=== PATIENT | female | born 1960 | race Caucasian/White ===

== ENCOUNTER 2020-02-17 17:07 | Emergency (ER) | payer OTHER, SELFPAY ==
[2020-02-17 17:17] VITALS: BP 159/68; PULSE 63; RESP 20; TEMP 36.7; O2SAT 99
--- NOTE | 2020-02-17 17:17 | ED.SOB ---
HPI - SOB/Dyspnea General Chief Complaint: Shortness of Breath/Dyspnea Stated Complaint: heartburn/wheezing Time Seen by Provider: 02/17/20 17:17 Source: patient and RN notes reviewed History of Present Illness HPI Narrative: Patient is a 60-year-old female who presents the urgent care with complaints of wheezing and heartburn. Patient states she has a long history of heartburn and her omeprazole was changed approximately 3 weeks ago to Pepcid. Patient states that the Pepcid was improving her symptoms, however she is out of the 40 mg Pepcid at this time. Patient states that she is now having some worsening wheezing as well within the last week and has been using her inhaler and nebulizers. Patient has a long history of COPD and she is no more short of breath than normal. Patient denies any known fever, chills, nausea, vomiting, chest pain. Denies any known contact with COVID. No other acute complaints. No acute distress noted. Patient read the plan of care. Related Data Allergies Allergy/AdvReac Type Severity Reaction Status Date / Time No Known Allergies Allergy Verified 02/17/20 17:34 Review of Systems Review of Systems: Narrative: CONSTITUTIONAL: Denies fever, chills, or sweats. EYES: Denies visual changes, redness, or discharge. ENT: Denies rhinorrhea, congestion, sore throat, or otalgia. CARDIOVASCULAR: Denies chest pain, palpitations, or edema. RESPIRATORY: Reports of chronic dyspnea and increased wheezing GASTROINTESTINAL: Denies abdominal pain, nausea, vomiting, or diarrhea. GENITOURINARY: Denies dysuria or hematuria. SKIN: Denies rash or itching. MUSCULOSKELETAL: Denies back pain, joint pain, or myalgia. NEUROLOGIC: Denies headache, numbness, or weakness. All other systems reviewed are negative, except as documented in HPI. PMFSH Comments At the time of my signature, I reviewed and agree with the nursing past medical, surgical, social, and family history. There is no relevant family history pertinent to the patient complaint. Exam Narrative: Exam Narrative: GENERAL: This is a well-nourished, well-developed patient, in no apparent distress. HEAD: normocephalic, atraumatic. EYES: PERRL. Sclera clear/white. Vision is grossly intact. EARS: External ears normal, auditory canals clear and without drainage, TMs normal without perforation. Hearing grossly intact. NOSE: External nose normal with no obvious nasal discharge, nares without redness, no rhinorrhea. THROAT: Mucous membranes moist, posterior pharynx clear. NECK: Neck supple CARDIOVASCULAR: Regular rate and rhythm without murmurs, gallops, or rubs. RESPIRATORY: Slight expiratory wheezes to bilateral upper lobes with slightly diminished bibasilar GASTROINTESTINAL: Abdomen soft, non-tender, nondistended. SKIN: warm, intact with no suspicious lesions or rash, good texture and turgor. NEURO: awake, alert, and oriented to person, place and time. There were no obvious focal neurologic abnormalities. EXTREMITIES: No clubbing, cyanosis, or edema. Course Vital Signs Vital signs: Vital Signs Temperature 98.1 F 02/17/20 17:17 Pulse Rate 63 02/17/20 17:17 Respiratory Rate 20 02/17/20 17:17 Blood Pressure 159/68 H 02/17/20 17:17 Pulse Oximetry 99 02/17/20 17:17 Temperature 98.1 F 02/17/20 17:17 Pulse Rate 63 02/17/20 17:17 Respiratory Rate 20 02/17/20 17:17 Blood Pressure 159/68 H 02/17/20 17:17 Pulse Oximetry 99 02/17/20 17:17 Reviewed?patient is informed that they may have pre-hypertension or hypertension based on a blood pressure reading in the department. I recommend the patient call the primary care provider listed on their discharge instructions or a physician of their choice this week to arrange follow-up for further evaluation of possible pre-hypertension or hypertension. MDM - SOB/Dyspnea MDM Narrative Medical decision making narrative: Advised the patient to continue using her nebulizers and inhalers as needed. Complete steroi
== END 2020-02-17 17:45 | disposition home or self-care (01) ==
PROVIDERS: Emergency Provider Nurse Practitioner Family; PCP Family Medicine
DX: R06.2 Wheezing (principal); K21.9 Gastro-esophageal reflux disease without esophagitis; J44.9 Chronic obstructive pulmonary disease, unspecified; E78.00 Pure hypercholesterolemia, unspecified; E03.9 Hypothyroidism, unspecified; I10 Essential (primary) hypertension; F31.9 Bipolar disorder, unspecified
CPT/HCPCS: 99213; G0463

== ENCOUNTER 2020-03-13 17:13 | Emergency (ER) | payer OTHER, SELFPAY ==
[2020-03-13 17:18] VITALS: BP 143/67; PULSE 65; RESP 16; TEMP 36.3; O2SAT 97
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
== END 2020-03-13 17:50 | disposition home or self-care (01) ==
PROVIDERS: Emergency Provider Nurse Practitioner; PCP Family Medicine
DX: M54.42 Lumbago with sciatica, left side (principal); S39.012A Strain of muscle, fascia and tendon of lower back, initial encounter; G89.29 Other chronic pain; E03.9 Hypothyroidism, unspecified; X50.0XXA Overexertion from strenuous movement or load, initial encounter
CPT/HCPCS: 99213; G0463

== ENCOUNTER 2020-11-10 18:06 | Emergency (ER) | payer OTHER, SELFPAY ==
[2020-11-10 18:13] VITALS: BP 182/91; PULSE 79; RESP 26; TEMP 36.1; O2SAT 89
[2020-11-10 18:20] VITALS: PULSE 79; RESP 26; O2SAT 89
--- NOTE | 2020-11-10 18:20 | ED.SOB ---
HPI - SOB/Dyspnea General Chief Complaint: Shortness of Breath/Dyspnea Stated Complaint: need nebulizer meds Time Seen by Provider: 11/10/20 18:20 Source: RN notes reviewed History of Present Illness HPI Narrative: Patient is a 60-year-old female who presents to the urgent care with needs for nebulizer medication. Patient states that she was seen in the emergency room yesterday, had a negative Covid test, and was treated for bronchitis and COPD exacerbation. Patient states that she did not realize she was almost out of her nebulizer solution and was unable to get a refill from her doctor today. Patient states that yesterday she was sent home on steroids, antibiotics and inhalers from the emergency room. Patient states that when she is taking her nebulizer solution appropriately, she does not experience the shortness of breath. However patient does have chronic shortness of breath. Currently denies of any chest pain, fever, nausea, vomiting. Patient states that she is also been following closely with her PCP. No other acute complaints. Patient read the plan of care. Some parts of this dictation were generated by voice recognition software and may contain typographical and/or grammatical inaccuracies. Related Data Home Medications Medication Instructions Recorded Confirmed albuterol sulfate 1 inh INHALATION QID PRN 02/17/20 11/10/20 albuterol sulfate 2.5 mg INHALATION Q4H PRN 02/17/20 11/10/20 divalproex 1,500 mg PO DAILY 02/17/20 11/10/20 levothyroxine 100 mcg PO DAILY 02/17/20 11/10/20 sertraline 100 mg PO DAILY 02/17/20 11/10/20 dexamethasone 12 mg PO DAILY 11/10/20 11/10/20 hydrocodone-acetaminophen 1 tablet PO Q6H PRN 11/10/20 11/10/20 levofloxacin 750 mg PO DAILY 11/10/20 11/10/20 metoprolol succinate 100 mg PO DAILY 11/10/20 11/10/20 rosuvastatin 20 mg PO DAILY 11/10/20 11/10/20 ziprasidone HCl 40 mg PO BID 11/10/20 11/10/20 Allergies Allergy/AdvReac Type Severity Reaction Status Date / Time No Known Allergies Allergy Verified 11/10/20 18:35 Review of Systems Review of Systems: Narrative: CONSTITUTIONAL: Denies fever, chills, or sweats. EYES: Denies visual changes, redness, or discharge. ENT: Denies rhinorrhea, congestion, sore throat, or otalgia. CARDIOVASCULAR: Denies chest pain, palpitations, or edema. RESPIRATORY: Acute on chronic dyspnea recently diagnosed with COPD exacerbation and bronchitis GASTROINTESTINAL: Denies abdominal pain, nausea, vomiting, or diarrhea. GENITOURINARY: Denies dysuria or hematuria. SKIN: Denies rash or itching. MUSCULOSKELETAL: Denies back pain, joint pain, or myalgia. NEUROLOGIC: Denies headache, numbness, or weakness. All other systems reviewed are negative, except as documented in HPI. [facility] Past Medical History Medical History (Updated 11/10/20 @ 19:00 by NANCY Mason) Bipolar disorder Chronic back pain Hypothyroidism Social History Social History Gender identity (if verbalized by the patient): Female Comments At the time of my signature, I reviewed and agree with the nursing past medical, surgical, social, and family history. There is no relevant family history pertinent to the patient complaint. Exam Narrative: Exam Narrative: GENERAL: This is a well-nourished, well-developed patient, in no apparent distress. HEAD: normocephalic, atraumatic. EYES: PERRL. Sclera clear/white. Vision is grossly intact. EARS: External ears normal NOSE: External nose normal with no obvious nasal discharge, nares without redness, no rhinorrhea. THROAT: Mucous membranes moist NECK: Neck supple CARDIOVASCULAR: Regular rate and rhythm without murmurs, gallops, or rubs. RESPIRATORY: Tight wheezes/rhonchi noted throughout SKIN: warm, intact with no suspicious lesions or rash, good texture and turgor. NEURO: awake, alert, and oriented to person, place and time. There were no obvious focal neurologic abnormalities. EXTREMITIES: No clubbing, cyanosis, or edema. Course Vital Sig
[2020-11-10] MEDS: ALBUTEROL SULFATE NEB 2.5 MG/3 ML INH INHALATION (18:32)
[2020-11-10 18:52] VITALS: BP 155/73; PULSE 66; RESP 20; O2SAT 92
== END 2020-11-10 19:03 | disposition home or self-care (01) ==
PROVIDERS: Emergency Provider Nurse Practitioner Family; PCP Internal Medicine
DX: J40 Bronchitis, not specified as acute or chronic (principal); J44.1 Chronic obstructive pulmonary disease with (acute) exacerbation; E03.9 Hypothyroidism, unspecified; F31.9 Bipolar disorder, unspecified
CPT/HCPCS: 94640; 99213; G0463

== ENCOUNTER 2025-01-22 12:02 | Emergency (ER) | payer OTHER, SELFPAY ==
[2025-01-22] VITALS (21 sets, daily range): BP systolic 110–156; BP diastolic 66–140; PULSE 58–72; RESP 18–20; TEMP 36.6–36.7; O2SAT 90–99
--- NOTE | ~2025-01-22 | CT_ITS ---
Clinical Indication: Abdominal pain, nausea CT Scan of the Chest, Abdomen, and Pelvis with Contrast: Technique: Contiguous sections were acquired throughout the chest, abdomen, and pelvis after intraven ous administration of 100 cc of Omnipaque 350. Dose reduction technique was used on this scan by ana [place] automated exposure control and iterative reconstruction technique. The dose-length product (DL P) was 466.52 mGy-cm. Findings: Shotty mediastinal lymph nodes are not enlarged by size criteria. No axillary lymphadenopathy. The me diastinal soft tissues appear normal. There is no evidence of pleural or pericardial effusion. The lungs are clear. No pulmonary nodules or infiltrates are noted. The liver, spleen, pancreas, gallbladder, adrenals and kidneys are within normal limits. There are at herosclerotic calcifications of the aorta. No lymphadenopathy. No bowel obstruction or bowel wall thickening. There is no evidence to suggest acute appendicitis. Urinary bladder is unremarkable. No pelvic mass seen. No ascites. There is degenerative spondylosis o f the lumbar spine. Impression: No acute abnormalities seen. Reviewed, dictated and finalized at location . Impression: No acute abnormalities seen.
--- OUTSIDE RECORDS SUMMARY | 2025-01-22 12:05 | XMS_ITS | Encounter Summary ---
Author Organization [facility] Address [address] [place] [address] Phone Care Team Providers Care Body Trimmer Name Role Phone Wesley Moya MD, Contreras Unavailable [phone] Riky Strauss MD Primary Care Provider [phone] Brayden Sellers MD Unavailable Michi Berman MD Unavailable Tressa Johnson MD Primary Care Provider [phone] Antoinette George APRN, [facility] Unavailable Reason for Visit * Reason Onset Date Comments requesting order 11/07/2021 Encounter Details Date Type Department Care Team (Late st Contact Info) Description 11/07/2021 Telephone [facility] [address] [place] [address] Riky Strauss MD [address] [place] [address] requesting order Social History Tobacco Use Types Packs/Day Years Used Date Smoking Tobacco: Heavy Smoker Cigarettes 1 42.3 Started: 09/22/1982 Smokeless Tobacco: Never Alcohol Use Standard Drinks/Week Comments No 0 (1 standard drink = 0.6 oz pur e alcohol) Sexually Active Control Partners Comments Yes Male Comments No Sex and Gender Information Value Date Recorded Sex Assigned at Female 05/27/2023 12:23 PM CDT Legal Sex Female 11:01 PM CDT Gender Identity Female 05/27/2023 12:23 PM CDT Sexual Orientation Not on file COVID-19 Exposure Response Date Recorded In the last month, have you been in contact with someone who was confirmed or suspected to have Coronavirus / COVID-19? No / Unsure 11/10/2021 12:58 PM BIODIESEL PRODUCTION TECHNICIAN documented as of this encounter Miscellaneous Notes * Telephone Encounter - Munira Avelar RN - 11/08/2021 9:03 AM BIODIESEL PRODUCTION TECHNICIAN Routing to home health. IESEL PRODUCTION TECHNICIAN * Telephone Encounter - Riky Strauss MD - 11/08/2021 7:35 AM BIODIESEL PRODUCTION TECHNICIAN That would be fine. IESEL PRODUCTION TECHNICIAN * Telephone Encounter - Janna Giles, PT - 11/07/2021 3:[address] Dr. Strauss - Would you please give a verbal order for a supervisor home economics to see pt in her home 2x/week for a shorttime to assist with bathing? She is fearful to shower without assist at this time due to weakness and a recent fall. Thanks - Mona Giles, PT IESEL PRODUCTION TECHNICIAN documented in this encounter Plan of Treatment Not on file documented as of this encounter Visit Diagnoses Not on filedocumented in this encounter Additional Health Concerns Infection Onset Date Last Indicated Resolved Time COVID - 19 Confirmed 10/20/2021 10/20/2021 022 12:16 AM BIODIESEL PRODUCTION TECHNICIAN COVID - 19 04/09/2022 04/09/2022 04/09/2022 2:37 PM CDT COVID - 19 04/15/2022 04/15/2022 04/16/2022 7:50 AM CDT Respiratory Rule-Out 10/16/2022 10/16/2022 023 6:16 AM BIODIESEL PRODUCTION TECHNICIAN Influenza 10/16/2022 10/16/2022 10/23/2022 12:1 9 AM BIODIESEL PRODUCTION TECHNICIAN COVID - 19 10/21/2022 10/21/2022 10/22/2022 7:50 AM BIODIESEL PRODUCTION TECHNICIAN COVID - 19 10/28/2022 10/28/2022 10/29/2022 8:15 AM BIODIESEL PRODUCTION TECHNICIAN Respiratory Rule-Out 10/28/2022 10/28/2022 023 4:15 PM BIODIESEL PRODUCTION TECHNICIAN COVID - 19 11/09/2022 11/09/2022 11/19/2022 12:1 8 AM BIODIESEL PRODUCTION TECHNICIAN COVID - 19 11/25/2022 11/25/2022 11/26/2022 8:06 AM BIODIESEL PRODUCTION TECHNICIAN COVID - 19 10/15/2023 10/22/2023 11/01/2023 12:1 6 AM BIODIESEL PRODUCTION TECHNICIAN COVID - 19 12/12/2023 12/12/2023 12/12/2023 4:38 AM BIODIESEL PRODUCTION TECHNICIAN COVID - 19 12/23/2023 12/23/2023 12/23/2023 12:5 5 PM CDT COVID - 19 04/15/2024 04/15/2024 04/15/2024 4:34 PM CDT COVID - 19 08/25/2024 08/25/2024 08/25/2024 1:35 PM BIODIESEL PRODUCTION TECHNICIAN COVID - 19 Confirmed 08/25/2024 08/25/2024 024 12:16 AM BIODIESEL PRODUCTION TECHNICIAN COVID - 19 09/09/2024 09/09/2024 09/09/2024 1:04 PM BIODIESEL PRODUCTION TECHNICIAN COVID - 19 09/13/2024 09/13/2024 09/13/2024 7:49 AM BIODIESEL PRODUCTION TECHNICIAN documented as of this encounter Care Teams Body Trimmer Relationship Specialty Start Date End Date Riky Strauss MD [address] [place] [address] PCP - General Internal Medicine 09/18/21 07/29/23 Tressa Johnson MD [address] [place] [id number] PCP - General Family Medicine 07/30/23 Contreras Olson MD [address] [address] Psychiatry 06/17/19 Brayden Sellers MD [address] [place] [address] Consulting Physician Orthopaedic Sports Medicine 11/10/21 Michi Berman MD [address] [place] [address] Consulting Physician Pulmonary Disease 04/13/22 Antoinette George APRN, [facility] [address] [place] [address] Nurse Practitioner Advanced Practice Nurse 07/02/24 documented as of this encounter
--- OUTSIDE RECORDS SUMMARY | 2025-01-22 12:05 | XMS_ITS | Encounter Summary ---
Author Organization [facility] Address [address] [place] [address] Phone Care Team Providers Care Shear Scrapman Name Role Phone Wesley Moya MD, Contreras Unavailable [phone] Riky Strauss MD Primary Care Provider [phone] Brayden Sellers MD Unavailable Michi Berman MD Unavailable Tressa Johnson MD Primary Care Provider [phone] Antoinette George APRN, [facility] Unavailable Reason for Visit * Reason Comments Medication Refill Encounter Details Date Type Department Care Team (Late st Contact Info) Description 04/02/2022 Refill [facility] - Primary Care - Irene [address] [place] [address] Riky Strauss MD [address] [place], [place] [id number] Medication Refill Social History Tobacco Use Types Packs/Day Years [...] Exposure Response Date Recorded In the last 10 days, have yo u been in contact with someone who was confirmed or suspected to have Coronavirus/COVID-19? No / Unsure 04/03/2022 1:23 PM CDT documented as of this encounter Miscellaneous Notes * Telephone Encounter - Jennifer Mast RN - 04/02/2022 8:49 AM CDT Medication discontinued 03/01/2022. documented in this encounter Plan of Treatment Not on file documented as of this encounter Visit Diagnoses Diagnosis Strain of left knee, subsequent encounter documented in this encounter Additional Health Concerns Infection Onset Date Last Indicated Resolved Time COVID - 19 04/09/2022 04/09/2022 04/09/2022 2:37 PM CDT COVID - 19 04/15/2022 04/15/2022 04/16/2022 7:50 AM CDT Respiratory Rule-Out 10/16/2022 10/16/2022 023 6:16 AM PRICING LEAD Influenza 10/16/2022 10/16/2022 10/23/2022 12:1 9 AM PRICING LEAD COVID - 19 10/21/2022 10/21/2022 10/22/2022 7:50 AM PRICING LEAD COVID - 19 10/28/2022 10/28/2022 10/29/2022 8:15 AM PRICING LEAD Respiratory Rule-Out 10/28/2022 10/28/2022 023 4:15 PM PRICING LEAD COVID - 19 11/09/2022 11/09/2022 11/19/2022 12:1 8 AM PRICING LEAD COVID - 19 11/25/2022 11/25/2022 11/26/2022 8:06 AM PRICING LEAD COVID - 19 10/15/2023 10/22/2023 11/01/2023 12:1 6 AM PRICING LEAD COVID - 19 12/12/2023 12/12/2023 12/12/2023 4:38 AM PRICING LEAD COVID - 19 12/23/2023 12/23/2023 12/23/2023 12:5 5 PM CDT COVID - 19 04/15/2024 04/15/2024 04/15/2024 4:34 PM CDT COVID - 19 08/25/2024 08/25/2024 08/25/2024 1:35 PM PRICING LEAD COVID - 19 Confirmed 08/25/2024 08/25/2024 024 12:16 AM PRICING LEAD COVID - 19 09/09/2024 09/09/2024 09/09/2024 1:04 PM PRICING LEAD COVID - 19 09/13/2024 09/13/2024 09/13/2024 7:49 AM PRICING LEAD documented as of this encounter Care Teams Shear Scrapman Relationship Specialty Start Date End Date Riky Strauss MD [address] [place] [address] PCP - General Internal Medicine 09/18/21 07/29/23 Tressa Johnson MD [address] [place] [id number] PCP - General Family Medicine 07/30/23 Contreras Olson MD [address] [address] Psychiatry 06/17/19 Brayden Sellers MD [address] [place] [address] Consulting Physician Orthopaedic Sports Medicine 11/10/21 Michi Berman MD [address] [place] [address] Consulting Physician Pulmonary Disease 04/13/22 Antoinette George APRN, [facility] [address] [place] [address] Nurse Practitioner Advanced Practice Nurse 07/02/24 documented as of this encounter
--- OUTSIDE RECORDS SUMMARY | 2025-01-22 12:05 | XMS_ITS | Clinical Summary ---
Author Organization [facility] [employer] Address [address] [place] [address] Care Team Providers Care Jig And Fixture Repairer Name Role Phone Alec Domingo MD Primary Care Provider [phone] Source Comments [facility] [employer],non-owned Affiliates and Associated Physician Practices is amultiple site organization consisting of ambulatory clinics and hospital sitesin [place], [place] and [place]. This disclosure is being madepursuant to the Care Everywhere program and may not contain all information available regarding this patient. Last updated 18.[facility] [employer] Allergies Active Allergy Reactions Criticality Noted Date Comments Ketorolac Tromethamine Itching Low 04/08/2017 Tramadol Itching Low 04/11/2016 Medications * Be aware that medications may not be up to date on this document. Alwaysverify current medications with the patient. Medication Sig Dispensed Refills Start Date End Date Status albuterol HFA (PROVENTIL;VENTOLIN ;PROAIR) 108 (90 BASE) MCG/ACT inhalerIndications: Asthma,Chronic Obstructive Pulmonary Disease Inhale 2 Puffs by mouth every 6 hours as needed for Shortness of Breath or Wheezing. Indications: Asthma, Chronic Obstructive Lung Disease 1 Inhaler 1 04/26/2014 Active metoprolol succinate XL 24hr (TOPROL XL) 50 MG tabletIndications:H ypertension Take 1 Tab by mouth once daily. Indications: High Blood Pressure 30 Tab 1 04/26/2014 Active levothyroxine (SYNTHROID) 100 MCG tabletIndications:H ypothyroidism Take 1 Tab by mouth daily before breakfast. Indications: Underactive Thyroid 30 Tab 1 04/26/2014 Active omeprazole (PRILOSEC) 20 MG capsule 04/01/2016 Active polyethylene glycol 3350 (MIRALAX) powder 03/05/2016 Active docusate sodium (COLACE) 100 MG capsule Take 1 Cap by mouth 2 times daily 60 Cap 3 04/17/2016 Active temazepam (RESTORIL) 15 MG capsuleIndications: Insomnia Take 15 mg by mouth nightly as needed for Insomnia Reasons: Trouble Sleeping Active divalproex ER 24hr (DEPAKOTE ER) 500 MG tabletIndications:b ipolar Take 3 tablets by mouth at bedtime Reasons: bipolar 90 tablet 12/05/2017 Active divalproex ER 24hr (DEPAKOTE ER) 500 MG tabletIndications:M anic Phase of Bipolar Mood Disorder Take 1 tablet by mouth once daily Reasons: Manic Phase of Manic-Depression 30 tablet 12/06/2017 Active sertraline (ZOLOFT) 100 MG tabletIndications:A nxiety Disorder Take 1 tablet by mouth once daily Reasons: Anxiety Disorder 30 tablet 12/06/2017 Active risperiDONE (RISPERDAL) 2 MG tabletIndications:B ipolar Mood Disorder Take 1 tablet by mouth at bedtime Reasons: Manic-Depression 30 tablet 12/05/2017 Active nicotine (NICODERM CQ) 21 MG/24HR patchIndications:to bacco use Apply 1 patch to skin once daily Remove old patch before applying new patch. Reasons: tobacco use 30 patch 12/05/2017 Active Active Problems Problem Noted Date Diagnosed Date Bipolar disorder 04/21/2014 Borderline personality disorder 04/21/2014 Family History Medical History Relation Name Comments Depression Brother Cancer Mother Depression Mother Diabetes Mother Depression Sister Relation Name Status Comments Brother Mother Sister Social History Tobacco Use Types Packs/Day Years Used Date Smoking Tobacco: Former Cigarettes 1 38 0 12/02/1979 - 12/02/2017 Smokeless Tobacco: Never Tobacco Cessation:Counseling Given: No Alcohol Use Standard Drinks/Week Comments No 0 (1 standard drink = 0.6 oz pur e alcohol) Sex and Gender Information Value Date Recorded Sex Assigned at Not on file Gender Identity Not on file Sexual Orientation Not on file Last Filed Vital Signs Vital Sign Reading Time Taken Comments Blood Pressure 140/68 12/05/2017 6:09 AM COMPLIANCE TECHNICIAN Pulse 68 12/05/2017 6:09 AM COMPLIANCE TECHNICIAN Temperature 37 C (98.6 F) 12/05/2017 6:09 AM COMPLIANCE TECHNICIAN Respiratory Rate 18 12/05/2017 6:09 AM COMPLIANCE TECHNICIAN Oxygen Saturation 96% 12/05/2017 6:09 AM COMPLIANCE TECHNICIAN Inhaled Oxygen Concentration - - Weight 88 kg (194 lb 1.6 oz) 12/02/2017 10:20 AM COMPLIANCE TECHNICIAN Height 165.1 cm (5' 5 ) 12/02/2017 10:20 AM COMPLIANCE TECHNICIAN Body Mass Index 32.3 12/02/2017 10:20 AM COMPLIANCE TECHNICIAN Plan of Treatment Health Maintenance Due Date Last Done Comments BONE DENSITY TESTING 1960 COLOGUARD (AGES 45-75) - COLON CA SCREENING 1960 COLON MONITORING 1960 COLONOSCOPY - COLON CA SCREENING 1960 CT COLONOGRAPHY - COLON CA SCREENING 1960 Colorectal Cancer Screening 1960 FIT - COLON CA SCREENING 1960 FLEX SIG - COLON CA SCREENING 1960 MAMMOGRAM 1960 PAP SMEAR 1960 HIV SCREENING 01/09/1975 HEPATITIS C SCREENING 01/05/1978 DTAP/TDAP/TD VACCINES (1 - Tdap) 01/09/1979 PNEUMOCOCCAL VACCINE 50+ (1 of 1 - PCV) 01/09/2010 ZOSTER VACCINE (1 of 2) 01/09/2010 LIPID TESTING 12/03/2022 12/03/2017, 04/21/2014 COVID-19 VACCINE (2 - season) 2024 01/02/2022 INFLUENZA VACCINE (Season Ended) 2025 07/03/2022, 09/22/2021, 07/20/2020, Additional history exists Respiratory Syncytial Virus (RSV) Vaccine Pt: or over 60 yrs (1 - 1-dose 75+ series) 01/09/2035 HEPATITIS B VACCINE Aged Out No longe r eligible based on patient's age to complete this topic HIB VACCINE Aged Out No longer eligi ble based on patient's age to complete this topic HPV VACCINE Aged Out No longer eligi ble based on patient's age to complete this topic MENINGOCOCCAL (Group B) VACCINE SHARED DECISION-MAKING Aged Out No longer eligible based on patient's age to complete this topic MENINGOCOCCAL GROUPS A/C/Y/W VACCINE Aged Out No longer eligible based on patient's age to complete this topic Procedures Procedure Name Priority Date/Time Associated Diagnosis Comments LIPID PROFILE AM Draw 12/03/2017 8:01 AM COMPLIANCE TECHNICIAN from Last 3 Months or Most Recently Relevant to Health Maintenance Results * (ABNORMAL) LIPID PROFILE (12/03/2017 8:01 AM COMPLIANCE TECHNICIAN) Cholesterol 323(H) <200 mg/dL 12/03/2017 8:24 AM COMPLIANCE TECHNICIAN [facility] Triglycerides 396(H) <150 mg/dL 12/03/2017 8:24 AM COMPLIANCE TECHNICIAN [facility] HDL Cholesterol 33(L) >40 mg/dL 8 8:24 AM COMPLIANCE TECHNICIAN [facility] LDL Calculated 211(H) <130 mg/dL 12/03/2017 8:24 AM COMPLIANCE TECHNICIAN [facility] VLDL Calculated 79(H) <=30 mg/dL 8 8:24 AM COMPLIANCE TECHNICIAN [facility] Chol HDL Ratio 9.8(H) <4.5 12/03/2017 8:24 AM COMPLIANCE TECHNICIAN [facility] LDL/HDL Ratio 6.4(H) <5.0 12/03/2017 8:24 AM COMPLIANCE TECHNICIAN [facility] Blood BLOOD SPECIMEN / Unknown Venipuncture / Unknown 12/03/2017 8:01 AM COMPLIANCE TECHNICIAN 12/03/2017 8:01 AM COMPLIANCE TECHNICIAN Ta Abraham MD LAB - CHEMISTRY SIMONE [facility] Organization Address City/State/ZIP Co de Phone Number [facility] [address] [place] [address] from Last 3 Months or Most Recently Relevant to Health Maintenance Advance Directives * Full Code (Latest Code Status on File) Date Activated Date Inactivated Comments 12/02/2017 11:04 AM 12/05/2017 2:51 PM * Full Code Date Activated Date Inactivated Comments 04/17/2016 7:41 PM 04/18/2016 7:17 PM * Full Code Date Activated Date Inactivated Comments 04/21/2014 1:04 AM 04/26/2014 7:55 PM Care Teams Jig And Fixture Repairer Relationship Specialty Start Date End Date Alec Domingo MD [address] [place] [id number] PCP - General Family Medicine 04/11/16
--- OUTSIDE RECORDS SUMMARY | 2025-01-22 12:05 | XMS_ITS ---
Author Organization Unknown Address [address] [place] [phone] Phone Care Team Providers Care Pie Baker Name Role Phone LACIE BLANCOEN Attending Unavailable JIMENA Vu Primary Unavailable Immunization Immunization Date Status Additional Notes Code Code System pneumococcal polysaccharide PPV23 09/22/2021 Completed 33 CVX influenza, unspecified formulation 07/14/2019 Completed 88 CVX Tdap 04/07/2017 Completed 115 CVX Tdap 07/08/2020 Completed 115 CVX Influenza, high-dose, trivalent, PF 06/26/2018 Completed 135 CVX Influenza, split virus, trivalent, PF 11/30/2013 Completed 140 CVX Influenza, split virus, quadrivalent, PF 06/17/2019 Completed 150 CVX Influenza, split virus, quadrivalent, PF 09/22/2021 Completed 150 CVX Influenza, split virus, quadrivalent, PF 07/03/2022 Completed 150 CVX Influenza, split virus, quadrivalent, preservative 08/17/2015 Completed 158 C VX Influenza, split virus, quadrivalent, preservative 06/26/2016 Completed 158 C VX Influenza, split virus, quadrivalent, preservative 08/05/2023 Completed 158 C VX Influenza, MDCK, quadrivalen t, PF 07/20/2020 Completed 171 CVX COVID-19, mRNA, LNP-S, PF, 3 0 mcg/0.3 mL dose 01/08/2021 Completed 208 CVX COVID-19, mRNA, LNP-S, PF, 3 0 mcg/0.3 mL dose 01/29/2021 Completed 208 CVX Pneumococcal conjugate PCV20 , polysaccharide [id number] conjugate, adjuvant, PF 10/24/2022 Completed 216 CVX COVID-19, mRNA, LNP-S, PF, 3 0 mcg/0.3 mL dose, raymond-sucrose 01/02/2022 Completed 217 CVX Results MRI UE JOINT WO CONTRAST - C ompleted: 09/17/2023 16:17 LOINC: EXAM DESCRIPTION: MRI UE JOINT WO CONTRAST REASON FOR STUDY: Right shoulder MRI wo contrast. 2-3 months since injurious fall over a dog, resulting in blunt force trauma to right shoulder joint and subsequent pain/loss of R.O.M. and utility of right arm; pt holds right arm against the front of her body to protect the joint; joint pain wakes the pt at night. Trauma, as described. Duration: 2-3 months since injury without improvement. TECHNIQUE: Multiplanar, multisequence MRI of the right shoulder was performed without contrast. COMPARISON: X-rays 06/28/2023. FINDINGS: Rotator Cuff: There is a small full-thickness tear of the far leading edge of the supraspinatus over a 3 mm focus. Immediately posterior to this is moderate bursal surface and undersurface tearing over a 6 x 7 mm focus. Moderate tendinosis otherwise with a small focus of interstitial tearing. Mild tendinosis anterior infraspinatus. The subscapularis demonstrates mild tendinosis of the superolateral aspect. No tear. Teres minor demonstrates no significant tendinopathy or tear. Overall, there is normal muscle bulk and signal of rotator musculature itself. Biceps Tendon: The long head of the biceps tendon appears normal in the bicipital groove and at the anchor. Labrum: There is paralabral cyst formation seen along the posterior aspect of the posterior labrum just below the level of the equator measuring 3 mm. Paralabral cyst formation implies a tear. Labrum is otherwise intact. Acromion and AC Joint: The coracoacromial and coracoclavicular ligaments are intact. No os acromiale. Severe osteoarthritis AC joint. Mild type 2 acromion. Glenohumeral Articulation: Mild chondrosis. Bones: No acute fracture or suspicious marrow infiltration. Small cystic change deep to the bicipital groove. Joint and bursae: Mild joint effusion. Soft Tissues: The scapular notch, and quadrilateral space are unremarkable. There is no axillary lymphadenopathy. IMPRESSION: ? ? There is a small full-thickness tear of the far leading edge of the supraspinatus over a 3 mm focus. Immediately posterior to this is moderate bursal surface and undersurface tearing over a 6 x 7 mm focus. Moderate tendinosis otherwise with a small focus of interstitial tearing. ? ? Mild tendinosis anterior infraspinatus. ? ? Mild tendinosis superolateral subscapularis. ? ? 3 mm paralabral cyst formation is seen along the posterior aspect of the posterior labrum just below the level of the equator. Paralabral cyst formation implies a tear. ? ? Severe osteoarthritis AC joint. ? ? Mild chondrosis glenohumeral joint. ? ? Mild joint effusion. THIS IS AN ELECTRONICALLY VERIFIED FINAL REPORT 09/18/2023 9:04 AM - Electronically signed by Randal Worthington M.D. MJ: [id number] Report ID: [id number] Reading Location: [place] [address] Social History Type Status Start Date End Date Code Code Syst em Smoking History Never smoker (Never Smoked) [id number] SNOMED CT Sex Female Hospital Discharge Instructions Should you have any questions prior to discharge, please contact a member of your healthcare team. If you have left the hospital and have any questions, please contact your primary care physician. Reason For Referral No Data Found Plan of Treatment MRI UE Joint WO Contrast (22610) 2022 Encounters Encounter Diagnosis Start Date Code Code Sys tem Complete rotator cuff tear o r rupture of right shoulder, not specified as traumatic 09/17/2023 SNOMED-CT Personal Care Team Section Performer Name Performer Role Active Date Inactive Da te Imaging Narrative Notes
--- OUTSIDE RECORDS SUMMARY | 2025-01-22 12:05 | XMS_ITS | Encounter Summary ---
Author Organization [facility] Address [address] [place] [address] Phone Care Team Providers Care Air Pollution Analyst Name Role Phone Wesley Moya MD, Contreras Unavailable Riky Strauss MD Primary Care Provider [phone] Brayden Sellers MD Unavailable Michi Berman MD Unavailable Terssa Johnson MD Primary Care Provider [phone] Antoinette George APRN, INDEPENDENT LIVING ADVISOR Unavailable Encounter Details Date Type Department Care Team (Late st Contact Info) Description 11/01/2021 Lab Requisition [facility] [address] [place] [address] Riky Strauss MD [address] [place] [address] Chronic obstructive pulmonary disease, unspecified (HCC) Social History Tobacco Use Types Packs/Day Years [...] or suspected to have Coronavirus / COVID-19? Yes 11/02/2021 1:[address] [facility]ICE documented as of this encounter Plan of Treatment Not on file documented as of this encounter Procedures Procedure Name Priority Date/Time Associated Diagnosis Comments CBC WITH AUTO DIFFERENTIAL Routine 11/01/2021 10:[address] JUSTICE Chronic obstructive pulmonary disease, unspecified (HCC) COMPLETE BLOOD COUNT (CBC) WITH DIFF Routine 11/01/2021 10:[address] JUSTICE Chronic obstructive pulmonary disease, unspecified (HCC) documented in this encounter Results * (ABNORMAL) CBC WITH AUTO DIFFERENTIAL (11/01/2021 10:[address] JUSTICE) WBC 17.84(H) 4.00 - 12.00 10(3)/mcL 11/01/2021 2:[address] [facility] RBC 5.69(H) 3.80 - 5.30 10(6)/mcL 11/01/2021 2:[address] [facility] HEMOGLOBIN (HGB) 15.8 12.0 - 15.8 g/dL 11/01/2021 2:[address] [facility] HEMATOCRIT (HCT) 50.9(H) 36.0 - 47.0 % 11/01/2021 2:[address] [facility] MCV 89.5 82.0 - 96.0 fL 11/01/2021 2:[address] [facility] MCH 27.8 26.0 - 34.0 pg 11/01/2021 2:[address] [facility] MCHC 31.0 31.0 - 36.0 g/dL 11/01/2021 2:[address] [facility] PLATELET COUNT 275 140 - 440 10(3)/mcL 11/01/2021 2:[address] [facility] RDW 13.5 11.8 - 15.5 % 11/01/2021 2:36 PM [facility] MPV 10.8 9.7 - 12.4 fL 11/01/2021 2:36 PM [facility] NEUTROPHILS 51.3 47.0 - 73.0 % 11/01/2021 2:[address] [facility] LYMPHOCYTES 40.2 18.0 - 42.0 % 11/01/2021 2:[address] [facility] MONOCYTES 6.3 4.0 - 12.0 % 11/01/2021 2:36 PM [facility] EOSINOPHILS 1.5 0.0 - 5.0 % 11/01/2021 2:36 PM [facility] BASOPHILS 0.7 0.0 - 1.0 % 11/01/2021 2:36 PM [facility] ABSOLUTE NEUTROPHILS 9.15(H) 1.60 - 7.70 10(3)/[facility] 11/01/2021 2:36 PM [facility] ABSOLUTE LYMPHOCYTES 7.18(H) 1.30 - 3.20 10(3)/[facility] 11/01/2021 2:36 PM [facility] ABSOLUTE MONOCYTES 1.13(H) 0.20 - 1.00 10(3)/[facility] 11/01/2021 2:36 PM [facility] ABSOLUTE EOSINOPHIL 0.26 0.00 - 0.40 10(3)/[facility] 11/01/2021 2:36 PM [facility] ABSOLUTE BASOPHILS 0.12(H) 0.00 - 0.10 10(3)/[facility] 11/01/2021 2:36 PM [facility] NRBC PER 100 WBC 0 11/01/19 2:36 PM [facility] RESULTS ARE CONSISTENT WITH PERIPHERAL SMEAR REVIEW Yes 11/01/2021 2:36 PM [facility] Blood No Phlebotomy Charged / Unknown 11/01/2021 10:[address] [facility] 11/01/2021 1:[address] JUSTICE us Riky Strauss MD HEMATOLOGY ORDERABLES Fin al Result Performing Organization Address City/State/[facility] Co de Phone Number [facility] [address] [place] [address] documented in this encounter Visit Diagnoses Diagnosis Chronic obstructive pulmonary disease, unspecified documented in this encounter Additional Health Concerns Infection Onset Date Last Indicated Resolved Time COVID - 19 Confirmed 10/20/2021 10/20/2021 022 12:[address] [facility]ICE COVID - 19 04/09/2022 04/09/2022 04/09/2022 2:37 PM CDT COVID - 19 04/15/2022 04/15/2022 04/16/2022 7:50 AM CDT Respiratory Rule-Out 10/16/2022 10/16/2022 023 6:[address] [facility] Influenza 10/16/2022 10/16/2022 10/23/2022 12:[address] [facility] COVID - 19 10/21/2022 10/21/2022 10/22/2022 7:[address] [facility]ICE COVID - 19 10/28/2022 10/28/2022 10/29/2022 8:[address] [facility]ICE Respiratory Rule-Out 10/28/2022 10/28/2022 023 4:[address] JUSTICE COVID - 19 11/09/2022 11/09/2022 11/19/2022 12:[address] JUSTICE COVID - 19 11/25/2022 11/25/2022 11/26/2022 8:[address] [facility] COVID - 19 10/15/2023 10/22/2023 11/01/2023 12:[address] [facility]ICE COVID - 19 12/12/2023 12/12/2023 12/12/2023 4:[address] [facility]ICE COVID - 19 12/23/2023 12/23/2023 12/23/2023 12:5 5 PM CDT COVID - 19 04/15/2024 04/15/2024 04/15/2024 4:34 PM CDT COVID - 19 08/25/2024 08/25/2024 08/25/2024 1:[address] JUSTICE COVID - 19 Confirmed 08/25/2024 08/25/2024 024 12:[address] [facility] COVID - 19 09/09/2024 09/09/2024 09/09/2024 1:[address] JUSTICE COVID - 19 09/13/2024 09/13/2024 09/13/2024 7:[address] [facility] documented as of this encounter Care Teams Air Pollution Analyst Relationship Specialty Start Date End Date Riky Strauss MD [address] [place] [address] PCP - General Internal Medicine 09/18/21 07/29/23 Tressa Johnson MD [address] [place] [id number] PCP - General Family Medicine 07/30/23 Contreras Olson MD [address] [place] [address] Psychiatry 06/17/19 Brayden Sellers MD [address] [place] [address] Consulting Physician Orthopaedic Sports Medicine 11/10/21 Michi Berman MD [address] [place] [id number] Consulting Physician Pulmonary Disease 04/13/22 Antoinette George APRN, INDEPENDENT LIVING ADVISOR [address] [place] [address] Nurse Practitioner Advanced Practice Nurse 07/02/24 documented as of this encounter
--- OUTSIDE RECORDS SUMMARY | 2025-01-22 12:05 | XMS_ITS | Encounter Summary ---
Author Organization [facility] Address [address] [place] [address] Phone Care Team Providers Care Hand Hardener Name Role Phone Wesley Moya MD, Christopher Unavailable [phone] Brayden Sellers MD Unavailable [phone] Michi Berman MD Unavailable Tressa Johnson MD Primary Care Provider [phone]- [phone] Antoinette George APRN, ROGUER Unavailable Encounter Details Date Type Department Care Team (Late st Contact Info) Description 11/22/2023 Transcribe [facility] [address] [place] [address] Tressa Johnson MD [address] [place] [id number] Hypertension, unspecified type (Primary Dx) Social History Tobacco Use Types Packs/Day Years Used Date Smoking Tobacco: Every Day Cigarettes 0.5 41 Started: 02/01/2023 Smokeless Tobacco: Never Comments:Down to 4 cigs a da y Alcohol Use Standard Drinks/Week Comments No 0 (1 standard drink = 0.6 oz pur e alcohol) Sexually Active Control Partners Comments Yes Male Comments No Sex and Gender Information Value Date Recorded Sex Assigned at Female 05/27/2023 12:23 PM CDT Legal Sex Female 11:01 PM CDT Gender Identity Female 05/27/2023 12:23 PM CDT Sexual Orientation Not on file documented as of this encounter Plan of Treatment Scheduled Orders Name Type Priority Associated Diagnoses Orde r Schedule COMPLETE BLOOD COUNT (CBC) WITH DIFF Lab Routine Hypertension, unspecified type Expected: 11/22/2023 (Approximate), Expires: 11/21/2024 CMP (COMPREHENSIVE METABOLIC PANEL) Lab Routine Hypertension, unspecified type Expected: 11/22/2023 (Approximate), Expires: 11/21/2024 documented as of this encounter Visit Diagnoses Diagnosis Hypertension, unspecified type- Primary documented in this encounter Additional Health Concerns Infection Onset Date Last Indicated Resolved Time COVID - 19 12/12/2023 12/12/2023 12/12/2023 4:38 AM IMPLEMENTATION PROJECT COORDINATOR COVID - 19 12/23/2023 12/23/2023 12/23/2023 12:5 5 PM CDT COVID - 19 04/15/2024 04/15/2024 04/15/2024 4:34 PM CDT COVID - 19 08/25/2024 08/25/2024 08/25/2024 1:35 PM IMPLEMENTATION PROJECT COORDINATOR COVID - 19 Confirmed 08/25/2024 08/25/2024 024 12:16 AM IMPLEMENTATION PROJECT COORDINATOR COVID - 19 09/09/2024 09/09/2024 09/09/2024 1:04 PM IMPLEMENTATION PROJECT COORDINATOR COVID - 19 09/13/2024 09/13/2024 09/13/2024 7:49 AM IMPLEMENTATION PROJECT COORDINATOR documented as of this encounter Care Teams Hand Hardener Relationship Specialty Start Date End Date Tressa Johnson MD [address] [place] [address] PCP - General Family Medicine 07/30/23 Contreras Olson MD [address] [place] [address] Psychiatry 06/17/19 Brayden Sellers MD [address] [place] [address] Consulting Physician Orthopaedic Sports Medicine 11/10/21 Michi Berman MD [address] [place] [address] Consulting Physician Pulmonary Disease 04/13/22 Antoinette George APRN, ROGUER [address] [place] [address] Nurse Practitioner Advanced Practice Nurse 07/02/24 documented as of this encounter
--- OUTSIDE RECORDS SUMMARY | 2025-01-22 12:05 | XMS_ITS | Encounter Summary ---
Author Organization [facility] Address [address] [place] [address] Phone Care Team Providers Care Graphic Art Technician Name Role Phone Wesley Moya MD, Contreras Unavailable [phone] Riky Strauss MD Primary Care Provider [phone] Brayden Sellers MD Unavailable Michi Berman MD Unavailable Tressa Johnson MD Primary Care Provider [phone] Antoinette George APRN, [facility] Unavailable Reason for Visit * Reason Comments Medication Refill Encounter Details Date Type Department Care Team (Late st Contact Info) Description 03/04/2022 Refill [facility] - Primary Care - [place] [address] [place] [address] Riky Strauss MD [address] [place], [place] [id number] Medication Refill Social History Tobacco Use Types [...] suspected to have Coronavirus/COVID-19? No / Unsure 02/27/2022 10:16 AM CDT documented as of this encounter Miscellaneous Notes * Telephone Encounter - Jennifer Mast RN - 03/05/2022 8:23 AM CDT Refill request too soon. documented in this encounter Plan of Treatment Not on file documented as of this encounter Visit Diagnoses Not on filedocumented in this encounter Additional Health Concerns Infection Onset Date Last Indicated Resolved Time COVID - 19 04/09/2022 04/09/2022 04/09/2022 2:37 PM CDT COVID - 19 04/15/2022 04/15/2022 04/16/2022 7:50 AM CDT Respiratory Rule-Out 10/16/2022 10/16/2022 023 6:16 AM CERTIFIED MEDICAL TECHNICIAN ASSISTANT Influenza 10/16/2022 10/16/2022 10/23/2022 12:1 9 AM CERTIFIED MEDICAL TECHNICIAN ASSISTANT COVID - 19 10/21/2022 10/21/2022 10/22/2022 7:50 AM CERTIFIED MEDICAL TECHNICIAN ASSISTANT COVID - 19 10/28/2022 10/28/2022 10/29/2022 8:15 AM CERTIFIED MEDICAL TECHNICIAN ASSISTANT Respiratory Rule-Out 10/28/2022 10/28/2022 023 4:15 PM CERTIFIED MEDICAL TECHNICIAN ASSISTANT COVID - 19 11/09/2022 11/09/2022 11/19/2022 12:1 8 AM CERTIFIED MEDICAL TECHNICIAN ASSISTANT COVID - 19 11/25/2022 11/25/2022 11/26/2022 8:06 AM CERTIFIED MEDICAL TECHNICIAN ASSISTANT COVID - 19 10/15/2023 10/22/2023 11/01/2023 12:1 6 AM CERTIFIED MEDICAL TECHNICIAN ASSISTANT COVID - 19 12/12/2023 12/12/2023 12/12/2023 4:38 AM CERTIFIED MEDICAL TECHNICIAN ASSISTANT COVID - 19 12/23/2023 12/23/2023 12/23/2023 12:5 5 PM CDT COVID - 19 04/15/2024 04/15/2024 04/15/2024 4:34 PM CDT COVID - 19 08/25/2024 08/25/2024 08/25/2024 1:35 PM CERTIFIED MEDICAL TECHNICIAN ASSISTANT COVID - 19 Confirmed 08/25/2024 08/25/2024 024 12:16 AM CERTIFIED MEDICAL TECHNICIAN ASSISTANT COVID - 19 09/09/2024 09/09/2024 09/09/2024 1:04 PM CERTIFIED MEDICAL TECHNICIAN ASSISTANT COVID - 19 09/13/2024 09/13/2024 09/13/2024 7:49 AM CERTIFIED MEDICAL TECHNICIAN ASSISTANT documented as of this encounter Care Teams Graphic Art Technician Relationship Specialty Start Date End Date Riky Strauss MD [address] [place] [address] PCP - General Internal Medicine 09/18/21 07/29/23 Tressa Johnson MD [address] [place] [address] PCP - General Family Medicine 07/30/23 Contreras Olson MD [address] [place] [address] Psychiatry 06/17/19 Brayden Sellers MD [address] [place] [address] Consulting Physician Orthopaedic Sports Medicine 11/10/21 Michi Berman MD [address] [place] [id number] Consulting Physician Pulmonary Disease 04/13/22 Antoinette George APRN, SPECIAL DELIVERY CARRIER [address] [place] [address] Nurse Practitioner Advanced Practice Nurse 07/02/24 documented as of this encounter
--- OUTSIDE RECORDS SUMMARY | 2025-01-22 12:05 | XMS_ITS | CONTINUITY OF CARE DOCUMENT ---
Author Name saul hughes Address Unknown Organization [facility] Address [address] [place] [address] Phone [phone] Care Team Providers Care Automatic Spooler Operator Name Role Phone Kareem Morejon MD Unavailable Kareem Morejon MD Unavailable INSURANCE PROVIDERS Payer name Policy type / Coverage type [employer]ena red constitution party ID [employer] MEDICAID (2) Medicaid [id number]
--- OUTSIDE RECORDS SUMMARY | 2025-01-22 12:05 | XMS_ITS | Encounter Summary ---
Author Organization [facility] Address [address] [place] [address] Phone Care Team Providers Care Supervisor Coke Handling Name Role Phone Wesley Moya MD, Christopher Unavailable [phone] Brayden Sellers MD Unavailable [phone] Michi eBrman MD Unavailable Tressa Johnson MD Primary Care Provider + [phone] Antoinette George APRN, [facility] Unavailable Reason for Referral * Radiology Services (Routine) - Closed Specialty Diagnoses / Procedures Referred By Sammy galarza Referred To Contact Radiology Diagnoses Unresolved pneumonia Procedures XR CHEST 2 VIEWS Tressa Johnson MD [address] [place] [address] Phone: tel: fax: Referral ID Status Reason Start Date Expiration Date Visits Re quested Visits Authorized [id number] Closed 09/19/2024 1 1 ICE DIRECTOR Encounter Details Date Type Department Care Team (Late st Contact Info) Description 09/19/2024 Transcribe Orders [facility] Patient Access Admitting [address] [place] [address] Tressa Johnson MD [address] [place] [address] Unresolved pneumonia (Primary Dx) Social History Tobacco Use Types Packs/Day Years Used Date Smoking Tobacco: Some Days Cigarettes 0.5 2 Started: 02/01/2023 Smokeless Tobacco: Never Comments:Down to 4 cigs a da y Alcohol Use Standard Drinks/Week Comments No 0 (1 standard drink = 0.6 oz pur e alcohol) [facility] Utilities Answer Date Recorded In the past 12 months has e electric, gas, oil, or water company threatened to shut off services in your home? Patient declined 05/10/2024 Social Connection and Isolation Panel [NHANES] A nswer Date Recorded In a typical week, how many times do you talk on the phone with family, friends, or neighbors? Patient declined 05/10/2024 How often do you get togethe r with friends or relatives? Patient declined 05/10/2024 How often do you attend rastafarian or hindu serv ices? Patient declined 05/10/2024 Do you belong to any clubs o r organizations such as rastafarian groups, unions, fraternal or athletic groups, or school groups? Patient declined 05/10/2024 How often do you attend meet ings of the clubs or organizations you belong to? Patient declined 05/10/2024 Are you , , di vorced, , never , or living with a partner? Patient declined 05/10/2024 AUDIT-C Answer Date Recorded Q1: How often do you have a drink containing alc ohol? Patient declined 05/10/2024 Q2: How many drinks containi ng alcohol do you have on a typical day when you are drinking? Patient declined 05/10/2024 Q3: How often do you have si x or more drinks on one occasion? Patient declined 05/10/2024 Overall Financial Resource Strain (CARDIA) Answe r Date Recorded How hard is it for you to pa y for the very basics like food, housing, medical care, and heating? Patient declined 05/10/2024 [facility] - Occupational Stress Questionnaire Answer Date Recorded Do you feel stress - tense, restless, nervous, or anxious, or unable to sleep at night because your mind is troubled all the time - these days? Patient declined 05/10/2024 Exercise Vital Sign Answer Date Recorde d On average, how many days pe r week do you engage in moderate to strenuous exercise (like a brisk walk)? Patient declined On average, how many minutes do you engage in exercise at this level? Patient declined 05/10/2024 Hunger Vital Sign Answer Date Recorded Within the past 12 months, y ou worried that your food would run out before you got the money to buy more. Patient declined Within the past 12 months, t he food you bought just didn't last and you didn't have money to get more. Patient declined PRAPARE - Transportation Answer Date Re corded In the past 12 months, has l ack of transportation kept you from medical appointments or from getting medications? Patient declined 05/10/2024 In the past 12 months, has l ack of transportation kept you from meetings, work, or from getting things needed for daily living? Patient declined 05/10/2024 Housing Stability Vital Sign Answer Demario e Recorded In the last 12 months, was t here a time when you were not able to pay the mortgage or rent on time? Patient declined 12/23/19 24 In the last 12 months, how many places have you lived? 1 12/23/2023 In the last 12 months, was t here a time when you did not have a steady place to sleep or slept in a care home (including now)? Patient declined 12/23/2023 Housing Stability Vital Sign Answer Demario e Recorded In the last 12 months, was t here a time when you were not able to pay the mortgage or rent on time? Patient declined 05/10/20 24 In the past 12 months, how m any times have you moved where you were living? 1 05/10/2024 At any time in the past 12 m [facility], were you homeless or living in a care home (including now)? Patient declined 05/10/2024 Sexually Active Control Partners Comments Yes Male Comments No Sex and Gender Information Value Date Recorded Sex Assigned at Female 05/27/2023 12:23 PM CDT Legal Sex Female 11:01 PM CDT Gender Identity Female 05/27/2023 12:23 PM CDT Sexual Orientation Not on file documented as of this encounter Plan of Treatment Not on file documented as of this encounter Results * XR CHEST 2 VIEWS (09/19/2024 12:50 PM SERVICE DIRECTOR) Anatomical Region Laterality Modality Chest N/A Digital Radiogra phy 09/25/2024 8:37 AM SERVICE DIRECTOR Impressions 09/25/2024 8:39 AM SERVICE DIRECTOR IMPRESSION: 1. Hazy bibasilar opacities, likely overlying soft tissue. Narrative 09/25/2024 8:39 AM SERVICE DIRECTOR EXAM DESCRIPTION: XR CHEST 2 VIEWS REASON FOR STUDY: h/o COVID and pneumonia x 2-3 weeks. cough, sob and chest pain. hx copd, htn TECHNIQUE: 2 radiographic view(s) of the chest. COMPARISON: 09/13/2024 FINDINGS: Mild hazy bibasilar opacities on the frontal view, favored to represent overlying soft tissue. No consolidation. No significant pleural effusion. Prominent interstitial markings are unchanged. Heart size and mediastinal contours are stable. THIS IS AN ELECTRONICALLY VERIFIED FINAL REPORT 09/25/2024 8:37 AM - Electronically signed by Brayden Camarillo M.D. AG: NETTA Report ID: [id number] Reading Location: [id number] Procedure Note Brayden Camarillo MD - 09/25/2024 EXAM DESCRIPTION: XR CHEST 2 VIEWS REASON FOR STUDY: h/o COVID and pneumonia x 2-3 weeks. cough, sob and chest pain. hx copd, htn TECHNIQUE: 2 radiographic view(s) of the chest. COMPARISON: 09/13/2024 FINDINGS: Mild hazy bibasilar opacities on the frontal view, favored to represent overlying soft tissue. No consolidation. No significant pleural effusion. Prominent interstitial markings are unchanged. Heart size and mediastinal contours are stable. THIS IS AN ELECTRONICALLY VERIFIED FINAL REPORT 09/25/2024 8:37 AM - Electronically signed by Brayden Camarillo M.D. AG: NETTA Report ID: [id number] Reading Location: [id number] IMPRESSION: 1. Hazy bibasilar opacities, likely overlying soft tissue. us Tressa M Dufner MD IMG DIAGNOSTIC ORDERABLES Final Result documented in this encounter Visit Diagnoses Diagnosis Unresolved pneumonia- Primary Pneumonia, organism unspecified Unresolved pneumonia Pneumonia, organism unspecified documented in this encounter Care Teams Supervisor Coke Handling Relationship Specialty Start Date End Date Tressa Johnson MD [address] [place] [address] PCP - General Family Medicine 07/30/23 Contreras Olson MD [address] [place] [address] Psychiatry 06/17/19 Brayden Sellers MD [address] [place] [address] Consulting Physician Orthopaedic Sports Medicine 11/10/21 Michi Berman MD [address] [place] [address] Consulting Physician Pulmonary Disease 04/13/22 Antoinette George APRN, NIPPLE MAKER [address] [place] [address] Nurse Practitioner Advanced Practice Nurse 07/02/24 documented as of this encounter
--- OUTSIDE RECORDS SUMMARY | 2025-01-22 12:05 | XMS_ITS | Encounter Summary ---
Author Organization [facility] Address [address] [place] [address] Phone Care Team Providers Care Import/Export Specialist Name Role Phone Wesley Moya MD, Contreras Unavailable [phone] Riky Strauss MD Primary Care Provider [phone] Brayden Sellers MD Unavailable [phone] Michi Berman MD Unavailable Tressa Johnson MD Primary Care Provider [phone] Antoinette George APRN, SURVEILLANCE DUAL RATE OFFICER Unavailable Encounter Details Date Type Department Care Team (Late st Contact Info) Description 11/08/2021 Telephone [facility] [address] [place] [address] Munira Srivastava, OT Social History Tobacco Use Types Packs/Day Years [...] COVID-19? No / Unsure 11/10/2021 12:58 PM PRODUCTION MANAGER documented as of this encounter Miscellaneous Notes * Telephone Encounter - Munira Srivastava OT - 11/08/2021 1:50 PM PRODUCTION MANAGER Pt was seen in [facility] OT this date and would benefit from a [employer] shower seat with a back due to her hx of COPD, pneumonia and falls. Pt is coming into the office on Saturday11/13/21. Would youplease document face to face and need for a Bath seat and fax over an order to [employer] at [phone] with pts weight and diagnosis. Thank you. Munira [facility] OT UCTION MANAGER documented in this encounter Plan of Treatment Not on file documented as of this encounter Visit Diagnoses Not on filedocumented in this encounter Additional Health Concerns Infection Onset Date Last Indicated Resolved Time COVID - 19 Confirmed 10/20/2021 10/20/2021 022 12:16 AM PRODUCTION MANAGER COVID - 19 04/09/2022 04/09/2022 04/09/2022 2:37 PM CDT COVID - 19 04/15/2022 04/15/2022 04/16/2022 7:50 AM CDT Respiratory Rule-Out 10/16/2022 10/16/2022 023 6:16 AM PRODUCTION MANAGER Influenza 10/16/2022 10/16/2022 10/23/2022 12:1 9 AM PRODUCTION MANAGER COVID - 19 10/21/2022 10/21/2022 10/22/2022 7:50 AM PRODUCTION MANAGER COVID - 19 10/28/2022 10/28/2022 10/29/2022 8:15 AM PRODUCTION MANAGER Respiratory Rule-Out 10/28/2022 10/28/2022 023 4:15 PM PRODUCTION MANAGER COVID - 19 11/09/2022 11/09/2022 11/19/2022 12:1 8 AM PRODUCTION MANAGER COVID - 19 11/25/2022 11/25/2022 11/26/2022 8:06 AM PRODUCTION MANAGER COVID - 19 10/15/2023 10/22/2023 11/01/2023 12:1 6 AM PRODUCTION MANAGER COVID - 19 12/12/2023 12/12/2023 12/12/2023 4:38 AM PRODUCTION MANAGER COVID - 19 12/23/2023 12/23/2023 12/23/2023 12:5 5 PM CDT COVID - 19 04/15/2024 04/15/2024 04/15/2024 4:34 PM CDT COVID - 19 08/25/2024 08/25/2024 08/25/2024 1:35 PM PRODUCTION MANAGER COVID - 19 Confirmed 08/25/2024 08/25/2024 024 12:16 AM PRODUCTION MANAGER COVID - 19 09/09/2024 09/09/2024 09/09/2024 1:04 PM PRODUCTION MANAGER COVID - 19 09/13/2024 09/13/2024 09/13/2024 7:49 AM PRODUCTION MANAGER documented as of this encounter Care Teams Import/Export Specialist Relationship Specialty Start Date End Date Riky Strauss MD [address] [place] [address] PCP - General Internal Medicine 09/18/21 07/29/23 Tressa Johnson MD [address] [place] [address] PCP - General Family Medicine 07/30/23 Contreras Olson MD [address] [address] Psychiatry 06/17/19 Brayden Sellers MD [address] [place] [address] Consulting Physician Orthopaedic Sports Medicine 11/10/21 Michi Berman MD [address] [place] [address] Consulting Physician Pulmonary Disease 04/13/22 Antoinette George APRN, SURVEILLANCE DUAL RATE OFFICER [address] [place] [address] Nurse Practitioner Advanced Practice Nurse 07/02/24 documented as of this encounter
--- OUTSIDE RECORDS SUMMARY | 2025-01-22 12:05 | XMS_ITS | Encounter Summary ---
Author Organization [facility] Address [address] [place] [address] Phone Care Team Providers Care Key Account Director Name Role Phone Wesley Moya MD, Contreras Unavailable [phone] Riky Strauss MD Primary Care Provider [phone] Brayden Sellers MD Unavailable Michi Berman MD Unavailable Tressa Johnson MD Primary Care Provider [phone] Antoinette George APRN, [facility] Unavailable Reason for Visit * Reason Comments Medication Refill Encounter Details Date Type Department Care Team (Late st Contact Info) Description 01/21/2022 Refill [facility] - Primary Care - [place] [address] [place] [address] Riky Strauss MD [address] [place], [place] [id number] Medication Refill Social History Tobacco Use Types [...] suspected to have Coronavirus/COVID-19? No / Unsure 01/07/2022 2:09 PM CDT documented as of this encounter Miscellaneous Notes * Telephone Encounter - Jennifer Mast RN - 01/22/2022 10:04 AM CDT Refilled 01/19/2022. documented in this encounter Plan of Treatment Not on file documented as of this encounter Visit Diagnoses Diagnosis Hypertension, essential Unspecified essential hypertension documented in this encounter Additional Health Concerns Infection Onset Date Last Indicated Resolved Time COVID - 19 04/09/2022 04/09/2022 04/09/2022 2:37 PM CDT COVID - 19 04/15/2022 04/15/2022 04/16/2022 7:50 AM CDT Respiratory Rule-Out 10/16/2022 10/16/2022 023 6:16 AM SONG WRITER Influenza 10/16/2022 10/16/2022 10/23/2022 12:1 9 AM SONG WRITER COVID - 19 10/21/2022 10/21/2022 10/22/2022 7:50 AM SONG WRITER COVID - 19 10/28/2022 10/28/2022 10/29/2022 8:15 AM SONG WRITER Respiratory Rule-Out 10/28/2022 10/28/2022 023 4:15 PM SONG WRITER COVID - 19 11/09/2022 11/09/2022 11/19/2022 12:1 8 AM SONG WRITER COVID - 19 11/25/2022 11/25/2022 11/26/2022 8:06 AM SONG WRITER COVID - 19 10/15/2023 10/22/2023 11/01/2023 12:1 6 AM SONG WRITER COVID - 19 12/12/2023 12/12/2023 12/12/2023 4:38 AM SONG WRITER COVID - 19 12/23/2023 12/23/2023 12/23/2023 12:5 5 PM CDT COVID - 19 04/15/2024 04/15/2024 04/15/2024 4:34 PM CDT COVID - 19 08/25/2024 08/25/2024 08/25/2024 1:35 PM SONG WRITER COVID - 19 Confirmed 08/25/2024 08/25/2024 024 12:16 AM SONG WRITER COVID - 19 09/09/2024 09/09/2024 09/09/2024 1:04 PM SONG WRITER COVID - 19 09/13/2024 09/13/2024 09/13/2024 7:49 AM SONG WRITER documented as of this encounter Care Teams Key Account Director Relationship Specialty Start Date End Date Riky Strauss MD [address] [place] [address] PCP - General Internal Medicine 09/18/21 07/29/23 Tressa Johnson MD [address] [place] [address] PCP - General Family Medicine 07/30/23 Contreras Olson MD [address] [address] Psychiatry 06/17/19 Brayden Sellers MD [address] [place] [address] Consulting Physician Orthopaedic Sports Medicine 11/10/21 Michi Berman MD [address] [place] [address] Consulting Physician Pulmonary Disease 04/13/22 Antoinette George APRN, DRUGLESS DOCTOR [address] [place] [address] Nurse Practitioner Advanced Practice Nurse 07/02/24 documented as of this encounter
--- OUTSIDE RECORDS SUMMARY | 2025-01-22 12:06 | XMS_ITS | Referral Summary ---
Author Organization [facility] Address [address] [place] [address] Care Team Providers Care Home Theatre Technician Name Role Phone Harvinder Chicas MD Unavailable [phone] Tressa Johnson MD Primary Care Provider Nathan Monahan MD Unavailable [phone] Encounters Date Type Department Care Team Description 01/15/20 [facility] Post Discharge Follow up phone call [facility] Care [address] [place] [address] Belkys Reich 01/12/20 25 9:17 AM CDT - 01/12/20 25 11:59 PM CDT Hospital Encounter [facility] Emergency, Room R Discharge Disposition: Discharge to home or self care 01/12/20 25 9:44 AM CDT - 01/12/20 25 12:06 PM CDT Emergency [facility] Emergency Department 1 [place] [address] Discharge Disposition: Left without being seen 01/08/20 25 2:45 PM CDT - 01/10/20 25 2:55 PM CDT Hospital Encounter [address] [address] Sandi Hull MD Kheirkhahan, Nazanin, MD Sargsyan, Narine, MD Abdominal pain (Primary Dx); Duodenitis Discharge Disposition: Discharge to home or self care 01/09/20 25 Results Follow-Up [facility] G[facility] at [place] [address] [facility] [address] [place] [phone] Luana Delgado MD 01/08/20 2:16 PM CDT - 01/08/20 11:59 PM CDT Hospital Encounter [facility] Emergency, Room R Discharge Disposition: Discharge to home or self care 01/08/20 10:56 AM CDT Anesthesia Event [address] [address] Young Connor MD 01/08/20 10:25 AM CDT - 01/08/20 11:00 AM CDT Surgery [address] [address] Luana Delgado MD ESOPHAGOGASTRODUODENOSCOPY BIOPSY 01/08/20 9:34 AM CDT - 01/08/20 12:08 PM CDT Hospital Encounter [address] [address] Luana Delgado MD Epigastric pain Discharge Disposition: Discharge to home or self care 01/06/20 Telephone [facility] Gastroenterology at [address] [place] [address] Serina Martinez MA 01/05/20 Orders Only [facility] [address] [place] [phone] Jeffrey Ashraf MD Hepatitis C virus infection without hepatic coma, unspecified chronicity (Primary Dx); Chronic hepatitis C without hepatic coma (HCC) 01/04/20 2:52 PM CDT - 01/04/20 3:47 PM CDT Emergency [facility] Emergency Department [address] [place] [phone] Ananda Abdi MD Abdominal pain (Primary Dx) Discharge Disposition: Discharge to home or self care 01/02/20 Telephone [facility] Gastroenterology at [address] [place] [address] Bonita Schrader 01/01/20 11:24 AM CDT - 01/01/20 2:42 PM CDT Emergency [facility] Emergency Department 1 [place] [address] Amie Bowen DO Abdominal pain (Primary Dx) Discharge Disposition: Discharge to home or self care 12/31/19 3:29 PM CDT - 12/31/19 3:37 PM CDT Emergency [facility] Emergency Department [address] [place] [address] Discharge Disposition: Left without being seen 12/31/19 25 - 12/31/19 1:06 PM CDT Emergency [facility] Emergency Department [address] [place] [id number] Discharge Disposition: ED Dismiss - Never Arrived 12/28/19 11:51 AM CDT - 12/28/19 4:27 PM CDT [facility] Emergency Department [address] [place] [address] Clyde Chester MD Abdominal pain (Primary Dx) Discharge Disposition: Discharge to home or self care 12/26/19 6:46 PM CDT - 12/27/19 4:24 PM CDT [facility] Medical Care [address] [place] [address] Timothy Aviles MD Sargsyan, Narine, MD Abdominal pain (Primary Dx) Discharge Disposition: Left Against Medical Advice 12/25/19 11:39 PM CDT - 12/26/19 3:13 AM CDT Emergency [facility] Emergency Department [address] [place] [phone] Ole Parham MD Abdominal pain (Primary Dx) Discharge Disposition: Discharge to home or self care 12/25/19 5:09 PM CDT - 12/25/19 8:38 PM CDT Emergency [facility] Emergency Department [address] [place] [phone] Alexander Martino MD Chronic abdominal pain (Primary Dx) Discharge Disposition: Discharge to home or self care 12/24/19 Results Follow-Up [facility] Gastroenterology at [address] [place] [address] Deya Cowan MA 12/22/19 11:00 AM CDT - 12/22/19 1:45 PM CDT [facility] Emergency Department 1 [place] [address] Alexander Martino MD Chronic abdominal pain (Primary Dx) Discharge Disposition: Discharge to home or self care 12/21/19 25 6:34 AM CDT - 12/22/19 25 9:19 AM CDT Hospital Encounter [facility] Surgery Care 1 [place] [address] Anya Rae MD Nikolic, Jelena, MD Singh, Supriya, MD Intractable abdominal pain (Primary Dx); Abdominal wall hernia Discharge Disposition: Left Against Medical Advice 12/19/19 25 12:39 PM [employer] - 12/19/19 25 3:16 PM [employer] Emergency [facility] Emergency Department 1 [place] [address] Kris Howe MD Hanson, Thomas S., MD Abdominal pain, epigastric (Primary Dx) Discharge Disposition: Discharge to home or self care from Last 3 Months Allergies Active Allergy Reactions Criticality Noted Date Comments Fish Containing Products Hives Medium 10/30/2022 Ketorolac Tromethamine Itching Low 04/08/2017 Meloxicam Nausea only Low 03/01/2022 Penicillins Itching Low 03/27/2021 Shellfish Containing Products Hives Medium 2024 Tramadol Itching Low 04/13/2016 Medications albuterol HFA (PROVENTIL HFA,VENTOLIN HFA) 90 mcg/actuation inhalerIndications :Chronic Obstructive Pulmonary Disease Inhale 2 puffs every 2 (two) hours as needed for wheezing. 1 Inhaler 10/21/19 18 Active diazePAM (VALIUM) 5 mg tablet Take 1 tablet (5 mg total) by mouth every 8 (eight) hours as needed for anxiety Active metFORMIN XR (GLUCOPHAGE XR) 500 mg 24 hr tablet Take 2 tablets (1,000 mg total) by mouth daily 06/12/20 20 Active sertraline (ZOLOFT) 50 mg tablet Take 1 tablet (50 mg total) by mouth daily 11/17/19 21 Active levothyroxine (SYNTHROID) 100 mcg tablet Take 1 tablet (100 mcg total) by mouth precision lens generator before breakfast 11/17/19 21 Active divalproex ER (DEPAKOTE ER) 500 mg 24 hr tablet Take 3 tablets (1,500 mg total) by mouth nightly 11/17/19 21 Active ipratropium-albute roL (DUO-NEB) 0.5-2.5 mg/3 mL nebulizer solutionIndication s:Chronic Obstructive Pulmonary Disease with Bronchospasms Take 3 mL by nebulization every 4 (four) hours as needed for wheezing 180 mL 11 11/17/19 21 Active sertraline (ZOLOFT) 100 mg tablet 02/08/20 21 Active Spiriva with HandiHaler 18 mcg per inhalation capsule 03/06/20 21 Active ziprasidone (GEODON) 60 mg capsule Take 1 capsule (60 mg total) by mouth 2 (two) times a day 08/28/20 21 Active metoprolol XL (TOPROL-XL) 50 mg extended release tabletIndications: hypertension Take 2 tablets (100 mg total) by mouth daily Active ondansetron ODT (ZOFRAN-ODT) 4 mg disintegrating tablet Take 1 tablet (4 mg total) by mouth every 8 (eight) hours as needed for nausea 20 tablet 08/30/20 24 Active budesonide-formote roL (SYMBICORT) 160-4.5 mcg/actuation inhaler Inhale 2 puffs 2 (two) times a day Rinse mouth with water after use. Do not swallow. Active omeprazole (PriLOSEC) 40 mg capsule Take 1 capsule (40 mg total) by mouth 2 (two) times a day Active atorvastatin (LIPITOR) 20 mg tablet Take 1 tablet (20 mg total) by mouth daily Active dicyclomine (BENTYL) 20 mg tablet Take 1 tablet (20 mg total) by mouth every 6 (six) hours Active prochlorperazine (COMPAZINE) 5 mg tablet Take 1 tablet (5 mg total) by mouth every 6 (six) hours as needed for nausea or vomiting Active sucralfate (CARAFATE) suspension 1 gram/10 mL Take 10 mL (1 g total) by mouth every 6 (six) hours 01/10/20 25 02/08/2 025 Active sucralfate (CARAFATE) suspension 1 gram/10 mL Take 10 mL (1 g total) by mouth 3 (three) times a day before meals 900 mL 01/10/20 25 025 Active rosuvastatin (CRESTOR) 20 mg tablet 12/22/19 21 025 Discontin ued(Alter rashawn therapy) ondansetron (ZOFRAN) 4 mg tablet Take 1 tablet (4 mg total) by mouth every 6 (six) hours 12 tablet 09/19/20 21 025 Discontin ued(Dupli murray order) zolpidem (AMBIEN) 5 mg tablet Take 1 tablet (5 mg total) by mouth nightly as needed for sleep 10/14/19 25 025 Discontin ued(Thera py completed ) HYDROcodone-acetam inophen (NORCO) 5-325 mg per tabletIndications: Pain Take 1 tablet by mouth every 6 (six) hours as needed for pain 8 tablet 12/22/19 25 025 Discontin ued(Thera py completed ) HYDROcodone-acetam inophen (NORCO) 5-325 mg per tabletIndications: Pain Take 1 tablet by mouth every 6 (six) hours as needed for pain 15 tablet 12/28/19 25 025 Discontin ued(Thera py completed ) famotidine (PEPCID) 20 mg tablet Take 1 tablet (20 mg total) by mouth 2 (two) times a day 025 Discontin ued(Stop Taking at Discharge ) Active Problems Problem Noted Date Diagnosed Date Epigastric pain 01/01/2025 Chronic hepatitis C without hepatic coma 025 Moderate malnutrition 12/26/2024 Abdominal pain 12/25/2024 Intractable abdominal pain 12/20/2024 Personal history of colonic polyps 08/02/2022 Overview (08/02/2022): Added automatically from request for surgery [id number] Encounter for removal of sutures 07/18/2020 Essential hypertension 08/18/2019 Bipolar disorder 08/18/2019 Anxiety 08/18/2019 Smoking 08/18/2019 Acute respiratory failure with hypoxia 9 Chronic obstructive pulmonar y disease with acute exacerbation 08/16/2019 Pneumonia of right lower lobe due to infectious organism 08/16/2019 Acute and chronic respiratory failure (acute-on- chronic) 08/13/2019 Tobacco abuse 08/13/2019 Arthritis 05/06/2019 Breast cancer screening by mammogram 03/19/2019 Family history of colon cancer in mother 019 Family history of diabetes m fadi in first degree relative 03/19/2019 Family history of iron deficiency 03/19/2019 Family history of leukemia 03/19/2019 Dyslipidemia 10/08/2015 Gastroesophageal reflux disease without esophagi tis 10/08/2015 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 d 10/08/2015 Midline thoracic back pain 10/08/2015 Essential hypertension 10/08/2015 Borderline personality disorder 04/21/2014 Bipolar disorder 04/21/2014 Resolved Problems Problem Noted Date Diagnosed Date Resolved Date COPD exacerbation 08/13/2019 12/31/2024 Pneumonia 08/13/2019 12/31/2024 Immunizations Immunization Administration Dates Next Due Influenza, Unspecified 07/14/2019 Tdap 07/08/2020 Social History Tobacco Use Types Packs/Day Years Used Date Smoking Tobacco: Some Days Cigarettes 1.2 40 Smokeless Tobacco: Never Tobacco Cessation:Ready to Q uit: Not Asked; Counseling Given: Not Answered Passive Exposure Comments:half pack/day Alcohol Use Standard Drinks/Week Comments Not Currently 0 (1 standard drink = 0.6 oz pur e alcohol) [facility] Utilities Answer Date Recorded In the past 12 months has [employer] electric, gas, oil, or water company threatened to shut off services in your home? No 01/08/2025 Social Connection and Isolat ion Panel [NHANES] Answer Date Recorded In a typical week, how many times do you talk on the phone with family, friends, or neighbors? More than three times a week 01/08/2025 How often do you get togethe r with friends or relatives? More than three times a week 01/08/2025 How often do you attend chur ch or islam services? Patient declined 01/08/2025 Do you belong to any clubs o r organizations such as anabaptist groups, unions, fraternal or athletic groups, or school groups? Patient declined 01/08/2025 How often do you attend meet ings of the clubs or organizations you belong to? Patient declined 01/08/2025 Are you , , di vorced, , never , or living with a partner? Never 01/08/2025 AUDIT-C Answer Date Recorded Q1: How often do you have a drink containing alcohol? Never 01/07/2025 Q2: How many drinks containi ng alcohol do you have on a typical day when you are drinking? Patient does not drink Q3: How often do you have si x or more drinks on one occasion? Never 01/07/2025 Overall Financial Resource Strain (CARDIA) Answe r Date Recorded How hard is it for you to pa y for the very basics like food, housing, medical care, and heating? Somewhat hard 01/08/2025 PHQ-2 Answer Date Recorded PHQ-2 Score 0 08/16/2019 Hunger Vital Sign Answer Date Recorded Within the past 12 months, y ou worried that your food would run out before you got the money to buy more. Never true 01/09/20 25 Within the past 12 months, t he food you bought just didn't last and you didn't have money to get more. Never true 01/08/2025 PRAPARE - Transportation Answer Date Re corded In the past 12 months, has l ack of transportation kept you from medical appointments or from getting medications? No 12/13 In the past 12 months, has l ack of transportation kept you from meetings, work, or from getting things needed for daily living? No 01/08/2025 Housing Stability Vital Sign Answer Demario e Recorded In the last 12 months, was t here a time when you were not able to pay the mortgage or rent on time? No 01/08/2025 In the past 12 months, how m any times have you moved where you were living? 0 01/08/2025 At any time in the past 12 m [facility], were you homeless or living in a fpc (including now)? No 01/08/2025 Personal Safety Answer Date Recorded Have you ever been in or are you currently in a harmful physical or emotional relationship or is someone making you feel afraid or unsafe? Denies 01/11/2025 Comments No Sex and Gender Information Value Date Recorded Sex Assigned at Not on file Legal Sex Female 12:54 AM [employer] Gender Identity Not on file Sexual Orientation Not on file Last Filed Vital Signs Vital Sign Reading Time Taken Comments Blood Pressure 133/93 01/11/2025 10:07 AM CDT Pulse 90 01/11/2025 10:07 AM CDT Temperature 36 C (96.8 F) 01/11/2025 10:07 AM CDT Respiratory Rate 18 01/11/2025 10:07 AM CDT Oxygen Saturation 100% 01/11/2025 10:07 AM CDT Inhaled Oxygen Concentration - - Weight 72.6 kg (160 lb) 01/11/2025 10:07 AM CDT Height 162.6 cm (5' 4 ) 01/11/2025 10:07 AM CDT Body Mass Index 27.46 01/11/2025 10:07 AM CDT Plan of Treatment Not on file Procedures Procedure Name Priority Date/Time Associated Diagnosis Comments EGFR STAT 01/11/2025 11:03 AM CDT DIFFERENTIAL AUTO STAT 01/11/2025 11:03 AM CDT TROPONIN T HIGH-SENSITIVITY SERIES (BASELINE, 2HR, 4HR, 6HR) STAT 01/11/2025 11:03 AM CDT LIPASE STAT 01/11/2025 11:03 AM CDT COMPREHENSIVE METABOLIC PANEL STAT 11:03 AM CDT CBC WITH AUTO DIFFERENTIAL STAT 01/11 11:03 AM CDT URINALYSIS AND REFLEX TO MICROSCOPIC AND CULTURE STAT 01/11/2025 10:34 AM CDT ECG 12-LEAD STAT 01/11/2025 10:10 AM CDT POCT GLUCOSE DEVICE Routine 01/09/2025 11:57 AM CDT POCT GLUCOSE DEVICE Routine 01/09/2025 8:12 AM CDT POCT GLUCOSE DEVICE Routine 01/09/2025 4:07 AM CDT EGFR Routine 01/09/2025 3:57 AM CDT DIFFERENTIAL AUTO Routine 01/09/2025 3:57 AM CDT CBC WITH AUTO DIFFERENTIAL Routine 01/09 3:57 AM CDT MAGNESIUM Routine 01/09/2025 3:57 AM CDT COMPREHENSIVE METABOLIC PANEL Routine 3:57 AM CDT POCT GLUCOSE DEVICE Routine 01/08/2025 11:57 PM CDT POCT GLUCOSE DEVICE Routine 01/08/2025 8:08 PM CDT POCT GLUCOSE DEVICE Routine 01/08/2025 4:34 PM CDT POCT GLUCOSE DEVICE Routine 01/08/2025 11:06 AM CDT POCT GLUCOSE DEVICE Routine 01/08/2025 9:00 AM CDT MANUAL DIFFERENTIAL Routine 01/08/2025 4:48 AM CDT EGFR Routine 01/08/2025 4:48 AM CDT CBC WITH AUTO DIFFERENTIAL Routine 01/08 4:48 AM CDT MAGNESIUM Routine 01/08/2025 4:48 AM CDT COMPREHENSIVE METABOLIC PANEL Routine 4:48 AM CDT POCT GLUCOSE DEVICE Routine 01/08/2025 4:15 AM CDT POCT GLUCOSE DEVICE Routine 01/08/2025 12:03 AM CDT POCT GLUCOSE DEVICE Routine 01/07/2025 9:27 PM CDT TROPONIN T HIGH-SENSITIVITY 6-HOUR Timed 01/07/2025 8:50 PM CDT TROPONIN T HIGH-SENSITIVITY 2-HOUR Timed 01/07/2025 4:52 PM CDT URINALYSIS AND REFLEX TO MICROSCOPIC AND CULTURE STAT 01/07/2025 4:[address] CHEST ABDOMEN PELVIS W CONTRAST ED 01/07/2025 4:00 PM CDT ECG 12-LEAD STAT 01/07/2025 2:58 PM CDT EGFR STAT 01/07/2025 2:52 PM CDT DIFFERENTIAL AUTO STAT 01/07/2025 2:52 PM CDT TROPONIN T HIGH-SENSITIVITY SERIES (BASELINE, 2HR, 4HR, 6HR) STAT 01/07/2025 2:52 PM CDT LIPASE STAT 01/07/2025 2:52 PM CDT COMPREHENSIVE METABOLIC PANEL STAT 2:52 PM CDT CBC WITH AUTO DIFFERENTIAL STAT 01/07 2:52 PM CDT SURGICAL PATHOLOGY STAT 01/07/2025 2:22 PM CDT Epigastric pain ESOPHAGOGASTRODUODENOSCOPY BIOPSY 01/07/2025 10:50 AM CDT Epigastric pain POCT GLUCOSE DEVICE Routine 01/07/2025 10:18 AM CDT EGD 01/07/2025 10:11 AM CDT URINALYSIS AND REFLEX TO MICROSCOPIC AND CULTURE STAT 12/31/2024 1:08 PM CDT EGFR STAT 12/31/2024 12:28 PM CDT DIFFERENTIAL AUTO STAT 12/31/2024 12:28 PM CDT LIPASE STAT 12/31/2024 12:28 PM CDT COMPREHENSIVE METABOLIC PANEL STAT 12:28 PM CDT CBC WITH AUTO DIFFERENTIAL STAT 12/31 12:[address] CHEST PE ABDOMEN PELVIS W CONTRAST ED 12/27/2024 2:05 PM CDT EGFR STAT 12/27/2024 12:26 PM CDT DIFFERENTIAL AUTO STAT 12/27/2024 12:26 PM CDT SEPSIS LACTATE WITH REFLEX Routine 12/27 12:26 PM CDT D-DIMER, QUANTITATIVE STAT 12/27/2024 12:26 PM CDT CRP (ACUTE PHASE) STAT 12/27/2024 12:26 PM CDT COMPREHENSIVE METABOLIC PANEL STAT 12:26 PM CDT CBC WITH AUTO DIFFERENTIAL STAT 12/27 12:26 PM CDT XR ABDOMEN 2 VIEWS W CHEST 1 VIEW ED 12/27/2024 12:23 PM CDT DRUGS OF ABUSE SCREEN, URINE WITHOUT CONFIRMATION STAT 12/27/2024 12:13 PM CDT URINALYSIS AND REFLEX TO MICROSCOPIC AND CULTURE Routine 12/27/2024 12:13 PM CDT ECG 12-LEAD Routine 12/27/2024 12:09 PM CDT POCT GLUCOSE DEVICE Routine 12/26/2024 12:28 PM CDT EGFR Routine 12/26/2024 2:05 AM CDT DIFFERENTIAL AUTO Routine 12/26/2024 2:05 AM CDT COMPREHENSIVE METABOLIC PANEL Routine 2:05 AM CDT CBC WITH AUTO DIFFERENTIAL Routine 12/26 2:05 AM CDT TROPONIN T HIGH-SENSITIVITY 6-HOUR Timed 12/26/2024 2:05 AM CDT POCT GLUCOSE DEVICE Routine 12/26/2024 1:35 AM CDT TROPONIN T HIGH-SENSITIVITY 4-HR Timed 12/25/2024 11:38 PM CDT TROPONIN T HIGH-SENSITIVITY SERIES (BASELINE, 2HR, 4HR, 6HR) STAT 12/25/2024 7:29 PM CDT ECG 12-LEAD STAT 12/25/2024 7:19 PM CDT URINALYSIS AND REFLEX TO MICROSCOPIC AND CULTURE STAT 12/25/2024 7:08 PM CDT EGFR STAT 12/25/2024 3:17 PM CDT DIFFERENTIAL AUTO STAT 12/25/2024 3:17 PM CDT LIPASE STAT 12/25/2024 3:17 PM CDT COMPREHENSIVE METABOLIC PANEL STAT 3:17 PM CDT CBC WITH AUTO DIFFERENTIAL STAT 12/25 3:17 PM CDT URINALYSIS, MICROSCOPIC ONLY STAT 1:09 AM CDT URINALYSIS AND REFLEX TO MICROSCOPIC AND CULTURE STAT 12/25/2024 1:09 AM CDT EGFR STAT 12/24/2024 10:18 PM CDT DIFFERENTIAL AUTO STAT 12/24/2024 10:18 PM CDT LIPASE STAT 12/24/2024 10:18 PM CDT COMPREHENSIVE METABOLIC PANEL STAT 10:18 PM CDT CBC WITH AUTO DIFFERENTIAL STAT 12/24 10:18 PM CDT URINALYSIS, MICROSCOPIC ONLY STAT 7:18 PM CDT URINALYSIS AND REFLEX TO MICROSCOPIC AND CULTURE STAT 12/24/2024 7:18 PM CDT EGFR STAT 12/24/2024 4:43 PM CDT DIFFERENTIAL AUTO STAT 12/24/2024 4:43 PM CDT LIPASE STAT 12/24/2024 4:43 PM CDT COMPREHENSIVE METABOLIC PANEL STAT 4:43 PM CDT CBC WITH AUTO DIFFERENTIAL STAT 12/24 4:43 PM CDT EGFR STAT 12/21/2024 11:24 AM CDT DIFFERENTIAL AUTO STAT 12/21/2024 11:24 AM CDT LIPASE STAT 12/21/2024 11:24 AM CDT COMPREHENSIVE METABOLIC PANEL STAT 11:24 AM CDT CBC WITH AUTO DIFFERENTIAL STAT 12/21 11:24 AM CDT POCT GLUCOSE DEVICE Routine 12/21/2024 7:24 AM CDT REFLEX HEPATITIS C RNA Routine 3:28 AM CDT EGFR Routine 12/21/2024 3:28 AM CDT DIFFERENTIAL AUTO Routine 12/21/2024 3:28 AM CDT PHOSPHORUS Routine 12/21/2024 3:28 AM CDT MAGNESIUM Routine 12/21/2024 3:28 AM CDT CRP (ACUTE PHASE) Routine 12/21/2024 3:28 AM CDT ERYTHROCYTE SEDIMENTATION RATE Routine 0 12/21/2024 3:28 AM CDT COMPREHENSIVE METABOLIC PANEL Routine 3:28 AM CDT CBC WITH AUTO DIFFERENTIAL Routine 12/21 3:28 AM CDT HEPATITIS B SURFACE ANTIGEN Routine 12/12 3:28 AM CDT HEPATITIS C ANTIBODY Routine 12/21/2024 3:28 AM CDT POCT GLUCOSE DEVICE Routine 12/21/2024 2:23 AM CDT POCT GLUCOSE DEVICE Routine 12/20/2024 8:05 PM CDT THYROID FUNCTION CASCADE Routine 025 1:32 PM CDT SEPSIS LACTATE WITH REFLEX Timed 12/20 1:32 PM CDT TROPONIN T HIGH-SENSITIVITY 6-HOUR Timed 12/20/2024 1:32 PM CDT SEPSIS LACTATE WITH REFLEX Timed 12/20 11:39 AM CDT TROPONIN T HIGH-SENSITIVITY 4-HR Timed 12/20/2024 11:39 AM CDT URINALYSIS AND REFLEX TO MICROSCOPIC AND CULTURE STAT 12/20/2024 10:[address] ABDOMEN PELVIS W CONTRAST ED 06/2025 8:10 AM CDT TROPONIN T HIGH-SENSITIVITY SERIES (BASELINE, 2HR, 4HR, 6HR) STAT 12/20/2024 7:06 AM CDT SEPSIS LACTATE WITH REFLEX STAT 12/20 7:06 AM CDT ECG 12-LEAD Routine 12/20/2024 12:38 AM [employer] EGFR STAT 12/20/2024 12:35 AM [employer] DIFFERENTIAL AUTO STAT 12/20/2024 12:35 AM [employer] COMPREHENSIVE METABOLIC PANEL STAT 12:35 AM [employer] CBC WITH AUTO DIFFERENTIAL STAT 12/20 12:35 AM [employer] LIPASE STAT 12/20/2024 12:35 AM [employer] US RUQ ED 12/18/2024 2:15 PM [employer] EGFR STAT 12/18/2024 12:58 PM [employer] DIFFERENTIAL AUTO STAT 12/18/2024 12:58 PM [employer] LIPASE STAT 12/18/2024 12:58 PM [employer] COMPREHENSIVE METABOLIC PANEL STAT 12:58 PM [employer] CBC WITH AUTO DIFFERENTIAL STAT 12/18 12:58 PM [employer] COLONOSCOPY 09/27/2022 9:23 AM [employer] from Last 3 Months or Most Recently Relevant to Health Maintenance Results * Troponin T high-sensitivity series (baseline, 2hr, 4hr, 6hr) (01/11/2025 11:03 AM CDT) Trop T hs 8 <=14 ng/L Comment: Interpretive Data For further hscTnT resources including the diagnostic algorithm and an aid in interpretation, copy and paste this link: [email or web address].testcatalog.org/show/hsTrop Current Interpretive Data last revised 2020. Blood 01/11/2025 11:0 3 AM CDT 01/11/2025 11:08 AM CDT Ananda Abdi MD LAB BLOOD ORDERABLES Final Res ult [facility] ([facility]) [facility] [place] [address] * eGFR (01/11/2025 11:03 AM CDT) eGFR 84 >=60 mL/min/1. 73 m2 Comment: Interpretive Data Reference Interval Normal >/= 90 mL/min/1.73m2 Mildly decreased* 60 - 89 mL/min/1.73m2 Mildly to moderately decreased 45 - 59 mL/min/1.73m2 Moderately to severely decreased 30 - 44 mL/min/1.73m2 Severely decreased 15 - 29 mL/min/1.73m2 Kidney Failure < 15 mL/min/1.73m2 *Relative to young adult level Estimated glomerular filtration rate is determined by the 2020 CKD-EPI equation recommended by the National Kid[employer] (A Unifying Approach to GFR Estimation: Recommendations of the NKF-ASK Task Force on Reassessing the Inclusion of Race in Diagnosing Kidney Disease, JASN 2020). The CKD-EPI equation should not be used for patients with unstable renal function and has not been validated in children and those over 70. Current interpretive data was last reviewed 2021. Blood 01/11/2025 11:0 3 AM CDT 01/11/2025 11:08 AM CDT us Ananda Abdi MD LAB BLOOD ORDERABLES Final Res ult [facility] ([place]) [facility] [place] [address] * (ABNORMAL) Differential, auto (01/11/2025 11:03 AM CDT) Neutrophil abs 9.4(H) 1.5 - 6.5 K/cumm Imm gran abs 0.1 0.0 - 0.1 K/cumm [facility] ([place]) Lymphocyte abs 3.9(H) 0.8 - 3.3 K/cumm [facility] ([place]) Monocyte abs 0.7 0.2 - 0.8 K/cumm [facility] ([place]) Eosinophil abs 0.1 0.0 - 0.5 K/cumm [facility] ([place]) Basophil abs 0.1 0.0 - 0.1 K/cumm [facility] ([place]) Neutrophil pct 65.9 % [facility] ([place]) Comment: Interpretive Data Percent cell count reference ranges are not reported, since discordance with absolute values may lead to misinterpretation of CBC data. Current Interpretive Data was last revised on 2018. Imm gran pct 0.4 % [facility] ([place]) Comment: Interpretive Data Percent cell count reference ranges are not reported, since discordance with absolute values may lead to misinterpretation of CBC data. Current Interpretive Data was last revised on 2018. Lymphocyte pct 27.0 % [facility] ([place]) Comment: Interpretive Data Percent cell count reference ranges are not reported, since discordance with absolute values may lead to misinterpretation of CBC data. Current Interpretive Data was last revised on 2018. Monocyte pct 5.1 % [facility] ([place]) Comment: Interpretive Data Percent cell count reference ranges are not reported, since discordance with absolute values may lead to misinterpretation of CBC data. Current Interpretive Data was last revised on 2018. Eosinophil pct 0.8 % [facility] ([place]) Comment: Interpretive Data Percent cell count reference ranges are not reported, since discordance with absolute values may lead to misinterpretation of CBC data. Current Interpretive Data was last revised on 2018. Basophil pct 0.8 % [facility] ([place]) Comment: Interpretive Data Percent cell count reference ranges are not reported, since discordance with absolute values may lead to misinterpretation of CBC data. Current Interpretive Data was last revised on 2018. Blood 01/11/2025 11:0 3 AM CDT 01/11/2025 11:08 AM CDT Ananda Abdi MD LAB BLOOD ORDERABLES Final Res ult [facility] ([place]) 1 [facility] [place] [address] * (ABNORMAL) CBC with auto differential (01/11/2025 11:03 AM CDT) WBC 14.2(H) 3.8 - 9.9 K/cumm Hgb 16.3(H) 11.9 - 15.5 g/dL [facility] ([place]) Hct 49.6(H) 35.6 - 45.5 % [facility] ([place]) Plt 260 150 - 400 K/cumm [facility] ([place]) MPV 11.3 9.1 - 12.3 fL [facility] ([place]) RBC 6.07(H) 3.90 - 5.20 M/cumm [facility] ([place]) MCV 81.7 81.3 - 96.4 fL [facility] ([place]) MCH 26.9(L) 27.1 - 33.3 pg [facility] ([place]) MCHC 32.9 32.3 - 35.7 g/dL [facility] ([place]) RDW CV 14.2 11.1 - 14.9 % [facility] ([place]) RDW SD 42.0 35.7 - 48.1 fL [facility] ([place]) NRBC abs 0.00 0.00 - 0.01 K/cumm [facility] ([place]) Blood Venous blood specimen / Unknown 01/11/2025 11:03 AM CDT 01/11/2025 11:08 AM CDT Ananda Abdi MD LAB BLOOD ORDERABLES Final Res ult [facility] ([place]) 1 [facility] [place] [address] * Lipase (01/11/2025 11:03 AM CDT) Lipase 21 10 - 99 Units/L Blood Venous blood specimen / Unknown 01/11/2025 11:03 AM CDT 01/11/2025 11:08 AM CDT Ananda Abdi MD LAB BLOOD ORDERABLES Final Res ult Performing Organization Address [facility] Co de Phone Number [facility] ([place]) 1 [facility] [place] [address] * Comprehensive metabolic panel (01/11/2025 11:03 AM CDT) Sodium 138 135 - 145 mmol/L Potassium, pl 4.3 3.3 - 4.9 mmol/L [facility] ([place]) Chloride 100 97 - 110 mmol/L [facility] ([place]) CO2 23 22 - 32 mmol/L [facility] ([place]) Anion gap 15 2 - 15 mmol/L [facility] ([place]) BUN 16 6 - 25 mg/dL [facility] ([place]) Creatinine 0.78 0.60 - 1.10 mg/dL [facility] ([place]) Glucose 92 70 - 199 mg/dL [facility] ([place]) Comment: Interpretive Data Fasting glucose >/= 126 mg/dl is diagnostic for diabetes. Fasting is defined as no caloric intake for at least 8 hours. Fasting glucose between 100 mg/dl to 125 mg/dl is diagnostic of prediabetes. In a patient with classic symptoms of hyperglycemia or hyperglycemic crisis, a random glucose >/= 200 mg/dl is diagnostic for diabetes. In the absence of unequivocal hyperglycemia, results should be confirmed by repeat testing. The classification and Diagnosis of Diabetes Diabetes Care 2021; 46: S19-S40. Current interpretive data was last revised 2022. Calcium 10.1 8.5 - 10.3 mg/dL [facility] ([place]) Bilirubin, total 0.3 0.1 - 1.2 mg/dL [facility] ([place]) Protein, pl 7.6 6.5 - 8.5 g/dL [facility] ([place]) Albumin 4.5 3.5 - 5.0 g/dL [facility] ([place]) Alk phos 96 40 - 130 Units/L [facility] ([place]) ALT 17 7 - 45 Units/L [facility] ([place]) AST 11 10 - 45 Units/L [facility] ([place]) Blood 01/11/2025 11:0 3 AM CDT 01/11/2025 11:08 AM CDT us Ananda Abdi MD LAB BLOOD ORDERABLES Final Res ult [facility] ([place]) 1 [facility] Department of Laboratories [place] [id number] * Urinalysis reflex to microscopic and culture Urine (01/11/2025 10:34 AM CDT) Color, ur Yellow Yellow Clarity, ur Clear Clear [facility] ([place]) Specific gravity, ur 1.012 1.003 - 1.030 [facility] ([place]) pH, urine 7.5 [facility] ([place]) Comment: Interpretive Data U rine pH is affected by diet, medications, systemic acid-base disturbances, and renal tubular function. pH may affect urinary stone formation. For example, urine pH below 6.0 may help reduce the tendency for calcium phosphate stones and pH greater than 6.0 may reduce the tendency for uric acid stone formation. Source: [facility] [employer] Current Interpretive Data was last revised on 2017 Protein, ur ql Negative Negative [facility] ([place]) Glucose, ur ql Negative Negative [facility] ([place]) Ketones, ur Negative Negative [facility] ([place]) Bilirubin, ur Negative Negative [facility] ([place]) Blood, ur Negative Negative [facility] ([place]) Urobilinogen, ur <2.0 <2.0 mg/dL [facility] ([place]) Nitrite, ur Negative Negative [facility] ([place]) Leukocyte esterase, ur Negative Negative [facility] ([place]) UA reflex comment Reflex conditions for microscopic UA and culture not met. [facility] ([place]) Urine 01/11/2025 10:3 4 AM CDT 01/11/2025 10:39 AM CDT Ananda Abdi MD LAB MICROBIOLOGY - GENERAL ORD ERABLES Final Result Performing Organization Address [facility] Co de Phone Number [facility] ([place]) 1 [facility] [place] [address] * ECG 12 lead (01/11/2025 10:10 AM CDT) 01/11/2025 10:1 0 AM CDT Narrative [facility] - 01/11/2025 12:25 PM CDT Vent Rate: 69 bpm RR Interval: 859 msec AL Interval: 0 msec QRS Duration: 98 msec QT Interval: 400 msec QTC Interval: 420 msec P-R-T [place]: [id number] - 45 - 9 degrees IMPRESSION: Baseline artifact, probable sinus rhythm ABNORMAL RHYTHM ECG NO CHANGE FROM PREVIOUS TRACING NOTED Electronically Signed By: Brian Venegas MD Ananda Abdi MD ECG ORDERABLES Final Result Performing Organization Address [facility] Co de Phone Number [facility] * POCT glucose (01/09/2025 11:57 AM CDT) Glucose, POC 153 70 - 199 mg/dL Blood 01/09/2025 11:5 7 AM CDT 01/09/2025 11:57 AM CDT Meredith Eisenberg MD LAB POCT ORDERABLES - DEVICE Final Result Performing Organization Address City/[facility]/ZIP Co de Phone Number [facility] ([place]) 1 [facility] [place] [address] * POCT glucose (01/09/2025 8:12 AM CDT) Glucose, POC 103 70 - 199 mg/dL Blood 01/09/2025 8:12 AM CDT 01/09/2025 8:12 AM CDT Meredith Eisenberg MD LAB POCT ORDERABLES - DEVICE Final Result Performing Organization Address City/[facility]/ZIP Co de Phone Number [facility] ([place]) 1 [facility] [place] [address] * POCT glucose (01/09/2025 4:07 AM CDT) Glucose, POC 115 70 - 199 mg/dL Blood 01/09/2025 4:07 AM CDT 01/09/2025 4:07 AM CDT Meredith Eisenberg MD LAB POCT ORDERABLES - DEVICE Final Result Performing Organization Address [facility] de Phone Number [facility] ([place]) 1 [facility] [place] [address] * eGFR (01/09/2025 3:57 AM CDT) eGFR 76 >=60 mL/min/1. 73 m2 Comment: Interpretive Data Reference Interval Normal >/= 90 mL/min/1.73m2 Mildly decreased* 60 - 89 mL/min/1.73m2 Mildly to moderately decreased 45 - 59 mL/min/1.73m2 Moderately to severely decreased 30 - 44 mL/min/1.73m2 Severely decreased 15 - 29 mL/min/1.73m2 Kidney Failure < 15 mL/min/1.73m2 *Relative to young adult level Estimated glomerular filtration rate is determined by the 2020 CKD-EPI equation recommended by the National Kidney Foundation (A Unifying Approach to GFR Estimation: Recommendations of the NKF-ASK Task Force on Reassessing the Inclusion of Race in Diagnosing Kidney Disease, JASN 2020). The CKD-EPI equation should not be used for patients with unstable renal function and has not been validated in children and those over 70. Current interpretive data was last reviewed 2021. Blood 01/09/2025 3:57 AM CDT 01/09/2025 4:06 AM CDT us Juan Ramirez MD LAB BLOOD ORDERABLES Fi nal Result [facility] ([place]) 1 [facility] Department [place] [address] * (ABNORMAL) Differential, auto (01/09/2025 3:57 AM CDT) Neutrophil abs 4.6 1.5 - 6.5 K/cumm Imm gran abs 0.0 0.0 - 0.1 K/cumm [facility] ([place]) Lymphocyte abs 4.2(H) 0.8 - 3.3 K/cumm [facility] ([place]) Monocyte abs 0.5 0.2 - 0.8 K/cumm [facility] ([place]) Eosinophil abs 0.1 0.0 - 0.5 K/cumm [facility] ([place]) Basophil abs 0.1 0.0 - 0.1 K/cumm [facility] ([place]) Neutrophil pct 49.0 % [facility] ([place]) Comment: Interpretive Data Percent cell count reference ranges are not reported, since discordance with absolute values may lead to misinterpretation of CBC data. Current Interpretive Data was last revised on 2018. Imm gran pct 0.3 % [facility] ([place]) Comment: Interpretive Data Percent cell count reference ranges are not reported, since discordance with absolute values may lead to misinterpretation of CBC data. Current Interpretive Data was last revised on 2018. Lymphocyte pct 44.3 % [facility] ([place]) Comment: Interpretive Data Percent cell count reference ranges are not reported, since discordance with absolute values may lead to misinterpretation of CBC data. Current Interpretive Data was last revised on 2018. Monocyte pct 5.3 % [facility] ([place]) Comment: Interpretive Data Percent cell count reference ranges are not reported, since discordance with absolute values may lead to misinterpretation of CBC data. Current Interpretive Data was last revised on 2018. Eosinophil pct 0.6 % [facility] ([place]) Comment: Interpretive Data Percent cell count reference ranges are not reported, since discordance with absolute values may lead to misinterpretation of CBC data. Current Interpretive Data was last revised on 2018. Basophil pct 0.5 % [facility] ([place]) Comment: Interpretive Data Percent cell count reference ranges are not reported, since discordance with absolute values may lead to misinterpretation of CBC data. Current Interpretive Data was last revised on 2018. Blood 01/09/2025 3:57 AM CDT 01/09/2025 4:06 AM CDT us Juan Ramirez MD LAB BLOOD ORDERABLES nal Result [facility] ([place]) 1 [facility] Department [place] [address] * CBC with auto differential (01/09/2025 3:57 AM CDT) WBC 9.4 3.8 - 9.9 K/cumm Hgb 12.0 11.9 - 15.5 g/dL [facility] ([place]) Hct 37.1 35.6 - 45.5 % [facility] ([place]) Plt 180 150 - 400 K/cumm [facility] ([place]) MPV 11.2 9.1 - 12.3 fL [facility] ([place]) RBC 4.38 3.90 - 5.20 M/cumm [facility] ([place]) MCV 84.7 81.3 - 96.4 fL [facility] ([place]) MCH 27.4 27.1 - 33.3 pg [facility] ([place]) MCHC 32.3 32.3 - 35.7 g/dL [facility] ([place]) RDW CV 14.3 11.1 - 14.9 % [facility] ([place]) RDW SD 43.8 35.7 - 48.1 fL [facility] ([place]) NRBC abs 0.00 0.00 - 0.01 K/cumm [facility] ([place]) Blood 01/09/2025 3:57 AM CDT 01/09/2025 4:06 AM CDT Juan Ramirez MD LAB BLOOD ORDERABLES Fi nal Result [facility] ([place]) 1 [facility] [place] [address] * Magnesium (01/09/2025 3:57 AM CDT) Magnesium 1.8 1.4 - 2.5 mg/dL Blood 01/09/2025 3:57 AM CDT 01/09/2025 4:06 AM CDT Juan Ramirez MD LAB BLOOD ORDERABLES Fi nal Result Performing Organization Address [facility] Co de Phone Number [facility] ([place]) 1 [facility] [place] [address] * (ABNORMAL) Comprehensive metabolic panel (01/09/2025 3:57 AM CDT) Sodium 141 135 - 145 mmol/L Potassium, pl 3.8 3.3 - 4.9 mmol/L [facility] ([place]) Chloride 109 97 - 110 mmol/L [facility] ([place]) CO2 21(L) 22 - 32 mmol/L [facility] ([place]) Anion gap 11 2 - 15 mmol/L [facility] ([place]) BUN 11 6 - 25 mg/dL [facility] ([place]) Creatinine 0.85 0.60 - 1.10 mg/dL [facility] ([place]) Glucose 119 70 - 199 mg/dL [facility] ([place]) Comment: Interpretive Data Fasting glucose >/= 126 mg/dl is diagnostic for diabetes. Fasting is defined as no caloric intake for at least 8 hours. Fasting glucose between 100 mg/dl to 125 mg/dl is diagnostic of prediabetes. In a patient with classic symptoms of hyperglycemia or hyperglycemic crisis, a random glucose >/= 200 mg/dl is diagnostic for diabetes. In the absence of unequivocal hyperglycemia, results should be confirmed by repeat testing. The classification and Diagnosis of Diabetes Diabetes Care 2022; 46: S19-S40. Current interpretive data was last revised 2022. Calcium 8.2(L) 8.5 - 10.3 mg/dL [facility] ([place]) Bilirubin, total <0.2 0.1 - 1.2 mg/dL [facility] ([place]) Protein, pl 5.2(L) 6.5 - 8.5 g/dL [facility] ([place]) Albumin 3.3(L) 3.5 - 5.0 g/dL [facility] ([place]) Alk phos 70 40 - 130 Units/L [facility] ([place]) ALT 19 7 - 45 Units/L [facility] ([place]) AST 15 10 - 45 Units/L [facility] ([place]) Blood 01/09/2025 3:57 AM CDT 01/09/2025 4:06 AM CDT Juan Ramirez MD LAB BLOOD ORDERABLES Fi nal Result [facility] ([place]) 1 [facility] [employer] [place] [address] * POCT glucose (01/08/2025 11:57 PM CDT) Glucose, POC 84 70 - 199 mg/dL Blood 01/08/2025 11:5 7 PM CDT 01/08/2025 11:57 PM CDT Meredith Eisenberg MD LAB POCT ORDERABLES - DEVICE Final Result [facility] ([place]) 1 [facility] [place] [address] * POCT glucose (01/08/2025 8:08 PM CDT) Glucose, POC 194 70 - 199 mg/dL Blood 01/08/2025 8:08 PM CDT 01/08/2025 8:08 PM CDT us Meredith Eisenberg MD LAB POCT ORDERABLES - DEVICE Final Result [facility] ([place]) 1 [facility] [place] [address] * POCT glucose (01/08/2025 4:34 PM CDT) Glucose, POC 113 70 - 199 mg/dL Blood 01/08/2025 4:34 PM CDT 01/08/2025 4:34 PM CDT us Meredith Eisenberg MD LAB POCT ORDERABLES - DEVICE Final Result [facility] ([place]) 1 [facility] [place] [address] * POCT glucose (01/08/2025 11:06 AM CDT) Glucose, POC 133 70 - 199 mg/dL Blood 01/08/2025 11:0 6 AM CDT 01/08/2025 11:06 AM CDT us Meredith Eisenberg MD LAB POCT ORDERABLES - DEVICE Final Result [facility] ([place]) 1 [facility] [place] [address] * POCT glucose (01/08/2025 9:00 AM CDT) Glucose, POC 153 70 - 199 mg/dL Blood 01/08/2025 9:00 AM CDT 01/08/2025 9:00 AM CDT us Meredith Eisenberg MD LAB POCT ORDERABLES - DEVICE Final Result [facility] ([place]) 1 [facility] [place] [address] * eGFR (01/08/2025 4:48 AM CDT) Pathologist [facility] eGFR >90 >=60 mL/min/1. 73 m2 Comment: Interpretive Data Reference Interval Normal >/= 90 mL/min/1.73m2 Mildly decreased* 60 - 89 mL/min/1.73m2 Mildly to moderately decreased 45 - 59 mL/min/1.73m2 Moderately to severely decreased 30 - 44 mL/min/1.73m2 Severely decreased 15 - 29 mL/min/1.73m2 Kidney Failure < 15 mL/min/1.73m2 *Relative to young adult level Estimated glomerular filtration rate is determined by the 2020 CKD-EPI equation recommended by the National Kidney Foundation (A Unifying Approach to GFR Estimation: Recommendations of the NKF-ASK Task Force on Reassessing the Inclusion of Race in Diagnosing Kidney Disease, JASN 2020). The CKD-EPI equation should not be used for patients with unstable renal function and has not been validated in children and those over 70. Current interpretive data was last reviewed 2021. Blood 01/08/2025 4:48 AM CDT 01/08/2025 6:08 AM CDT us Juan Ramirez MD LAB BLOOD ORDERABLES nal Result [facility] ([place]) 1 [facility] Department [place] [address] * (ABNORMAL) CBC with auto differential (01/08/2025 4:48 AM CDT) Pathologist [facility] WBC 7.8 3.8 - 9.9 K/cumm Hgb 14.5 11.9 - 15.5 g/dL [facility] ([place]) Hct 45.2 35.6 - 45.5 % [facility] ([place]) Plt 203 150 - 400 K/cumm [facility] ([place]) MPV 11.5 9.1 - 12.3 fL [facility] ([place]) RBC 5.34(H) 3.90 - 5.20 M/cumm [facility] ([place]) MCV 84.6 81.3 - 96.4 fL [facility] ([place]) MCH 27.2 27.1 - 33.3 pg [facility] ([place]) MCHC 32.1(L) 32.3 - 35.7 g/dL [facility] ([place]) RDW CV 14.0 11.1 - 14.9 % [facility] ([place]) RDW SD 42.9 35.7 - 48.1 fL [facility] ([place]) NRBC abs 0.00 0.00 - 0.01 K/cumm [facility] ([place]) Blood 01/08/2025 4:48 AM CDT 01/08/2025 6:08 AM CDT us Juan Ramirez MD LAB BLOOD ORDERABLES Fi nal Result [facility] ([place]) 1 [facility] [place] [address] * (ABNORMAL) Manual Differential (01/08/2025 4:48 AM CDT) Differential Manual Cells Counted 100 [facility] ([place]) Neutrophil abs 5.4 1.5 - 6.5 K/cumm [facility] ([place]) Lymphocyte abs 2.4 0.8 - 3.3 K/cumm [facility] ([place]) Monocyte abs 0.0(L) 0.2 - 0.8 K/cumm [facility] ([place]) Neutrophil pct 68.0 % [facility] ([place]) Comment: Interpretive Data Percent cell count reference ranges are not reported, since discordance with absolute values may lead to misinterpretation of CBC data. Current Interpretive Data was last revised on 2018. Lymphocyte pct 31.0 % [facility] ([place]) Comment: Interpretive Data Percent cell count reference ranges are not reported, since discordance with absolute values may lead to misinterpretation of CBC data. Current Interpretive Data was last revised on 2018. Band Neutrophil pct 1.0 0.0 - 5.0 % [facility] ([place]) RBC morphology Consistent with RBC Indicies [facility] ([place]) Platelet estimate Adequate [facility] ([place]) Blood 01/08/2025 4:48 AM CDT 01/08/2025 6:08 AM CDT Juan Ramirez MD LAB BLOOD ORDERABLES Fi nal Result [facility] ([place]) 1 [facility] [place] [address] * Magnesium (01/08/2025 4:48 AM CDT) Magnesium 1.9 1.4 - 2.5 mg/dL Blood 01/08/2025 4:48 AM CDT 01/08/2025 6:08 AM CDT Juan Ramirez MD LAB BLOOD ORDERABLES Fi nal Result Performing Organization Address [facility] Co de Phone Number [facility] ([place]) 1 [facility] [place] [address] * (ABNORMAL) Comprehensive metabolic panel (01/08/2025 4:48 AM CDT) Sodium 138 135 - 145 mmol/L Potassium, pl 4.6 3.3 - 4.9 mmol/L [facility] ([place]) Chloride 106 97 - 110 mmol/L [facility] ([place]) CO2 19(L) 22 - 32 mmol/L [facility] ([place]) Anion gap 13 2 - 15 mmol/L [facility] ([place]) BUN 10 6 - 25 mg/dL [facility] ([place]) Creatinine 0.64 0.60 - 1.10 mg/dL [facility] ([place]) Glucose 138 70 - 199 mg/dL [facility] ([place]) Comment: Interpretive Data Fasting glucose >/= 126 mg/dl is diagnostic for diabetes. Fasting is defined as no caloric intake for at least 8 hours. Fasting glucose between 100 mg/dl to 125 mg/dl is diagnostic of prediabetes. In a patient with classic symptoms of hyperglycemia or hyperglycemic crisis, a random glucose >/= 200 mg/dl is diagnostic for diabetes. In the absence of unequivocal hyperglycemia, results should be confirmed by repeat testing. The classification and Diagnosis of Diabetes Diabetes Care 2021; 46: S19-S40. Current interpretive data was last revised 2022. Calcium 9.3 8.5 - 10.3 mg/dL [facility] ([place]) Bilirubin, total <0.2 0.1 - 1.2 mg/dL [facility] ([place]) Protein, pl 6.5 6.5 - 8.5 g/dL [facility] ([place]) Albumin 3.8 3.5 - 5.0 g/dL [facility] ([place]) Alk phos 77 40 - 130 Units/L [facility] ([place]) ALT 12 7 - 45 Units/L [facility] ([place]) AST 12 10 - 45 Units/L [facility] ([place]) Blood 01/08/2025 4:48 AM CDT 01/08/2025 6:08 AM CDT Juan Ramirez MD LAB BLOOD ORDERABLES Fi nal Result [facility] ([place]) 1 [facility] [employer] [place] [address] * POCT glucose (01/08/2025 4:15 AM CDT) Glucose, POC 137 70 - 199 mg/dL Blood 01/08/2025 4:15 AM CDT 01/08/2025 4:15 AM CDT Megan Sinclair MD LAB POCT ORDERABLES - DEV ICE Final Result [facility] ([place]) 1 [facility] [employer] [place] [address] * POCT glucose (01/08/2025 12:03 AM CDT) Glucose, POC 140 70 - 199 mg/dL Blood 01/08/2025 12:0 3 AM CDT 01/08/2025 12:03 AM CDT Megan Sinclair MD LAB POCT ORDERABLES - DEV ICE Final Result [facility] ([place]) 1 [facility] [place] [address] * POCT glucose (01/07/2025 9:27 PM CDT) Glucose, POC 86 70 - 199 mg/dL Blood 01/07/2025 9:27 PM CDT 01/07/2025 9:27 PM CDT Megan Sinclair MD LAB POCT ORDERABLES - DEV ICE Final Result Performing Organization Address [facility] Co de Phone Number [facility] ([place]) 1 [facility] [place] [address] * Troponin T high-sensitivity 6-hour (01/07/2025 8:50 PM CDT) Trop T hs 9 <=14 ng/L Comment: Interpretive Data For further hscTnT resources including the diagnostic algorithm and an aid in interpretation, copy and paste this link: https://nrl.testcatalog.org/show/hsTrop Current Interpretive Data last revised 2020. Trop T hs delta 0 ng/L [facility] ([place]) Trop T hs interp Insignificant [facility] ([place]) Blood 01/07/2025 8:50 PM CDT 01/07/2025 8:57 PM CDT Ananda Abdi MD LAB BLOOD ORDERABLES Final Res ult [facility] ([place]) 1 [facility] [place] [address] * Troponin T high-sensitivity 2-hour (01/07/2025 4:52 PM CDT) Trop T hs 8 <=14 ng/L Comment: Interpretive Data For further hscTnT resources including the diagnostic algorithm and an aid in interpretation, copy and paste this link: https://nrl.testcatalog.org/show/hsTrop Current Interpretive Data last revised 2020. Trop T hs delta -1 ng/L [facility] ([place]) Trop T hs interp Insignificant [facility] ([place]) Blood 01/07/2025 4:52 PM CDT 01/07/2025 4:55 PM CDT us Ananda Abdi MD LAB BLOOD ORDERABLES Final Res ult [facility] ([place]) 1 [facility] [place] [address] * (ABNORMAL) Urinalysis reflex to microscopic and culture Urine (01/07/2025 4:24 PM CDT) Color, ur Straw Yellow Clarity, ur Clear Clear [facility] ([place]) Specific gravity, ur 1.045(H) 1.003 - 1.030 [facility] ([place]) pH, urine 7.0 [facility] ([place]) Comment: Interpretive Data U rine pH is affected by diet, medications, systemic acid-base disturbances, and renal tubular function. pH may affect urinary stone formation. For example, urine pH below 6.0 may help reduce the tendency for calcium phosphate stones and pH greater than 6.0 may reduce the tendency for uric acid stone formation. Source: [facility] [employer] Current Interpretive Data was last revised on 2017 Protein, ur ql Negative Negative [facility] ([place]) Glucose, ur ql Negative Negative [facility] ([place]) Ketones, ur Negative Negative [facility] ([place]) Bilirubin, ur Negative Negative [facility] ([place]) Blood, ur Negative Negative [facility] ([place]) Urobilinogen, ur <2.0 <2.0 mg/dL [facility] ([place]) Nitrite, ur Negative Negative [facility] ([place]) Leukocyte esterase, ur Negative Negative [facility] ([place]) UA reflex comment Reflex conditions for microscopic UA and culture not met. [facility] ([place]) Urine 01/07/2025 4:24 PM CDT 01/07/2025 4:26 PM CDT Sandi Hull MD LAB MICROBIOLOGY - GENERA L ORDERABLES Final Result [facility] ([place]) 1 [facility] [place] [address] * CT Chest Abdomen Pelvis W Contrast (01/07/2025 4:00 PM CDT) Anatomical Region Laterality Modality Body N/A Computed Tomogra phy 01/07/2025 4:47 PM CDT Narrative 01/07/2025 5:05 PM CDT EXAM DESCRIPTION: CT CHEST ABDOMEN PELVIS W CONTRAST REASON FOR STUDY: pain Abdominal pain after EGD today TECHNIQUE: CT scan of the chest, abdomen, and pelvis performed with intravenous and without oral contrast using helical scanning technique with dynamic intravenous contrast injection. Reconstructed coronal and sagittal MPR images reviewed. All images stored on PACS. Automated exposure control was used as a dose optimization technique for this examination. CONTRAST TYPE/DOSE: 75mL of IOVERSOL 350 MG IODINE/ML INTRAVENOUS SYRINGE injected via intravenous COMPARISON: CT chest abdomen and pelvis 12/27/2024 FINDINGS: CHEST LUNGS: Mild bilateral bronchial wall thickening. No nodules or masses. No pneumonia. PLEURA: No effusion. No pneumothorax. MEDIASTINUM/JEROME: Prominent mediastinal lymph nodes measuring up to 8 mm. No mass HEART: Heart size is normal with no pericardial effusion. VASCULATURE CHEST: No thoracic aortic aneurysm or dissection. AXILLA: No adenopathy. CHEST WALL: No masses. No subcutaneous air. HARDWARE/LINES/TUBES: None. MUSCULOSKELETAL CHEST: No significant abnormality. ABDOMEN/PELVIS LIVER: Hepatomegaly measuring 20.5 cm with mild steatosis. No focal hepatic lesion. GALLBLADDER: No stones, wall thickening or pericholecystic fluid BILE DUCTS: No intrahepatic or extrahepatic ductal dilatation. SPLEEN: Normal size. No focal lesions. PANCREAS: No identified cystic or solid masses. No significant calcifications. No adjacent inflammation or peripancreatic fluid collections. Pancreatic duct not dilated. ADRENALS: Normal. KIDNEYS/URINARY TRACT: No identified significant cystic or solid masses. No visualized stones. No hydronephrosis or hydroureter. Symmetric enhancement. Urinary bladder is unremarkable. GI: There is fluid distention of the stomach and duodenum. There is mild wall thickening of the 3rd segment of the duodenum, consistent with acute duodenitis which may be reactive postprocedure. The remaining bowel loops are unremarkable. Normal appendix. No significant diverticular disease. PERITONEUM: No ascites or free air. RETROPERITONEUM: No mass or adenopathy. REPRODUCTIVE: No significant abnormality. VASCULATURE ABDOMEN: No abdominal aortic aneurysm. MUSCULOSKELETAL ABDOMEN PELVIS: No acute finding. OTHER: No significant abnormality. IMPRESSION: Fluid distention of the stomach and duodenum with mild wall thickening of the 3rd segment of the duodenum, consistent with acute duodenitis which may be reactive postprocedure. No free air or free fluid. Hepatomegaly with mild steatosis. THIS IS AN ELECTRONICALLY VERIFIED FINAL REPORT 01/07/2025 5:05 PM - Electronically signed by Vanessa Roy M.D. FT: FT Report ID: [id number] Reading Location: [id number] Procedure Note Vanessa Mccann MD - 01/07/2025 EXAM DESCRIPTION: CT CHEST ABDOMEN PELVIS W CONTRAST REASON FOR STUDY: pain Abdominal pain after EGD today TECHNIQUE: CT scan of the chest, abdomen, and pelvis performed with intravenous and without oral contrast using helical scanning techniquewith dynamic intravenous contrast injection. Reconstructed coronal and sagittalMPR images reviewed. All images stored on PACS. Automated exposure control was used as a dose optimization technique for this examination. CONTRAST TYPE/DOSE: 75mL of IOVERSOL 350 MG IODINE/ML INTRAVENOUS SYRINGE injected via intravenous COMPARISON: CT chest abdomen and pelvis 12/27/2024 FINDINGS: CHEST LUNGS: Mild bilateral bronchial wall thickening. No nodules or masses.No pneumonia. PLEURA: No effusion. No pneumothorax. MEDIASTINUM/JEROME: Prominent mediastinal lymph nodes measuring up to 8mm. No mass HEART: Heart size is normal with no pericardial effusion. VASCULATURE CHEST: No thoracic aortic aneurysm or dissection. AXILLA: No adenopathy. CHEST WALL: No masses. No subcutaneous air. HARDWARE/LINES/TUBES: None. MUSCULOSKELETAL CHEST: No significant abnormality. ABDOMEN/PELVIS LIVER: Hepatomegaly measuring 20.5 cm with mild steatosis. No focalhepatic lesion. GALLBLADDER: No stones, wall thickening or pericholecystic fluid BILE DUCTS: No intrahepatic or extrahepatic ductal dilatation. SPLEEN: Normal size. No focal lesions. PANCREAS: No identified cystic or solid masses. No significant calcifications. No adjacent inflammation or peripancreatic fluidcollections. Pancreatic duct not dilated. ADRENALS: Normal. KIDNEYS/URINARY TRACT: No identified significant cystic or solid masses.No visualized stones. No hydronephrosis or hydroureter. Symmetricenhancement. Urinary bladder is unremarkable. GI: There is fluid distention of the stomach and duodenum. There ismild wall thickening of the 3rd segment of the duodenum, consistent with acute duodenitis which may be reactive postprocedure. The remaining bowel loopsare unremarkable. Normal appendix. No significant diverticular disease. PERITONEUM: No ascites or free air. RETROPERITONEUM: No mass or adenopathy. REPRODUCTIVE: No significant abnormality. VASCULATURE ABDOMEN: No abdominal aortic aneurysm. MUSCULOSKELETAL ABDOMEN PELVIS: No acute finding. OTHER: No significant abnormality. IMPRESSION: Fluid distention of the stomach and duodenum with mild wall thickening ofthe 3rd segment of the duodenum, consistent with acute duodenitis which may be reactive postprocedure. No free air or free fluid. Hepatomegaly with mild steatosis. THIS IS AN ELECTRONICALLY VERIFIED FINAL REPORT 01/07/2025 5:05 PM - Electronically signed by Vanessa Roy M.D. FT: FT Report ID: [id number] Reading Location: [id number] us Sandi Hull MD IMG CT PROCEDURES Final R esult * ECG 12 lead (01/07/2025 2:58 PM CDT) 01/07/2025 2:58 PM CDT [facility] - 01/07/2025 4:16 PM CDT Vent Rate: 63 bpm RR Interval: 942 msec AL Interval: 192 msec QRS Duration: 101 msec QT Interval: 415 msec QTC Interval: 423 msec P-R-T [place]: 24 - 74 - 58 degrees IMPRESSION: Baseline artifact, probable SINUS RHYTHM MINIMAL ST DEPRESSION [0.025+ mV ST DEPRESSION] BORDERLINE ECG NO CHANGE FROM PREVIOUS TRACING NOTED Electronically Signed By: Brian Venegas MD Sandi Hull MD ECG ORDERABLES Final Res ult [facility] * Troponin T high-sensitivity series (baseline, 2hr, 4hr, 6hr) (01/07/2025 2:52 PM CDT) Trop T hs 9 <=14 ng/L Comment: Interpretive Data For further hscTnT resources including the diagnostic algorithm and an aid in interpretation, copy and paste this link: [email or web address].testcatalog.org/show/[email or web address] Current Interpretive Data last revised 2020. Blood 01/07/2025 2:52 PM CDT 01/07/2025 2:58 PM CDT Sandi Hull MD LAB BLOOD ORDERABLES Zeina l Result Performing Organization Address City/Va Hospital/ZIP Co de Phone Number [facility] ([place]) 1 [facility] Department of Laboratories [place], [place] [address] * eGFR (01/07/2025 2:52 PM CDT) eGFR 74 >=60 mL/min/1. 73 m2 Comment: Interpretive Data Reference Interval Normal >/= 90 mL/min/1.73m2 Mildly decreased* 60 - 89 mL/min/1.73m2 Mildly to moderately decreased 45 - 59 mL/min/1.73m2 Moderately to severely decreased 30 - 44 mL/min/1.73m2 Severely decreased 15 - 29 mL/min/1.73m2 Kidney Failure < 15 mL/min/1.73m2 *Relative to young adult level Estimated glomerular filtration rate is determined by the 2020 CKD-EPI equation recommended by the National Kidney Foundation (A Unifying Approach to GFR Estimation: Recommendations of the NKF-ASK Task Force on Reassessing the Inclusion of Race in Diagnosing Kidney Disease, JASN 2020). The CKD-EPI equation should not be used for patients with unstable renal function and has not been validated in children and those over 70. Current interpretive data was last reviewed 2021. Blood 01/07/2025 2:52 PM CDT 01/07/2025 2:58 PM CDT us Ananda Abdi MD LAB BLOOD ORDERABLES Final Res ult [facility] ([place]) [facility] [place] [address] * (ABNORMAL) Differential, auto (01/07/2025 2:52 PM CDT) Neutrophil abs 7.3(H) 1.5 - 6.5 K/cumm Imm gran abs 0.1 0.0 - 0.1 K/cumm [facility] ([place]) Lymphocyte abs 4.0(H) 0.8 - 3.3 K/cumm [facility] ([place]) Monocyte abs 0.8 0.2 - 0.8 K/cumm [facility]) Eosinophil abs 0.1 0.0 - 0.5 K/cumm [facility]) Basophil abs 0.1 0.0 - 0.1 K/cumm [facility]) Neutrophil pct 59.2 % [facility]) Comment: Interpretive Data Percent cell count reference ranges are not reported, since discordance with absolute values may lead to misinterpretation of CBC data. Current Interpretive Data was last revised on 2018. Imm gran pct 0.4 % [facility]) Comment: Interpretive Data Percent cell count reference ranges are not reported, since discordance with absolute values may lead to misinterpretation of CBC data. Current Interpretive Data was last revised on 2018. Lymphocyte pct 32.5 % [facility] Comment: Interpretive Data Percent cell count reference ranges are not reported, since discordance with absolute values may lead to misinterpretation of CBC data. Current Interpretive Data was last revised on 2018. Monocyte pct 6.5 % [facility]) Comment: Interpretive Data Percent cell count reference ranges are not reported, since discordance with absolute values may lead to misinterpretation of CBC data. Current Interpretive Data was last revised on 2018. Eosinophil pct 0.6 % [facility]) Comment: Interpretive Data Percent cell count reference ranges are not reported, since discordance with absolute values may lead to misinterpretation of CBC data. Current Interpretive Data was last revised on 2018. Basophil pct 0.8 % [facility]) Comment: Interpretive Data Percent cell count reference ranges are not reported, since discordance with absolute values may lead to misinterpretation of CBC data. Current Interpretive Data was last revised on 2018. Blood 01/07/2025 2:52 PM CDT 01/07/2025 2:58 PM CDT us Ananda Abdi MD LAB BLOOD ORDERABLES Final Res ult [facility] ([place] 1 [facility] [place] [address] * (ABNORMAL) CBC with auto differential (01/07/2025 2:52 PM CDT) WBC 12.4(H) 3.8 - 9.9 K/cumm Hgb 15.3 11.9 - 15.5 g/dL [facility]) Hct 46.0(H) 35.6 - 45.5 % [facility]) Plt 246 150 - 400 K/cumm [facility]) MPV 10.8 9.1 - 12.3 fL [facility]) RBC 5.59(H) 3.90 - 5.20 M/cumm [facility]) MCV 82.3 81.3 - 96.4 fL [facility] MCH 27.4 27.1 - 33.3 pg [facility] MCHC 33.3 32.3 - 35.7 g/dL [facility]) RDW CV 13.8 11.1 - 14.9 % [facility] RDW SD 40.8 35.7 - 48.1 fL [facility] ([place]) NRBC abs 0.00 0.00 - 0.01 K/cumm [facility] ([place]) Blood Venous blood specimen / Unknown 01/07/2025 2:52 PM CDT 01/07/2025 2:58 PM CDT Sandi Hull MD LAB BLOOD ORDERABLES Zeina l Result [facility] ([place] 1 [facility] [place] [address] * Lipase (01/07/2025 2:52 PM CDT) Pathologist [facility] Lipase 30 10 - 99 Units/L Blood Venous blood specimen / Unknown 01/07/2025 2:52 PM CDT 01/07/2025 2:58 PM CDT Sandi Hull MD LAB BLOOD ORDERABLES Zeina l Result Performing Organization Address City/Va Hospital/ZIP Co de Phone Number [facility] ([place] 1 [facility] [place] [address] * Comprehensive metabolic panel (01/07/2025 2:52 PM CDT) Sodium 140 135 - 145 mmol/L Potassium, pl 4.4 3.3 - 4.9 mmol/L [facility] ([place]) Chloride 103 97 - 110 mmol/L [facility] ([place] CO2 23 22 - 32 mmol/L [facility] ([place] Anion gap 14 2 - 15 mmol/L [facility] BUN 13 6 - 25 mg/dL [facility] ([place]) Creatinine 0.87 0.60 - 1.10 mg/dL [facility]) Glucose 148 70 - 199 mg/dL [facility] ([place]) Comment: Interpretive Data Fasting glucose >/= 126 mg/dl is diagnostic for diabetes. Fasting is defined as no caloric intake for at least 8 hours. Fasting glucose between 100 mg/dl to 125 mg/dl is diagnostic of prediabetes. In a patient with classic symptoms of hyperglycemia or hyperglycemic crisis, a random glucose >/= 200 mg/dl is diagnostic for diabetes. In the absence of unequivocal hyperglycemia, results should be confirmed by repeat testing. The classification and Diagnosis of Diabetes Diabetes Care 2021; 46: S19-S40. Current interpretive data was last revised 2022. Calcium 9.5 8.5 - 10.3 mg/dL [facility] ([place]) Bilirubin, total 0.2 0.1 - 1.2 mg/dL [facility]) Protein, pl 6.9 6.5 - 8.5 g/dL [facility]) Albumin 4.1 3.5 - 5.0 g/dL [facility]) Alk phos 87 40 - 130 Units/L [facility]) ALT 10 7 - 45 Units/L [facility] AST 13 10 - 45 Units/L [facility]) Blood 01/07/2025 2:52 PM CDT 01/07/2025 2:58 PM CDT us Sandi Hull MD LAB BLOOD ORDERABLES Zeina danielle Result [facility] ([place]) [address] [place] [address] [place] [address] * Surgical pathology (01/07/2025 2:22 PM CDT) Tissue specimen (specimen) (Duodenum, Biopsy) 01/07/2025 11:15 AM CDT Tissue specimen (specimen) (Gastric/Stomach biopsy) 01/07/2025 11:16 AM CDT Tissue specimen (specimen) (EG Junction, Biopsy) 01/07/2025 11:17 AM [address] [facility] ([place]) - 01/08/2025 3:36 PM CDT EPIC results best viewed via link to PDF [facility] Department of Pathology [address] [place] [id number] Note to Patients: This report may contain a detailed description of human tissue sent by a health care provider to the laboratory for pathologic evaluation. The content of this report is essential for diagnosis and may provide important critical findings. This information may be unfamiliar to patients to review without a medical professional present. It is advised that the patient review this report in the presence of a health care provider who can answer questions and explain the details. Final Report Patient Name: AYALA JAUREGUI Address: [address] [place] [address]- Gender: F : 1960 (Age: 64) Service: Gastro Location: [facility] Hospital #: [id number] Patient Type: [facility] Taken: 01/07/2025 Received: 01/07/2025 Accessioned: 01/07/2025 Reported: 01/08/2025 Physician(s):Luana Delgado MD Diagnosis: A. Duodenum, biopsy: - No significant histopathologic alteration. B. Stomach, biopsy: - Antral and oxyntic type gastric mucosa showing mild chronic inactive gastritis. - Negative for intestinal metaplasia and dysplasia. - Negative for Helicobacter. C. Gastroesophageal junction, biopsy: - Squamocolumnar epithelium with focal intestinal metaplasia and mixed inflammation compatible with Gastelum's esophagus. - Negative for dysplasia. Randal Mcguire M.D. Report Electronically Reviewed and Signed Out By Randal Mcguire M.D. 01/08/2025 15:36:03 Specimen(s) Received: A: Duodenum biopsy B: Gastric biopsy C: GE junction biopsy Microscopic Description: A. Sections show fragments of benign duodenal mucosa characterized by long slender villi with no significant villous blunting seen. There is no increase in intraepithelial lymphocytes. No significant acute inflammatory infiltrate is seen. No chronic architectural changes are seen. No organisms are identified. Yosvany's glands are present. There is no evidence of dysplasia or malignancy. B. Sections show antral and oxyntic-type gastric mucosa showing mild chronic inactive gastritis. No significant acute inflammatory infiltrate is seen. There is no evidence of intestinal metaplasia or dysplasia. In order to classify the gastritis further, a Helicobacter immunohistochemical stain was performed with adequate controls and is negative. C. Sections show fragments of squamocolumnar epithelium with mixed inflammation compatible with reflux related changes. Additionally, a small panel of immunohistochemical stains was performed with adequate controls. A pancytokeratin AE1/AE3 shows no evidence of an infiltrating carcinoma. An Alcian blue/PAS highlights focal intestinal metaplasia present. In the appropriate endoscopic setting, the findings are consistent with Gastelum's esophagus. There is no evidence of dysplasia. Clinical History: Epigastric pain. EGD. Gross Description: The specimen is submitted in three formalin containers labeled AYALA JAUREGUI . A. The first container is labeled duodenum . It is 4 fragments of holman tissue between 1 and 2 mm. All in A. B. The second container is labeled gastric . It is 2 fragments of holman tissue between 2 and 4 mm. All in B. C. The third container is labeled GE junction . It is 4 fragments of holman tissue measuring 1 mm. All in C. T.A. Anais Brown P.A./Shante Lomeli M.D. REPORT IMAGES AND SCANNED DOCUMENTS, IF INCLUDED, ONLY VIEWABLE IN PDF VERSION OF REPORT The performance characteristics of some immunohistochemical stains, fluorescence in-situ hybridization tests and immunophenotyping by flow cytometry cited in this report (if any) were determined by the Surgical Pathology Department at [facility] as part of an ongoing quality process lead program and in compliance with federally mandated regulations drawn from the Clinical Laboratory Improvement Act of 1988 (CLIA '88). Some of these tests rely on the use of analyte specific reagents and are subject to specific labeling requirements by the US Food and Drug Administration. Such diagnostic tests may only be performed in a facility that is certified by the Department of Health and Human Services as a high complexity laboratory under CLIA '88. The FDA has determined that such clearance or approval is not necessary. This test is used for clinical purposes. It should not be regarded as investigational or for research. Nevertheless, federal rules concerning the medical use of analyte specific reagents require that the following disclaimer be attached to the report: This test was developed and its performance characteristics determined by the Surgical Pathology Department [facility]. It has not been cleared or approved by the U. S. Food and Drug Administration. Note for decalcified specimens: This assay has not been validated on decalcified tissues. Results should be interpreted with caution given the possibility of false negativity on decalcified specimens Luana Delgado MD LAB PATHOLOGY ORDERABLES Final R esult [facility] ([place]) 1 [place] [address] * POCT glucose (01/07/2025 10:18 AM CDT) Glucose, POC 98 70 - 199 mg/dL Blood 01/07/2025 10:1 8 AM CDT 01/07/2025 10:18 AM CDT us Luana Delgado MD LAB POCT ORDERABLES - DEVICE Fin al Result Performing Organization Address [facility] Co de Phone Number [facility]ERNER [facility] ([place] 1 [facility] [place] [address] * EGD (01/07/2025 10:11 AM CDT) Anatomical Region Laterality Modality Other Narrative Procedure Note Luana Delgado MD - 01/07/2025 10:11 AM CDT [facility] Patient Name: Ayala Jauregui Procedure Date: 01/07/2025 10:11 AM Date of : 1960 Admit Type: Outpatient Age: 64 Gender: Female Attending MD: Luana Delgado M.D. Room: [facility] ENDOSCOPY ROOM 2 Note Status: Finalized Patient Profile: This is a 64 year old female H significant forCOPD, HTN, bipolar, anxiety, hypothyroidism, GERD herefor abdominal pain with associated nausea and vomiting. EGD 06/2024 showed erythematous stomach with mild chronic inflammation, normal esophagus andduodenum, mild chronic inflammation the GE junction. Patient endorsing worsening pain over 2 months associatedwith eating and requiring multiple ED and hospitalvisits. Procedure: Upper GI endoscopy Indications: Generalized abdominal pain, Nausea with vomiting Referring MD: Tressa Johnson M.D. Providers: Luana Delgado M.D. Impression: - LA Grade B reflux esophagitis. Biopsied. - Erosive gastropathy with no bleeding and nostigmata of recent bleeding. Biopsied. - Congestive gastropathy. Biopsied. - Erythematous duodenopathy. Biopsied. Recommendation: - Patient has a contact number available for emergencies. The signs and symptoms of potential delayed complications were discussed with thepatient. Return to normal activities tomorrow. Written discharge instructions were provided to thepatient. - Discharge patient to home (with escort). - Resume previous diet. - No ibuprofen, naproxen, or other non-steroidal anti-inflammatory drugs. - Continue present medications. - Add sucralfate 1g QID for a month. - Await pathology results. - Return to referring physician as previously scheduled. Medicines: Monitored Anesthesia Care Complications: No immediate complications. Estimated Blood Loss: Estimated blood loss was minimal. Procedure: Pre-Anesthesia Assessment: - Prior to the procedure, a History and Physicalwas performed, and patient medications and allergieswere reviewed. The patient is competent. The risks and benefits of the procedure and the sedation optionsand risks were discussed with the patient. Allquestions were answered and informed consent was obtained. Patient identification and proposed procedure were verified by the physician, the human projectile and the research laboratory technician in the endoscopy suite. Mental Status Examination: normal. Prophylactic Antibiotics: The patient does not require prophylactic antibiotics. Prior Anticoagulants: The patient has taken no anticoagulant or antiplatelet agents. Afterreviewing the risks and benefits, the patient was deemed in satisfactory condition to undergo the procedure.The anesthesia plan was to use monitored anesthesiacare (MAC). Immediately prior to administration of medications, the patient was re-assessed foradequacy to receive sedatives. The heart rate, respiratory rate, oxygen saturations, blood pressure, adequacyof pulmonary ventilation, and response to care were monitored throughout the procedure. The physical status of the patient was re-assessed after the procedure. The benefits, risks, and alternatives to theprocedure and sedation were discussed and informed consentwas obtained. The scope was passed under direct vision. The Endoscope [id number] was introduced through the mouth, and advanced to the second partof duodenum. The upper GI endoscopy was accomplished without difficulty. The patient tolerated the procedure well. Findings: LA Grade B (one or more mucosal breaks greater than 5 mm, notextending between the tops of two mucosal folds) esophagitis was found at the gastroesophageal junction. Biopsies were taken with a cold forcepsfor histology. A few dispersed diminutive erosions with no bleeding and no stigmataof recent bleeding were found in the gastric antrum. Biopsies were taken with a cold forceps for Helicobacter pylori testing. Diffuse mildly congested mucosa was found in the gastric body.Biopsies were taken with a cold forceps for Helicobacter pylori testing. Patchy mildly erythematous mucosa was found in the entire duodenum. Biopsies were taken with a cold forceps for histology. Luana Delgado M.D. 01/07/2025 11:25:40 AM Number of Addenda: 0 Note Initiated On: 01/07/2025 10:11 AM Procedure Code(s): --- Professional --- 73464, Esophagogastroduodenoscopy, flexible, transoral; with biopsy, single or multiple --- Technical --- 40623, Esophagogastroduodenoscopy, flexible, transoral; with biopsy, single or multiple Diagnosis Code(s): --- Professional --- K21.00, Gastro-esophageal reflux disease with esophagitis, without bleeding K31.89, Other diseases of stomach and duodenum R10.84, Generalized abdominal pain R11.2, Nausea with vomiting, unspecified --- Technical --- K21.00, Gastro-esophageal reflux disease with esophagitis, without bleeding K31.89, Other diseases of stomach and duodenum R10.84, Generalized abdominal pain R11.2, Nausea with vomiting, unspecified CPT copyright 2020 [employer]. All rights reserved. The codes documented in this report are preliminary and upon retail coverage merchandiser lead reviewmay be revised to meet current compliance requirements. Recognized by the [employer] for promoting quality in endoscopy Luana Delgado MD ENDOSCOPY PROCEDURES Final Resul t * Urinalysis reflex to microscopic and culture Urine (12/31/2024 1:08 PM CDT) Color, ur Yellow Yellow Clarity, ur Clear Clear [facility]) Specific gravity, ur 1.015 1.003 - 1.030 [facility]) pH, urine 7.5 [facility]) Comment: Interpretive Data U rine pH is affected by diet, medications, systemic acid-base disturbances, and renal tubular function. pH may affect urinary stone formation. For example, urine pH below 6.0 may help reduce the tendency for calcium phosphate stones and pH greater than 6.0 may reduce the tendency for uric acid stone formation. Source: Romo ELVPHD Current Interpretive Data was last revised on 2017 Protein, ur ql Negative Negative [facility] ([place]) Glucose, ur ql Negative Negative [facility] ([place]) Ketones, ur Negative Negative [facility] ([place]) Bilirubin, ur Negative Negative [facility] [place]) Blood, ur Negative Negative [facility] [place]) Urobilinogen, ur <2.0 <2.0 mg/dL [facility] ([place]) Nitrite, ur Negative Negative [facility]) Leukocyte esterase, ur Negative Negative [facility] [place]) UA reflex comment Reflex conditions for microscopic UA and culture not met. [facility] ([place]) Urine 12/31/2024 1:08 PM CDT 12/31/2024 1:12 PM CDT Rose [facility] LAB MICROBIOLOGY - GENERA L ORDERABLES Final Result [facility] ([place]) 1 [facility] [place] [address] * eGFR (12/31/2024 12:28 PM CDT) Pathologist [facility] eGFR 75 >=60 mL/min/1. 73 m2 Comment: Interpretive Data Reference Interval Normal >/= 90 mL/min/1.73m2 Mildly decreased* 60 - 89 mL/min/1.73m2 Mildly to moderately decreased 45 - 59 mL/min/1.73m2 Moderately to severely decreased 30 - 44 mL/min/1.73m2 Severely decreased 15 - 29 mL/min/1.73m2 Kidney Failure < 15 mL/min/1.73m2 *Relative to young adult level Estimated glomerular filtration rate is determined by the 2020 CKD-EPI equation recommended by the National Kidney Foundation (A Unifying Approach to GFR Estimation: Recommendations of the NKF-ASK Task Force on Reassessing the Inclusion of Race in Diagnosing Kidney Disease, JASN 2020). The CKD-EPI equation should not be used for patients with unstable renal function and has not been validated in children and those over 70. Current interpretive data was last reviewed 2021. Blood 12/31/2024 12:2 8 PM CDT 12/31/2024 12:30 PM CDT Rose [facility] LAB BLOOD ORDERABLES Zeina l Result [facility] ([place]) 1 [facility] [place] [address] * Differential, auto (12/31/2024 12:28 PM CDT) Pathologist [facility] Neutrophil abs 4.9 1.5 - 6.5 K/cumm Imm gran abs 0.0 0.0 - 0.1 K/cumm [facility] ([place]) Lymphocyte abs 3.0 0.8 - 3.3 K/cumm [facility] ([place]) Monocyte abs 0.5 0.2 - 0.8 K/cumm [facility] ([place]) Eosinophil abs 0.1 0.0 - 0.5 K/cumm [facility] ([place]) Basophil abs 0.1 0.0 - 0.1 K/cumm [facility] ([place]) Neutrophil pct 57.2 % [facility] ([place]) Comment: Interpretive Data Percent cell count reference ranges are not reported, since discordance with absolute values may lead to misinterpretation of CBC data. Current Interpretive Data was last revised on 2018. Imm gran pct 0.2 % [facility] ([place]) Comment: Interpretive Data Percent cell count reference ranges are not reported, since discordance with absolute values may lead to misinterpretation of CBC data. Current Interpretive Data was last revised on 2018. Lymphocyte pct 34.6 % [facility] ([place]) Comment: Interpretive Data Percent cell count reference ranges are not reported, since discordance with absolute values may lead to misinterpretation of CBC data. Current Interpretive Data was last revised on 2018. Monocyte pct 5.3 % [facility] ([place]) Comment: Interpretive Data Percent cell count reference ranges are not reported, since discordance with absolute values may lead to misinterpretation of CBC data. Current Interpretive Data was last revised on 2018. Eosinophil pct 1.5 % [facility] ([place]) Comment: Interpretive Data Percent cell count reference ranges are not reported, since discordance with absolute values may lead to misinterpretation of CBC data. Current Interpretive Data was last revised on 2018. Basophil pct 1.2 % [facility] ([place]) Comment: Interpretive Data Percent cell count reference ranges are not reported, since discordance with absolute values may lead to misinterpretation of CBC data. Current Interpretive Data was last revised on 2018. Blood 12/31/2024 12:2 8 PM CDT 12/31/2024 12:30 PM CDT us Rose [facility] LAB BLOOD ORDERABLES Zeina danielle Result [facility] ([place]) 1 [facility] [place] [address] * (ABNORMAL) CBC with auto differential (12/31/2024 12:28 PM CDT) WBC 8.6 3.8 - 9.9 K/cumm Hgb 14.5 11.9 - 15.5 g/dL [facility] ([place]) Hct 44.9 35.6 - 45.5 % [facility] ([place]) Plt 173 150 - 400 K/cumm [facility] ([place]) MPV 10.9 9.1 - 12.3 fL [facility] ([place]) RBC 5.36(H) 3.90 - 5.20 M/cumm [facility] ([place]) MCV 83.8 81.3 - 96.4 fL [facility] ([place]) MCH 27.1 27.1 - 33.3 pg [facility] ([place]) MCHC 32.3 32.3 - 35.7 g/dL [facility] ([place]) RDW CV 14.1 11.1 - 14.9 % [facility] ([place]) RDW SD 43.1 35.7 - 48.1 fL [facility] ([place]) NRBC abs 0.00 0.00 - 0.01 K/cumm [facility] ([place]) Blood 12/31/2024 12:2 8 PM CDT 12/31/2024 12:30 PM CDT [facility] LAB BLOOD ORDERABLES Zeina l Result Performing Organization Address [facility] Co de Phone Number [facility] ([place]) 1 [facility] [place] [address] * Lipase (12/31/2024 12:28 PM CDT) Pathologist [facility] Lipase 20 10 - 99 Units/L Blood 12/31/2024 12:2 8 PM CDT 12/31/2024 12:30 PM CDT [facility] LAB BLOOD ORDERABLES Zeina l Result Performing Organization Address City/[facility]/ZIP Co de Phone Number [facility] ([place]) 1 [facility] [place] [address] * Comprehensive metabolic panel (12/31/2024 12:28 PM CDT) Sodium 141 135 - 145 mmol/L Potassium, pl 4.4 3.3 - 4.9 mmol/L [facility]) Chloride 101 97 - 110 mmol/L [facility]) CO2 26 22 - 32 mmol/L [facility]) Anion gap 14 2 - 15 mmol/L [facility] [place]) BUN 13 6 - 25 mg/dL [facility] ([place]) Creatinine 0.86 0.60 - 1.10 mg/dL [facility] ([place]) Glucose 119 70 - 199 mg/dL [facility] ([place]) Comment: Interpretive Data Fasting glucose >/= 126 mg/dl is diagnostic for diabetes. Fasting is defined as no caloric intake for at least 8 hours. Fasting glucose between 100 mg/dl to 125 mg/dl is diagnostic of prediabetes. In a patient with classic symptoms of hyperglycemia or hyperglycemic crisis, a random glucose >/= 200 mg/dl is diagnostic for diabetes. In the absence of unequivocal hyperglycemia, results should be confirmed by repeat testing. The classification and Diagnosis of Diabetes Diabetes Care 2021; 46: S19-S40. Current interpretive data was last revised 2022. Calcium 9.6 8.5 - 10.3 mg/dL [facility] ([place]) Bilirubin, total 0.3 0.1 - 1.2 mg/dL [facility] ([place]) Protein, pl 6.6 6.5 - 8.5 g/dL [facility] ([place]) Albumin 4.0 3.5 - 5.0 g/dL [facility] ([place]) Alk phos 85 40 - 130 Units/L [facility] ([place] ALT 10 7 - 45 Units/L [facility] [place]) AST 13 10 - 45 Units/L [facility] ([place]) Comment:Slightly Hemolyzed S pecimen Blood 12/31/2024 12:2 8 PM CDT 12/31/2024 12:30 PM CDT us Rose [facility] LAB BLOOD ORDERABLES Zeina danielle Result [facility] [place]) 1 [facility] [place] [address] * CT Chest PE (CTA) Abdomen Pelvis W Contrast (12/27/2024 2:05 PM CDT) Anatomical Region Laterality Modality Body N/A Computed Tomogra phy 12/27/2024 2:14 PM CDT Narrative 12/27/2024 2:22 PM CDT EXAM DESCRIPTION: CT CHEST PE (CTA) ABDOMEN PELVIS W CONTRAST REASON FOR STUDY: abdominal pain, recent hospitization sepsis + lactate Pt is complaining of abdominal pain, nausea, and vomiting ongoing for about 2 months. Hx of hysterectomy. TECHNIQUE: CT angiogram of the chest with routine abdomen and pelvis performed with intravenous and without oral contrast using helical scanning technique with dynamic intravenous contrast injection. Reconstructed coronal and sagittal MPR images reviewed. All images stored on PACS. 3D MIP images of the chest rendered on scanning unit and reviewed at time of interpretation. Automated exposure control was used as a dose optimization technique for this examination. CONTRAST TYPE/DOSE: 75mL of IOVERSOL 350 MG IODINE/ML INTRAVENOUS SYRINGE injected via intravenous COMPARISON: CT abdomen and pelvis 09/05/2024 FINDINGS: CHEST CHEST VASCULATURE: No acute pulmonary thromboembolism. LUNGS: The central airways are clear. No evidence of pneumonia. No suspicious pulmonary nodules. Minimal scarring versus atelectasis in the lung bases. PLEURA: No effusion. No pneumothorax. MEDIASTINUM/JEROME: No identified masses or abnormal nodes. HEART: Heart size is normal with no pericardial effusion. AXILLA: No adenopathy. CHEST WALL: No masses. No subcutaneous air. HARDWARE/LINES/TUBES: None. MUSCULOSKELETAL CHEST: No significant abnormality. ABDOMEN/PELVIS LIVER: Normal size. No identified cystic or solid masses. GALLBLADDER: No stones identified. No wall thickening or inflammatory changes. BILE DUCTS: No intrahepatic or extrahepatic ductal dilatation. SPLEEN: Normal size. No focal lesions. PANCREAS: No identified cystic or solid masses. No significant calcifications. No adjacent inflammation or peripancreatic fluid collections. Pancreatic duct not dilated. ADRENALS: Normal. KIDNEYS/URINARY TRACT: No identified significant cystic or solid masses. No visualized stones. No hydronephrosis or hydroureter. Symmetric enhancement. Urinary bladder is unremarkable. GI: The esophagus and stomach are unremarkable. No dilated bowel loops. No obvious wall thickening. An appendicolith is noted. No appendiceal dilation or periappendiceal inflammatory stranding. No significant diverticular disease. PERITONEUM: No ascites or free air. Stable small supraumbilical fat containing hernia. RETROPERITONEUM: No mass or adenopathy. REPRODUCTIVE: The uterus is surgically absent. No adnexal mass. VASCULATURE ABDOMEN: No abdominal aortic aneurysm. MUSCULOSKELETAL ABDOMEN PELVIS: No acute finding. OTHER: No significant abnormality. IMPRESSION: No evidence of pulmonary embolism. No acute abnormality of the abdomen or pelvis. THIS IS AN ELECTRONICALLY VERIFIED FINAL REPORT 12/27/2024 2:22 PM - Electronically signed by Massimo Velasco M.D. KR: JACKELINE Report ID: [id number] Reading Location: [place] [address] Procedure Note Massimo Velasco MD - 12/27/2024 EXAM DESCRIPTION: CT CHEST PE (CTA) ABDOMEN PELVIS W CONTRAST REASON FOR STUDY: abdominal pain, recent hospitization sepsis + lactate Pt is complaining of abdominal pain, nausea, and vomiting ongoing forabout 2 months. Hx of hysterectomy. TECHNIQUE: CT angiogram of the chest with routine abdomen and pelvisperformed with intravenous and without oral contrast using helical scanningtechnique with dynamic intravenous contrast injection. Reconstructed coronal and sagittal MPR images reviewed. All images stored on PACS. 3D MIP images ofthe chest rendered on scanning unit and reviewed at time of interpretation. Automated exposure control was used as a dose optimization technique forthis examination. CONTRAST TYPE/DOSE: 75mL of IOVERSOL 350 MG IODINE/ML INTRAVENOUS SYRINGE injected via intravenous COMPARISON: CT abdomen and pelvis 09/05/2024 FINDINGS: CHEST CHEST VASCULATURE: No acute pulmonary thromboembolism. LUNGS: The central airways are clear. No evidence of pneumonia. No suspicious pulmonary nodules. Minimal scarring versus atelectasis in thelung bases. PLEURA: No effusion. No pneumothorax. MEDIASTINUM/JEROME: No identified masses or abnormal nodes. HEART: Heart size is normal with no pericardial effusion. AXILLA: No adenopathy. CHEST WALL: No masses. No subcutaneous air. HARDWARE/LINES/TUBES: None. MUSCULOSKELETAL CHEST: No significant abnormality. ABDOMEN/PELVIS LIVER: Normal size. No identified cystic or solid masses. GALLBLADDER: No stones identified. No wall thickening or inflammatory changes. BILE DUCTS: No intrahepatic or extrahepatic ductal dilatation. SPLEEN: Normal size. No focal lesions. PANCREAS: No identified cystic or solid masses. No significant calcifications. No adjacent inflammation or peripancreatic fluidcollections. Pancreatic duct not dilated. ADRENALS: Normal. KIDNEYS/URINARY TRACT: No identified significant cystic or solid masses.No visualized stones. No hydronephrosis or hydroureter. Symmetricenhancement. Urinary bladder is unremarkable. GI: The esophagus and stomach are unremarkable. No dilated bowel loops.No obvious wall thickening. An appendicolith is noted. No appendicealdilation or periappendiceal inflammatory stranding. No significant diverticular disease. PERITONEUM: No ascites or free air. Stable small supraumbilical fat containing hernia. RETROPERITONEUM: No mass or adenopathy. REPRODUCTIVE: The uterus is surgically absent. No adnexal mass. VASCULATURE ABDOMEN: No abdominal aortic aneurysm. MUSCULOSKELETAL ABDOMEN PELVIS: No acute finding. OTHER: No significant abnormality. IMPRESSION: No evidence of pulmonary embolism. No acute abnormality of the abdomen or pelvis. THIS IS AN ELECTRONICALLY VERIFIED FINAL REPORT 12/27/2024 2:22 PM - Electronically signed by Massimo Velasco M.D. KR: JACKELINE Report ID: [id number] Reading Location: [place] [address] Clyde Chester MD IMG CT PROCEDURES Final Res ult * (ABNORMAL) Sepsis Lactate w/ Reflex (12/27/2024 12:26 PM CDT) Sepsis Lactate 2.4(H) 0.7 - 2.0 mmol/L Blood 12/27/2024 12:2 6 PM CDT 12/27/2024 12:29 PM CDT Clyde Chester MD LAB BLOOD ORDERABLES Final Result [facility] ([place]) 1 [facility] [place] [address] * eGFR (12/27/2024 12:26 PM CDT) Pathologist [facility] eGFR 69 >=60 mL/min/1. 73 m2 Comment: Interpretive Data Reference Interval Normal >/= 90 mL/min/1.73m2 Mildly decreased* 60 - 89 mL/min/1.73m2 Mildly to moderately decreased 45 - 59 mL/min/1.73m2 Moderately to severely decreased 30 - 44 mL/min/1.73m2 Severely decreased 15 - 29 mL/min/1.73m2 Kidney Failure < 15 mL/min/1.73m2 *Relative to young adult level Estimated glomerular filtration rate is determined by the 2020 CKD-EPI equation recommended by the National Kidney Foundation (A Unifying Approach to GFR Estimation: Recommendations of the NKF-ASK Task Force on Reassessing the Inclusion of Race in Diagnosing Kidney Disease, JASN 2020). The CKD-EPI equation should not be used for patients with unstable renal function and has not been validated in children and those over 70. Current interpretive data was last reviewed 2021. Blood 12/27/2024 12:2 6 PM CDT 12/27/2024 12:29 PM CDT Clyde Chester MD LAB BLOOD ORDERABLES Final Result [facility] ([place]) 1 [facility] [place] [address] * (ABNORMAL) Differential, auto (12/27/2024 12:26 PM CDT) Pathologist [facility] Neutrophil abs 7.0(H) 1.5 - 6.5 K/cumm Imm gran abs 0.0 0.0 - 0.1 K/cumm [facility] ([place]) Lymphocyte abs 3.8(H) 0.8 - 3.3 K/cumm [facility] ([place]) Monocyte abs 0.5 0.2 - 0.8 K/cumm [facility] ([place]) Eosinophil abs 0.2 0.0 - 0.5 K/cumm [facility] ([place]) Basophil abs 0.1 0.0 - 0.1 K/cumm [facility] ([place]) Neutrophil pct 60.0 % [facility] ([place]) Comment: Interpretive Data Percent cell count reference ranges are not reported, since discordance with absolute values may lead to misinterpretation of CBC data. Current Interpretive Data was last revised on 2018. Imm gran pct 0.3 % [facility] ([place]) Comment: Interpretive Data Percent cell count reference ranges are not reported, since discordance with absolute values may lead to misinterpretation of CBC data. Current Interpretive Data was last revised on 2018. Lymphocyte pct 33.1 % [facility] ([place]) Comment: Interpretive Data Percent cell count reference ranges are not reported, since discordance with absolute values may lead to misinterpretation of CBC data. Current Interpretive Data was last revised on 2018. Monocyte pct 4.6 % [facility] ([place]) Comment: Interpretive Data Percent cell count reference ranges are not reported, since discordance with absolute values may lead to misinterpretation of CBC data. Current Interpretive Data was last revised on 2018. Eosinophil pct 1.5 % [facility] ([place]) Comment: Interpretive Data Percent cell count reference ranges are not reported, since discordance with absolute values may lead to misinterpretation of CBC data. Current Interpretive Data was last revised on 2018. Basophil pct 0.5 % [facility] ([place]) Comment: Interpretive Data Percent cell count reference ranges are not reported, since discordance with absolute values may lead to misinterpretation of CBC data. Current Interpretive Data was last revised on 2018. Blood 12/27/2024 12:2 6 PM CDT 12/27/2024 12:29 PM CDT us Clyde Chester MD LAB BLOOD ORDERABLES Final Result [facility] ([place]) 1 [facility] Department [place] [address] * (ABNORMAL) CBC with auto differential (12/27/2024 12:26 PM CDT) WBC 11.6(H) 3.8 - 9.9 K/cumm Hgb 14.9 11.9 - 15.5 g/dL [facility] Hct 45.7(H) 35.6 - 45.5 % [facility] ([place]) Plt 184 150 - 400 K/cumm [facility] ([place]) MPV 10.7 9.1 - 12.3 fL [facility] ([place]) RBC 5.42(H) 3.90 - 5.20 M/cumm [facility] ([place]) MCV 84.3 81.3 - 96.4 fL [facility] ([place]) MCH 27.5 27.1 - 33.3 pg [facility] ([place]) MCHC 32.6 32.3 - 35.7 g/dL [facility] ([place]) RDW CV 13.9 11.1 - 14.9 % [facility] RDW SD 42.9 35.7 - 48.1 fL [facility]) NRBC abs 0.00 0.00 - 0.01 K/cumm [facility]) Blood 12/27/2024 12:2 6 PM CDT 12/27/2024 12:29 PM CDT Clyde Chester MD LAB BLOOD ORDERABLES Final Result [facility] ([place] 1 [facility] Department [place] [address] * (ABNORMAL) D-dimer, quantitative (12/27/2024 12:26 PM CDT) D-Dimer 612(H) <=499 ng/mL FEU [facility] Comment: Interpretive data FDA approved the D-dimer, in conjunction with a low or moderate pretest probability score, to exclude venous thromboembolic events (VTE) (PE and DVT) in outpatients when the D-dimer result is < 500 ng/ml FEU. Evidence supports using an age-adjusted D-dimer cut-off for outpatients older than 50 (age x 10) to improve specificity without sacrificing sensitivity. Example: age 68, VTE cut-off 680 ng/ml FEU. References; Schajith HT et al. Brit Med J. 2013;346:f2492. Peter et al. Annals Int Med. 2015;163:701-11. Current interpretive data was last revised on 2019. Blood 12/27/2024 12:2 6 PM CDT 12/27/2024 12:29 PM CDT Clyde Chester MD LAB BLOOD ORDERABLES Final Result Performing Organization Address [facility]/ZIP Co de Phone Number [facility] ([place]) 1 [facility] [place] [address] * CRP (acute phase) (12/27/2024 12:26 PM CDT) CRP 4.4 <=10.0 mg/L Blood 12/27/2024 12:2 6 PM CDT 12/27/2024 12:29 PM CDT Clyde Chester MD LAB BLOOD ORDERABLES Final Result Performing Organization Address [facility] de Phone Number [facility] ([place]) 1 [facility] [place] [address] * Comprehensive metabolic panel (12/27/2024 12:26 PM CDT) Sodium 137 135 - 145 mmol/L Potassium, pl 4.6 3.3 - 4.9 mmol/L [facility] ([place]) Chloride 98 97 - 110 mmol/L [facility] ([place]) CO2 26 22 - 32 mmol/L [facility] ([place]) Anion gap 14 2 - 15 mmol/L [facility] ([place]) BUN 11 6 - 25 mg/dL [facility] ([place]) Creatinine 0.93 0.60 - 1.10 mg/dL [facility] ([place]) Glucose 91 70 - 199 mg/dL [facility] ([place]) Comment: Interpretive Data Fasting glucose >/= 126 mg/dl is diagnostic for diabetes. Fasting is defined as no caloric intake for at least 8 hours. Fasting glucose between 100 mg/dl to 125 mg/dl is diagnostic of prediabetes. In a patient with classic symptoms of hyperglycemia or hyperglycemic crisis, a random glucose >/= 200 mg/dl is diagnostic for diabetes. In the absence of unequivocal hyperglycemia, results should be confirmed by repeat testing. The classification and Diagnosis of Diabetes Diabetes Care 2021; 46: S19-S40. Current interpretive data was last revised 2022. Calcium 9.5 8.5 - 10.3 mg/dL [facility] ([place]) Bilirubin, total <0.2 0.1 - 1.2 mg/dL [facility] ([place]) Protein, pl 6.7 6.5 - 8.5 g/dL [facility] ([place]) Albumin 4.1 3.5 - 5.0 g/dL [facility] ([place]) Alk phos 86 40 - 130 Units/L [facility] ([place]) ALT 10 7 - 45 Units/L [facility] ([place]) AST 11 10 - 45 Units/L [facility] ([place]) Comment:Slightly Hemolyzed S pecimen Blood 12/27/2024 12:2 6 PM CDT 12/27/2024 12:29 PM CDT Clyde Chester MD LAB BLOOD ORDERABLES Final Result [facility] ([place]) 1 [facility] Department [place] [address] * XR Abdomen 2 Views W Chest 1 View (12/27/2024 12:23 PM CDT) Anatomical Region Laterality Modality Body, Abdomen N/A Computed Radiogr aphy 12/27/2024 12:2 7 PM CDT Narrative 12/27/2024 12:31 PM CDT EXAM DESCRIPTION: XR ABDOMEN 2 VIEWS W CHEST 1 VIEW REASON FOR STUDY: Abd pain, unspecified c/o abd pain and n/v. Stated that she was admitted on Saturday for the same and left AMA yesterday. TECHNIQUE: Single radiographic view of the chest with supine and upright views of the abdomen. COMPARISON: 09/05/2024 FINDINGS: LUNGS: No focal opacity, pleural effusion, or pneumothorax. HEART/MEDIASTINUM: Cardiac silhouette normal in size. Mediastinal and hilar contours appear normal. FREE AIR: None. BOWEL: Nonobstructive gas pattern. Prominent stool throughout the colon. SOFT TISSUES: No abnormal calcifications. LINES/TUBES: None. BONES: No acute osseous abnormality. IMPRESSION: Prominent stool throughout the colon. Nonobstructive bowel gas pattern. THIS IS AN ELECTRONICALLY VERIFIED FINAL REPORT 12/27/2024 12:31 PM - Electronically signed by Massimo Velasco M.D. KR: JACKELINE Report ID: [id number] Reading Location: [id number] Procedure Note Massimo Velasco MD - 12/27/2024 EXAM DESCRIPTION: XR ABDOMEN 2 VIEWS W CHEST 1 VIEW REASON FOR STUDY: Abd pain, unspecified c/o abd pain and n/v. Stated that she was admitted on Saturday for the sameand left AMA yesterday. TECHNIQUE: Single radiographic view of the chest with supine and upright views of the abdomen. COMPARISON: 09/05/2024 FINDINGS: LUNGS: No focal opacity, pleural effusion, or pneumothorax. HEART/MEDIASTINUM: Cardiac silhouette normal in size. Mediastinal andhilar contours appear normal. FREE AIR: None. BOWEL: Nonobstructive gas pattern. Prominent stool throughout thecolon. SOFT TISSUES: No abnormal calcifications. LINES/TUBES: None. BONES: No acute osseous abnormality. IMPRESSION: Prominent stool throughout the colon. Nonobstructive bowel gas pattern. THIS IS AN ELECTRONICALLY VERIFIED FINAL REPORT 12/27/2024 12:31 PM - Electronically signed by Massimo Velasco M.D. KR: JACKELINE Report ID: [id number] Reading Location: [id number] us Clyde Chester MD IMG XR PROCEDURES Final Res ult * Urinalysis reflex to microscopic and culture Urine, clean voided (12/27/2024 12:13 PM CDT) Color, ur Yellow Yellow Clarity, ur Clear Clear [facility] ([place]) Specific gravity, ur 1.011 1.003 - 1.030 [facility] ([place]) pH, urine 7.5 [facility] ([place]) Comment: Interpretive Data U rine pH is affected by diet, medications, systemic acid-base disturbances, and renal tubular function. pH may affect urinary stone formation. For example, urine pH below 6.0 may help reduce the tendency for calcium phosphate stones and pH greater than 6.0 may reduce the tendency for uric acid stone formation. Source: [facility] Current Interpretive Data was last revised on 2017 Protein, ur ql Negative Negative [facility] ([place]) Glucose, ur ql Negative Negative [facility] ([place]) Ketones, ur Negative Negative [facility] ([place]) Bilirubin, ur Negative Negative [facility] ([place]) Blood, ur Negative Negative [facility] ([place]) Urobilinogen, ur <2.0 <2.0 mg/dL [facility] ([place]) Nitrite, ur Negative Negative [facility] ([place]) Leukocyte esterase, ur Negative Negative [facility] ([place]) UA reflex comment Reflex conditions for microscopic UA and culture not met. [facility] ([place]) Urine, clean voided 12/27/2024 12:13 PM CDT 12/27/2024 12:18 PM CDT Clyde Chester MD LAB MICROBIOLOGY - GENERAL ORDERABLES Final Result [facility] ([place]) 1 [facility] [place] [address] * (ABNORMAL) Drugs of Abuse Screen, Urine without Confirmation (12/27/2024 12:13 PM CDT) Amphetamine, ur Not Detected CutOff 500ng/mL Comment: Interpretive Data - Amphetamines: Samples containing greater than 500 ng/mL d-methamphetamine or other cross-reacting amphetamine compounds are reported as positive. Amphetamine immunoassays are subject to significant false positive rates due to cross-reactivity of non-amphetamine drugs. Confirmatory testing required for definitive results. Current Interpretive Data was last reviewed 2023. Barbiturates, ur Not Detected CutOff 200ng/mL [facility] ([place]) Comment: Interpretive Data - Barbiturates: Samples containing greater than 200 ng/mL secobarbital or other cross-reacting barbiturate compounds are reported as positive. False positive and false negative results are possible. Confirmatory testing required for definitive results. Current Interpretive Data was last reviewed 2023. Benzodiazepines, ur Screen Positive, presumptive (A) CutOff 100ng/mL [facility] ([place]) Comment: Interpretive Data - Benzodiazepines: Samples containing greater than 100 ng/mL nordiazepam or other cross-reacting compounds are reported as positive. False positive and false negative results are possible. Confirmatory testing required for definitive results. Current Interpretive Data was last reviewed 2023. Cannabinoids, ur Screen Positive, presumptive (A) CutOff 50 ng/mL [facility] ([place]) Comment: Interpretive Data - Cannabinoids: Samples containing greater than 50 ng/mL delta-9 THC -COOH or other cross- reacting compounds are reported as positive. False positive and false negative results are possible. Confirmatory testing required for definitive results. Current Interpretive Data was last reviewed 2023. Cocaine, ur Not Detected CutOff 150ng/mL [facility] ([place]) Comment: Interpretive Data - Cocaine: Samples containing greater than 150 ng/mL benzoylecgonine or other cross- reacting compounds are reported as positive. False positive and false negative results are possible. Confirmatory testing required for definitive results. Current Interpretive Data was last reviewed 2023. Fentanyl, Ur Not Detected CutOff 5 ng/mL [facility] ([place]) Comment: Interpretive Data - Fentanyl: Samples containing greater than 5 ng/mL norfentanyl, fentanyl, or other cross-reacting fentanyl compounds are reported as positive. False positive and false negative results are possible. Confirmatory testing required for definitive results. Current Interpretive Data was last reviewed 2023. Methadone, ur Not Detected CutOff 300ng/mL [facility] ([place]) Comment: Interpretive Data - Methadone: Samples containing greater than 300 ng/mL d,l-methadone or other cross-reacting compounds are reported as positive. False positive and false negative results are possible. Confirmatory testing required for definitive results. Current Interpretive Data was last reviewed 2023. Opiates, ur Not Detected CutOff 300ng/mL [facility] ([place]) Comment: Interpretive Data - Opiates: Samples containing greater than 300 ng/mL morphine or other cross-reacting compounds are reported as positive. False positive and false negative results are possible. Confirmatory testing required for definitive results. Current Interpretive Data was last reviewed 2023. Oxycodone, ur Not Detected CutOff 100ng/mL [facility] ([place]) Comment: Interpretive Data - Oxycodone: Samples containing greater than 100 ng/mL oxycodone or other cross-reacting compounds are reported as positive. False positive and false negative results are possible. Confirmatory testing required for definitive results. Current Interpretive Data was last reviewed 2023. Phencyclidine, ur Not Detected CutOff 25 ng/mL [facility] ([place]) Comment: Interpretive Data - Phencyclidine: Samples containing greater than 25 ng/mL phencyclidine or other cross-reacting compounds are reported as positive. False positive and false negative results are possible. Confirmatory testing required for definitive results. Current Interpretive Data was last reviewed 2023. Urine Creatinine 62 mg/dL [facility] ([place]) Comment: Interpretive Data Urine Creatinine: < 10 mg/dL is extremely dilute = or > 10 but < 20 mg/dL is dilute = or > 20 mg/dL is normal Current Interpretive Data was last revised on 2017. Urine 12/27/2024 12:1 3 PM CDT 12/27/2024 12:18 PM CDT Narrative [facility] ([place]) - 12/27/2024 12:45 PM CDT Drug of Abuse screening is performed by immunoassay for medical purposes only. This is not to be used for Pain Management purposes. Clyde Chester MD LAB URINE ORDERABLES Final Result [facility] ([place]) 1 [facility] [place] [address] * ECG 12 lead (12/27/2024 12:09 PM CDT) 12/27/2024 12:0 9 PM CDT Narrative [facility] - 12/28/2024 7:02 AM CDT Vent Rate: 65 bpm RR Interval: 916 msec AL Interval: 185 msec QRS Duration: 97 msec QT Interval: 410 msec QTC Interval: 422 msec P-R-T [place]: 76 - 62 - 59 degrees IMPRESSION: Baseline artifact, probable SINUS RHYTHM NORMAL ECG NO CHANGE FROM PREVIOUS TRACING NOTED Electronically Signed By: Brain Venegas MD us Clyde Chester MD ECG ORDERABLES Final Resul t [facility] * POCT glucose (12/26/2024 12:28 PM CDT) Glucose, POC 84 70 - 199 mg/dL Blood 12/26/2024 12:2 8 PM CDT 12/26/2024 12:28 PM CDT us Meredith Eisenberg MD LAB POCT ORDERABLES - DEVICE Final Result [facility] ([place]) 1 [facility] Department [place] [address] * Troponin T high-sensitivity 6-hour (12/26/2024 2:05 AM CDT) Trop T hs 11 <=14 ng/L Comment: Interpretive Data For further hscTnT resources including the diagnostic algorithm and an aid in interpretation, copy and paste this link: [email or web address].testcatalog.org/show/[email or web address] Current Interpretive Data last revised 2020. Trop T hs delta 2 ng/L [facility] ([place]) Trop T hs interp Insignificant [facility] ([place]) Blood 12/26/2024 2:05 AM CDT 12/26/2024 3:01 AM CDT us Rose GUY LAB BLOOD ORDERABLES Zeina l Result [facility] ([place]) 1 [facility] Department [place] [address] * eGFR (12/26/2024 2:05 AM CDT) eGFR 82 >=60 mL/min/1. 73 m2 Comment: Interpretive Data Reference Interval Normal >/= 90 mL/min/1.73m2 Mildly decreased* 60 - 89 mL/min/1.73m2 Mildly to moderately decreased 45 - 59 mL/min/1.73m2 Moderately to severely decreased 30 - 44 mL/min/1.73m2 Severely decreased 15 - 29 mL/min/1.73m2 Kidney Failure < 15 mL/min/1.73m2 *Relative to young adult level Estimated glomerular filtration rate is determined by the 2020 CKD-EPI equation recommended by the National Kidney Foundation (A Unifying Approach to GFR Estimation: Recommendations of the NKF-ASK Task Force on Reassessing the Inclusion of Race in Diagnosing Kidney Disease, JASN 2020). The CKD-EPI equation should not be used for patients with unstable renal function and has not been validated in children and those over 70. Current interpretive data was last reviewed 2021. Blood 12/26/2024 2:0 5 AM CDT 12/26/2024 3:01 AM CDT Rose GUY LAB BLOOD ORDERABLES Zeina l Result [facility] ([place]) 1 [facility] Department [place] [address] * (ABNORMAL) Differential, auto (12/26/2024 2:05 AM CDT) Neutrophil abs 3.4 1.5 - 6.5 K/cumm Imm gran abs 0.0 0.0 - 0.1 K/cumm [facility] ([place]) Lymphocyte abs 4.0(H) 0.8 - 3.3 K/cumm [facility] ([place]) Monocyte abs 0.4 0.2 - 0.8 K/cumm [facility] ([place]) Eosinophil abs 0.2 0.0 - 0.5 K/cumm [facility] ([place]) Basophil abs 0.1 0.0 - 0.1 K/cumm [facility] ([place]) Neutrophil pct 42.0 % [facility] ([place]) Comment: Interpretive Data Percent cell count reference ranges are not reported, since discordance with absolute values may lead to misinterpretation of CBC data. Current Interpretive Data was last revised on 2018. Imm gran pct 0.1 % [facility] ([place]) Comment: Interpretive Data Percent cell count reference ranges are not reported, since discordance with absolute values may lead to misinterpretation of CBC data. Current Interpretive Data was last revised on 2018. Lymphocyte pct 49.5 % [facility] ([place]) Comment: Interpretive Data Percent cell count reference ranges are not reported, since discordance with absolute values may lead to misinterpretation of CBC data. Current Interpretive Data was last revised on 2018. Monocyte pct 5.5 % [facility] ([place]) Comment: Interpretive Data Percent cell count reference ranges are not reported, since discordance with absolute values may lead to misinterpretation of CBC data. Current Interpretive Data was last revised on 2018. Eosinophil pct 2.0 % [facility] ([place]) Comment: Interpretive Data Percent cell count reference ranges are not reported, since discordance with absolute values may lead to misinterpretation of CBC data. Current Interpretive Data was last revised on 2018. Basophil pct 0.9 % [facility] ([place]) Comment: Interpretive Data Percent cell count reference ranges are not reported, since discordance with absolute values may lead to misinterpretation of CBC data. Current Interpretive Data was last revised on 2018. Blood 12/26/2024 2:05 AM CDT 12/26/2024 3:01 AM CDT us Rose GUY LAB BLOOD ORDERABLES Zeina l Result [facility] ([place]) 1 [facility] Department [place] [address] * (ABNORMAL) CBC with auto differential (12/26/2024 2:05 AM CDT) WBC 8.1 3.8 - 9.9 K/cumm Hgb 13.8 11.9 - 15.5 g/dL [facility] Hct 44.2 35.6 - 45.5 % [facility] Plt 153 150 - 400 K/cumm [facility] ([place]) MPV 11.4 9.1 - 12.3 fL [facility] ([place]) RBC 5.10 3.90 - 5.20 M/cumm [facility] ([place]) MCV 86.7 81.3 - 96.4 fL [facility] MCH 27.1 27.1 - 33.3 pg [facility] MCHC 31.2(L) 32.3 - 35.7 g/dL [facility] RDW CV 14.2 11.1 - 14.9 % [facility] RDW SD 45.2 35.7 - 48.1 fL [facility] NRBC abs 0.00 0.00 - 0.01 K/cumm [facility] Blood 12/26/2024 2:05 AM CDT 12/26/2024 3:01 AM CDT us Rose GUY LAB BLOOD ORDERABLES Zeina l Result [facility] ([place]) 1 [facility] Department [place] [address] * (ABNORMAL) Comprehensive metabolic panel (12/26/2024 2:05 AM CDT) Pathologist [facility] Sodium 139 135 - 145 mmol/L Potassium, pl 4.6 3.3 - 4.9 mmol/L [facility] Chloride 102 97 - 110 mmol/L [facility] CO2 23 22 - 32 mmol/L [facility] ([place]) Anion gap 14 2 - 15 mmol/L [facility] BUN 11 6 - 25 mg/dL [facility] ([place]) Creatinine 0.80 0.60 - 1.10 mg/dL [facility] ([place]) Glucose 88 70 - 199 mg/dL [facility] ([place]) Comment: Interpretive Data Fasting glucose >/= 126 mg/dl is diagnostic for diabetes. Fasting is defined as no caloric intake for at least 8 hours. Fasting glucose between 100 mg/dl to 125 mg/dl is diagnostic of prediabetes. In a patient with classic symptoms of hyperglycemia or hyperglycemic crisis, a random glucose >/= 200 mg/dl is diagnostic for diabetes. In the absence of unequivocal hyperglycemia, results should be confirmed by repeat testing. The classification and Diagnosis of Diabetes Diabetes Care 202; 46: S19-S40. Current interpretive data was last revised 2022. Calcium 8.9 8.5 - 10.3 mg/dL [facility] ([place]) Bilirubin, total 0.3 0.1 - 1.2 mg/dL [facility] ([place]) Protein, pl 6.0(L) 6.5 - 8.5 g/dL [facility] ([place]) Albumin 3.5 3.5 - 5.0 g/dL [facility] ([place]) Alk phos 76 40 - 130 Units/L [facility] ([place]) ALT 8 7 - 45 Units/L [facility] ([place]) AST 12 10 - 45 Units/L [facility] ([place]) Blood 12/26/2024 2:05 AM CDT 12/26/2024 3:01 AM CDT us Rose GUY LAB BLOOD ORDERABLES Zeina l Result [facility] 1 [facility] Department [place] [address] * POCT glucose (12/26/2024 1:35 AM CDT) [facility] Signature Glucose, POC 88 70 - 199 mg/dL Blood 12/26/2024 1:35 AM CDT 12/26/2024 1:35 AM CDT us Timothy Aviles MD LAB POCT ORDERABLES - DEVICE Fi nal Result [facility] ([place]) 1 [facility] [place] [address] * (ABNORMAL) Troponin T high-sensitivity 4-hour (12/25/2024 11:38 PM CDT) Trop T hs 15(H) <=14 ng/L Comment: Interpretive Data For further hscTnT resources including the diagnostic algorithm and an aid in interpretation, copy and paste this link: [email or web address] Current Interpretive Data last revised 2020. Trop T hs delta 6 ng/L [facility] ([place]) Trop T hs interp Equivocal [facility] ([place]) Blood 12/25/2024 11:3 8 PM CDT 12/26/2024 12:22 AM CDT Rose GUY LAB BLOOD ORDERABLES Zeina l Result Performing Organization Address [facility]/ZIP Co de Phone Number [facility] ([place]) 1 [facility] [place] [address] * Troponin T high-sensitivity series (baseline, 2hr, 4hr, 6hr) (12/25/2024 7:29 PM CDT) Trop T hs 9 <=14 ng/L Comment: Interpretive Data For further hscTnT resources including the diagnostic algorithm and an aid in interpretation, copy and paste this link: [email or web address] Current Interpretive Data last revised 2020. Blood 12/25/2024 7:29 PM CDT 12/25/2024 7:41 PM CDT Rose GUY LAB BLOOD ORDERABLES Zeina l Result [facility] ([place]) 1 [facility] [place] [address] * ECG 12 lead (12/25/2024 7:19 PM CDT) 12/25/2024 7:19 PM CDT Narrative [facility] - 12/26/2024 8:55 AM CDT Vent Rate: 58 bpm RR Interval: 1026 msec AL Interval: 183 msec QRS Duration: 94 msec QT Interval: 430 msec QTC Interval: 427 msec P-R-T [place]: 83 - 53 - 48 degrees IMPRESSION: Baseline artifact , probable SINUS BRADYCARDIA BORDERLINE ECG NO CHANGE FROM PREVIOUS TRACING NOTED Electronically Signed By: Brian Venegas MD us Rose GUY ECG ORDERABLES Final Res ult [facility] * Urinalysis reflex to microscopic and culture Urine (12/25/2024 7:08 PM CDT) Color, ur Yellow Yellow Clarity, ur Clear Clear [facility] ([place]) Specific gravity, ur 1.015 1.003 - 1.030 [facility] ([place]) pH, urine 5.5 [facility] ([place]) Comment: Interpretive Data U rine pH is affected by diet, medications, systemic acid-base disturbances, and renal tubular function. pH may affect urinary stone formation. For example, urine pH below 6.0 may help reduce the tendency for calcium phosphate stones and pH greater than 6.0 may reduce the tendency for uric acid stone formation. Source: [facility] Current Interpretive Data was last revised on 2017 Protein, ur ql Negative Negative [facility] ([place]) Glucose, ur ql Negative Negative [facility] ([place]) Ketones, ur Negative Negative [facility] ([place]) Bilirubin, ur Negative Negative [facility] ([place]) Blood, ur Negative Negative [facility] ([place]) Urobilinogen, ur <2.0 <2.0 mg/dL [facility] ([place]) Nitrite, ur Negative Negative [facility] ([place]) Leukocyte esterase, ur Negative Negative [facility] ([place]) UA reflex comment Reflex conditions for microscopic UA and culture not met. [facility] ([place]) Urine 12/25/2024 7:08 PM CDT 12/25/2024 7:10 PM CDT us Timothy Aviles MD LAB MICROBIOLOGY - GENERAL ORDE RABLES Final Result Performing Organization Address [facility]/ZIP Co de Phone Number [facility] ([place]) 1 [facility] [place] [address] * (ABNORMAL) eGFR (12/25/2024 3:17 PM CDT) eGFR 59(L) >=60 mL/min/1. 73 m2 Comment: Interpretive Data Reference Interval Normal >/= 90 mL/min/1.73m2 Mildly decreased* 60 - 89 mL/min/1.73m2 Mildly to moderately decreased 45 - 59 mL/min/1.73m2 Moderately to severely decreased 30 - 44 mL/min/1.73m2 Severely decreased 15 - 29 mL/min/1.73m2 Kidney Failure < 15 mL/min/1.73m2 *Relative to young adult level Estimated glomerular filtration rate is determined by the 2020 CKD-EPI equation recommended by the National Kidney Foundation (A Unifying Approach to GFR Estimation: Recommendations of the NKF-ASK Task Force on Reassessing the Inclusion of Race in Diagnosing Kidney Disease, JASN 2020). The CKD-EPI equation should not be used for patients with unstable renal function and has not been validated in children and those over 70. Current interpretive data was last reviewed 2021. Blood 12/25/2024 3:17 PM CDT 12/25/2024 3:19 PM CDT us Timothy Aviles MD LAB BLOOD ORDERABLES Final Resu lt [facility] ([place]) 1 [facility] [place] [address] * (ABNORMAL) Differential, auto (12/25/2024 3:17 PM CDT) Neutrophil abs 4.5 1.5 - 6.5 K/cumm Imm gran abs 0.0 0.0 - 0.1 K/cumm [facility] ([place]) Lymphocyte abs 3.6(H) 0.8 - 3.3 K/cumm [facility] ([place]) Monocyte abs 0.5 0.2 - 0.8 K/cumm [facility] ([place]) Eosinophil abs 0.1 0.0 - 0.5 K/cumm [facility] ([place]) Basophil abs 0.1 0.0 - 0.1 K/cumm [facility] ([place]) Neutrophil pct 50.2 % [facility] ([place]) Comment: Interpretive Data Percent cell count reference ranges are not reported, since discordance with absolute values may lead to misinterpretation of CBC data. Current Interpretive Data was last revised on 2018. Imm gran pct 0.2 % [facility] ([place]) Comment: Interpretive Data Percent cell count reference ranges are not reported, since discordance with absolute values may lead to misinterpretation of CBC data. Current Interpretive Data was last revised on 2018. Lymphocyte pct 41.1 % [facility] ([place]) Comment: Interpretive Data Percent cell count reference ranges are not reported, since discordance with absolute values may lead to misinterpretation of CBC data. Current Interpretive Data was last revised on 2018. Monocyte pct 6.1 % [facility] ([place]) Comment: Interpretive Data Percent cell count reference ranges are not reported, since discordance with absolute values may lead to misinterpretation of CBC data. Current Interpretive Data was last revised on 2018. Eosinophil pct 1.5 % [facility] ([place]) Comment: Interpretive Data Percent cell count reference ranges are not reported, since discordance with absolute values may lead to misinterpretation of CBC data. Current Interpretive Data was last revised on 2018. Basophil pct 0.9 % [facility] ([place]) Comment: Interpretive Data Percent cell count reference ranges are not reported, since discordance with absolute values may lead to misinterpretation of CBC data. Current Interpretive Data was last revised on 2018. Blood 12/25/2024 3:17 PM CDT 12/25/2024 3:19 PM CDT us Timothy Aviles MD LAB BLOOD ORDERABLES Final Resu lt [facility] ([place]) 1 [facility] Department [place] [address] * (ABNORMAL) CBC with auto differential (12/25/2024 3:17 PM CDT) WBC 8.9 3.8 - 9.9 K/cumm Hgb 15.6(H) 11.9 - 15.5 g/dL [facility] ([place]) Hct 48.7(H) 35.6 - 45.5 % [facility] ([place]) Plt 194 150 - 400 K/cumm [facility] ([place]) MPV 11.0 9.1 - 12.3 fL [facility] ([place]) RBC 5.70(H) 3.90 - 5.20 M/cumm [facility] ([place]) MCV 85.4 81.3 - 96.4 fL [facility] ([place]) MCH 27.4 27.1 - 33.3 pg [facility] ([place]) MCHC 32.0(L) 32.3 - 35.7 g/dL [facility] ([place]) RDW CV 14.0 11.1 - 14.9 % [facility] ([place]) RDW SD 43.7 35.7 - 48.1 fL [facility] ([place]) NRBC abs 0.00 0.00 - 0.01 K/cumm [facility] ([place]) Blood Venous blood specimen / Unknown 12/25/2024 3:17 PM CDT 12/25/2024 3:19 PM CDT us Timothy Aviles MD LAB BLOOD ORDERABLES Final Resu lt [facility] ([place]) 1 [facility] [place] [address] * Lipase (12/25/2024 3:17 PM CDT) Lipase 16 10 - 99 Units/L Blood Venous blood specimen / Unknown 12/25/2024 3:17 PM CDT 12/25/2024 3:19 PM CDT us Timothy Aviles MD LAB BLOOD ORDERABLES Final Resu lt [facility] ([place]) 1 [facility] [place] [address] * Comprehensive metabolic panel (12/25/2024 3:17 PM CDT) Sodium 138 135 - 145 mmol/L Potassium, pl 4.4 3.3 - 4.9 mmol/L [facility] ([place]) Chloride 100 97 - 110 mmol/L [facility] ([place]) CO2 27 22 - 32 mmol/L [facility] ([place]) Anion gap 11 2 - 15 mmol/L [facility] ([place]) BUN 10 6 - 25 mg/dL [facility] Creatinine 1.05 0.60 - 1.10 mg/dL [facility] ([place]) Glucose 87 70 - 199 mg/dL [facility] Comment: Interpretive Data Fasting glucose >/= 126 mg/dl is diagnostic for diabetes. Fasting is defined as no caloric intake for at least 8 hours. Fasting glucose between 100 mg/dl to 125 mg/dl is diagnostic of prediabetes. In a patient with classic symptoms of hyperglycemia or hyperglycemic crisis, a random glucose >/= 200 mg/dl is diagnostic for diabetes. In the absence of unequivocal hyperglycemia, results should be confirmed by repeat testing. The classification and Diagnosis of Diabetes Diabetes Care 202; 46: S19-S40. Current interpretive data was last revised 2022. Calcium 9.6 8.5 - 10.3 mg/dL [facility] ([place]) Bilirubin, total 0.2 0.1 - 1.2 mg/dL [facility] ([place]) Protein, pl 6.9 6.5 - 8.5 g/dL [facility] ([place]) Albumin 4.1 3.5 - 5.0 g/dL [facility] ([place]) Alk phos 93 40 - 130 Units/L [facility] ([place] ALT 10 7 - 45 Units/L [facility] ([place]) AST 12 10 - 45 Units/L [facility] ([place]) Comment:Slightly Hemolyzed S pecimen Blood 12/25/2024 3:17 PM CDT 12/25/2024 3:19 PM CDT us Timothy Aviles MD LAB BLOOD ORDERABLES Final Resu lt [facility] ([place]) 1 [facility] [place] [address] * (ABNORMAL) Urinalysis reflex to microscopic and culture Urine (12/25/2024 1:09 AM CDT) Color, ur Yellow Yellow Clarity, ur Clear Clear [facility] ([place]) Specific gravity, ur 1.010 1.003 - 1.030 [facility] ([place]) pH, urine 6.0 [facility] ([place]) Comment: Interpretive Data U rine pH is affected by diet, medications, systemic acid-base disturbances, and renal tubular function. pH may affect urinary stone formation. For example, urine pH below 6.0 may help reduce the tendency for calcium phosphate stones and pH greater than 6.0 may reduce the tendency for uric acid stone formation. Source: [facility] Current Interpretive Data was last revised on 2017 Protein, ur ql Negative Negative [facility] ([place]) Glucose, ur ql Negative Negative [facility] ([place]) Ketones, ur Negative Negative [facility] ([place]) Bilirubin, ur Negative Negative [facility] ([place]) Blood, ur Negative Negative [facility] ([place]) Urobilinogen, ur <2.0 <2.0 mg/dL [facility] ([place]) Nitrite, ur Negative Negative [facility] ([place]) Leukocyte esterase, ur 2+(A) Negative [facility] ([place]) UA reflex comment Reflex to microscopic UA will be performed. [facility] ([place]) Urine 12/25/2024 1:09 AM CDT 12/25/2024 1:12 AM CDT us Ole Parham MD LAB MICROBIOLOGY - GENERAL OR DERABLES Final Result [facility]) 1 [facility] [place] [address] * (ABNORMAL) Urinalysis, microscopic only (12/25/2024 1:09 AM CDT) WBC, ur 6-10(A) 0 - 5 /HPF RBC, ur 0-2 0 - 2 /HPF [facility] ([place]) Epithelial cells, squamous, ur 1-5 0 - 5 /HPF [facility] ([place]) Bacteria, ur Trace(A) [facility] ([place]) Mucous, ur Present(A) [facility] ([place]) Hyaline casts, ur 1-5 0 - 10 /LPF [facility] ([place]) Culture Reflex Comment Reflex conditions for urine culture (WBC >10) not met. [facility] ([place]) Urine 12/25/2024 1:09 AM CDT 12/25/2024 1:12 AM CDT us Ole Parham MD LAB URINE ORDERABLES Final Re sult Performing Organization Address [facility] Co de Phone Number KORY MADRID ([place]) 1 [facility] [place] [address] * eGFR (12/24/2024 10:18 PM CDT) eGFR 75 >=60 mL/min/1. 73 m2 Comment: Interpretive Data Reference Interval Normal >/= 90 mL/min/1.73m2 Mildly decreased* 60 - 89 mL/min/1.73m2 Mildly to moderately decreased 45 - 59 mL/min/1.73m2 Moderately to severely decreased 30 - 44 mL/min/1.73m2 Severely decreased 15 - 29 mL/min/1.73m2 Kidney Failure < 15 mL/min/1.73m2 *Relative to young adult level Estimated glomerular filtration rate is determined by the 2020 CKD-EPI equation recommended by the National Kidney Foundation (A Unifying Approach to GFR Estimation: Recommendations of the NKF-ASK Task Force on Reassessing the Inclusion of Race in Diagnosing Kidney Disease, JASN 2020). The CKD-EPI equation should not be used for patients with unstable renal function and has not been validated in children and those over 70. Current interpretive data was last reviewed 2021. Blood 12/24/2024 10:1 8 PM CDT 12/24/2024 10:20 PM CDT us Ole Parham MD LAB BLOOD ORDERABLES Final Re sult [facility] 1 [facility] [place] [address] * (ABNORMAL) Differential, auto (12/24/2024 10:18 PM CDT) Neutrophil abs 5.3 1.5 - 6.5 K/cumm Imm gran abs 0.0 0.0 - 0.1 K/cumm [facility] ([place]) Lymphocyte abs 5.0(H) 0.8 - 3.3 K/cumm [facility] ([place]) Monocyte abs 0.6 0.2 - 0.8 K/cumm [facility] ([place]) Eosinophil abs 0.2 0.0 - 0.5 K/cumm [facility] ([place]) Basophil abs 0.1 0.0 - 0.1 K/cumm [facility] ([place]) Neutrophil pct 47.9 % [facility] ([place]) Comment: Interpretive Data Percent cell count reference ranges are not reported, since discordance with absolute values may lead to misinterpretation of CBC data. Current Interpretive Data was last revised on 2018. Imm gran pct 0.2 % [facility] ([place]) Comment: Interpretive Data Percent cell count reference ranges are not reported, since discordance with absolute values may lead to misinterpretation of CBC data. Current Interpretive Data was last revised on 2018. Lymphocyte pct 44.5 % [facility] ([place]) Comment: Interpretive Data Percent cell count reference ranges are not reported, since discordance with absolute values may lead to misinterpretation of CBC data. Current Interpretive Data was last revised on 2018. Monocyte pct 5.2 % [facility] ([place]) Comment: Interpretive Data Percent cell count reference ranges are not reported, since discordance with absolute values may lead to misinterpretation of CBC data. Current Interpretive Data was last revised on 2018. Eosinophil pct 1.4 % [facility] ([place]) Comment: Interpretive Data Percent cell count reference ranges are not reported, since discordance with absolute values may lead to misinterpretation of CBC data. Current Interpretive Data was last revised on 2018. Basophil pct 0.8 % [facility] ([place]) Comment: Interpretive Data Percent cell count reference ranges are not reported, since discordance with absolute values may lead to misinterpretation of CBC data. Current Interpretive Data was last revised on 2018. Blood 12/24/2024 10:1 8 PM CDT 12/24/2024 10:20 PM CDT us Ole Parham MD LAB BLOOD ORDERABLES Final Re sult [facility] ([place]) 1 [facility] [place] [address] * (ABNORMAL) CBC with auto differential (12/24/2024 10:18 PM CDT) WBC 11.1(H) 3.8 - 9.9 K/cumm Hgb 14.1 11.9 - 15.5 g/dL [facility] ([place]) Hct 44.0 35.6 - 45.5 % [facility] ([place]) Plt 203 150 - 400 K/cumm [facility] ([place]) Comment:Consistent with prev ious result. MPV 10.9 9.1 - 12.3 fL [facility] ([place]) RBC 5.23(H) 3.90 - 5.20 M/cumm [facility] ([place]) MCV 84.1 81.3 - 96.4 fL [facility] ([place]) MCH 27.0(L) 27.1 - 33.3 pg [facility] ([place]) MCHC 32.0(L) 32.3 - 35.7 g/dL [facility] ([place]) RDW CV 14.0 11.1 - 14.9 % [facility] ([place]) RDW SD 43.1 35.7 - 48.1 fL [facility] ([place]) NRBC abs 0.00 0.00 - 0.01 K/cumm [facility] ([place]) Blood Venous blood specimen / Unknown 12/24/2024 10:18 PM CDT 12/24/2024 10:20 PM CDT Ole Parham MD LAB BLOOD ORDERABLES Final Re sult [facility] ([place]) 1 [facility] [place] [place] [address] * Lipase (12/24/2024 10:18 PM CDT) Pathologist [facility] Lipase 14 10 - 99 Units/L Blood Venous blood specimen / Unknown 12/24/2024 10:18 PM CDT 12/24/2024 10:20 PM CDT Ole Parham MD LAB BLOOD ORDERABLES Final Re sult [facility] ([place]) 1 [facility] [place] [place] [address] * Comprehensive metabolic panel (12/24/2024 10:18 PM CDT) Sodium 135 135 - 145 mmol/L Potassium, pl 4.4 3.3 - 4.9 mmol/L [facility] ([place]) Chloride 100 97 - 110 mmol/L [facility] ([place]) CO2 23 22 - 32 mmol/L [facility] ([place]) Anion gap 13 2 - 15 mmol/L [facility] ([place]) BUN 11 6 - 25 mg/dL [facility] ([place]) Creatinine 0.86 0.60 - 1.10 mg/dL [facility] ([place]) Glucose 107 70 - 199 mg/dL [facility] ([place]) Comment: Interpretive Data Fasting glucose >/= 126 mg/dl is diagnostic for diabetes. Fasting is defined as no caloric intake for at least 8 hours. Fasting glucose between 100 mg/dl to 125 mg/dl is diagnostic of prediabetes. In a patient with classic symptoms of hyperglycemia or hyperglycemic crisis, a random glucose >/= 200 mg/dl is diagnostic for diabetes. In the absence of unequivocal hyperglycemia, results should be confirmed by repeat testing. The classification and Diagnosis of Diabetes Diabetes Care 2021; 46: S19-S40. Current interpretive data was last revised 2022. Calcium 9.1 8.5 - 10.3 mg/dL [facility] ([place]) Bilirubin, total 0.3 0.1 - 1.2 mg/dL [facility] ([place]) Protein, pl 6.7 6.5 - 8.5 g/dL [facility] ([place]) Albumin 4.1 3.5 - 5.0 g/dL [facility] ([place]) Alk phos 83 40 - 130 Units/L [facility] ([place]) ALT 10 7 - 45 Units/L [facility] ([place]) AST 12 10 - 45 Units/L [facility] ([place]) Comment:Slightly Hemolyzed S pecimen Blood 12/24/2024 10:1 8 PM CDT 12/24/2024 10:20 PM CDT us Ole Parham MD LAB BLOOD ORDERABLES Final Re sult [facility] ([place]) 1 [facility] [place] [address] * (ABNORMAL) Urinalysis reflex to microscopic and culture Urine (12/24/2024 7:18 PM CDT) Color, ur Yellow Yellow Clarity, ur Clear Clear [facility] ([place]) Specific gravity, ur 1.016 1.003 - 1.030 [facility] ([place]) pH, urine 6.0 [facility] ([place]) Comment: Interpretive Data U rine pH is affected by diet, medications, systemic acid-base disturbances, and renal tubular function. pH may affect urinary stone formation. For example, urine pH below 6.0 may help reduce the tendency for calcium phosphate stones and pH greater than 6.0 may reduce the tendency for uric acid stone formation. Source: [facility] [employer] Current Interpretive Data was last revised on 2017 Protein, ur ql Negative Negative [facility] ([place]) Glucose, ur ql Negative Negative [facility] ([place]) Ketones, ur Negative Negative [facility] ([place]) Bilirubin, ur Negative Negative [facility] ([place]) Blood, ur Negative Negative [facility] ([place]) Urobilinogen, ur <2.0 <2.0 mg/dL [facility] ([place]) Nitrite, ur Negative Negative [facility] ([place]) Leukocyte esterase, ur 2+(A) Negative [facility] ([place]) UA reflex comment Reflex to microscopic UA will be performed. [facility] ([place]) Urine 12/24/2024 7:18 PM CDT 12/24/2024 7:21 PM CDT Alexander Martino MD LAB MICROBIOLOGY - GENERAL O RDERABLES Final Result [facility] ([place]) 1 [facility] [place] [address] * (ABNORMAL) Urinalysis, microscopic only (12/24/2024 7:18 PM CDT) WBC, ur 6-10(A) 0 - 5 /HPF RBC, ur 0-2 0 - 2 /HPF [facility] ([place]) Epithelial cells, squamous, ur 1-5 0 - 5 /HPF [facility] ([place]) Bacteria, ur Trace(A) [facility] ([place]) Mucous, ur Present(A) [facility] ([place]) Culture Reflex Comment Reflex conditions for urine culture (WBC >10) not met. [facility] ([place]) Urine 12/24/2024 7:18 PM CDT 12/24/2024 7:21 PM CDT Alexander Martino MD LAB URINE ORDERABLES Final R esult [facility] ([place]) 1 [facility] Department [place] [address] * eGFR (12/24/2024 4:43 PM CDT) eGFR 70 >=60 mL/min/1. 73 m2 Comment: Interpretive Data Reference Interval Normal >/= 90 mL/min/1.73m2 Mildly decreased* 60 - 89 mL/min/1.73m2 Mildly to moderately decreased 45 - 59 mL/min/1.73m2 Moderately to severely decreased 30 - 44 mL/min/1.73m2 Severely decreased 15 - 29 mL/min/1.73m2 Kidney Failure < 15 mL/min/1.73m2 *Relative to young adult level Estimated glomerular filtration rate is determined by the 2020 CKD-EPI equation recommended by the National Kidney Foundation (A Unifying Approach to GFR Estimation: Recommendations of the NKF-ASK Task Force on Reassessing the Inclusion of Race in Diagnosing Kidney Disease, JASN 2020). The CKD-EPI equation should not be used for patients with unstable renal function and has not been validated in children and those over 70. Current interpretive data was last reviewed 2021. Blood 12/24/2024 4:43 PM CDT 12/24/2024 5:19 PM CDT Alexander Martino MD LAB BLOOD ORDERABLES Final R esult Performing Organization Address [facility]/ZIP Co de Phone Number KORY MADRID ([place]) 1 [facility] Department [place] [address] * (ABNORMAL) Differential, auto (12/24/2024 4:43 PM CDT) Neutrophil abs 5.2 1.5 - 6.5 K/cumm Imm gran abs 0.0 0.0 - 0.1 K/cumm [facility] ([place]) Lymphocyte abs 4.1(H) 0.8 - 3.3 K/cumm [facility] ([place]) Monocyte abs 0.5 0.2 - 0.8 K/cumm [facility] ([place]) Eosinophil abs 0.2 0.0 - 0.5 K/cumm [facility] ([place]) Basophil abs 0.1 0.0 - 0.1 K/cumm [facility] ([place]) Neutrophil pct 52.1 % [facility] ([place]) Comment: Interpretive Data Percent cell count reference ranges are not reported, since discordance with absolute values may lead to misinterpretation of CBC data. Current Interpretive Data was last revised on 2018. Imm gran pct 0.2 % [facility] ([place]) Comment: Interpretive Data Percent cell count reference ranges are not reported, since discordance with absolute values may lead to misinterpretation of CBC data. Current Interpretive Data was last revised on 2018. Lymphocyte pct 40.8 % [facility] ([place]) Comment: Interpretive Data Percent cell count reference ranges are not reported, since discordance with absolute values may lead to misinterpretation of CBC data. Current Interpretive Data was last revised on 2018. Monocyte pct 4.7 % [facility] ([place]) Comment: Interpretive Data Percent cell count reference ranges are not reported, since discordance with absolute values may lead to misinterpretation of CBC data. Current Interpretive Data was last revised on 2018. Eosinophil pct 1.5 % [facility] ([place]) Comment: Interpretive Data Percent cell count reference ranges are not reported, since discordance with absolute values may lead to misinterpretation of CBC data. Current Interpretive Data was last revised on 2018. Basophil pct 0.7 % [facility] ([place]) Comment: Interpretive Data Percent cell count reference ranges are not reported, since discordance with absolute values may lead to misinterpretation of CBC data. Current Interpretive Data was last revised on 2018. Blood 12/24/2024 4:43 PM CDT 12/24/2024 5:19 PM CDT us Alexander Martino MD LAB BLOOD ORDERABLES Final R esult [facility] JULI[facility] ([place]) 1 [facility] Department [place] [address] * (ABNORMAL) CBC with auto differential (12/24/2024 4:43 PM CDT) WBC 10.0(H) 3.8 - 9.9 K/cumm Hgb 15.7(H) 11.9 - 15.5 g/dL [facility] ([place]) Hct 49.3(H) 35.6 - 45.5 % [facility] ([place]) Plt 147(L) 150 - 400 K/cumm [facility] ([place]) MPV 11.4 9.1 - 12.3 fL [facility] ([place]) RBC 5.75(H) 3.90 - 5.20 M/cumm [facility] ([place]) MCV 85.7 81.3 - 96.4 fL [facility] ([place]) MCH 27.3 27.1 - 33.3 pg [facility] ([place]) MCHC 31.8(L) 32.3 - 35.7 g/dL [facility] ([place]) RDW CV 14.5 11.1 - 14.9 % [facility] ([place]) RDW SD 45.0 35.7 - 48.1 fL [facility] ([place]) NRBC abs 0.00 0.00 - 0.01 K/cumm [facility] ([place]) Blood Venous blood specimen / Unknown 12/24/2024 4:43 PM CDT 12/24/2024 5:19 PM CDT Alexander Martino MD LAB BLOOD ORDERABLES Final R esult Performing Organization Address [facility] Co de Phone Number [facility] ([place]) 1 [facility] Department [place] [address] * Lipase (12/24/2024 4:43 PM CDT) Lipase 13 10 - 99 Units/L Blood Venous blood specimen / Unknown 12/24/2024 4:43 PM CDT 12/24/2024 5:19 PM CDT Alexander Martino MD LAB BLOOD ORDERABLES Final R esult Performing Organization Address [facility]/ZIP Co de Phone Number KORY [facility] ([place]) 1 [facility] [place] [address] * (ABNORMAL) Comprehensive metabolic panel (12/24/2024 4:43 PM CDT) Sodium 139 135 - 145 mmol/L Potassium, pl 5.1(H) 3.3 - 4.9 mmol/L [facility] ([place]) Comment:Moderately Hemolyzed Specimen. Results may be affected. Chloride 100 97 - 110 mmol/L [facility] ([place]) CO2 25 22 - 32 mmol/L [facility] ([place]) Anion gap 14 2 - 15 mmol/L [facility] ([place]) BUN 11 6 - 25 mg/dL [facility] ([place]) Creatinine 0.91 0.60 - 1.10 mg/dL [facility] ([place]) Glucose 103 70 - 199 mg/dL [facility] ([place]) Comment: Interpretive Data Fasting glucose >/= 126 mg/dl is diagnostic for diabetes. Fasting is defined as no caloric intake for at least 8 hours. Fasting glucose between 100 mg/dl to 125 mg/dl is diagnostic of prediabetes. In a patient with classic symptoms of hyperglycemia or hyperglycemic crisis, a random glucose >/= 200 mg/dl is diagnostic for diabetes. In the absence of unequivocal hyperglycemia, results should be confirmed by repeat testing. The classification and Diagnosis of Diabetes Diabetes Care 2021; 46: S19-S40. Current interpretive data was last revised 2022. Calcium 9.5 8.5 - 10.3 mg/dL [facility] ([place]) Bilirubin, total <0.2 0.1 - 1.2 mg/dL [facility] ([place]) Protein, pl 7.2 6.5 - 8.5 g/dL [facility] ([place]) Albumin 4.2 3.5 - 5.0 g/dL [facility] ([place]) Alk phos 86 40 - 130 Units/L [facility] ([place]) ALT 10 7 - 45 Units/L [facility] ([place]) Comment: Hemolysis present. Results may be affected. Moderately Hemolyzed Specimen AST 17 10 - 45 Units/L [facility] ([place]) Comment: Hemolysis present. Results may be affected. Moderately Hemolyzed Specimen Blood 12/24/2024 4:43 PM CDT 12/24/2024 5:19 PM CDT Alexander Martino MD LAB BLOOD ORDERABLES Final R esult Performing Organization Address [facility] Co de Phone Number KORY MADRID ([place]) 1 [facility] [place] [address] * eGFR (12/21/2024 11:24 AM CDT) eGFR 76 >=60 mL/min/1. 73 m2 Comment: Interpretive Data Reference Interval Normal >/= 90 mL/min/1.73m2 Mildly decreased* 60 - 89 mL/min/1.73m2 Mildly to moderately decreased 45 - 59 mL/min/1.73m2 Moderately to severely decreased 30 - 44 mL/min/1.73m2 Severely decreased 15 - 29 mL/min/1.73m2 Kidney Failure < 15 mL/min/1.73m2 *Relative to young adult level Estimated glomerular filtration rate is determined by the 2020 CKD-EPI equation recommended by the National Kidney Foundation (A Unifying Approach to GFR Estimation: Recommendations of the NKF-ASK Task Force on Reassessing the Inclusion of Race in Diagnosing Kidney Disease, JASN 2020). The CKD-EPI equation should not be used for patients with unstable renal function and has not been validated in children and those over 70. Current interpretive data was last reviewed 2021. Blood 12/21/2024 11:2 4 AM CDT 12/21/2024 11:27 AM CDT Alexander Martino MD LAB BLOOD ORDERABLES Final R esult Performing Organization Address [facility]/ZIP Co de Phone Number KORY MADRID ([place]) 1 [facility] [place] [address] * Differential, auto (12/21/2024 11:24 AM CDT) Neutrophil abs 4.3 1.5 - 6.5 K/cumm Imm gran abs 0.0 0.0 - 0.1 K/cumm [facility] ([place]) Lymphocyte abs 2.3 0.8 - 3.3 K/cumm [facility] ([place]) Monocyte abs 0.3 0.2 - 0.8 K/cumm [facility] ([place]) Eosinophil abs 0.0 0.0 - 0.5 K/cumm [facility] ([place]) Basophil abs 0.1 0.0 - 0.1 K/cumm [facility] ([place]) Neutrophil pct 60.9 % [facility] ([place]) Comment: Interpretive Data Percent cell count reference ranges are not reported, since discordance with absolute values may lead to misinterpretation of CBC data. Current Interpretive Data was last revised on 2018. Imm gran pct 0.3 % [facility] ([place]) Comment: Interpretive Data Percent cell count reference ranges are not reported, since discordance with absolute values may lead to misinterpretation of CBC data. Current Interpretive Data was last revised on 2018. Lymphocyte pct 33.1 % [facility] ([place]) Comment: Interpretive Data Percent cell count reference ranges are not reported, since discordance with absolute values may lead to misinterpretation of CBC data. Current Interpretive Data was last revised on 2018. Monocyte pct 3.7 % [facility] ([place]) Comment: Interpretive Data Percent cell count reference ranges are not reported, since discordance with absolute values may lead to misinterpretation of CBC data. Current Interpretive Data was last revised on 2018. Eosinophil pct 0.4 % [facility] ([place]) Comment: Interpretive Data Percent cell count reference ranges are not reported, since discordance with absolute values may lead to misinterpretation of CBC data. Current Interpretive Data was last revised on 2018. Basophil pct 1.6 % [facility] ([place]) Comment: Interpretive Data Percent cell count reference ranges are not reported, since discordance with absolute values may lead to misinterpretation of CBC data. Current Interpretive Data was last revised on 2018. Blood 12/21/2024 11:2 4 AM CDT 12/21/2024 11:27 AM CDT us Alexander Martino MD LAB BLOOD ORDERABLES Final R esult [facility] ([place]) 1 [facility] [place] [address] * (ABNORMAL) CBC with auto differential (12/21/2024 11:24 AM CDT) WBC 7.1 3.8 - 9.9 K/cumm Hgb 15.2 11.9 - 15.5 g/dL [facility] ([place]) Hct 46.6(H) 35.6 - 45.5 % [facility] ([place]) Plt 217 150 - 400 K/cumm [facility] ([place]) MPV 10.6 9.1 - 12.3 fL [facility] ([place]) RBC 5.61(H) 3.90 - 5.20 M/cumm [facility] ([place]) MCV 83.1 81.3 - 96.4 fL [facility] ([place]) MCH 27.1 27.1 - 33.3 pg [facility] ([place]) MCHC 32.6 32.3 - 35.7 g/dL [facility] ([place]) RDW CV 13.7 11.1 - 14.9 % [facility] ([place]) RDW SD 41.5 35.7 - 48.1 fL [facility] ([place]) NRBC abs 0.00 0.00 - 0.01 K/cumm [facility] ([place]) Blood 12/21/2024 11:2 4 AM CDT 12/21/2024 11:27 AM CDT Alexander Martino MD LAB BLOOD ORDERABLES Final R esult [facility] ([place]) 1 [facility] [place] [address] * Lipase (12/21/2024 11:24 AM CDT) Lipase 18 10 - 99 Units/L Blood 12/21/2024 11:2 4 AM CDT 12/21/2024 11:27 AM CDT us Alexander Martino MD LAB BLOOD ORDERABLES Final R esult [facility] ([place]) 1 [facility] [place] [address] * (ABNORMAL) Comprehensive metabolic panel (12/21/2024 11:24 AM CDT) Sodium 136 135 - 145 mmol/L Potassium, pl 4.1 3.3 - 4.9 mmol/L [facility] ([place]) Chloride 101 97 - 110 mmol/L [facility] ([place]) CO2 21(L) 22 - 32 mmol/L [facility] ([place]) Anion gap 14 2 - 15 mmol/L [facility] ([place]) BUN 10 6 - 25 mg/dL [facility] ([place]) Creatinine 0.85 0.60 - 1.10 mg/dL [facility] ([place]) Glucose 157 70 - 199 mg/dL [facility] ([place]) Comment: Interpretive Data Fasting glucose >/= 126 mg/dl is diagnostic for diabetes. Fasting is defined as no caloric intake for at least 8 hours. Fasting glucose between 100 mg/dl to 125 mg/dl is diagnostic of prediabetes. In a patient with classic symptoms of hyperglycemia or hyperglycemic crisis, a random glucose >/= 200 mg/dl is diagnostic for diabetes. In the absence of unequivocal hyperglycemia, results should be confirmed by repeat testing. The classification and Diagnosis of Diabetes Diabetes Care 2021; 46: S19-S40. Current interpretive data was last revised 2022. Calcium 9.8 8.5 - 10.3 mg/dL [facility] ([place]) Bilirubin, total 0.2 0.1 - 1.2 mg/dL [facility] ([place]) Protein, pl 6.7 6.5 - 8.5 g/dL [facility] ([place]) Albumin 4.0 3.5 - 5.0 g/dL [facility] ([place]) Alk phos 88 40 - 130 Units/L [facility] ([place]) ALT 9 7 - 45 Units/L [facility] ([place]) AST 11 10 - 45 Units/L [facility] ([place]) Blood 12/21/2024 11:2 4 AM CDT 12/21/2024 11:27 AM CDT us Alexander Martino MD LAB BLOOD ORDERABLES Final R esult Performing Organization Address City/[facility]/ZIP Co de Phone Number [facility]ORY [facility] ([place]) 1 [facility] [place] [address] * POCT glucose (12/21/2024 7:24 AM CDT) Glucose, POC 99 70 - 199 mg/dL Blood 12/21/2024 7:24 AM CDT 12/21/2024 7:24 AM CDT us Love Menon MD LAB POCT ORDERABLES - DEVICE Fi nal Result Performing Organization Address [facility] Co de Phone Number KORY MADR[facility] ([place]) 1 [facility] [place] [address] * Reflex Hepatitis C RNA, Quantitative (12/21/2024 3:28 AM CDT) Pathologist [facility] HCV RNA result Not Detected [facility] Comment: The quantifiable range of this assay is 15 IU/mL to 100,000,000 IU/mL (1.18 log IU/mL to 8.00 log IU/mL). Testing was performed by the [employer]00 HCV Test ([employer] Testing performed at [facility] Current Interpretive Data was last revised on 2021 Testing performed by: [facility], [address] [facility], [place]., [address] Blood 12/21/2024 3:28 AM CDT 12/22/2024 9:40 AM CDT us Nathan Monahan MD LAB BLOOD ORDERABLES Final Result Performing Organization Address City/[facility]/ZIP Co de Phone Number [facility] ([place]) [address] [place] [address] [facility] * eGFR (12/21/2024 3:28 AM CDT) eGFR 83 >=60 mL/min/1. 73 m2 Comment: Interpretive Data Reference Interval Normal >/= 90 mL/min/1.73m2 Mildly decreased* 60 - 89 mL/min/1.73m2 Mildly to moderately decreased 45 - 59 mL/min/1.73m2 Moderately to severely decreased 30 - 44 mL/min/1.73m2 Severely decreased 15 - 29 mL/min/1.73m2 Kidney Failure < 15 mL/min/1.73m2 *Relative to young adult level Estimated glomerular filtration rate is determined by the 2020 CKD-EPI equation recommended by the National Kidney Foundation (A Unifying Approach to GFR Estimation: Recommendations of the NKF-ASK Task Force on Reassessing the Inclusion of Race in Diagnosing Kidney Disease, JASN 2020). The CKD-EPI equation should not be used for patients with unstable renal function and has not been validated in children and those over 70. Current interpretive data was last reviewed 2021. Blood 12/21/2024 3:28 AM CDT 12/21/2024 3:38 AM CDT us Anya Rae MD LAB BLOOD ORDERABLE S Final Result [facility] ([place]) 1 [facility] [place] [address] * (ABNORMAL) Differential, auto (12/21/2024 3:28 AM CDT) Neutrophil abs 3.8 1.5 - 6.5 K/cumm Imm gran abs 0.0 0.0 - 0.1 K/cumm [facility] ([place]) Lymphocyte abs 3.8(H) 0.8 - 3.3 K/cumm [facility] ([place]) Monocyte abs 0.5 0.2 - 0.8 K/cumm [facility] ([place]) Eosinophil abs 0.1 0.0 - 0.5 K/cumm [facility] ([place]) Basophil abs 0.1 0.0 - 0.1 K/cumm [facility] ([place]TT[place]) Neutrophil pct 46.1 % [facility] ([place]) Comment: Interpretive Data Percent cell count reference ranges are not reported, since discordance with absolute values may lead to misinterpretation of CBC data. Current Interpretive Data was last revised on 2018. Imm gran pct 0.1 % [facility] ([place]) Comment: Interpretive Data Percent cell count reference ranges are not reported, since discordance with absolute values may lead to misinterpretation of CBC data. Current Interpretive Data was last revised on 2018. Lymphocyte pct 45.5 % [facility] ([place]) Comment: Interpretive Data Percent cell count reference ranges are not reported, since discordance with absolute values may lead to misinterpretation of CBC data. Current Interpretive Data was last revised on 2018. Monocyte pct 5.4 % [facility] ([place]) Comment: Interpretive Data Percent cell count reference ranges are not reported, since discordance with absolute values may lead to misinterpretation of CBC data. Current Interpretive Data was last revised on 2018. Eosinophil pct 1.7 % [facility] ([place]) Comment: Interpretive Data Percent cell count reference ranges are not reported, since discordance with absolute values may lead to misinterpretation of CBC data. Current Interpretive Data was last revised on 2018. Basophil pct 1.2 % [facility] ([place]) Comment: Interpretive Data Percent cell count reference ranges are not reported, since discordance with absolute values may lead to misinterpretation of CBC data. Current Interpretive Data was last revised on 2018. Blood 12/21/2024 3:28 AM CDT 12/21/2024 3:38 AM CDT us Anya Rae MD LAB BLOOD ORDERABLE S Final Result [facility] ([place]) 1 [facility] [place] [address] * (ABNORMAL) CBC with auto differential (12/21/2024 3:28 AM CDT) WBC 8.3 3.8 - 9.9 K/cumm Hgb 14.9 11.9 - 15.5 g/dL [facility] ([place]) Hct 45.8(H) 35.6 - 45.5 % [facility] ([place]) Plt 204 150 - 400 K/cumm [facility] ([place]) MPV 10.5 9.1 - 12.3 fL [facility] ([place]) RBC 5.42(H) 3.90 - 5.20 M/cumm [facility] ([place]) MCV 84.5 81.3 - 96.4 fL [facility] ([place]) MCH 27.5 27.1 - 33.3 pg [facility] ([place]) MCHC 32.5 32.3 - 35.7 g/dL [facility] ([place]) RDW CV 13.9 11.1 - 14.9 % [facility] ([place]) RDW SD 42.7 35.7 - 48.1 fL [facility] ([place]) NRBC abs 0.00 0.00 - 0.01 K/cumm [facility] ([place]) Blood 12/21/2024 3:28 AM CDT 12/21/2024 3:38 AM CDT us Anya Rae MD LAB BLOOD ORDERABLE S Final Result [facility] ([place]) 1 [facility] [place] [address] * (ABNORMAL) Hepatitis C antibody Blood (12/21/2024 3:28 AM CDT) Pathologist [facility] Hep C Ab Reactive( A) Nonreactive Comment: Critical Result Critical Result called to and read back by Irwin Sandoval, DATE: 2024-12-21 11:00:20 BY: Kathy Hernández Interpretive Data Nonreactive: Antibodies to HCV not detected. Does NOT exclude the possibility of recent exposure to HCV. Equivocal: Equivocal for HCV antibodies. Supplemental molecular testing will be automatically performed to determine infection status in accordance with current CDC screening recommendations. Reactive: Positive for HCV antibodies. This may represent current or past HCV infection. Supplemental molecular testing will be automatically performed to determine current infection status in accordance with current CDC screening recommendations. Interpretive data was last revised on 2019. Testing performed by: [facility], [address] [place] [address], [id number] Blood 12/21/2024 3:28 AM CDT 12/21/2024 9:03 AM CDT Nathan Monahan MD LAB MICROBIOLOGY - GENERAL ORDERABLES Final Result [facility] ([place]) 1 [facility] [place] [address] * Hepatitis B Surface Antigen Blood (12/21/2024 3:28 AM CDT) HepBsAg Nonreactive Nonreactive Comment:Testing performed by : [facility], [address] [place] [address]., [id number] Blood 12/21/2024 3:28 AM CDT 12/21/2024 9:03 AM CDT Nathan Monahan MD LAB MICROBIOLOGY - GENERAL ORDERABLES Final Result Performing Organization Address [facility] Co de Phone Number [facility] ([place]) 1 [place] [address] * Erythrocyte sedimentation rate (12/21/2024 3:28 AM CDT) Erythrocyte sedimentation rate 5 1 - 30 mm/hr Blood 12/21/2024 3:28 AM CDT 12/21/2024 3:38 AM CDT Nathan Monahan MD LAB BLOOD ORDERABLES Final Result [facility] ([place]) 1 [facility] [place] [address] * CRP (acute phase) (12/21/2024 3:28 AM CDT) Pathologist [facility] CRP 4.4 <=10.0 mg/L Blood 12/21/2024 3:28 AM CDT 12/21/2024 3:38 AM CDT Nathan Monahan MD LAB BLOOD ORDERABLES Final Result Performing Organization Address City/[facility] Hospital/ZIP Co de Phone Number [facility]ORY [facility] (WAR) 1 [place] [address] * Phosphorus (12/21/2024 3:28 AM CDT) [facility] Phosphorus, pl 3.9 2.3 - 4.5 mg/dL Blood 12/21/2024 3:28 AM CDT 12/21/2024 3:38 AM CDT Amie Alonso DO LAB BLOOD ORDERABLES Fin al Result Performing Organization Address [facility] de Phone Number [facility] (WAR) 1 [place] [address] * Magnesium (12/21/2024 3:28 AM CDT) [facility] Magnesium 2.0 1.4 - 2.5 mg/dL Blood 12/21/2024 3:28 AM CDT 12/21/2024 3:38 AM CDT Amie Alonso DO LAB BLOOD ORDERABLES Fin al Result Performing Organization Address [facility] de Phone Number [facility] ([place]) 1 [facility] [place] [address] * (ABNORMAL) Comprehensive metabolic panel (12/21/2024 3:28 AM CDT) Pathologist [facility] Sodium 138 135 - 145 mmol/L Potassium, pl 4.4 3.3 - 4.9 mmol/L [facility] ([place]) Chloride 103 97 - 110 mmol/L [facility] ([place]) CO2 24 22 - 32 mmol/L [facility] ([place]) Anion gap 10 2 - 15 mmol/L [facility] ([place]) BUN 11 6 - 25 mg/dL [facility] ([place]) Creatinine 0.79 0.60 - 1.10 mg/dL [facility] ([place]) Glucose 95 70 - 199 mg/dL [facility] ([place]) Comment: Interpretive Data Fasting glucose >/= 126 mg/dl is diagnostic for diabetes. Fasting is defined as no caloric intake for at least 8 hours. Fasting glucose between 100 mg/dl to 125 mg/dl is diagnostic of prediabetes. In a patient with classic symptoms of hyperglycemia or hyperglycemic crisis, a random glucose >/= 200 mg/dl is diagnostic for diabetes. In the absence of unequivocal hyperglycemia, results should be confirmed by repeat testing. The classification and Diagnosis of Diabetes Diabetes Care 202; 46: S19-S40. Current interpretive data was last revised 2022. Calcium 9.4 8.5 - 10.3 mg/dL [facility] ([place]) Bilirubin, total 0.2 0.1 - 1.2 mg/dL [facility] ([place]) Protein, pl 6.1(L) 6.5 - 8.5 g/dL [facility] ([place]) Albumin 3.8 3.5 - 5.0 g/dL [facility] ([place]) Alk phos 89 40 - 130 Units/L [facility] ([place]) ALT 8 7 - 45 Units/L [facility] ([place]) AST 9(L) 10 - 45 Units/L [facility] ([place]) Blood 12/21/2024 3:28 AM CDT 12/21/2024 3:38 AM CDT us Anya Rae MD LAB BLOOD ORDERABLE S Final Result [facility] ([place]) 1 [facility] Department [place] [address] * POCT glucose (12/21/2024 2:23 AM CDT) Glucose, POC 95 70 - 199 mg/dL Blood 12/21/2024 2:23 AM CDT 12/21/2024 2:23 AM CDT Veda Garay MD LAB POCT ORDERABLES - DEVICE F inal Result [facility] ([place]) 1 [facility] [place] [address] * POCT glucose (12/20/2024 8:05 PM CDT) Glucose, POC 93 70 - 199 mg/dL Blood 12/20/2024 8:05 PM CDT 12/20/2024 8:05 PM CDT Veda Garay MD LAB POCT ORDERABLES - DEVICE F inal Result Performing Organization Address [facility] Co de Phone Number [facility] ([place]) 1 [facility] [place] [address] * Troponin T high-sensitivity 6-hour (12/20/2024 1:32 PM CDT) Trop T hs 9 <=14 ng/L Comment: Interpretive Data For further hscTnT resources including the diagnostic algorithm and an aid in interpretation, copy and paste this link: https://nrl.testcatalog.org/show/hsTrop Current Interpretive Data last revised 2020. Trop T hs delta 1 ng/L [facility] ([place]) Trop T hs interp Insignificant [facility] ([place]) Blood 12/20/2024 1:32 PM CDT 12/20/2024 1:36 PM CDT Anya Rae MD LAB BLOOD ORDERABLE S Final Result [facility] ([place]) 1 [facility] [place] [address] * Sepsis Lactate w/ Reflex (12/20/2024 1:32 PM CDT) Sepsis Lactate 1.1 0.7 - 2.0 mmol/L Blood 12/20/2024 1:32 PM CDT 12/20/2024 1:36 PM CDT Anya Rae MD LAB BLOOD ORDERABLE S Final Result [facility] ([place]) 1 [facility] [place] [address] * Thyroid Function [place] (12/20/2024 1:32 PM CDT) Pathologist [facility] TSH 3.85 0.30 - 4.20 mcIUnit/mL Blood 12/20/2024 1:32 PM CDT 12/20/2024 7:17 PM CDT Amie Alonso DO LAB BLOOD ORDERABLES Fin al Result Performing Organization Address [facility] de Phone Number [facility] ([place]) 1 [facility] [place] [address] * Troponin T high-sensitivity 4-hour (12/20/2024 11:39 AM CDT) Pathologist [facility] Trop T hs 8 <=14 ng/L Comment: Interpretive Data For further hscTnT resources including the diagnostic algorithm and an aid in interpretation, copy and paste this link: https://nrl.testcatalog.org/show/hsTrop Current Interpretive Data last revised 2020. Trop T hs delta 0 ng/L [facility] ([place]) Trop T hs interp Insignificant [facility] ([place]) Blood 12/20/2024 11:3 9 AM CDT 12/20/2024 11:42 AM CDT Anya Rae MD LAB BLOOD ORDERABLE S Final Result Performing Organization Address City/[facility] Hospital/ZIP Co de Phone Number [facility] ([place]) [address] [place] [address] * (ABNORMAL) Sepsis Lactate w/ Reflex (12/20/2024 11:39 AM CDT) Sepsis Lactate 2.4(H) 0.7 - 2.0 mmol/L Blood 12/20/2024 11:3 9 AM CDT 12/20/2024 11:42 AM CDT us Anya Rae MD LAB BLOOD ORDERABLE S Final Result [facility] ([place]) 1 [facility] [place] [address] * (ABNORMAL) Urinalysis reflex to microscopic and culture Urine (12/20/2024 10:10 AM CDT) Color, ur Straw Yellow Clarity, ur Clear Clear [facility] ([place]) Specific gravity, ur 1.034(H) 1.003 - 1.030 [facility] ([place]) pH, urine 5.5 [facility] ([place]) Comment: Interpretive Data U rine pH is affected by diet, medications, systemic acid-base disturbances, and renal tubular function. pH may affect urinary stone formation. For example, urine pH below 6.0 may help reduce the tendency for calcium phosphate stones and pH greater than 6.0 may reduce the tendency for uric acid stone formation. Source: [facility] [employer] Current Interpretive Data was last revised on 2017 Protein, ur ql Negative Negative [facility] ([place]) Glucose, ur ql Negative Negative [facility] ([place]) Ketones, ur Negative Negative [facility] ([place]) Bilirubin, ur Negative Negative [facility] ([place]) Blood, ur Negative Negative [facility] ([place]) Urobilinogen, ur <2.0 <2.0 mg/dL [facility] ([place]) Nitrite, ur Negative Negative [facility] ([place]) Leukocyte esterase, ur Negative Negative [facility] ([place]) UA reflex comment Reflex conditions for microscopic UA and culture not met. [facility] ([place]) Urine 12/20/2024 10:1 0 AM CDT 12/20/2024 10:13 AM CDT us Anya Rae MD LAB MICROBIOLOGY - GENERAL ORDERABLES Final Result [facility] ([place]) 1 [facility] [place] [address] * CT Abdomen Pelvis W Contrast (12/20/2024 8:10 AM CDT) Anatomical Region Laterality Modality Body N/A Computed Tomogra phy 12/20/2024 8:26 AM CDT Narrative 12/20/2024 8:43 AM CDT EXAM DESCRIPTION: CT ABDOMEN PELVIS W CONTRAST REASON FOR STUDY: Pain Abdominal pain x 2 months, hx of hysterectomy TECHNIQUE: CT scan of the abdomen and pelvis performed with intravenous and without oral contrast using helical scanning technique with dynamic intravenous contrast injection. Reconstructed coronal and sagittal MPR images reviewed. All images stored on PACS. Automated exposure control was used as a dose optimization technique for this examination. CONTRAST TYPE/DOSE: 75mL of IOVERSOL 350 MG IODINE/ML INTRAVENOUS SYRINGE injected via intravenous COMPARISON: 09/05/2024 FINDINGS: LOWER CHEST: No significant pulmonary abnormalities. No effusion. LIVER: Normal size. There is mild fatty infiltration. No identified cystic or solid masses. GALLBLADDER: Unremarkable. BILE DUCTS: No intrahepatic or extrahepatic ductal dilatation. SPLEEN: Normal size. No focal lesions. PANCREAS: No identified cystic or solid masses. No significant calcifications. No adjacent inflammation or peripancreatic fluid collections. Pancreatic duct not dilated. ADRENALS: Normal. KIDNEYS/URINARY TRACT: No identified significant cystic or solid masses. No visualized stones. No hydronephrosis or hydroureter. Symmetric enhancement. Urinary bladder is unremarkable. GI: No dilated bowel loops. No obvious wall thickening. Normal appendix. No significant diverticular disease. PERITONEUM: No ascites or free air. RETROPERITONEUM: No mass or adenopathy. REPRODUCTIVE: Hysterectomy.. VASCULATURE: Atherosclerotic disease in the aorta and iliacs. MUSCULOSKELETAL: No significant abnormality. OTHER: There is a small supraumbilical anterior abdominal wall hernia containing fat.. IMPRESSION: No evidence of acute disease in the abdomen or pelvis. Mild fatty infiltration of the liver. Small supraumbilical anterior abdominal wall hernia containing fat. Additional findings as above. THIS IS AN ELECTRONICALLY VERIFIED FINAL REPORT 12/20/2024 8:43 AM - Electronically signed by Whitney Ivan M.D. LL: LL Report ID: [id number] Reading Location: [id number] Procedure Note Whitney Ivan MD - 12/20/2024 EXAM DESCRIPTION: CT ABDOMEN PELVIS W CONTRAST REASON FOR STUDY: Pain Abdominal pain x 2 months, hx of hysterectomy TECHNIQUE: CT scan of the abdomen and pelvis performed with intravenousand without oral contrast using helical scanning technique with dynamic intravenous contrast injection. Reconstructed coronal and sagittal MPRimages reviewed. All images stored on PACS. Automated exposure control was usedas a dose optimization technique for this examination. CONTRAST TYPE/DOSE: 75mL of IOVERSOL 350 MG IODINE/ML INTRAVENOUSSYRINGE injected via intravenous COMPARISON: 09/05/2024 FINDINGS: LOWER CHEST: No significant pulmonary abnormalities. No effusion. LIVER: Normal size. There is mild fatty infiltration. No identifiedcystic or solid masses. GALLBLADDER: Unremarkable. BILE DUCTS: No intrahepatic or extrahepatic ductal dilatation. SPLEEN: Normal size. No focal lesions. PANCREAS: No identified cystic or solid masses. No significant calcifications. No adjacent inflammation or peripancreatic fluidcollections. Pancreatic duct not dilated. ADRENALS: Normal. KIDNEYS/URINARY TRACT: No identified significant cystic or solid masses.No visualized stones. No hydronephrosis or hydroureter. Symmetricenhancement. Urinary bladder is unremarkable. GI: No dilated bowel loops. No obvious wall thickening. Normalappendix. No significant diverticular disease. PERITONEUM: No ascites or free air. RETROPERITONEUM: No mass or adenopathy. REPRODUCTIVE: Hysterectomy.. VASCULATURE: Atherosclerotic disease in the aorta and iliacs. MUSCULOSKELETAL: No significant abnormality. OTHER: There is a small supraumbilical anterior abdominal wall hernia containing fat.. IMPRESSION: No evidence of acute disease in the abdomen or pelvis. Mild fatty infiltration of the liver. Small supraumbilical anterior abdominal wall hernia containing fat. Additional findings as above. THIS IS AN ELECTRONICALLY VERIFIED FINAL REPORT 12/20/2024 8:43 AM - Electronically signed by Whitney Ivan M.D. LL: LL Report ID: [id number] Reading Location: [place] [address] Anya Rae MD IMG CT PROCEDURES F inal Result * Troponin T high-sensitivity series (baseline, 2hr, 4hr, 6hr) (12/20/2024 7:06 AM CDT) Trop T hs 8 <=14 ng/L Comment: Interpretive Data For further hscTnT resources including the diagnostic algorithm and an aid in interpretation, copy and paste this link: https://nrl.testcatalog.org/show/hsTrop Current Interpretive Data last revised 2020. Blood 12/20/2024 7:06 AM CDT 12/20/2024 7:10 AM CDT Anya Rae MD LAB BLOOD ORDERABLE S Final Result [facility] ([place]) 1 [facility] [place] [address] * (ABNORMAL) Sepsis Lactate w/ Reflex (12/20/2024 7:06 AM CDT) Sepsis Lactate 2.1(H) 0.7 - 2.0 mmol/L Blood 12/20/2024 7:06 AM CDT 12/20/2024 7:10 AM CDT Anya Rae MD LAB BLOOD ORDERABLE S Final Result [facility] ([place]) 1 [facility] [employer] [place] [address] * ECG 12 lead (12/20/2024 12:38 AM [employer]) 12/20/2024 12:3 8 AM [employer] Narrative [facility] - 12/21/2024 9:24 AM CDT Vent Rate: 52 bpm RR Interval: 1134 msec AL Interval: 187 msec QRS Duration: 86 msec QT Interval: 439 msec QTC Interval: 420 msec P-R-T [place]: 92 - 54 - 67 degrees IMPRESSION: SINUS BRADYCARDIA BORDERLINE ECG NO CHANGE FROM PREVIOUS TRACING NOTED Electronically Signed By: Brian Venegas MD Sandi Hull MD ECG ORDERABLES Final Res ult [facility] [place] [facility] * eGFR (12/20/2024 12:35 AM [employer]) eGFR 76 >=60 mL/min/1. 73 m2 Comment: Interpretive Data Reference Interval Normal >/= 90 mL/min/1.73m2 Mildly decreased* 60 - 89 mL/min/1.73m2 Mildly to moderately decreased 45 - 59 mL/min/1.73m2 Moderately to severely decreased 30 - 44 mL/min/1.73m2 Severely decreased 15 - 29 mL/min/1.73m2 Kidney Failure < 15 mL/min/1.73m2 *Relative to young adult level Estimated glomerular filtration rate is determined by the 2020 CKD-EPI equation recommended by the National Kidney Foundation (A Unifying Approach to GFR Estimation: Recommendations of the NKF-ASK Task Force on Reassessing the Inclusion of Race in Diagnosing Kidney Disease, JASN 2020). The CKD-EPI equation should not be used for patients with unstable renal function and has not been validated in children and those over 70. Current interpretive data was last reviewed 2021. Blood 12/20/2024 12:3 5 AM [employer] 12/20/2024 12:38 AM [employer] Sandi Hull MD LAB BLOOD ORDERABLES Zeina l Result [facility] ([place]) 1 [facility] [place] [address] * (ABNORMAL) Differential, auto (12/20/2024 12:35 AM [employer]) Neutrophil abs 3.6 1.5 - 6.5 K/cumm Imm gran abs 0.0 0.0 - 0.1 K/cumm [facility] ([place]) Lymphocyte abs 4.8(H) 0.8 - 3.3 K/cumm [facility] ([place]) Monocyte abs 0.5 0.2 - 0.8 K/cumm [facility] ([place]) Eosinophil abs 0.2 0.0 - 0.5 K/cumm [facility] ([place]) Basophil abs 0.1 0.0 - 0.1 K/cumm [facility] ([place]) Neutrophil pct 38.9 % [facility] ([place]) Comment: Interpretive Data Percent cell count reference ranges are not reported, since discordance with absolute values may lead to misinterpretation of CBC data. Current Interpretive Data was last revised on 2018. Imm gran pct 0.2 % [facility] ([place]) Comment: Interpretive Data Percent cell count reference ranges are not reported, since discordance with absolute values may lead to misinterpretation of CBC data. Current Interpretive Data was last revised on 2018. Lymphocyte pct 52.6 % [facility] ([place]) Comment: Interpretive Data Percent cell count reference ranges are not reported, since discordance with absolute values may lead to misinterpretation of CBC data. Current Interpretive Data was last revised on 2018. Monocyte pct 5.3 % [facility] ([place]) Comment: Interpretive Data Percent cell count reference ranges are not reported, since discordance with absolute values may lead to misinterpretation of CBC data. Current Interpretive Data was last revised on 2018. Eosinophil pct 1.9 % [facility] ([place]) Comment: Interpretive Data Percent cell count reference ranges are not reported, since discordance with absolute values may lead to misinterpretation of CBC data. Current Interpretive Data was last revised on 2018. Basophil pct 1.1 % [facility] ([place]) Comment: Interpretive Data Percent cell count reference ranges are not reported, since discordance with absolute values may lead to misinterpretation of CBC data. Current Interpretive Data was last revised on 2018. Blood 12/20/2024 12:3 5 AM [employer] 12/20/2024 12:38 AM [employer] Sandi Hull MD LAB BLOOD ORDERABLES Zeina l Result Performing Organization Address City/[facility] Hospital/ZIP Co de Phone Number [facility] ([place]) 1 [facility] [place] [address] * (ABNORMAL) CBC with auto differential (12/20/2024 12:35 AM [employer]) WBC 9.2 3.8 - 9.9 K/cumm Hgb 15.1 11.9 - 15.5 g/dL [facility] ([place]) Hct 48.3(H) 35.6 - 45.5 % [facility] ([place]) Plt 234 150 - 400 K/cumm [facility] ([place]) MPV 10.7 9.1 - 12.3 fL [facility] ([place]) RBC 5.69(H) 3.90 - 5.20 M/cumm [facility] ([place]) MCV 84.9 81.3 - 96.4 fL [facility] ([place]) MCH 26.5(L) 27.1 - 33.3 pg [facility] ([place]) MCHC 31.3(L) 32.3 - 35.7 g/dL [facility] ([place]) RDW CV 14.0 11.1 - 14.9 % [facility] ([place]) RDW SD 43.2 35.7 - 48.1 fL [facility] ([place]) NRBC abs 0.00 0.00 - 0.01 K/cumm [facility] ([place]) Blood 12/20/2024 12:3 5 AM [employer] 12/20/2024 12:38 AM [employer] Sandi Hull MD LAB BLOOD ORDERABLES Zeina l Result Performing Organization Address City/[facility] Hospital/ZIP Co de Phone Number [facility] ([place]) 1 [facility] [place] [address] * Lipase (12/20/2024 12:35 AM [employer]) Lipase 22 10 - 99 Units/L Blood 12/20/2024 12:3 5 AM [employer] 12/20/2024 12:38 AM [employer] us Sandi Hull MD LAB BLOOD ORDERABLES Zeina l Result [facility] ([place]) 1 [facility] Department [place] [address] * Comprehensive metabolic panel (12/20/2024 12:35 AM [employer]) Sodium 140 135 - 145 mmol/L Potassium, pl 4.2 3.3 - 4.9 mmol/L [facility] ([place]) Chloride 102 97 - 110 mmol/L [facility] ([place]) CO2 27 22 - 32 mmol/L [facility] ([place]) Anion gap 11 2 - 15 mmol/L [facility] ([place]) BUN 8 6 - 25 mg/dL [facility] ([place]) Creatinine 0.85 0.60 - 1.10 mg/dL [facility] ([place]) Glucose 86 70 - 199 mg/dL [facility] ([place]) Comment: Interpretive Data Fasting glucose >/= 126 mg/dl is diagnostic for diabetes. Fasting is defined as no caloric intake for at least 8 hours. Fasting glucose between 100 mg/dl to 125 mg/dl is diagnostic of prediabetes. In a patient with classic symptoms of hyperglycemia or hyperglycemic crisis, a random glucose >/= 200 mg/dl is diagnostic for diabetes. In the absence of unequivocal hyperglycemia, results should be confirmed by repeat testing. The classification and Diagnosis of Diabetes Diabetes Care 2021; 46: S19-S40. Current interpretive data was last revised 2022. Calcium 9.6 8.5 - 10.3 mg/dL [facility] ([place]) Bilirubin, total 0.2 0.1 - 1.2 mg/dL [facility] ([place]) Protein, pl 7.0 6.5 - 8.5 g/dL [facility] ([place]) Albumin 4.0 3.5 - 5.0 g/dL [facility] ([place]) Alk phos 91 40 - 130 Units/L [facility] ([place]) ALT 10 7 - 45 Units/L [facility] ([place]) AST 11 10 - 45 Units/L [facility] ([place]) Blood 12/20/2024 12:3 5 AM [employer] 12/20/2024 12:38 AM [employer] us Sandi Hull MD LAB BLOOD ORDERABLES Zeina l Result [facility] ([place]) 1 [facility] [place] [address] * US RUQ (12/18/2024 2:15 PM [employer]) Anatomical Region Laterality Modality Abdomen N/A Ultrasound 12/18/2024 2:44 PM [employer] Narrative 12/18/2024 2:48 PM [employer] EXAM DESCRIPTION: US RUQ REASON FOR STUDY: pain, right upper quadrant pain. TECHNIQUE: Ultrasound of the right upper quadrant of the abdomen was performed with grayscale and color doppler. COMPARISON: No direct comparison is available. Relevant portions of the CT abdomen and pelvis dated 09/05/2024. FINDINGS: PANCREAS: Portions are obscured by overlapping bowel. Nonspecific visualization of the pancreatic main duct. LIVER: Portions are obscured by overlapping shadows. The remainder of the liver has increased echogenicity with maximum dimensions of 20.4 cm. The main portal vein is patent with antegrade flow. GALLBLADDER: No gallstones. The gallbladder wall measures up to 0.2-0.3 cm. No no pericholecystic fluid. No positive sonographic [place] sign reported. BILIARY: The common bile duct measures 0.5 cm in diameter. RIGHT KIDNEY: Measures up to 4.2 x 4.3 x 12 cm. No obstructive uropathy. IMPRESSION: 1. No gallstone. Slightly prominent gallbladder wall could be under distension. If there is concern for cholecystitis then correlate with HIDA scan. 2. Increased echogenicity of the liver can be seen with steatosis. 3. Nonspecific visualization of the pancreatic main duct. Please correlate with laboratory data. If there remains a concern for pancreatic pathology then recommend dedicated contrast-enhanced MRI/MRCP. THIS IS AN ELECTRONICALLY VERIFIED FINAL REPORT 12/18/2024 2:48 PM - Electronically signed by Hebert Montes D.O. AP: AP Report ID: [id number] Reading Location: [place] [address] Procedure Note Hebert Montes, DO - 12/18/2024 EXAM DESCRIPTION: US RUQ REASON FOR STUDY: pain, right upper quadrant pain. TECHNIQUE: Ultrasound of the right upper quadrant of the abdomen wasperformed with grayscale and color doppler. COMPARISON: No direct comparison is available. Relevant portions of theCT abdomen and pelvis dated 09/05/2024. FINDINGS: PANCREAS: Portions are obscured by overlapping bowel. Nonspecific visualization of the pancreatic main duct. LIVER: Portions are obscured by overlapping shadows. The remainder ofthe liver has increased echogenicity with maximum dimensions of 20.4 cm. Themain portal vein is patent with antegrade flow. GALLBLADDER: No gallstones. The gallbladder wall measures up to 0.2-0.3cm. No no pericholecystic fluid. No positive sonographic [place] signreported. BILIARY: The common bile duct measures 0.5 cm in diameter. RIGHT KIDNEY: Measures up to 4.2 x 4.3 x 12 cm. No obstructiveuropathy. IMPRESSION: 1. No gallstone. Slightly prominent gallbladder wall could be under distension. If there is concern for cholecystitis then correlate withHIDA scan. 2. Increased echogenicity of the liver can be seen with steatosis. 3. Nonspecific visualization of the pancreatic main duct. Pleasecorrelate with laboratory data. If there remains a concern for pancreatic pathology then recommend dedicated contrast-enhanced MRI/MRCP. THIS IS AN ELECTRONICALLY VERIFIED FINAL REPORT 12/18/2024 2:48 PM - Electronically signed by Hebert Montes D.O. AP: AP Report ID: [id number] Reading Location: [place] [address] us Kris Howe MD IMG US PROCEDURES F inal Result * eGFR (12/18/2024 12:58 PM SALES AGENT BUSINESS SERVICES) eGFR 81 >=60 mL/min/1. 73 m2 Comment: Interpretive Data Reference Interval Normal >/= 90 mL/min/1.73m2 Mildly decreased* 60 - 89 mL/min/1.73m2 Mildly to moderately decreased 45 - 59 mL/min/1.73m2 Moderately to severely decreased 30 - 44 mL/min/1.73m2 Severely decreased 15 - 29 mL/min/1.73m2 Kidney Failure < 15 mL/min/1.73m2 *Relative to young adult level Estimated glomerular filtration rate is determined by the 2020 CKD-EPI equation recommended by the National Kidney Foundation (A Unifying Approach to GFR Estimation: Recommendations of the NKF-ASK Task Force on Reassessing the Inclusion of Race in Diagnosing Kidney Disease, JASN 2020). The CKD-EPI equation should not be used for patients with unstable renal function and has not been validated in children and those over 70. Current interpretive data was last reviewed 2021. Blood 12/18/2024 12:5 8 PM SALES AGENT [employer] SERVICES 12/18/2024 1:07 PM SALES AGENT BUSINESS SERVICES Kris Howe MD LAB BLOOD ORDERABLE S Final Result [facility] [place] [address] * (ABNORMAL) Differential, auto (12/18/2024 12:58 PM SALES AGENT [employer] SERVICES) Neutrophil abs 5.3 1.5 - 6.5 K/cumm Imm gran abs 0.0 0.0 - 0.1 K/cumm [facility] Lymphocyte abs 3.9(H) 0.8 - 3.3 K/cumm [facility] Monocyte abs 0.7 0.2 - 0.8 K/cumm [facility] Eosinophil abs 0.1 0.0 - 0.5 K/cumm [facility] Basophil abs 0.1 0.0 - 0.1 K/cumm [facility] Neutrophil pct 52.0 % [facility] Comment: Interpretive Data Percent cell count reference ranges are not reported, since discordance with absolute values may lead to misinterpretation of CBC data. Current Interpretive Data was last revised on 2018. Imm gran pct 0.3 % [facility] Comment: Interpretive Data Percent cell count reference ranges are not reported, since discordance with absolute values may lead to misinterpretation of CBC data. Current Interpretive Data was last revised on 2018. Lymphocyte pct 38.5 % [facility] Comment: Interpretive Data Percent cell count reference ranges are not reported, since discordance with absolute values may lead to misinterpretation of CBC data. Current Interpretive Data was last revised on 2018. Monocyte pct 6.8 % [facility] Comment: Interpretive Data Percent cell count reference ranges are not reported, since discordance with absolute values may lead to misinterpretation of CBC data. Current Interpretive Data was last revised on 2018. Eosinophil pct 1.3 % [facility] Comment: Interpretive Data Percent cell count reference ranges are not reported, since discordance with absolute values may lead to misinterpretation of CBC data. Current Interpretive Data was last revised on 2018. Basophil pct 1.1 % [facility] Comment: Interpretive Data Percent cell count reference ranges are not reported, since discordance with absolute values may lead to misinterpretation of CBC data. Current Interpretive Data was last revised on 2018. Blood 12/18/2024 12:5 8 PM [employer] 12/18/2024 1:07 PM SALES [employer]ENT [employer] us Kris Howe MD LAB BLOOD ORDERABLE S Final Result [facility] [place] [address] * (ABNORMAL) CBC with auto differential (12/18/2024 12:58 PM [employer]) WBC 10.2(H) 3.8 - 9.9 K/cumm Hgb 15.5 11.9 - 15.5 g/dL [facility] Hct 47.5(H) 35.6 - 45.5 % [facility] Plt 253 150 - 400 K/cumm [facility] MPV 10.5 9.1 - 12.3 fL [facility] RBC 5.77(H) 3.90 - 5.20 M/cumm [facility] MCV 82.3 81.3 - 96.4 fL [facility] MCH 26.9(L) 27.1 - 33.3 pg [facility] MCHC 32.6 32.3 - 35.7 g/dL [facility] RDW CV 14.0 11.1 - 14.9 % [facility] RDW SD 41.6 35.7 - 48.1 fL [facility] NRBC abs 0.00 0.00 - 0.01 K/cumm [facility] Blood 12/18/2024 12:5 8 PM [employer]ES [employer] 12/18/2024 1:07 PM SALES [employer] us Kris Howe MD LAB BLOOD ORDERABLE S Final Result [facility] Department [place] [address] * Lipase (12/18/2024 12:58 PM [employer]) Lipase 24 10 - 99 Units/L Blood 12/18/2024 12:5 8 PM [employer] 12/18/2024 1:07 PM SALES [employer] us Kris Howe MD LAB BLOOD ORDERABLE S Final Result [facility] [place] [address] * (ABNORMAL) Comprehensive metabolic panel (12/18/2024 12:58 PM [employer]) Sodium 134(L) 135 - 145 mmol/L Potassium, pl 4.5 3.3 - 4.9 mmol/L [facility] Chloride 101 97 - 110 mmol/L [facility] CO2 21(L) 22 - 32 mmol/L [facility] Anion gap 12 2 - 15 mmol/L [facility] BUN 14 6 - 25 mg/dL [facility] Creatinine 0.81 0.60 - 1.10 mg/dL [facility] Glucose 99 70 - 199 mg/dL [facility] Comment: Interpretive Data Fasting glucose >/= 126 mg/dl is diagnostic for diabetes. Fasting is defined as no caloric intake for at least 8 hours. Fasting glucose between 100 mg/dl to 125 mg/dl is diagnostic of prediabetes. In a patient with classic symptoms of hyperglycemia or hyperglycemic crisis, a random glucose >/= 200 mg/dl is diagnostic for diabetes. In the absence of unequivocal hyperglycemia, results should be confirmed by repeat testing. The classification and Diagnosis of Diabetes Diabetes Care 202; 46: S19-S40. Current interpretive data was last revised 2022. Calcium 9.5 8.5 - 10.3 mg/dL [facility] Bilirubin, total 0.2 0.1 - 1.2 mg/dL [facility] Protein, pl 7.1 6.5 - 8.5 g/dL [facility] Albumin 4.1 3.5 - 5.0 g/dL [facility] Alk phos 95 40 - 130 Units/L [facility] ALT 11 7 - 45 Units/L [facility] AST 12 10 - 45 Units/L [facility] Comment:Slightly Hemolyzed S pecimen Blood 12/18/2024 12:5 8 PM [employer] 12/18/2024 1:07 PM SALES [employer] us Kris Howe MD LAB BLOOD ORDERABLE S Final Result [facility] [address] [place] [address] * COLONOSCOPY (09/27/2022 9:23 AM SALES [employer]) Anatomical Region Laterality Modality Other Narrative Procedure Note Clyde Esparza MD - 09/27/2022 9:23 AM CST [facility] Patient Name: Ayala Jauregui Procedure Date: 09/27/2022 9:23 AM Date of : 1960 Admit Type: Outpatient Age: 62 Gender: Female Attending MD: Clyde Esparza M.D. Room: [facility] END[facility]COPY ROOM 2 Note Status: Finalized Patient Profile: Refer to note in patient chart for documentation of history and physical. Procedure: Colonoscopy Indications: High risk colon cancer surveillance: Personalhistory of colonic polyps, Last colonoscopy: May 2022 Referring MD: Riky Strauss M.D. Providers: Clyde Esparza M.D. Impression: - Preparation of the colon was poor. - Hemorrhoids found on perianal exam. - Six 3 to 5 mm polyps in the sigmoid colon, in the descending colon and in the transverse colon,removed with a cold snare. Resected and retrieved. - The examination was otherwise normal. Recommendation: - Discharge patient to home. - Resume previous diet. - Continue present medications. - Await pathology results. - Repeat colonoscopy in 3 years for surveillance. - Return to primary care physician as previously scheduled. Medicines: Propofol per Anesthesia Complications: No immediate complications. Estimated Blood Loss: Estimated blood loss: none. Procedure: Pre-Anesthesia Assessment: - This assessment was completed [Time ofAssessment] prior to the administration of sedation. The benefits, risks and alternatives of theprocedure and sedation were discussed and informed consentwas obtained. All questions were answered. Please referto the signed informed consent document in the medical record. The bowel preparation used was Miralax and bisacodyl tablets via single dose instruction. The scope was passed under direct vision. TheColonoscope [id number] was introduced through the anus and advanced to the the cecum, identified by appendiceal orifice and ileocecal valve. The colonoscopy was performed without difficulty. The patient tolerated the procedure well. The qualityof the bowel preparation was poor. The ileocecalvalve, appendiceal orifice, and rectum werephotographed. Findings: Hemorrhoids were found on perianal exam. Six sessile polyps were found in the sigmoid colon, descending colonand transverse colon. The polyps were 3 to 5 mm in size. These polypswere removed with a cold snare. Resection and retrieval were complete. Verification of patient identification for the specimen was done bythe physician and nurse using the patient's name and date.Estimated blood loss was minimal. The exam was otherwise without abnormality. Electronically signed by Clyde Esparza M.D. Clyde Esparza M.D. 09/27/2022 12:12:06 PM Number of Addenda: 0 Note Initiated On: 09/27/2022 9:23 AM Procedure Code(s): --- Professional --- 94189, Colonoscopy, flexible; with removal of tumor(s), polyp(s), or other lesion(s) by snare technique Diagnosis Code(s): --- Professional --- D12.3, Benign neoplasm of transverse colon (hepatic flexure orsplenic flexure) D12.4, Benign neoplasm of descending colon D12.5, Benign neoplasm of sigmoid colon K64.9, Unspecified hemorrhoids Z86.010, Personal history of colonic polyps CPT copyright 2020 [employer]. All rights reserved. The codes documented in this report are preliminary and upon retail coverage merchandiser lead reviewmay be revised to meet current compliance requirements. Recognized by the [employer] for promoting quality in endoscopy Clyde Esparza MD ENDOSCOPY PROCEDURES Final Re sult from Last 3 Months or Most Recently Relevant to Health Maintenance Insurance [facility] MEDICARE [facility] MEDICARE Advance Directives For more information, please contact: [phone] * Full Code (Latest Code Status on File) Date Activated Date Inactivated Comments 01/07/2025 9:06 PM 01/09/2025 7:00 PM * Full Code Date Activated Date Inactivated Comments 01/07/2025 9:43 AM 01/07/2025 2:45 PM * Full Code Date Activated Date Inactivated Comments 01/07/2025 9:43 AM 01/07/2025 9:43 AM * Full Code Date Activated Date Inactivated Comments 12/20/2024 9:34 AM 12/21/2024 10:42 AM * Full Code Date Activated Date Inactivated Comments 09/27/2022 9:47 AM 09/27/2022 5:13 PM Care Teams Home Theatre Technician Relationship Specialty Start Date End Date Tressa Johnson MD [address] [place] [address] PCP - General Family Medicine 07/24/23 [place] [id number] [address] Consulting Physician Pulmonary Disease 11/17/20 Nathan Monahan MD [address] [place] [address] Consulting Physician Gastroenterology 01/09/25
--- OUTSIDE RECORDS SUMMARY | 2025-01-22 12:07 | XMS_ITS | Encounter Summary ---
Author Organization [facility] Address [address] [place] [address] Phone Care Team Providers Care Carpenter Packing Name Role Phone Wesley Moya MD, Contreras Unavailable [phone] Riky Strauss MD Primary Care Provider [phone] Brayden Sellers MD Unavailable Michi Berman MD Unavailable Tressa Johnson MD Primary Care Provider [phone] Antoinette George APRN, [facility] Unavailable Reason for Visit * Reason Comments Medication Refill Encounter Details Date Type Department Care Team (Late st Contact Info) Description 06/06/2022 Refill [facility] - Primary Care - [place] [address] [place] [address] Riky Strauss MD [address] [place], [place] [id number] Medication Refill Social History Tobacco Use Types Packs/Day Years Used Date Smoking Tobacco: Every Day Cigarettes 0.5 42.3 Started: 09/22/1982 Smokeless Tobacco: Never Comments:Down to 4 cigs [...] suspected to have Coronavirus/COVID-19? No / Unsure 06/07/2022 1:37 PM CDT documented as of this encounter Miscellaneous Notes * Telephone Encounter - Alanna Montana RMA - 06/07/2022 2:56 PM CDT 3 mo fasting apt scheduled. * Telephone Encounter - Riky Strauss MD - 06/06/2022 10:08 AM CDT Refill request approved. Please ask the patient to schedule a fasting office visit in 3 months. * Telephone Encounter - Nelida Edge RN - 06/06/2022 10:05 AM CDT Per nursing clinical judgement, provider to review and approve the medication(s) order(s) if appropriate. Requested Prescriptions Pending Prescriptions Disp Refills Spiriva HandiHaler 18 MCG Capsule [Pharmacy Med Name: SPIRIVA 18 MCG CP- HANDIHALER] 901 Capsule 1 Sig: INHALE CONTENTS OF 1 CAPSULE VIA INHALATION DEVICE DAILY Inhaled Anticholinergics Protocol Passed - 06/06/2022 12:01 AM Passed - Visit with relevant provider in past 12 months or upcoming 90 days Recent Visits Date Type Provider Dept 04/13/22 Office Visit Riky Strauss MD [facility] 02/28/22 Office Visit Riky Strauss MD [facility] 12/29/21 Office Visit Riky Strauss MD [facility] 12/22/21 Office Visit Madai Barrera APRN, OSTEOLOGIST [facility] 11/10/21 Office Visit Riky Strauss MD [facility] 10/27/21 Office Visit Riky Strauss MD [facility] 09/22/21 Office Visit Riky Strauss MD [facility] [place] [facility] Showing recent visits within past 365 days and meeting all other requirements Future Appointments No visits were found meeting these conditions. Showing future appointments within next 90 days and meeting all other requirements Passed - Active short-acting beta agonist prescription Passed - No encounter with glaucoma or BPH diagnosis in the past 6 months albuterol 108 (90 Base) MCG/ACT Aerosol Solution [Pharmacy Med Name: ALBUTEROL HFA (VENTOLIN) INH] 18 g 1 Sig: TAKE 1-2 PUFFS BY INHALATION EVERY 4 HOURS NEEDED (SHORTNESS OF BREATH). Short Acting Inhaled Beta-Agonists Protocol Passed - 06/06/2022 12:01 AM Passed - Visit with relevant provider in past 12 months or upcoming 90 days Recent Visits Date Type Provider Dept 04/13/22 Office Visit Riky Strauss MD [facility] [place] 02/28/22 Office Visit Riky Strauss MD [facility] [place] 12/29/21 Office Visit Riky Strauss MD [facility] [address] 12/22/21 Office Visit Madai Barrera APRN, [facility] [place] [facility] 11/10/21 Office Visit Riky Strauss MD [facility] [place] [facility] 10/27/21 Office Visit Riky Strauss MD [facility] [place] [facility] 09/22/21 Office Visit Riky Strauss MD [facility] [place] [facility] Showing recent visits within past 365 days and meeting all other requirements Future Appointments No visits were found meeting these conditions. Showing future appointments within next 90 days and meeting all other requirements documented in this encounter Plan of Treatment Not on file documented as of this encounter Visit Diagnoses Diagnosis Panlobular emphysema (HCC) Other emphysema documented in this encounter Additional Health Concerns Infection Onset Date Last Indicated Resolved Time Respiratory Rule-Out 10/16/2022 10/16/2022 023 6:16 AM HANDS ASSEMBLER Influenza 10/16/2022 10/16/2022 10/23/2022 12:1 9 AM HANDS ASSEMBLER COVID - 19 10/21/2022 10/21/2022 10/22/2022 7:5 0 AM HANDS ASSEMBLER COVID - 19 10/28/2022 10/28/2022 10/29/2022 8:15 AM HANDS ASSEMBLER Respiratory Rule-Out 10/28/2022 10/28/2022 023 4:15 PM HANDS ASSEMBLER COVID - 19 11/09/2022 11/09/2022 11/19/2022 12:1 8 AM HANDS ASSEMBLER COVID - 19 11/25/2022 11/25/2022 11/26/2022 8:06 AM HANDS ASSEMBLER COVID - 19 10/15/2023 10/22/2023 11/01/2023 12:1 6 AM HANDS ASSEMBLER COVID - 19 12/12/2023 12/12/2023 12/12/2023 4:38 AM HANDS ASSEMBLER COVID - 19 12/23/2023 12/23/2023 12/23/2023 12:5 5 PM CDT COVID - 19 04/15/2024 04/15/2024 04/15/2024 4:34 PM CDT COVID - 19 08/25/2024 08/25/2024 08/25/2024 1:35 PM HANDS ASSEMBLER COVID - 19 Confirmed 08/25/2024 08/25/2024 024 12:16 AM HANDS ASSEMBLER COVID - 19 09/09/2024 09/09/2024 09/09/2024 1:04 PM HANDS ASSEMBLER COVID - 19 09/13/2024 09/13/2024 09/13/2024 7:49 AM HANDS ASSEMBLER documented as of this encounter Care Teams Carpenter Packing Relationship Specialty Start Date End Date Riky Strauss MD [address] [place] [address] PCP - General Internal Medicine 09/18/21 07/29/23 Tressa Johnson MD [address] [place] [address] PCP - General Family Medicine 07/30/23 Contreras Olson MD [address] [address] Psychiatry 06/17/19 Brayden Sellers MD [address] [place] [address] Consulting Physician Orthopaedic Sports Medicine 11/10/21 Michi Berman MD [address] [place] [address] Consulting Physician Pulmonary Disease 04/13/22 Antoinette George APRN, OSTEOLOGIST [address] [place] [address] Nurse Practitioner Advanced Practice Nurse 07/02/24 documented as of this encounter
--- OUTSIDE RECORDS SUMMARY | 2025-01-22 12:07 | XMS_ITS | Encounter Summary ---
Author Organization [facility] Address [address] [place] [address] Phone Care Team Providers Care Gi Asst Name Role Phone Wesley Moya MD, Christopher Unavailable [phone] Brayden Sellers MD Unavailable [phone] Michi Berman MD Unavailable Tressa Johnson MD Primary Care Provider [phone]- [phone] Antoinette George APRN, REGULATOR MECHANIC Unavailable Encounter Details Date Type Department Care Team (Late st Contact Info) Description 12/10/2024 Transcribe Orders [facility] Central Scheduling [address] [place] [address] Snehal Davis, STATISTICAL PROGRAMMER ANALYST, REGULATOR MECHANIC [address] [address] Social History Tobacco Use Types Packs/Day Years Used Date Smoking Tobacco: Some Days Cigarettes 0.5 2 Started: 02/01/2023 Smokeless Tobacco: Never Comments:Down to 4 cigs a da y Alcohol Use Standard Drinks/Week Comments No 0 (1 standard drink = 0.6 oz pur e alcohol) [facility] Utilities Answer Date Recorded In the past 12 months has th e electric, gas, oil, or water company [...] declined 05/10/2024 How often do you attend yarsanism or caodaism serv ices? Patient declined 05/10/2024 Do you belong to any clubs o r organizations such as yarsanism groups, unions, fraternal or athletic groups, or [...] medical care, and heating? Patient declined 05/10/2024 [facility] - Occupational Stress [...] place to sleep or slept in a [place] facility (including now)? Patient declined 12/23/2023 Housing Stability Vital Sign Answer Demario e Recorded In the last 12 months, was t here a time when you were not able to pay the mortgage or rent on time? Patient declined 05/10/20 In the past 12 months, how m any times have you moved where you were living? 1 05/10/2024 At any time in the past 12 m [facility], were you homeless or living in a [place] facility (including now)? Patient declined 05/10/2024 Sexually Active [...] Diagnoses Not on filedocumented in this encounter Care Teams Gi Asst Relationship Specialty Start Date End Date Tressa Johnson MD [address] [place] [address] PCP - General Family Medicine 07/30/23 Contreras Olson MD [address] [place] [address] Psychiatry 06/17/19 Brayden Sellers MD [address] [address] Consulting Physician Orthopaedic Sports Medicine 11/10/21 Michi Berman MD [address] [place] [address] Consulting Physician Pulmonary Disease 04/13/22 Antoinette George APRN, REGULATOR MECHANIC [address] [place] [address] Nurse Practitioner Advanced Practice Nurse 07/02/24 documented as of this encounter
--- OUTSIDE RECORDS SUMMARY | 2025-01-22 12:07 | XMS_ITS | Clinical Summary ---
Author Organization [facility] Address [address] [place] [address] Phone Care Team Providers Care Inspector Aide Name Role Phone Wesley Moya MD, Christopher Unavailable [phone] Brayden Sellers MD Unavailable [phone] Michi Berman MD Unavailable Tressa Johnson MD Primary Care Provider [phone] [facility] Hospital[facility]inette cabrera APRN, COMMUTER TRAIN OPERATOR Unavailable Allergies Active Allergy Reactions Criticality Noted Date Comments Fish Allergy Unknown 04/09/2022 Ketorolac Tromethamine Itching Low 04/08/2017 Meloxicam Nausea Low 03/01/2022 Penicillins Rash,Itching Low 03/27/2021 Tramadol Itching Low 04/11/2016 Medications divalproex (DEPAKOTE ER) 500 MG TABLET SR 24 HR Take 1,500 mg by mouth nightly. Active sertraline (ZOLOFT) 100 MG Tablet Take 100 mg by mouth daily. 1 08/19/20 19 Active Blood Glucose Monitoring Suppl Device Diagnosis: Diabetes type 2 Blood testing frequency: 1 to 2 times a day 1 Each 12/23/19 Active Glucose Blood Strip Diagnosis: Diabetes type 2 Blood testing frequency: 1-2 times a day 180 Strip 3 12/23/19 22 Active Lancets Misc Use as directed 180 Lancet 3 12/23/19 Active levothyroxine (SYNTHROID) 100 MCG Tablet TAKE 1 TABLET BY MOUTH EVERY DAY 90 Tablet 3 05/09/20 22 Active budesonide-formote rol fumarate (Symbicort) 160-4.5 MCG/ACT Aerosol take 2 Puffs by inhalation 2 times daily. 10.2 g 10/25/19 23 Active tiotropium (SPIRIVA RESPIMAT) 2.5 MCG/ACT Aerosol Solution take 2 Puffs by inhalation daily. 6 g 10/26/19 23 Active metFORMIN (GLUCOPHAGE-XR) 500 MG TABLET SR 24 HRIndications:Type 2 Diabetes Mellitus Take 500 mg by mouth daily. This RX is for Metformin SR. Indications: Type 2 Diabetes Active ziprasidone (GEODON) 60 MG CapsuleIndications :Bipolar Mood Disorder Take 60 mg by mouth 2 times daily (with meals). Indications: Manic-Depression Active metoprolol Succinate (TOPROL-XL) 100 MG TABLET SR 24 HRIndications:Hype rtension, essential TAKE 1 TABLET BY MOUTH EVERY DAY 90 Tablet 1 04/26/20 23 Active atorvastatin (LIPITOR) 20 MG TabletIndications: Mixed hyperlipidemia TAKE 1 TABLET BY MOUTH EVERY DAY 90 Tablet 1 05/01/20 23 Active diazePAM (Valium) 5 MG TabletIndications: Anxiety,Bipolar Take 5 mg by mouth every 8 hours as needed for Anxiety (Bipolar). Indications: Feeling Anxious, Bipolar Active zolpidem (AMBIEN) 5 MG Tablet Take 5 mg by mouth nightly as needed for Sleep. 04/10/20 24 Active baclofen (LIORESAL) 10 MG Tablet Take 1 Tablet by mouth every 8 hours as needed for Muscle spasms. 90 Tablet 04/24/20 24 Active OXYGEN CONCENTRATOR 2 L by Nasal route continuous. May use portable tanks when no on concentrator 04/26/20 24 Active OXYGEN TANK PORTABLE 2 L by Nasal route continuous. May use portable tanks when no on concentrator 04/26/20 24 Active dicyclomine (BENTYL) 20 MG Tablet Take 1 Tablet by mouth every 6 hours. 30 Tablet 05/25/20 24 Active Additional Information Patient not taking.Reported on 09/22/2024 diphenhydrAMINE (BENADRYL) 25 MG Capsule Take 1 Capsule by mouth 3 times daily as needed (Nausea and abdominal pain). 30 Capsule 06/22/20 24 Active Additional Information Patient not taking.Reported on 09/22/2024 sucralfate (CARAFATE) 1 GM Tablet Take 1 Tablet by mouth 3 times daily (before meals). 90 Tablet 08/23/20 24 Active ondansetron (Zofran) 4 MG Tablet Take 1 Tablet by mouth every 6 hours as needed for Nausea - 1st line. 30 Tablet 08/27/20 24 Active albuterol (ProAir HFA) 108 (90 Base) MCG/ACT Aerosol SolutionIndication s:Shortness of breath,COPD with acute exacerbation (HCC) take 2 Puffs by inhalation every 4 hours as needed for Wheezing or Cough. 18 g 08/27/20 24 Active polyethylene glycol (GLYCOLAX) 17 GM/SCOOP Powder 07/21/20 24 Active metoclopramide (REGLAN) 10 MG TabletIndications: Nausea Take 1 Tablet by mouth 3 times daily (before meals). Take 30 minutes before meals 90 Tablet 09/22/20 24 Active omeprazole (PriLOSEC) 40 MG CAPSULE DELAYED RELEASEIndications :Epigastric pain Take 1 Capsule by mouth daily. 90 Capsule 3 09/22/20 24 Active methylPREDNISolone (MEDROL DOSPACK) 4 MG Tablet Therapy Pack See product package insert for dosing schedule 21 Tablet 09/28/20 24 Active ondansetron (ZOFRAN-ODT) 4 MG TABLET DISPERSIBLE Take 1 Tablet by mouth every 8 hours as needed for Nausea - 1st line. 20 Tablet 12/02/19 25 Active dicyclomine (BENTYL) 20 MG Tablet Take 1 Tablet by mouth every 6 hours. 30 Tablet 12/02/19 25 Active dicyclomine (BENTYL) 20 MG Tablet Take 1 Tablet by mouth every 6 hours. 30 Tablet 12/04/19 25 Active famotidine (PEPCID) 20 MG Tablet Take 1 Tablet by mouth 2 times daily. 30 Tablet 12/19/19 25 Active prochlorperazine (COMPAZINE) 5 MG Tablet Take 1 Tablet by mouth every 6 hours as needed for Nausea - 1st line. 15 Tablet 12/19/19 25 Active dicyclomine (BENTYL) 20 MG Tablet Take 1 Tablet by mouth every 6 hours. 30 Tablet 12/19/19 25 Active Active Problems Problem Noted Date Diagnosed Date Gastritis 07/09/2024 COPD exacerbation 05/10/2024 Panic attacks 03/14/2023 Bipolar 1 disorder 03/14/2023 Hypoxia 10/21/2022 Polycythemia 04/15/2022 Leukocytosis 04/15/2022 Myalgia 04/15/2022 Coarse tremors 04/15/2022 Chronic diastolic heart failure 04/09/2022 Insomnia 10/20/2021 Type 2 diabetes mellitus wit hout complication, without long-term current use of insulin 10/14/2020 Anxiety 08/18/2019 COPD (chronic obstructive pulmonary disease) Tobacco dependence syndrome 08/13/2019 Pneumonia of right lower lobe due to infectious organism 08/13/2019 Arthritis 05/06/2019 Mixed hyperlipidemia 10/08/2015 Hypertension, essential 10/08/2015 Midline thoracic back pain 10/08/2015 Gastroesophageal reflux disease without esophagi tis 10/08/2015 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 d 10/08/2015 Borderline personality disorder 04/21/2014 Resolved Problems Problem Noted Date Diagnosed Date Resolved Date COPD with acute exacerbation 05/01/2024 05/02/2024 CAP (community acquired pneumonia) 04/24/2024 04/24/2024 COPD with acute exacerbation 04/19/2024 04/24/2024 Pneumonia 03/14/2023 03/25/2023 Overview (03/14/2023): due to covid Hypothyroid 03/14/2023 03/25/2023 Hypertension 03/14/2023 03/25/2023 Congestive heart failure (CHF) 03/14/2023 03/25/2023 Chest pain 03/13/2023 03/25/2023 Costochondritis 11/25/2022 03/25/2023 CAP (community acquired pneumonia) 10/28/2022 02/22/2023 CAP (community acquired pneumonia) 10/28/2022 03/25/2023 Acute respiratory failure with hypoxia 10/16/2022 02/22/2023 COPD exacerbation 10/15/2022 03/25/2023 Precordial pain 04/15/2022 03/25/2023 Elevated lactic acid level 04/15/2022 0 03/25/2023 Dehydration 04/15/2022 03/25/2023 Pneumonia due to COVID-19 virus 10/20/2021 02/22/2023 Pneumonia due to COVID-19 virus 10/20/2021 03/25/2023 COVID-19 10/20/2021 03/25/2023 DM2 (diabetes mellitus, type 2) 10/14/2020 03/25/2023 Chronic obstructive pulmonar y disease with acute exacerbation 08/16/2019 09/22/2021 Pneumonia of right lower lob e due to infectious organism 08/13/2019 09/22/2021 Family history of diabetes m ellitus in first degree relative 03/19/2019 09/22/2021 Family history of colon cancer in mother 03/19/2019 09/22/2021 Family history of iron deficiency 03/19/2019 09/22/2021 Family history of leukemia 03/19/2019 1 11/23/2020 Breast cancer screening by mammogram 03/19/2019 09/22/2021 Bipolar disorder 10/08/2015 03/25/2023 Encounters Date Type Department Care Team Description 01/02/2025 11:21 AM CDT - 01/02/2025 11:59 AM CDT Emergency [facility] Emergency [address] [place] [address] Kalyn Jeter APRN, COMMUTER TRAIN OPERATOR Generalized abdominal pain Discharge Disposition: Left Against Medical Advice 01/02/2025 Travel 01/01/2025 7:28 PM CDT - 01/01/2025 9:20 PM CDT Emergency [facility] Emergency [address] [place] [address] Discharge Disposition: LWBS 01/01/2025 Travel 12/30/2024 1:12 PM CDT - 12/30/2024 2:36 PM CDT Emergency [facility] Emergency [address] [place] [address] Discharge Disposition: LWBS 12/28/2024 9:01 AM CDT - 12/28/2024 11:59 PM CDT Hospital Encounter [facility] Nuclear Medicine [address] [place] [address] Snehal Davis ELECTRIC SOLDERER, COMMUTER TRAIN OPERATOR Discharge Disposition: Discharged to home or Selfcare 12/28/2024 Travel 12/23/2024 9:03 AM CDT - 12/23/2024 11:59 PM CDT Hospital Encounter [facility] Diagnostic Radiology [address] [place] [address] Snehal Davis, ELECTRIC SOLDERER, COMMUTER TRAIN OPERATOR Discharge Disposition: Discharged to home or Selfcare 12/23/2024 Travel 12/18/2024 11:04 AM [facility]ARE [facility] - 12/18/2024 11:35 AM [facility] Emergency [facility] Emergency [address] [place] [address] Kalyn Jeter, ELECTRIC SOLDERER, COMMUTER TRAIN OPERATOR Discharge Disposition: Left Against Medical Advice 12/18/2024 7:24 AM HEALTHCARE LIAISON - 12/18/2024 9:25 AM [facility] Emergency [facility] Emergency [address] [place] [address] Karin Jean MD Chronic abdominal pain Discharge Disposition: Discharged to home or Selfcare 12/18/2024 Travel 12/15/2024 2:47 AM HEALTHCARE LIAISON - 12/15/2024 3:55 AM [facility] Emergency [facility] Emergency [address] [place] [address] Laz Ritter MD Abdominal pain, chronic, generalized Discharge Disposition: Discharged to home or Selfcare 12/15/2024 Travel 12/13/2024 9:21 AM HEALTHCARE LIAISON - 12/13/2024 12:57 PM [facility] Emergency [facility] Emergency [address] [place] [address] Nataly Garner MD Generalized abdominal pain Discharge Disposition: Discharged to home or Selfcare 12/13/2024 5:49 AM [facility]ALTHCARE LIAISON - 12/13/2024 7:58 AM [facility] Emergency [facility] Emergency [address] [place] [address] Nataly Garner MD Generalized abdominal pain Discharge Disposition: Left Against Medical Advice 12/13/2024 Travel 12/10/2024 [facility] [address] [place] [address] Snehal Davis, ELECTRIC SOLDERER, COMMUTER TRAIN OPERATOR Nausea (Primary Dx); Epigastric pain 12/10/2024 Transcribe Orders [facility] Central Scheduling [address] [place] [address] Snehal Davis, ELECTRIC SOLDERER, COMMUTER TRAIN OPERATOR 12/08/2024 2:00 AM [facility] - 12/08/2024 6:22 AM [facility] Emergency [facility] Emergency [address] [place] [address] Jay Berumen MD Chronic abdominal pain Discharge Disposition: Discharged to home or Selfcare 12/08/2024 Travel 12/04/2024 6:22 AM [facility] - 12/04/2024 8:49 AM [facility] Emergency [facility] Emergency [address] [place] [address] Karin Jean MD Abdominal pain, unspecified abdominal location Discharge Disposition: Discharged to home or Selfcare 12/04/2024 Travel 12/02/2024 10:04 AM [facility]CARE [facility]IAISON - 12/02/2024 11:42 AM [facility] Emergency [facility] Emergency [address] [place] [address] Sg Gtz DO Chronic abdominal pain Discharge Disposition: Discharged to home or Selfcare 12/02/2024 Travel 11/27/2024 12:03 PM [facility]ALTHCARE LIAISON - 11/27/2024 2:11 PM [facility] Emergency [facility] Emergency [address] [place] [address] Gratn Loyd MD IBS (irritable bowel syndrome) Discharge Disposition: Discharged to home or Selfcare 11/27/2024 Travel 11/24/2024 7:03 PM [facility]ALTHCARE LIAISON - 11/24/2024 7:06 PM [facility] Emergency [facility] Emergency [address] [place] [address] Jorge Jewell MD Discharge Disposition: LWBS 11/24/2024 Travel 11/24/2024 Telephone [facility] G[facility]enterology - [place] [address] [place] [address] Antoinette George APRN, COMMUTER TRAIN OPERATOR 11/18/2024 Telephone [facility] Gastroenterology - [place] [address] [place] [address] Antoinette George APRN, COMMUTER TRAIN OPERATOR 11/14/2024 9:28 AM [facility]ALTHCARE LIAISON - 11/14/2024 11:22 AM [facility] Emergency [facility] Emergency [address] [place] [address] Sg Gtz DO Chronic abdominal pain Discharge Disposition: Discharged to home or Selfcare 11/14/2024 Travel 11/05/2024 12:28 PM HEALTHCARE LIAISON - 11/05/2024 2:37 PM [facility] Emergency [facility] Emergency [address] [place] [address] Laz Ritter MD Generalized abdominal pain Discharge Disposition: Discharged to home or Selfcare 11/05/2024 Travel 11/05/2024 [facility] [place] [address] [place] [address] Antoinette George APRN, ISAMAR Abdominal Pain; Referral 10/29/2024 Results Follow-Up [facility] - [place] [address] [place] [address] Antoinette George APRN, ISAMAR Epigastric pain (Primary Dx); Nausea; Early satiety; Weight loss 10/26/2024 8:00 AM HEALTHCARE LIAISON - 10/26/2024 11:59 PM HEALTHCARE LIAISON Hospital Encounter [facility] Nuclear Medicine [address] [facility] [place] [address] Antoinette George, ELECTRIC SOLDERER, COMMUTER TRAIN OPERATOR Discharge Disposition: Discharged to home or Selfcare 10/26/2024 Travel from Last 3 Months Immunizations Immunization Administration Dates Next Due Covid-19, Mrna, Lnp-s, Pf, 3 0 Mcg/0.3 Ml Dose, Arpit-sucrose (Pfizer quintana top) 01/02/2022 Influenza Vaccine 11/30/2013 Influenza Vaccine, MDCK,quad rivalent, pres free 07/20/2020 Influenza Vaccine, Quadrivalent, PF 07/03/2022,1 11/23/2020,06/17/2019 Influenza, Injectable, Quadrivalent 06/26/2016,1 10/17/2014 Influenza, high-dose, trivalent, PF 06/26/2018 Pneumococcal Vaccine Adult - 23 Valent Pneumococcal conjugate PCV20 , polysaccharide [id number] conjugate, adjuvant, PF 10/24/2022 TDAP Vaccine 07/08/2020,04/07/2017 Family History Medical History Relation Name Comments Diabetes Brother 1 Hypertension Brother 2 Heart Attack Father Heart Attack Maternal Grandfather Cancer Maternal Uncle 1 blood cance r Cancer Maternal Uncle 2 blood cance r Cancer Mother Colon and blood Diabetes Mother Hypertension Mother Hypertension Sister Relation Name Status Comments Brother 1 Alive Brother 2 Alive Father (Age 90) Maternal Grandfather Maternal Uncle 1 Maternal Uncle 2 Mother Sister Alive Social History Tobacco Use Types Packs/Day Years Used Date Smoking Tobacco: Some Days Cigarettes 0.5 2 Started: 02/01/2023 Smokeless Tobacco: Never Tobacco Cessation:Ready to Q uit: Not Asked; Counseling Given: Not Answered Comments:Down to 4 cigs a day Alcohol Use Standard Drinks/Week Comments No 0 (1 standard drink = 0.6 oz pur e alcohol) [facility] Utilities Answer Date Recorded In the past 12 months has [employer], gas, oil, or water [employer] threatened to shut off services in your home? Patient declined 05/10/2024 Social Connection and Isolation Panel [NHANES] A nswer Date Recorded In a typical week, how many times do you talk on the phone with family, friends, or neighbors? Patient declined 05/10/2024 How often do you get togethe r with friends or relatives? Patient declined 05/10/2024 How often do you attend latter day or yazidi serv ices? Patient declined 05/10/2024 Do you belong to any clubs o r organizations such as latter day groups, unions, fraternal or athletic groups, or [...] medical care, and heating? Patient declined 05/10/2024 [facility] - Occupational Stress Questionnaire Answer Date Recorded [...] place to sleep or slept in a penitentiary (including now)? Patient declined 12/23/2023 Housing Stability [...] any time in the past 12 m [facility], were you homeless or living in a penitentiary (including now)? Patient declined 05/10/2024 Sexually Active Control Partners Comments Yes Male Comments No Sex and Gender Information Value Date Recorded Sex Assigned at Female 05/27/2023 12:23 PM CDT Legal Sex Female 11:01 PM CDT Gender Identity Female 05/27/2023 12:23 PM CDT Sexual Orientation Not on file Last Filed Vital Signs Vital Sign Reading Time Taken Comments Blood Pressure 115/80 01/02/2025 11:22 AM CDT Pulse 72 01/02/2025 11:22 AM CDT Temperature 36.2 C (97.2 F) 01/02/2025 11:22 AM CDT Respiratory Rate 22 01/02/2025 11:22 AM CDT Oxygen Saturation 99% 01/02/2025 11:22 AM CDT Inhaled Oxygen Concentration - - Weight 72.6 kg (160 lb) 01/02/2025 11:22 AM CDT Height 162.6 cm (5' 4 ) 01/02/2025 11:22 AM CDT Body Mass Index 27.46 01/02/2025 11:22 AM CDT Plan of Treatment Health Maintenance Due Date Last Done Comments DEXA Bone Density 1960 Diabetes: Eye Exam 1960 Diabetes: Foot Exam 1960 Cologuard 01/09/2010 Zoster Immunization (1 of 2) 01/09/2010 Respiratory Syncytial Virus (RSV) Immunization (Adult) (1 - Risk 60-74 years 1-dose series) 2020 Mammogram 12/27/2022 12/27/2021, 12/27/2021 Immunochemical Fecal Occult Blood 04/03/2023 04/03/2022 SARS-COV-2 Immunization ( season) 2024 01/02/2022, 01/29/2021, 01/08/2021 Diabetes: Hemoglobin A1c 10/20/2024 024, 03/13/2023, 02/22/2023, Additional history exists Influenza Immunization (Season Ended) 2025 08/05/2023, 07/03/2022, 09/22/2021, Additional history exists Diabetes: Nephropathy Screening 12/13/2025 12/13/2024, 12/02/2024, 11/27/2024, Additional history exists Td Immunization Every 10 Years (Adults With 1 Tdap) 07/08/2030 07/08/2020, 04/07/2017 Colonoscopy 09/27/2032 09/27/2022, 09/13, 09/27/2022, Additional history exists Colorectal Cancer Screening 09/27/2032 09/27/2022, 09/13, 09/27/2022, Additional history exists Hepatitis C Virus (HCV) Screening Completed 07/11/2017, 07/11/2017, 06/24/2017 Pneumococcal Immunization (50+ years) Completed 10/24/2022, 09/22/2021 Pneumococcal Immunization Combined Discontinued 10/24/2022, 09/22/2021 Lung Cancer Screening Discontinued 12/27/2024 , 09/09/2024, 10/28/2022, Additional history exists Hepatitis B Immunization Aged Out No longer eligible based on patient's age to complete this topic Meningococcal Immunization (ACWY) Aged Out No longer eligible based on patient's age to complete this topic Rotavirus Immunization Aged Out No lo nger eligible based on patient's age to complete this topic Interventions Community Resource Recommendations Community Resource Services Recommended Domains Addressed Status Status Reason/Outcome Date/Time [facility] [place] Food Insecurity Needs Food Insecurity Recommended 08/26/2024 10:46 PM [facility]ALTHCARE [facility]IA[facility] [employer] [facility] [employer] Food Insecurity Needs Food Insecurity Recommended 08/26/2024 10:46 PM HEALTHCARE LIAISON [employer] Detoxification, Medications for Mental Health, Substance Use Recovery Home, Substance Use Counseling, Substance Use Services Tobacco Use, Stress Recommended 08/26/2024 10:46 PM HEALTHCARE LIAISON [facility] Financial Resource Needs Financial Resource Strain Recommended 08/26/2024 10:46 PM [facility] Financial Resource Needs Financial Resource Strain Recommended 08/26/2024 10:46 PM HEALTHCARE LIAISON from Last 12 Months Procedures Procedure Name Priority Date/Time Associated Diagnosis Comments NM HEPATOBILIARY WITH PHARM Routine 12/28/2024 11:19 AM CDT Nausea Epigastric pain XR UPPER GI SERIES WITH SMALL BOWEL FOLLOW THROUGH Routine 12/23/2024 12:39 PM CDT Nausea Epigastric pain URINE DRUG SCREEN STAT 12/13/2024 10:[address] ABDOMEN PELVIS W/ CONTRAST Stat with Interpretation 12/13/2024 10:32 AM HEALTHCARE LIAISON URINALYSIS REFLEX IF INDICATED BY ABNORMAL RESULTS STAT 12/13/2024 10:19 AM [facility]ALTHCARE LIAISON URINALYSIS REFLEX IF INDICATED BY ABNORMAL RESULTS STAT 12/13/2024 6:37 AM [facility]CARE [facility]IAISON GOLD TOP TUBE STAT 12/13/2024 6:29 AM HEALTHCARE LIAISON CBC WITH AUTO DIFFERENTIAL STAT 12/13/2024 6:29 AM [facility]CARE LIAISON EXTRA TUBES STAT 12/13/2024 6:29 AM [facility]CARE LIAISON LIPASE STAT 12/13/2024 6:29 AM HEALTHCARE LIAISON CMP (COMPREHENSIVE METABOLIC PANEL) STAT 12/13/2024 6:29 AM HEALTHCARE LIAISON COMPLETE BLOOD COUNT (CBC) WITH DIFF STAT 12/13/2024 6:29 AM HEALTHCARE LIAISON URINALYSIS REFLEX IF INDICATED BY ABNORMAL RESULTS STAT 12/04/2024 8:07 AM HEALTHCARE LIAISON CBC WITH AUTO DIFFERENTIAL STAT 12/02/2024 10:18 AM [facility]CARE LIAISON COMPLETE BLOOD COUNT (CBC) WITH DIFF STAT 12/02/2024 10:18 AM HEALTHCARE LIAISON CMP (COMPREHENSIVE METABOLIC PANEL) STAT 12/02/2024 10:18 AM HEALTHCARE LIAISON CBC WITH AUTO DIFFERENTIAL STAT 11/27/2024 11:29 AM HEALTHCARE LIAISON LIPASE STAT 11/27/2024 11:29 AM HEALTHCARE LIAISON CMP (COMPREHENSIVE METABOLIC PANEL) STAT 11/27/2024 11:29 AM HEALTHCARE LIAISON COMPLETE BLOOD COUNT (CBC) WITH DIFF STAT 11/27/2024 11:29 AM HEALTHCARE LIAISON CBC WITH AUTO DIFFERENTIAL STAT 11/14/2024 9:55 AM HEALTHCARE LIAISON LIPASE STAT 11/14/2024 9:55 AM HEALTHCARE LIAISON COMPLETE BLOOD COUNT (CBC) WITH DIFF STAT 11/14/2024 9:55 AM HEALTHCARE LIAISON CMP (COMPREHENSIVE METABOLIC PANEL) STAT 11/14/2024 9:55 AM HEALTHCARE LIAISON CBC WITH AUTO DIFFERENTIAL STAT 11/05/2024 1:31 PM HEALTHCARE LIAISON LIPASE STAT 11/05/2024 1:31 PM HEALTHCARE LIAISON CMP (COMPREHENSIVE METABOLIC PANEL) STAT 11/05/2024 1:31 PM HEALTHCARE LIAISON COMPLETE BLOOD COUNT (CBC) WITH DIFF STAT 11/05/2024 1:31 PM HEALTHCARE LIAISON NM GASTRIC EMPTYING STUDY Less Than 2 weeks 10/26/2024 10:15 AM HEALTHCARE LIAISON Epigastric pain Nausea Early satiety Weight loss CT CHEST W/O CONTRAST Stat with Interpretation 09/09/2024 12:10 PM HEALTHCARE LIAISON HEMOGLOBIN A1C W/ ESTIMATED GLUCOSE STAT 04/19/2024 9:11 AM CDT HM COLONOSCOPY 09/27/2022 12:00 AM HEALTHCARE LIAISON STOOL, OCCULT BLOOD, DIAGNOSTIC, VIA GUAIAC STAT 04/03/2022 3:55 PM CDT CINTHYA SCREENING BILATERAL DIGITAL W CAD W BAILEE Routine 12/27/2021 3:10 PM CDT Visit for screening mammogram HEPATITIS C RNA QUANT PCR VIRAL LOAD Routine 07/11/2017 12:38 PM CDT Chronic hepatitis C without hepatic coma (HCC) from Last 3 Months or Most Recently Relevant to Health Maintenance Results * NM HEPATOBILIARY WITH PHARM (12/28/2024 11:19 AM CDT) Anatomical Region Laterality Modality Abdomen N/A Nuclear Medicine 12/28/2024 4:22 PM CDT Impressions 12/28/2024 4:24 PM CDT IMPRESSION: No scintigraphic evidence of common bile or cystic duct obstruction. Normal contractile response of the gallbladder to fatty meal stimulation. Narrative 12/28/2024 4:24 PM CDT EXAM DESCRIPTION: NM HEPATOBILIARY WITH PHARM RADIOPHARMACEUTICAL: 5.3 mCi Tc-99m mebrofenin via an IV site and 8 oz Ensure Plus or equivalent P.O. REASON FOR STUDY: Epigastric pain and nausea for several months. TECHNIQUE: Following the intravenous administration of the radiopharmaceutical, sequential abdominal images were obtained. COMPARISON: CT abdomen pelvis 12/13/2024, HIDA study 07/31/2024 FINDINGS: Adequate clearance of the radiotracer from the blood pool. Activity appears within the gallbladder at the 17 minute image. Subsequent images show activity within the small bowel. Following the oral administration of Ensure Plus or equivalent, the gallbladder ejection fraction was calculated and was 46% (normal: greater than 40%, equivocal: 30-40%, and abnormal: less than 30%). THIS IS AN ELECTRONICALLY VERIFIED FINAL REPORT 12/28/2024 4:22 PM - Electronically signed by Lico Miles M.D. LB: LB Report ID: [id number] Reading Location: [id number] Procedure Note Lico Miles MD - 12/28/2024 EXAM DESCRIPTION: NM HEPATOBILIARY WITH PHARM RADIOPHARMACEUTICAL: 5.3 mCi Tc-99m mebrofenin via an IV site and 8 oz Ensure Plus or equivalent P.O. REASON FOR STUDY: Epigastric pain and nausea for several months. TECHNIQUE: Following the intravenous administration of the radiopharmaceutical, sequential abdominal images were obtained. COMPARISON: CT abdomen pelvis 12/13/2024, HIDA study 07/31/2024 FINDINGS: Adequate clearance of the radiotracer from the blood pool. Activity appears within the gallbladder at the 17 minute image. Subsequent images show activity within the small bowel. Following the oral administration of Ensure Plus or equivalent, the gallbladder ejection fraction was calculated and was 46% (normal: greater than 40%, equivocal: 30-40%, and abnormal: less than 30%). THIS IS AN ELECTRONICALLY VERIFIED FINAL REPORT 12/28/2024 4:22 PM - Electronically signed by Lico Miles M.D. LB: LB Report ID: [id number] Reading Location: [id number] IMPRESSION: No scintigraphic evidence of common bile or cystic duct obstruction. Normal contractile response of the gallbladder to fatty meal stimulation. Snehal Davis ELECTRIC SOLDERER, COMMUTER TRAIN OPERATOR IMG NM ORDERABLES Fi nal Result * XR UPPER GI SERIES WITH SMALL BOWEL FOLLOW THROUGH (12/23/2024 12:39 PM CDT) Anatomical Region Laterality Modality GI, Abdomen N/A Digital Radiogra phy 12/23/2024 1:31 PM CDT Impressions 12/23/2024 1:33 PM CDT IMPRESSION: Mild delay in passage of contrast from the stomach into the small bowel. Delayed transit of contrast through the small bowel to the colon, reaching the ascending colon at approximately 3 hours. No small bowel dilatation or obvious small bowel mucosal abnormality. Suboptimal evaluation of the gastric mucosa Narrative 12/23/2024 1:33 PM CDT EXAM DESCRIPTION: XR UPPER GI SERIES WITH SMALL BOWEL FOLLOW THROUGH REASON FOR STUDY: Epigastric pain and nausea for 2 months COMPARISON: CT from 12/13/2024. RADIATION DOSE: The utilized fluoroscopic equipment does not provide radiation exposure indices. The exposure time is 0.8 minutes and the number of fluorographic images are PROCEDURE: Images of the esophagus were obtained with thick and thin barium as well as effervescent crystals. Additional barium contrast was administered. Serial radiographic images acquired. Fluoroscopic images recorded of the indicated areas, including with spot compression images FINDINGS: Limited evaluation of the pharynx demonstrates no aspiration or penetration. Mucosal relief images of the esophagus are limited by suboptimal distension with air. In the evaluated portions. No gross mucosal abnormality is seen.. No masslike filling defect or fixed filling defect to suggest stricture are seen in the esophagus. Esophageal motility is within normal limits. No hiatal hernia is seen. No gastroesophageal reflux was visualized Evaluation of the gastric mucosa is suboptimal. No obvious abnormality in the visualized portions. There is somewhat delayed passage of contrast from the stomach into the small bowel. The small bowel is normal in caliber. No obvious contour/mucosal abnormality in the small bowel. There is delay in contrast transit time to the colon, reaching the ascending colon at proximally 3 hours. No gross evidence of extraluminal contrast is seen. THIS IS AN ELECTRONICALLY VERIFIED FINAL REPORT 12/23/2024 1:31 PM - Electronically signed by Morteza Johnson M.D. MZ: PARMINDER Report ID: [id number] Reading Location: [id number] Procedure Note Morteza Johnson MD - 12/23/2024 EXAM DESCRIPTION: XR UPPER GI SERIES WITH SMALL BOWEL FOLLOW THROUGH REASON FOR STUDY: Epigastric pain and nausea for 2 months COMPARISON: CT from 12/13/2024. RADIATION DOSE: The utilized fluoroscopic equipment does not provide radiation exposure indices. The exposure time is 0.8 minutes and the number of fluorographic images are PROCEDURE: Images of the esophagus were obtained with thick and thin barium as well as effervescent crystals. Additional barium contrast was administered. Serial radiographic images acquired. Fluoroscopic images recorded of the indicated areas, including with spot compression images FINDINGS: Limited evaluation of the pharynx demonstrates no aspiration or penetration. Mucosal relief images of the esophagus are limited by suboptimal distension with air. In the evaluated portions. No gross mucosal abnormality is seen.. No masslike filling defect or fixed filling defect to suggest stricture are seen in the esophagus. Esophageal motility is within normal limits. No hiatal hernia is seen. No gastroesophageal reflux was visualized Evaluation of the gastric mucosa is suboptimal. No obvious abnormality in the visualized portions. There is somewhat delayed passage of contrast from the stomach into the small bowel. The small bowel is normal in caliber. No obvious contour/mucosal abnormality in the small bowel. There is delay in contrast transit time to the colon, reaching the ascending colon at proximally 3 hours. No gross evidence of extraluminal contrast is seen. THIS IS AN ELECTRONICALLY VERIFIED FINAL REPORT 12/23/2024 1:31 PM - Electronically signed by Morteza Johnson M.D. MZ: PARMINDER Report ID: [id number] Reading Location: [place] [id number] IMPRESSION: Mild delay in passage of contrast from the stomach into the small bowel. Delayed transit of contrast through the small bowel to the colon, reaching the ascending colon at approximately 3 hours. No small bowel dilatation or obvious small bowel mucosal abnormality. Suboptimal evaluation of the gastric mucosa Snehal Davis APRN, COMMUTER TRAIN OPERATOR IMG FLUOROSCOPY SIMONE ORTEGA Final Result * (ABNORMAL) Urine Drug Screen (12/13/2024 10:55 AM [facility]) UR AMPHETAMINE NON DETECTED NON DETECTED 12/13/2024 11:58 AM [facility] Comment: FOR MEDICAL USE ONLY. CUTOFF CONCENTRATION FOR DETECTED RESULT: AMPHETAMINE: 500 NG/ML UR BENZODIAZEPINES DETECTED(A) NON DETECTED 12/13/2024 11:58 AM [facility] Comment: FOR MEDICAL USE ONLY. CUTOFF CONCENTRATION FOR DETECTED RESULT: BENZODIAZAPINE: 200 NG/ML UR COCAINE METABOLITE NON DETECTED NON DETECTED 12/13/2024 11:58 AM [facility] Comment: FOR MEDICAL USE ONLY. CUTOFF CONCENTRATION FOR DETECTED RESULT: COCAINE: 150 NG/ML UR OPIATES NON DETECTED NON DETECTED 12/13/2024 11:58 AM [facility] Comment: FOR MEDICAL USE ONLY. CUTOFF CONCENTRATION FOR DETECTED RESULT: OPIATES: 300 NG/ML UR PHENCYCLIDINE NON DETECTED NON DETECTED 12/13/2024 11:58 AM [facility] Comment: FOR MEDICAL USE ONLY. CUTOFF CONCENTRATION FOR DETECTED RESULT: PCP: 25 NG/ML UR CANNABINOID DETECTED(A) NON DETECTED 12/13/2024 11:58 AM [facility] Comment: FOR MEDICAL USE ONLY. CUTOFF CONCENTRATION FOR DETECTED RESULT: THC (MARIJUANA): 50 NG/ML UR BARBITURATE NON DETECTED NON DETECTED 12/13/2024 11:58 AM [facility] Comment: FOR MEDICAL USE ONLY. CUTOFF CONCENTRATION FOR DETECTED RESULT: BARBITUATES: 200 NG/ML UR FENTANYL NON DETECTED NON DETECTED 12/13/2024 11:58 AM [facility] Comment: FOR MEDICAL USE ONLY. CUTOFF CONCENTRATION FOR DETECTED RESULT: FENTANYL: 1.0 NG/ML Urine Non-Phlebotomy Collection / Unknown 12/13/2024 10:55 AM [facility] 12/13/2024 11:11 AM [facility] us Nataly Garner MD URINE ORDERABLES Final Result [facility] [place] [address] * CT ABDOMEN PELVIS W/ CONTRAST (12/13/2024 10:32 AM [facility]) Anatomical Region Laterality Modality Abdomen N/A Computed Tomogra phy 12/13/2024 11:5 1 AM [facility] Impressions 12/13/2024 11:53 AM [facility] IMPRESSION: 1. Slight pericholecystic fat stranding with normal distension of the gallbladder. Clinical correlation is recommended. If acute cholecystitis is clinically suspected, dedicated ultrasound could be considered for further evaluation. Narrative 12/13/2024 11:53 AM [facility] EXAM DESCRIPTION: CT ABDOMEN PELVIS W/ CONTRAST REASON FOR STUDY: Abd pain,nauseas, vomitning x today. Isovue 370- 100ml @ 1025 , via rt dital fa 18 angie. TECHNIQUE: CT scan of the abdomen and pelvis performed with intravenous and without oral contrast using helical scanning technique with dynamic intravenous contrast injection. Reconstructed coronal and sagittal MPR images reviewed. All images stored on PACS. Automated exposure control was used as a dose optimization technique for this examination. CONTRAST TYPE/DOSE: 100mL of IOPAMIDOL 76 % IV SOLN injected COMPARISON: 06/14/2024 FINDINGS: LOWER CHEST: Mild scattered bilateral pulmonary parenchymal scarring and subsegmental atelectasis. Subtle mosaic pattern attenuation in both lungs can be seen with small airways disease and less likely small vessels disease. Slight bronchial wall thickening. Heart size is within normal limits. There is mild circumferential thickening of the distal esophageal wall, which could reflect esophagitis/reflux esophagitis and has decreased compared to prior study. There is no pleural effusion. LIVER: Mild hepatomegaly. Slight hepatic steatosis. No identified cystic or solid masses. The portal and hepatic veins are patent. GALLBLADDER: There is slight pericholecystic fat stranding with normal distension of the gallbladder. BILE DUCTS: Borderline intrahepatic biliary ductal dilatation with normal caliber of the extrahepatic bile ducts. SPLEEN: Normal size. No focal lesions. A splenule is present. PANCREAS: No identified cystic or solid masses. No significant calcifications. No adjacent inflammation or peripancreatic fluid collections. Pancreatic duct not dilated. ADRENALS: Normal. KIDNEYS/URINARY TRACT: No identified significant cystic or solid masses. No visualized stones. No hydronephrosis or hydroureter. Symmetric enhancement. Urinary bladder is unremarkable. GI: The stomach is normal. The appendix is normal. The small bowel and colon are normal in course and caliber with no evidence of obstruction or inflammation or perforation. PERITONEUM: No ascites or free air. No lymphadenopathy. RETROPERITONEUM: No mass or adenopathy. REPRODUCTIVE: Prior hysterectomy. No adnexal masses. VASCULATURE: No abdominal aortic aneurysm. The abdominal aorta and its branches are patent. MUSCULOSKELETAL: No acute fractures or aggressive osseous lesions. OTHER: Small fat containing periumbilical ventral abdominal wall hernia. THIS IS AN ELECTRONICALLY VERIFIED FINAL REPORT 12/13/2024 11:51 AM - Electronically signed by James Lan M.D. AT: AT Report ID: [id number] Reading Location: [id number] Procedure Note James Lan MD - 12/13/2024 EXAM DESCRIPTION: CT ABDOMEN PELVIS W/ CONTRAST REASON FOR STUDY: Abd pain,nauseas, vomitning x today. Isovue 370- 100ml @ 1025 , via rt dital fa 18 angie. TECHNIQUE: CT scan of the abdomen and pelvis performed with intravenous and without oral contrast using helical scanning technique with dynamic intravenous contrast injection. Reconstructed coronal and sagittal MPR images reviewed. All images stored on PACS. Automated exposure control was used as a dose optimization technique for this examination. CONTRAST TYPE/DOSE: 100mL of IOPAMIDOL 76 % IV SOLN injected COMPARISON: 06/14/2024 FINDINGS: LOWER CHEST: Mild scattered bilateral pulmonary parenchymal scarring and subsegmental atelectasis. Subtle mosaic pattern attenuation in both lungs can be seen with small airways disease and less likely small vessels disease. Slight bronchial wall thickening. Heart size is within normal limits. There is mild circumferential thickening of the distal esophageal wall, which could reflect esophagitis/reflux esophagitis and has decreased compared to prior study. There is no pleural effusion. LIVER: Mild hepatomegaly. Slight hepatic steatosis. No identified cystic or solid masses. The portal and hepatic veins are patent. GALLBLADDER: There is slight pericholecystic fat stranding with normal distension of the gallbladder. BILE DUCTS: Borderline intrahepatic biliary ductal dilatation with normal caliber of the extrahepatic bile ducts. SPLEEN: Normal size. No focal lesions. A splenule is present. PANCREAS: No identified cystic or solid masses. No significant calcifications. No adjacent inflammation or peripancreatic fluid collections. Pancreatic duct not dilated. ADRENALS: Normal. KIDNEYS/URINARY TRACT: No identified significant cystic or solid masses. No visualized stones. No hydronephrosis or hydroureter. Symmetric enhancement. Urinary bladder is unremarkable. GI: The stomach is normal. The appendix is normal. The small bowel and colon are normal in course and caliber with no evidence of obstruction or inflammation or perforation. PERITONEUM: No ascites or free air. No lymphadenopathy. RETROPERITONEUM: No mass or adenopathy. REPRODUCTIVE: Prior hysterectomy. No adnexal masses. VASCULATURE: No abdominal aortic aneurysm. The abdominal aorta and its branches are patent. MUSCULOSKELETAL: No acute fractures or aggressive osseous lesions. OTHER: Small fat containing periumbilical ventral abdominal wall hernia. THIS IS AN ELECTRONICALLY VERIFIED FINAL REPORT 12/13/2024 11:51 AM - Electronically signed by James Lan M.D. AT: AT Report ID: [id number] Reading Location: [id number] IMPRESSION: 1. Slight pericholecystic fat stranding with normal distension of the gallbladder. Clinical correlation is recommended. If acute cholecystitis is clinically suspected, dedicated ultrasound could be considered for further evaluation. us Nataly Garner MD IMG CT ORDERABLES Final Resul t * (ABNORMAL) URINALYSIS REFLEX IF INDICATED BY ABNORMAL RESULTS (12/13/2024 10:19 AM [facility]) Only the most recent of3 resultswithin the time period is included. SPECIFIC GRAVITY 1.010 1.003 - 1.030 12/13/2024 11:46 AM [facility] URINE PH 8.0 5.0 - 9.0 12/13/2024 11:46 AM [facility] WBC ESTERASE Negative Negative 12/13/2024 11:46 AM [facility] NITRITE Negative Negative 12/13/2024 11:46 AM [facility] PROTEIN, RANDOM URINE 30 mg/dL(A) Negative 12/13/2024 11:46 AM [facility] URINE GLUCOSE, QUAL Negative Negative 12/13/2024 11:46 AM [facility] URINE KETONES Negative Negative 12/13/2024 11:46 AM [facility] UROBILINOGEN Normal Normal mg/dL 12/13/2024 11:46 AM [facility] URINE BLOOD Negative Negative reji/ul 12/13/2024 11:46 AM [facility] URINALYSIS COLOR Yellow 12/14/19 11:46 AM [facility] URINALYSIS CLARITY Clear 12/13/2024 11:46 AM [facility] WBC (Urine) 0-5 Negative, 0-5 /hpf 12/13/2024 11:46 AM [facility] URINE RBC'S 0-2 Negative, 0-2 /hpf 12/13/2024 11:46 AM [facility] EPITHELIAL CELLS Occasional /lpf 12/14/19 11:46 AM [facility] BACTERIA, URINE Few(A) Negative /hpf 12/13/2024 11:46 AM [facility] Urine URINE SPECIMEN OBTAINED BY CLEAN CATCH PROCEDURE / Unknown Non-Phlebotomy Collection / Unknown 12/13/2024 10:19 AM [facility] 12/13/2024 11:00 AM [facility] us Nataly Garner MD URINE ORDERABLES Final Result [facility] [place] [address] * Gold Top Tube (12/13/2024 6:29 AM [facility]) Blood No Phlebotomy Charged / Unknown 12/13/2024 6:29 AM [facility] 12/13/2024 6:43 AM [facility] us Nataly Garner MD CHEMISTRY ORDERABLES Final Re sult [facility] [place] [address] * (ABNORMAL) CBC with Auto Differential (12/13/2024 6:29 AM [facility]) Only the most recent of5 resultswithin the time period is included. WBC 11.29 4.00 - 12.00 10(3)/mcL 12/13/2024 6:46 AM [facility] RBC 6.06(H) 3.80 - 5.30 10(6)/mcL 12/13/2024 6:46 AM [facility] HEMOGLOBIN (HGB) 16.7(H) 12.0 - 15.8 g/dL 12/13/2024 6:46 AM [facility] HEMATOCRIT (HCT) 50.6(H) 36.0 - 47.0 % 12/13/2024 6:46 AM [facility] MCV 83.5 82.0 - 96.0 fL 12/13/2024 6:46 AM [facility] MCH 27.6 26.0 - 34.0 pg 12/13/2024 6:46 AM [facility] MCHC 33.0 31.0 - 36.0 g/dL 12/13/2024 6:46 AM [facility] PLATELET COUNT 281 140 - 440 10(3)/[facility] 12/13/2024 6:46 AM [facility] RDW 14.2 11.8 - 15.5 % 12/13/2024 6:46 AM [facility] MPV 11.5 9.7 - 12.4 fL 12/13/2024 6:46 AM [facility] NEUTROPHILS 65.6 47.0 - 73.0 % 12/13/2024 6:46 AM [facility] LYMPHOCYTES 27.6 18.0 - 42.0 % 12/13/2024 6:46 AM [facility] MONOCYTES 4.8 4.0 - 12.0 % 12/13/2024 6:46 AM [facility] EOSINOPHILS 1.0 0.0 - 5.0 % 12/13/2024 6:46 AM [facility] BASOPHILS 1.0 0.0 - 1.0 % 12/13/2024 6:46 AM [facility] ABSOLUTE NEUTROPHILS 7.41 1.60 - 7.70 10(3)/[facility] 12/13/2024 6:46 AM [facility] ABSOLUTE LYMPHOCYTES 3.12 1.30 - 3.20 10(3)/[facility] 12/13/2024 6:46 AM [facility] ABSOLUTE MONOCYTES 0.54 0.20 - 1.00 10(3)/[facility] 12/13/2024 6:46 AM [facility] ABSOLUTE EOSINOPHIL 0.11 0.00 - 0.40 10(3)/[facility] 12/13/2024 6:46 AM [facility] ABSOLUTE BASOPHILS 0.11(H) 0.00 - 0.10 10(3)/[facility] 12/13/2024 6:46 AM [facility] NRBC PER 100 WBC 0 12/14/19 25 6:46 AM [facility] Blood Venipuncture / Unknown 12/13/2024 6:29 AM [facility] 12/13/2024 6:42 AM [facility] Nataly Garner MD HEMATOLOGY ORDERABLES Final R esult Performing Organization Address City/[facility]/ZIP Co de Phone Number [facility] [place] [address] * Lipase [id number] (12/13/2024 6:29 AM [facility]) Only the most recent of4 resultswithin the time period is included. Pathologist [facility] LIPASE 23 8 - 78 U/L 12/13/2024 7:03 AM [facility] Blood Venipuncture / Unknown 12/13/2024 6:29 AM [facility] 12/13/2024 6:42 AM [facility] us Nataly Garner MD CHEMISTRY ORDERABLES Final Re sult [facility] [place] [address] * (ABNORMAL) Comprehensive Metabolic Panel (Cmp) [id number] (12/13/2024 6:29 AM [facility]) Only the most recent of5 resultswithin the time period is included. SODIUM 140 136 - 145 mmol/L 12/13/2024 7:03 AM [facility] POTASSIUM 4.8 3.5 - 5.1 mmol/L 12/13/2024 7:03 AM [facility] CHLORIDE 104 98 - 107 mmol/L 12/13/2024 7:03 AM [facility] CO2, VENOUS 21(L) 22 - 30 mmol/L 12/13/2024 7:03 AM [facility] ANION GAP 19.8(H) <18.0 mmol/L 12/13/2024 7:03 AM [facility] GLUCOSE 138(H) 70 - 99 mg/dL 12/13/2024 7:03 AM [facility] BUN 21(H) 10 - 20 mg/dL 12/13/2024 7:03 AM [facility] CREATININE, BLOOD 0.88 0.60 - 1.00 mg/dL 12/13/2024 7:03 AM [facility] BUN/CREATININE RATIO 24(H) 12 - 20 ratio 12/13/2024 7:03 AM [facility] TOTAL PROTEIN 8.9(H) 6.0 - 8.0 g/dL 12/13/2024 7:03 AM [facility] ALBUMIN 4.9 3.5 - 5.0 g/dL 12/13/2024 7:03 AM [facility] A/G RATIO 1.2 1.0 - 2.2 12/13/2024 7:03 AM [facility] CALCIUM 10.5 8.7 - 10.5 mg/dL 12/13/2024 7:03 AM [facility] T BILI 0.2 0.2 - 1.2 mg/dL 12/13/2024 7:03 AM [facility] SGOT (AST) 19 <43 U/L 12/13/2024 7:03 AM [facility] SGPT (ALT) 22 <56 U/L 12/13/2024 7:03 AM [facility] ALKALINE PHOSPHATASE 108 40 - 150 U/L 12/13/2024 7:03 AM [facility] GFR, ESTIMATED >60 >=60 12/13/2024 7:03 AM [facility] Comment: Creatinine Clearance is the preferred criteria for selecting drug dose adjustments in renally impaired patients. The GFR is provided as additional pertinent clinical information. GFR is reported in mL/min/1.73 sq m. Calculation based on the Chronic Kidney Disease Epidemiology Collaboration (CKD- EPI) equation refit without adjustment for race. GFR, EST. >60 >=60 025 7:03 AM [facility] GFR, EST. NONAFRICAN >60 >=60 12/13/2024 7:03 AM [facility] Blood Venipuncture / Unknown 12/13/2024 6:29 AM [facility] 12/13/2024 6:42 AM [facility] Nataly Garner MD CHEMISTRY ORDERABLES Final Re sult [facility] [place] [address] * NM GASTRIC EMPTYING STUDY (10/26/2024 10:15 AM [facility]) Anatomical Region Laterality Modality GI, Abdomen N/A Nuclear Medicine 10/26/2024 10:4 6 AM [facility] Impressions 10/26/2024 10:48 AM [facility] IMPRESSION: Abnormal gastric emptying, initially with delayed gastric emptying followed by abnormal rapid gastric emptying. Narrative 10/26/2024 10:48 AM [facility] EXAM DESCRIPTION: NM GASTRIC EMPTYING STUDY REASON FOR STUDY: Epigastric pain less than 2 weeks, suspected gastroparesis. RADIOPHARMACEUTICAL: 0.5 mCi Tc-99m sulfur colloid incorporated into eggs p.o. TECHNIQUE: After oral ingestion of the radiolabeled meal, sequential anterior and posterior abdominal images were obtained. COMPARISON: None. FINDINGS: At 60 minutes, the residual activity is 95% (normal: 30-90%). At 120 minutes, the residual activity is 1% (normal: less than 60%). At 180 minutes, the residual activity is not applicable (normal: less than 30%). At 240 minutes, the residual activity is n/a (normal: less than 10%). T1/2 emptying time is 89 minutes . THIS IS AN ELECTRONICALLY VERIFIED FINAL REPORT 10/26/2024 10:46 AM - Electronically signed by Zia Rivers M.D. CH: DIMAS Report ID: [id number] Reading Location: [id number] Procedure Note Zia Rivers Jr., MD - 10/26/2024 EXAM DESCRIPTION: NM GASTRIC EMPTYING STUDY REASON FOR STUDY: Epigastric pain less than 2 weeks, suspected gastroparesis. RADIOPHARMACEUTICAL: 0.5 mCi Tc-99m sulfur colloid incorporated into eggs p.o. TECHNIQUE: After oral ingestion of the radiolabeled meal, sequential anterior and posterior abdominal images were obtained. COMPARISON: None. FINDINGS: At 60 minutes, the residual activity is 95% (normal: 30-90%). At 120 minutes, the residual activity is 1% (normal: less than 60%). At 180 minutes, the residual activity is not applicable (normal: less than 30%). At 240 minutes, the residual activity is n/a (normal: less than 10%). T1/2 emptying time is 89 minutes . THIS IS AN ELECTRONICALLY VERIFIED FINAL REPORT 10/26/2024 10:46 AM - Electronically signed by Zia Rivers M.D. CH: DIMAS Report ID: [id number] Reading Location: [id number] IMPRESSION: Abnormal gastric emptying, initially with delayed gastric emptying followed by abnormal rapid gastric emptying. Antoinette George ELECTRIC SOLDERER, COMMUTER TRAIN OPERATOR IMG NM ORDERABLES Final Result * CT CHEST W/O CONTRAST (09/09/2024 12:10 PM [facility]) Anatomical Region Laterality Modality Chest N/A Computed Tomogra phy 09/09/2024 1:06 PM [facility] Impressions 09/09/2024 1:09 PM [facility] IMPRESSION: Interval decreased patchy ground-glass airspace opacities in the right lower lobe with mild residual airspace opacities remaining, and findings likely represent resolving airspace disease of inflammatory or infectious etiology. Scattered mild bronchial wall thickening, which is concerning for mild acute or chronic bronchitis/bronchiolitis. Scattered mild ground-glass centrilobular airspace opacities, which is most significant in the bilateral upper lobes, which are nonspecific, and may be related to respiratory bronchiolitis. Mild diffuse mucosal thickening of the esophagus, which may be secondary to the small hiatal hernia versus esophagitis. This may be further evaluated with endoscopy as clinically indicated. Narrative 09/09/2024 1:09 PM [facility] EXAM DESCRIPTION: CT CHEST W/O CONTRAST REASON FOR STUDY: c/o general illness symptoms, cough and sob x 2 days. Patient dx with [facility] days [facility] antibx. Patient states she isn't getting any better, and feels worse TECHNIQUE: CT scan of the chest performed without intravenous contrast using helical scanning technique. Reconstructed coronal and sagittal MPR images reviewed. All images stored on PACS. Automated exposure control was used as a dose optimization technique for this examination. COMPARISON: 09/05/2024 FINDINGS: The sensitivity for detection of solid visceral lesions is diminished without the use of intravenous contrast. LUNGS: There is no definite evidence of a pneumothorax. There is scattered mild bronchial wall thickening, which is concerning for mild acute or chronic bronchitis/bronchiolitis. There is scattered mild subsegmental atelectasis and scarring. There is no definite evidence of a pleural effusion. There are scattered mild ground-glass centrilobular airspace opacities noted, which is most significant in the bilateral upper lobes, which are nonspecific, and may be related to respiratory bronchiolitis. There are interval decreased patchy ground-glass airspace opacities in the right lower lobe with mild residual airspace opacities remaining. There are scattered pulmonary nodules noted, which are grossly unchanged since 04/15/2022, therefore likely benign. For example, there are couple of subpleural pulmonary nodules in the lateral right upper lobe measuring 0.3 cm, similar to the prior study (axial image 18). There is a stable 0.3 cm pulmonary nodule in the posterior right upper lobe abutting the right major fissure (axial image 32). There is a grossly stable subpleural 0.4 cm right lower lobe pulmonary nodule (axial image 51). There is a stable subpleural 0.3 cm pulmonary nodule in the lateral left upper lobe (axial image 28). There is stable 0.3 cm subpleural pulmonary nodule in the lateral left upper lobe (axial image 33). There is a stable 0.5 cm left lower lobe pulmonary nodule (axial image 81). MEDIASTINUM/JEROME: Heart size is stable. There is no definite evidence of pericardial effusion. There are atherosclerotic changes of the thoracic aorta and coronary vessels. There is no definite unenhanced CT evidence of mediastinal, hilar, or axillary lymphadenopathy. There is redemonstration of the scattered prominent subcentimeter mediastinal lymph nodes, which are overall grossly similar to the prior study. For example, there is a subcarinal lymph node measuring 0.8 cm, which previously measured 0.8 cm (axial image 47). CORONARY ARTERY CALCIFICATION: Present. CHEST WALL: No masses. No subcutaneous air. HARDWARE/LINES/TUBES: None. UPPER ABDOMEN: There is mild diffuse mucosal thickening of the esophagus. There is small hiatal hernia. The visualized portions of the bilateral adrenal glands are grossly stable and unremarkable. MUSCULOSKELETAL: There is mild osteopenia. There is minimal dextroscoliotic curvature of the spine with degenerative changes. OTHER: No other significant abnormality. THIS IS AN ELECTRONICALLY VERIFIED FINAL REPORT 09/09/2024 1:06 PM - Electronically signed by Floyd Max D.O. PS: PS Report ID: [id number] Reading Location: [id number] Procedure Note Floyd Max DO - 09/09/2024 EXAM DESCRIPTION: CT CHEST W/O CONTRAST REASON FOR STUDY: c/o general illness symptoms, cough and sob x 2 days. Patient dx with Pneumonia 2-3 days [facility] antibx. Patient states she isn't getting any better, and feels worse TECHNIQUE: CT scan of the chest performed without intravenous contrast using helical scanning technique. Reconstructed coronal and sagittal MPR images reviewed. All images stored on PACS. Automated exposure control was used as a dose optimization technique for this examination. COMPARISON: 09/05/2024 FINDINGS: The sensitivity for detection of solid visceral lesions is diminished without the use of intravenous contrast. LUNGS: There is no definite evidence of a pneumothorax. There is scattered mild bronchial wall thickening, which is concerning for mild acute or chronic bronchitis/bronchiolitis. There is scattered mild subsegmental atelectasis and scarring. There is no definite evidence of a pleural effusion. There are scattered mild ground-glass centrilobular airspace opacities noted, which is most significant in the bilateral upper lobes, which are nonspecific, and may be related to respiratory bronchiolitis. There are interval decreased patchy ground-glass airspace opacities in the right lower lobe with mild residual airspace opacities remaining. There are scattered pulmonary nodules noted, which are grossly unchanged since 04/15/2022, therefore likely benign. For example, there are couple of subpleural pulmonary nodules in the lateral right upper lobe measuring 0.3 cm, similar to the prior study (axial image 18). There is a stable 0.3 cm pulmonary nodule in the posterior right upper lobe abutting the right major fissure (axial image 32). There is a grossly stable subpleural 0.4 cm right lower lobe pulmonary nodule (axial image 51). There is a stable subpleural 0.3 cm pulmonary nodule in the lateral left upper lobe (axial image 28). There is stable 0.3 cm subpleural pulmonary nodule in the lateral left upper lobe (axial image 33). There is a stable 0.5 cm left lower lobe pulmonary nodule (axial image 81). MEDIASTINUM/JEROME: Heart size is stable. There is no definite evidence of pericardial effusion. There are atherosclerotic changes of the thoracic aorta and coronary vessels. There is no definite unenhanced CT evidence of mediastinal, hilar, or axillary lymphadenopathy. There is redemonstration of the scattered prominent subcentimeter mediastinal lymph nodes, which are overall grossly similar to the prior study. For example, there is a subcarinal lymph node measuring 0.8 cm, which previously measured 0.8 cm (axial image 47). CORONARY ARTERY CALCIFICATION: Present. CHEST WALL: No masses. No subcutaneous air. HARDWARE/LINES/TUBES: None. UPPER ABDOMEN: There is mild diffuse mucosal thickening of the esophagus. There is small hiatal hernia. The visualized portions of the bilateral adrenal glands are grossly stable and unremarkable. MUSCULOSKELETAL: There is mild osteopenia. There is minimal dextroscoliotic curvature of the spine with degenerative changes. OTHER: No other significant abnormality. THIS IS AN ELECTRONICALLY VERIFIED FINAL REPORT 09/09/2024 1:06 PM - Electronically signed by Floyd Max D.O. PS: PS Report ID: [id number] Reading Location: [id number] IMPRESSION: Interval decreased patchy ground-glass airspace opacities in the right lower lobe with mild residual airspace opacities remaining, and findings likely represent resolving airspace disease of inflammatory or infectious etiology. Scattered mild bronchial wall thickening, which is concerning for mild acute or chronic bronchitis/bronchiolitis. Scattered mild ground-glass centrilobular airspace opacities, which is most significant in the bilateral upper lobes, which are nonspecific, and may be related to respiratory bronchiolitis. Mild diffuse mucosal thickening of the esophagus, which may be secondary to the small hiatal hernia versus esophagitis. This may be further evaluated with endoscopy as clinically indicated. us Maxime Gonzalez MD IMG CT ORDERABLES Final Result * (ABNORMAL) Hemoglobin A1C w/ Estimated Glucose (04/19/2024 9:11 AM CDT) HGB-A1C 6.2(H) 4.0 - 6.0 % 04/19/2024 1:58 PM CDT [facility] Est Average Glucose 131.2 mg/dL 04/19/2024 1:58 PM CDT [facility] Blood Venipuncture / Unknown 04/19/2024 9:11 AM CDT 04/19/2024 11:11 AM CDT Narrative [facility] - 04/19/2024 1:58 PM CDT HEMOGLOBIN A1C: DIABETIC PATIENTS: WELL-CONTROLLED: 6.2 - 7.0 INTERMEDIATE WELL-CONTROLLED: 7.0 - 9.0 POORLY-CONTROLLED: >9.0 us Nandini Moya MD CHEMISTRY ORDERABLES Final Re sult [facility] [address] [place] [address] * HM COLONOSCOPY (09/27/2022 12:00 AM HEALTHCARE LIAISON) 09/27/2022 us Not On File Provider PROCEDURE/MINOR SURGICAL OR DERABLES Final Result SCAN * Stool, Occult Blood, Diagnostic (04/03/2022 3:55 PM CDT) OCCULT BLOOD DIAG, GI BLEED Negative Negative 04/03/2022 4:09 PM CDT [facility] Stool STOOL SPECIMEN / Unknown Non-Phlebotomy Collection / Unknown 04/03/2022 3:55 PM CDT 04/03/2022 4:03 PM CDT us Roxann Blackmon APRN, COMMUTER TRAIN OPERATOR BODY FLUIDS & STOOLS ORDERABLES Final Result Performing Organization Address [facility] Co de Phone Number [facility] [address] [place] [address] * CINTHYA SCREENING BILATERAL DIGITAL W CAD W BAILEE (12/27/2021 3:10 PM CDT) Anatomical Region Laterality Modality breast Bilateral Mammography 12/27/2021 2:46 PM CDT Narrative 12/28/2021 4:22 PM CDT - CINTHYA SCREENING BILATERAL DIGITAL W CAD W BAILEE BILATERAL DIGITAL SCREENING MAMMOGRAM 3D/2D WITH CAD WITH MEDIOLATERAL OBLIQUE CRANIOCAUDAL: 12/27/2021 The study was acquired using digital technology and interpreted from soft copy. Current study was also evaluated with ICAD version 7.2. 2D digital mammographic views, as well as 3D digital tomosynthesis were performed in the CC and MLO projections. CLINICAL: New baseline. Routine screening. Patient has no complaints. No personal history of cancer. No family history of breast cancer. COMPARISONS: No prior exams were available for comparison. BREAST TISSUE:There are scattered fibroglandular densities in both breasts. FINDINGS: No significant masses, calcifications, or other findings are seen in either breast. IMPRESSION: BI-RAD 1 NEGATIVE There is no mammographic evidence of malignancy. A 1 year screening mammogram is recommended. A letter will be sent to the patient with these results. The patient will be entered into a reminder system with a target due date of 1 year for her next screening exam. Electronically signed by: Mary Kay kaiser/penrad:12/28/2021 12:31:28 Fish Bin Tender(s): Vicky Morales(Kateryna)(Mirella), [facility]: Normal Exam Reading location: [facility] BI-RADS: 1 Negative Procedure Note Mary Kay Hankins MD - 12/28/2021 - CINTHYA SCREENING BILATERAL DIGITAL W CAD W BAILEE BILATERAL DIGITAL SCREENING MAMMOGRAM 3D/2D WITH CAD WITH MEDIOLATERAL OBLIQUE CRANIOCAUDAL: 12/27/2021 The study was acquired using digital technology and interpreted from soft copy. Current study was also evaluated with ICAD version 7.2. 2D digital mammographic views, as well as 3D digital tomosynthesis were performed in the CC and MLO projections. CLINICAL: New baseline. Routine screening. Patient has no complaints. No personal history of cancer. No family history of breast cancer. COMPARISONS: No prior exams were available for comparison. BREAST TISSUE:There are scattered fibroglandular densities in both breasts. FINDINGS: No significant masses, calcifications, or other findings are seen in either breast. IMPRESSION: BI-RAD 1 NEGATIVE There is no mammographic evidence of malignancy. A 1 year screening mammogram is recommended. A letter will be sent to the patient with these results. The patient will be entered into a reminder system with a target due date of 1 year for her next screening exam. Electronically signed by: Mary Kay kaiser/penrad:12/28/2021 12:31:28 Fish Bin Tender(s): Vicky Morales(Kateryna)(M), [facility] letter sent: Normal Exam Reading location: [facility] BI-RADS: 1 Negative us Riky Strauss MD IMG MAMMO ORDERABLES Zeina l Result * HEPATITIS C RNA QUANT PCR VIRAL LOAD (07/11/2017 12:38 PM CDT) HCV RNA QUANT PCR NON DETECTED NON DETECTED 07/16/2017 1:50 PM CDT [facility] HCV RNA QT LOG10 <=0.00 Log10 IU/mL 07/16/2017 1:50 PM CDT [facility] Comment: LOG 10 is not applicable. Sample held in Serology for 1 month. Call Laboratory if further testing is desired. This test was performed using POONAM AmpliPrep POONAM Taq Man Real Time PCR. Blood specimen (specimen) Venipuncture / Unknown 07/11/2017 12:38 PM CDT 07/11/2017 1:02 PM CDT us Maria Dolores Arciniega MD IMMUNOLOGY ORDERABLES F inal Result [facility] [address] [place] [address], from Last 3 Months or Most Recently Relevant to Health Maintenance Insurance MEDICAID [place] MED[place]ARE PA T[place] [address] , [address] [place] [address] Advance Directives Documents on File Type Date Recorded Patient Manager English Expl anation Power of Tower Operator for Health Care 10/27/2021 1:26 PM [employer] Power of Tower Operator for Health Care 10/27/2021 1:25 PM POA-HEALTH CARE Power of Tower Operator for Health Care 10/24/2021 1:58 PM POA-HC, 10/22/2021 * Full Code (Latest Code Status on File) Date Activated Date Inactivated Comments 05/12/2024 4:09 PM 05/23/2024 11:33 AM * Full Code Date Activated Date Inactivated Comments 05/10/2024 2:31 PM 05/12/2024 4:09 PM CPR-Full Ruben atment: FULL ARREST: Attempt Resuscitation/CPR wit intubation and mechanical ventilation. PRE-ARREST: Use entire range of life support measures to stabilize the patient. * Full Code Date Activated Date Inactivated Comments 05/01/2024 5:35 PM 05/02/2024 2:46 PM CPR-Full Ruben atment: FULL ARREST: Attempt Resuscitation/CPR wit intubation and mechanical ventilation. PRE-ARREST: Use entire range of life support measures to stabilize the patient. * No CPR-Selective Treatment Date Activated Date Inactivated Comments 04/19/2024 1:06 PM 04/24/2024 4:27 PM No CPR - Ami ctive Treatment: FULL ARREST: Do Not Attempt Resuscitation. PRE-ARREST: DO NOT USE INTUBATION OR MECHANICAL VENTILATION, but may use basic medical treatment like CPAP or BiPAP, antibiotics, IV fluids, oxygen, etc. Avoid care in ICU setting. Question Answer Comments Physician documentation made in notes? Yes * Full Code Date Activated Date Inactivated Comments 12/23/2023 1:15 PM 12/24/2023 7:30 PM CPR-Full Ruben atment: FULL ARREST: Attempt Resuscitation/CPR wit intubation and mechanical ventilation. PRE-ARREST: Use entire range of life support measures to stabilize the patient. Care Teams Inspector Aide Relationship Specialty Start Date End Date Tressa Johnson MD [address] [place] [id number] PCP - General Family Medicine 07/30/23 Contreras Olson MD [address] [place] [address] Psychiatry 06/17/19 Brayden Sellers MD [address] [place] [address] Consulting Physician Orthopaedic Sports Medicine 11/10/21 Michi Berman MD [address] [place] [address] Consulting Physician Pulmonary Disease 04/13/22 Antoinette George APRN, COMMUTER TRAIN OPERATOR [address] [place] [address] Nurse Practitioner Advanced Practice Nurse 07/02/24
--- OUTSIDE RECORDS SUMMARY | 2025-01-22 12:07 | XMS_ITS | Encounter Summary ---
Author Organization [facility] Address [address] [place] [address] Phone Care Team Providers Care Senior Clinical Consultant Name Role Phone Wesley Moya MD, Sethgodwinemilee Unavailable [phone] Riky Strauss MD Primary Care Provider [phone] Brayden Sellers MD Unavailable [phone] Michi Berman MD Unavailable Tressa Johnson MD Primary Care Provider [phone] Antoinette George APRN, [employer] Unavailable Reason for Visit * Reason Comments Medication Refill Encounter Details Date Type Department Care Team (Late st Contact Info) Description 09/02/2022 Refill [facility] - Pulmonology & Sleep Medicine [facility] [address] [place] [address] Michi Berman MD [address] [place] [address] Medication Refill Social History Tobacco Use Types [...] suspected to have Coronavirus/COVID-19? No / Unsure 08/30/2022 10:06 AM GUITAR TEACHER documented as of this encounter Miscellaneous Notes * Telephone Encounter - Shruti Connor RN - 09/03/2022 8:05 AM GUITAR TEACHER Medication failed the protocol, provider to review and approve the medication order if appropriate. Requested Prescriptions Pending Prescriptions Disp Refills predniSONE (DELTASONE) 10 MG Tablet [Pharmacy Med Name: PREDNISONE 10 MG TABLET] 30 Tablet 3 Sig: TAKE 1 TABLET BY MOUTH EVERY DAY Not Delegated - Corticosteroids Protocol Failed - 09/02/2022 9:32 AM Failed - This refill cannot be delegated Passed - Visit with relevant provider in past 12 months or upcoming 90 days Recent Visits Date Type Provider Dept 06/07/22 Office Visit Lico Kyle, NOELLE [facility] [address] 05/03/22 Office Visit Michi Berman MD [facility] 04/13/22 Office Visit Riky Strauss MD [facility] [address] 02/28/22 Office Visit Riky Strauss MD [facility] [address] 02/08/22 Office Visit Michi Berman MD [facility] 12/29/21 Office Visit Riky Strauss MD [facility] [address] 12/22/21 Office Visit Madai Barrera APRN, [employer] [facility] [address] 11/10/21 Office Visit Riky Strauss MD [facility] [address] 11/06/21 Office Visit Michi Berman MD [facility] 10/27/21 Office Visit Riky Strauss MD [facility] Showing recent visits within past 365 days and meeting all other requirements Future Appointments Date Type Provider Dept 09/10/22 Appointment Riky Strauss MD [facility] Showing future appointments within next 90 days and meeting all other requirements AR TEACHER documented in this encounter Plan of Treatment Not on file documented as of this encounter Visit Diagnoses Not on filedocumented in this encounter Additional Health Concerns Infection Onset Date Last Indicated Resolved Time Respiratory Rule-Out 10/16/2022 10/16/2022 023 6:16 AM GUITAR TEACHER Influenza 10/16/2022 10/16/2022 10/23/2022 12:1 9 AM GUITAR TEACHER COVID - 19 10/21/2022 10/21/2022 10/22/2022 7:50 AM GUITAR TEACHER COVID - 19 10/28/2022 10/28/2022 10/29/2022 8:15 AM GUITAR TEACHER Respiratory Rule-Out 10/28/2022 10/28/2022 023 4:15 PM GUITAR TEACHER COVID - 19 11/09/2022 11/09/2022 11/19/2022 12:1 8 AM GUITAR TEACHER COVID - 19 11/25/2022 11/25/2022 11/26/2022 8:06 AM GUITAR TEACHER COVID - 19 10/15/2023 10/22/2023 11/01/2023 12:1 6 AM GUITAR TEACHER COVID - 19 12/12/2023 12/12/2023 12/12/2023 4:38 AM GUITAR TEACHER COVID - 19 12/23/2023 12/23/2023 12/23/2023 12:5 5 PM CDT COVID - 19 04/15/2024 04/15/2024 04/15/2024 4:34 PM CDT COVID - 19 08/25/2024 08/25/2024 08/25/2024 1:35 PM GUITAR TEACHER COVID - 19 Confirmed 08/25/2024 08/25/2024 024 12:16 AM GUITAR TEACHER COVID - 19 09/09/2024 09/09/2024 09/09/2024 1:04 PM GUITAR TEACHER COVID - 19 09/13/2024 09/13/2024 09/13/2024 7:49 AM GUITAR TEACHER documented as of this encounter Care Teams Senior Clinical Consultant Relationship Specialty Start Date End Date Riky Strauss MD [address] [place] [address] PCP - General Internal Medicine 09/18/21 07/29/23 Tressa Johnson MD [address] [place] [address] PCP - General Family Medicine 07/30/23 Contreras Olson MD [address] [place] [address] Psychiatry 06/17/19 Brayden Sellers MD [address] [place] [address] Consulting Physician Orthopaedic Sports Medicine 11/10/21 Michi Berman MD [address] [place] [address] Consulting Physician Pulmonary Disease 04/13/22 Antoinette George APRN, [employer] [address] [place] [address] Nurse Practitioner Advanced Practice Nurse 07/02/24 documented as of this encounter
--- OUTSIDE RECORDS SUMMARY | 2025-01-22 12:07 | XMS_ITS ---
Author Organization Unknown Address [address] [place] [phone] Phone Care Team Providers Care Claim Clerk Name Role Phone JOHN CORONA Resendiz Attending Unavailable JIMENA Vu Primary Unavailable Immunization [...] 208 CVX Pneumococcal conjugate PCV20 , polysaccharide [id number] conjugate, adjuvant, PF 10/24/2022 Completed 216 CVX COVID-19, mRNA, LNP-S, PF, 3 0 mcg/0.3 mL dose, raymond-sucrose 01/02/2022 Completed 217 CVX Social History Type Status Start Date End Date Code Code Syst em Smoking History Never smoker (Never Smoked) [id number] SNOMED CT Sex Female Hospital Discharge Instructions Should you have any questions prior to discharge, please contact a member of your healthcare team. If you have left the hospital and have any questions, please contact your primary care physician. Reason For Referral No Data Found Procedures Procedure Name Date Status Code Code Lulúe m Arthrocentesis Aspir&/Inj Ma raissa Jt/Bursa w/o US 10/29/2023 completed CPT Plan of Treatment MRI UE Joint WO Contrast ([id number]) 2022 Encounters Encounter Diagnosis Start Date Code Code Sys tem Strain of muscle(s) and tend on(s) of the rotator cuff of right shoulder, subsequent encounter 10/29/2023 [facility] MED-CT Personal Care Team Section Performer Name Performer Role Active Date Inactive Da te
--- OUTSIDE RECORDS SUMMARY | 2025-01-22 12:07 | XMS_ITS | Clinical Summary ---
Author Organization [facility] Address [address] [place] [address] Care Team Providers Care K9 Handler Name Role Phone Harvinder Chicas MD Unavailable [phone] Tressa Johnson MD Primary Care Provider Nathan Monahan MD Unavailable [phone] Allergies Active Allergy Reactions Criticality Noted Date [...] 1 tablet (100 mcg total) by mouth wire mill rover before breakfast 11/17/19 21 Active divalproex ER [...] mouth every 6 (six) hours 01/10/20 25 025 Active sucralfate (CARAFATE) suspension 1 gram/10 mL Take 10 mL (1 g total) by mouth 3 (three) times a day before meals 900 mL 01/10/20 25 025 Active rosuvastatin (CRESTOR) 20 mg tablet 12/22/19 025 Discontin ued(Alter rashawn therapy) ondansetron (ZOFRAN) 4 mg tablet Take 1 tablet (4 mg total) by mouth every 6 (six) hours 12 tablet 09/19/20 025 Discontin ued(Dupli murray order) zolpidem (AMBIEN) 5 mg tablet Take 1 tablet (5 mg total) by mouth nightly as needed for sleep 10/14/19 025 Discontin ued(Thera py completed ) HYDROcodone-acetam inophen (NORCO) 5-325 mg per tabletIndications: Pain Take 1 tablet by mouth every 6 (six) hours as needed for pain 8 tablet 12/22/19 025 Discontin ued(Thera py completed ) HYDROcodone-acetam inophen (NORCO) 5-325 mg per tabletIndications: Pain Take 1 tablet by mouth every 6 (six) hours as needed for pain 15 tablet 12/28/19 025 Discontin ued(Thera py completed ) famotidine [...] (08/02/2022): Added automatically from request for surgery [id number] Encounter for removal of sutures 07/18/2020 Essential [...] mother 019 Family history of diabetes m ellitus in first degree relative 03/19/2019 Family history [...] COPD exacerbation 08/13/2019 12/31/2024 Pneumonia 08/13/2019 12/31/2024 Encounters Date Type Department Care Team Description 01/15/20 [facility] Post Discharge Follow up phone call [facility] Surgery Care [address] [place] [address] Belkys Reich 01/12/20 9:44 AM CDT - 01/12/20 12:06 PM CDT Emergency [facility] Emergency Department [address] [place] [address] Discharge Disposition: Left without being seen 01/12/20 9:17 AM CDT - 01/12/20 11:59 PM CDT Hospital Encounter [facility] Emergency, Room R Discharge Disposition: Discharge to home or self care 01/09/20 Results Follow-Up [facility] Gastroenterology at [address] [place] [address] Luana Delgado MD 01/08/20 2:45 PM CDT - 01/10/20 2:55 PM CDT Hospital Encounter [facility] Surgery Care [address] [place] [address] Sandi Hull MD Kheirkhahan, Nazanin, MD Sargsyan, Narine, MD Abdominal pain (Primary Dx); Duodenitis Discharge Disposition: Discharge to home or self care 01/08/20 25 2:16 PM CDT - 01/08/20 11:59 PM CDT Hospital Encounter [facility] Emergency, Room R Discharge Disposition: Discharge to home or self care 01/08/20 10:56 AM CDT Anesthesia Event [address] [address] Young Connor MD 01/08/20 10:25 AM CDT - 01/08/20 11:00 AM CDT Surgery [address] [address] Luana Delgado MD ESOPHAGOGASTRODUODENOSCOPY BIOPSY 01/08/20 9:34 AM CDT - 01/08/20 12:08 PM CDT Hospital Encounter [address] [address] Luana Delgado MD Epigastric pain Discharge Disposition: Discharge to home or self care 01/06/20 Telephone [facility] Gastroenterology at [address] [place] [address] Serina Martinez MA 01/05/20 Orders Only [facility] [address] [place] [phone] Jeffrey Ashraf MD Hepatitis C virus infection without hepatic coma, unspecified chronicity (Primary Dx); Chronic hepatitis C without hepatic coma (HCC) 01/04/20 2:52 PM CDT - 01/04/20 3:47 PM CDT Emergency [facility] Emergency Department [address] [place] [address] Ananda Abdi MD Abdominal pain (Primary Dx) Discharge Disposition: Discharge to home or self care 01/02/20 Telephone [facility] Gastroenterology at [address] [place] [address] Bonita Schrader 01/01/20 11:24 AM CDT - 01/01/20 25 2:42 PM CDT Emergency [facility] Emergency Department [address] [place] [address] Amie Alonso DO Abdominal pain (Primary Dx) Discharge Disposition: Discharge to home or self care 12/31/19 25 3:29 PM CDT - 12/31/19 25 3:37 PM CDT Emergency [facility] Emergency Department [address] [place] [address] Discharge Disposition: Left without being seen 12/31/19 - 12/31/19 1:06 PM CDT Emergency [facility] Emergency Department [address] [place] [address] Discharge Disposition: ED Dismiss - Never Arrived 12/28/19 11:51 AM CDT - 12/28/19 4:27 PM CDT Emergency [facility] Emergency Department [address] [place] [address] Clyde Chester MD Abdominal pain (Primary Dx) Discharge Disposition: Discharge to home or self care 12/26/19 6:46 PM CDT - 12/27/19 4:24 PM CDT Emergency [facility] [address] [place] [address] Timothy Aviles MD Sargsyan, Narine, MD Abdominal pain (Primary Dx) Discharge Disposition: Left Against Medical Advice 12/25/19 11:39 PM CDT - 12/26/19 3:13 AM CDT Emergency [facility] Emergency Department [address] [place] [address] Ole Parham MD Abdominal pain (Primary Dx) Discharge Disposition: Discharge to home or self care 12/25/19 5:09 PM CDT - 12/25/19 8:38 PM CDT Emergency [facility] Emergency Department [address] [place] [address] Alexander Martino MD Chronic abdominal pain (Primary Dx) Discharge Disposition: Discharge to home or self care 12/24/19 Results Follow-Up [facility] Gastroenterology at [address] [place] [address] Deya Cowan MA 12/22/19 11:00 AM CDT - 12/22/19 1:45 PM CDT Emergency [facility] Emergency Department [address] [place] [address] Alexander Martino MD Chronic abdominal pain (Primary Dx) Discharge Disposition: Discharge to home or self care 12/21/19 6:34 AM CDT - 12/22/19 9:19 AM CDT Hospital Encounter [facility] Surgery Care [address] [place] [address] Anya Rae MD Nikolic, Jelena, MD Singh, Supriya, MD Intractable abdominal pain (Primary Dx); Abdominal wall hernia Discharge Disposition: Left Against Medical Advice 12/19/19 12:39 PM ASSISTANT PROFESSOR OF DRAMA - 12/19/19 3:16 PM ASSISTANT PROFESSOR OF DRAMA Emergency [facility] Emergency Department [address] [place] [address] Kris Howe MD Hanson, Thomas S., MD Abdominal pain, epigastric (Primary Dx) Discharge Disposition: Discharge to home or self care from Last 3 Months Immunizations Immunization Administration Dates Next Due Influenza, Unspecified 07/14/2019 Tdap 07/08/2020 Surgical History Surgery Date Site/Laterality Comments ROTATOR CUFF REPAIR 10/14/2004 - 10/13/2005 Left Rotator cuff repair HYSTERECTOMY 10/14/2002 - 10/13/2003 Hysterectomy KNEE ARTHROCENTESIS Arthrocentesis of the right knee joint CARPAL TUNNEL RELEASE Bilateral COLONOSCOPY 05/29/2022 UPPER GASTROINTESTINAL ENDOSCOPY 01/07/2025 Medical History Medical History Date Comments Osteoarthritis Osteoarthritis Hypertension Hypertension Disorder of thyroid Thyroid dise ase Chronic obstructive pulmonary disease (HCC) COPD Bipolar affective (HCC) Hyperlipidemia Hypothyroidism Type 2 diabetes mellitus (HCC) CHF (congestive heart failure) (HCC) Smoking 08/18/2019 Dyslipidemia 10/08/2015 Anxiety 08/18/2019 Borderline personality disorder (HCC) 04/21/2014 Chronic hepatitis C without hepatic coma (HCC) 0 12/31/2024 PONV (postoperative nausea and vomiting) Family History Medical History Relation Name Comments Colon cancer Mother Cancer Other 1 Family history of Cancer; Diabetes Other 2 Family history of Diabetes mellitus; Heart disease Other 3 Family history of Heart disease; Hypertension Other 4 Family history of Hypertension; Relation Name Status Comments Mother Other 1 Other 2 Other 3 Other 4 Social History Tobacco Use Types Packs/Day Years Used Date Smoking Tobacco: Some Days Cigarettes 1.2 40 Smokeless Tobacco: Never Tobacco Cessation:Ready to Q uit: Not Asked; Counseling Given: Not Answered Passive Exposure Comments:half pack/day Alcohol Use Standard Drinks/Week Comments Not Currently 0 (1 standard drink = 0.6 oz pur e alcohol) [facility] Utilities Answer Date Recorded In the past 12 months has th e [employer], gas, oil, or water [employer] threatened to shut off services in your [...] often do you attend chur ch or pentecostal services? Patient declined 01/08/2025 Do you belong to any clubs o r organizations such as buddhist groups, unions, fraternal or athletic groups, or [...] any time in the past 12 m [place], were you homeless or living in a usp (including now)? No 01/08/2025 Personal Safety Answer Date Recorded Have you ever been in or are you currently in a harmful physical or emotional relationship or is someone making you feel afraid or unsafe? Denies 01/11/2025 Comments No Sex and Gender Information Value Date Recorded Sex Assigned at Not on file Legal Sex Female 12:54 AM ASSISTANT PROFESSOR [employer]AMA Gender Identity Not on file Sexual Orientation Not on file Obstetrics History Para Term AB IAB SAB Ectopic Multiple Livin g Live Births 4 Date Outcome GA Total Labor Labor/2nd/3rd Weight Sex Type Anes PTL Lamar A1 A5 Name Clin Last Filed Vital Signs Vital Sign Reading [...] 01/11/2025 10:07 AM CDT Plan of Treatment Health Maintenance Due Date Last Done Comments Osteoporosis Screening-Bone Density Scan 1960 Hepatitis B Screening 01/09/1978 Lung Cancer Screening 01/09/2010 Zoster Vaccine (1 of 2) 01/09/2010 Depression Screening 08/16/2020 08/16/2019 Pneumococcal vaccine 65+ (2 of 2 - PCV) 09/22/2022 09/22/2021 Breast Cancer Screening-Mammogram 12/27/2022 022, 12/27/2021 Covid-19 Vaccine (3 - 2023-2 5 season) 2024 01/29/2021, 01/08/2021 Well Visit 65+ 01/09/2025 Influenza Vaccine (Season Ended) 2025 08/05/2023, 07/03/2022, 09/22/2021, Additional history exists Fall Risk Assessment 01/09/2026 01/09/2025 DTaP/Tdap/Td Vaccine (3 - Td or Tdap) 07/08/2030 07/08/2020, 04/07/2017 Colon Cancer Screening-Colonoscopy 09/27/2032 09/27/2022, 05/29/2022 Colon Cancer Screening-CT Colonography Discontinued 09/27/2022, 05/29/2022 Colon Cancer Screening-DNA Stool Discontinued 09/27/20, 05/29/2022 Colon Cancer Screening-FIT Discontinued 09/27/2022, Colon Cancer Screening-Sigmoidoscopy Discontinued 09/27/2022, 05/29/2022 Hepatitis C Screening Completed 01/14/2025 , 01/04/2025, 01/04/2025, Additional history exists Procedures Procedure Name Priority Date/Time Associated Diagnosis [...] CDT ECG 12-LEAD Routine 12/20/2024 12:38 AM ASSISTANT PROFESSOR OF DRAMA EGFR STAT 12/20/2024 12:35 AM ASSISTANT PROFESSOR OF [employer]AMA DIFFERENTIAL AUTO STAT 12/20/2024 12:35 AM ASSISTANT PROFESSOR [employer]AMA COMPREHENSIVE METABOLIC PANEL STAT 12:35 AM ASSISTANT PROFESSOR OF DRAMA CBC WITH AUTO DIFFERENTIAL STAT 12/20 12:35 AM ASSISTANT PROFESSOR OF DRAMA LIPASE STAT 12/20/2024 12:35 AM ASSISTANT PROFESSOR OF DRAMA US RUQ ED 12/18/2024 2:15 PM ASSISTANT PROFESSOR OF [employer]AMA EGFR STAT 12/18/2024 12:58 PM ASSISTANT PROFESSOR OF DRAMA DIFFERENTIAL AUTO STAT 12/18/2024 12:58 PM ASSISTANT PROFESSOR OF [employer]AMA LIPASE STAT 12/18/2024 12:58 PM ASSISTANT PROFESSOR OF DRAMA COMPREHENSIVE METABOLIC PANEL STAT 12:58 PM ASSISTANT PROFESSOR OF DRAMA CBC WITH AUTO DIFFERENTIAL STAT 12/18 12:58 PM ASSISTANT PROFESSOR OF DRAMA COLONOSCOPY 09/27/2022 9:23 AM ASSISTANT PROFESSOR OF DRAMA from Last 3 Months or Most Recently [...] BLOOD ORDERABLES Final Res ult [facility] [place] [facility] [place] [address] * eGFR (01/11/2025 11:03 AM CDT) eGFR [...] LAB BLOOD ORDERABLES Final Res ult [facility] 1 [facility] [place] [address] * (ABNORMAL) Differential, auto (01/11/2025 11:03 AM [...] 0.1 K/cumm [facility] ([place]) Neutrophil pct 65.9 % [facility] ([place]) Comment: Interpretive [...] Lymphocyte pct 27.0 % [facility] Comment: Interpretive Data Percent cell count reference ranges are not reported, since discordance with absolute values may lead to misinterpretation of CBC data. Current Interpretive Data was last revised on 2018. Monocyte pct 5.1 % [facility] Comment: Interpretive Data Percent cell count reference ranges are not reported, since discordance with absolute values may lead to misinterpretation of CBC data. Current Interpretive Data was last revised on 2018. Eosinophil pct 0.8 % [facility] ([place]) Comment: Interpretive [...] Final Res ult [facility] 1 [facility] [place] [address] * (ABNORMAL) CBC with auto differential (01/11/2025 [...] ([place]) MCHC 32.9 32.3 - 35.7 g/dL [facility] RDW CV 14.2 11.1 - 14.9 % [facility] RDW SD 42.0 35.7 - 48.1 fL [facility] NRBC abs 0.00 0.00 - 0.01 K/cumm [facility] Blood Venous blood specimen / Unknown 01/11/2025 11:03 AM CDT 01/11/2025 11:08 AM CDT Ananda Abdi MD LAB BLOOD ORDERABLES Final Res ult [facility] 1 [facility] [place] [address] * Lipase (01/11/2025 11:03 AM CDT) Pathologist [facility] Lipase 21 10 - 99 Units/L Blood Venous blood specimen / Unknown 01/11/2025 11:03 AM CDT 01/11/2025 11:08 AM CDT Ananda Abdi MD LAB BLOOD ORDERABLES Final Res ult [facility] ([place] 1 [facility] [place] [address] * Comprehensive metabolic panel (01/11/2025 11:03 AM CDT) Sodium 138 135 - 145 mmol/L Potassium, pl 4.3 3.3 - 4.9 mmol/L [facility]) Chloride 100 97 - 110 mmol/L [facility] CO2 23 22 - 32 mmol/L [facility] Anion gap 15 2 - 15 mmol/L [facility] [place]) BUN 16 6 - 25 mg/dL [facility] Creatinine 0.78 0.60 - 1.10 mg/dL [facility] Glucose 92 70 - 199 mg/dL [facility] [place]) Comment: Interpretive Data Fasting glucose [...] ([place]) AST 11 10 - 45 Units/L [facility] Blood 01/11/2025 11:0 3 AM CDT 01/11/2025 11:08 AM CDT us Ananda Abdi MD LAB BLOOD ORDERABLES Final Res ult [facility] ([place] 1 [facility] [place] [address] * Urinalysis reflex to microscopic and culture Urine (01/11/2025 10:34 AM CDT) Color, ur Yellow Yellow Clarity, ur Clear Clear [facility] ([place]) Specific gravity, ur 1.012 1.003 - [...] tendency for uric acid stone formation. Source: [facility] Current Interpretive Data was [...] culture not met. [facility]) Urine 01/11/2025 10:3 4 AM CDT 01/11/2025 10:39 AM CDT Ananda Abdi MD LAB MICROBIOLOGY - GENERAL ORD ERABLES Final Result Performing Organization Address City/[facility] Co de Phone Number [facility] ([place] 1 [facility] [place] [address] * ECG 12 lead (01/11/2025 10:10 AM CDT) 01/11/2025 10:1 0 AM CDT Narrative [facility] - 01/11/2025 12:25 PM CDT Vent Rate: 69 bpm RR Interval: 859 msec CO Interval: 0 msec QRS Duration: 98 msec QT Interval: 400 msec QTC Interval: 420 msec P-R-T [place]: [address] - 45 - 9 degrees IMPRESSION: Baseline artifact, probable sinus rhythm ABNORMAL RHYTHM ECG NO CHANGE FROM PREVIOUS TRACING NOTED Electronically Signed By: Brian Venegas MD Ananda Abdi MD ECG ORDERABLES Final Result Performing Organization Address [facility]/ZIP Co de Phone Number [facility] [employer] [facility] * POCT glucose (01/09/2025 11:57 AM CDT) Glucose, POC 153 70 - 199 mg/dL Blood 01/09/2025 11:5 7 AM CDT 01/09/2025 11:57 AM CDT Meredith Eisenberg MD LAB POCT ORDERABLES - DEVICE Final Result Performing Organization Address [facility] Co de Phone Number [facility] [address] [facility] [place] [address] * POCT glucose (01/09/2025 8:12 AM CDT) Glucose, POC 103 70 - 199 mg/dL Blood 01/09/2025 8:12 AM CDT 01/09/2025 8:12 AM CDT eMredith Eisenberg MD LAB POCT ORDERABLES - DEVICE Final Result Performing Organization Address [facility] de Phone Number [facility] ([place] [address] [facility] [place] [address] * POCT glucose (01/09/2025 4:07 AM CDT) Glucose, POC 115 70 - 199 mg/dL Blood 01/09/2025 4:07 AM CDT 01/09/2025 4:07 AM CDT Meredith Eisenberg MD LAB POCT ORDERABLES - DEVICE Final Result Performing Organization Address City/[facility] Co de Phone Number [facility] [address] [facility] [place] [address] * eGFR (01/09/2025 3:57 AM CDT) eGFR [...] BLOOD ORDERABLES Fi nal Result [facility] 1 [facility] [place] [address] * (ABNORMAL) Differential, auto (01/09/2025 3:57 AM [...] ORDERABLES nal Result [facility] 1 [facility] Department of Laboratories [place], [place] [id number] * CBC with auto differential (01/09/2025 3:57 [...] ([place]) MCV 84.7 81.3 - 96.4 fL [facility] MCH 27.4 27.1 - 33.3 pg [facility] MCHC 32.3 32.3 - 35.7 g/dL [facility] RDW CV 14.3 11.1 - 14.9 % [facility] RDW SD 43.8 35.7 - 48.1 fL [facility]) NRBC abs 0.00 0.00 - 0.01 K/cumm [facility] Blood 01/09/2025 3:57 AM CDT 01/09/2025 4:06 AM CDT Juan Ramirez MD LAB BLOOD ORDERABLES Fi nal Result [facility] ([place] 1 [facility] [place] [address] * Magnesium (01/09/2025 3:57 AM CDT) Pathologist [facility] Magnesium 1.8 1.4 - 2.5 mg/dL Blood 01/09/2025 3:57 AM CDT 01/09/2025 4:06 AM CDT us Juan Ramirez MD LAB BLOOD ORDERABLES Fi nal Result [facility] ([place] [address] [facility] [place] [address] * (ABNORMAL) Comprehensive metabolic panel (01/09/2025 3:57 AM CDT) Sodium 141 135 - 145 mmol/L Potassium, pl 3.8 3.3 - 4.9 mmol/L [facility] Chloride 109 97 - 110 mmol/L [facility] CO2 21(L) 22 - 32 mmol/L [facility] Anion gap 11 2 - 15 mmol/L [facility] BUN 11 6 - 25 mg/dL [facility]) Creatinine 0.85 0.60 - 1.10 [...] Fi nal Result [facility] 1 [facility] Department of Laboratories [place], [place] [id number] * POCT glucose (01/08/2025 11:57 PM CDT) Glucose, POC 84 70 - 199 mg/dL Blood 01/08/2025 11:5 7 PM CDT 01/08/2025 11:57 PM CDT us Meredith Eisenberg MD LAB POCT ORDERABLES - DEVICE Final Result [facility] [address] [facility] [place] [address] * POCT glucose (01/08/2025 8:08 PM CDT) Glucose, POC 194 70 - 199 mg/dL Blood 01/08/2025 8:08 PM CDT 01/08/2025 8:08 PM CDT us Meredith Eisenberg MD LAB POCT ORDERABLES - DEVICE Final Result [facility] [address] [facility] [place] [address] * POCT glucose (01/08/2025 4:34 PM CDT) Glucose, POC 113 70 - 199 mg/dL Blood 01/08/2025 4:34 PM CDT 01/08/2025 4:34 PM CDT us Meredith Eisenberg MD LAB POCT ORDERABLES - DEVICE Final Result [facility] 1 [facility] [place] [address] * POCT glucose (01/08/2025 11:06 AM CDT) Glucose, POC 133 70 - 199 mg/dL Blood 01/08/2025 11:0 6 AM CDT 01/08/2025 11:06 AM CDT us Meredith Eisenberg MD LAB POCT ORDERABLES - DEVICE Final Result [facility] 1 [facility] [place] [address] * POCT glucose (01/08/2025 9:00 AM CDT) Glucose, POC 153 70 - 199 mg/dL Blood 01/08/2025 9:00 AM CDT 01/08/2025 9:00 AM CDT us Meredith Eisenberg MD LAB POCT ORDERABLES - DEVICE Final Result Performing Organization Address City/[facility]/ZIP Co de Phone Number [facility] ([place] 1 [facility] [place] [address] * eGFR (01/08/2025 4:48 AM CDT) eGFR >90 >=60 mL/min/1. 73 m2 Comment: [...] Fi nal Result [facility] 1 [facility] [place] [address] * (ABNORMAL) CBC with auto differential (01/08/2025 4:48 AM CDT) Pathologist [facility] WBC 7.8 3.8 - 9.9 K/cumm Hgb 14.5 11.9 - 15.5 g/dL [facility] Hct 45.2 35.6 - 45.5 % [facility] Plt 203 150 - 400 K/cumm [facility]) MPV 11.5 9.1 - 12.3 fL [facility]) RBC 5.34(H) 3.90 - 5.20 M/cumm [facility] ([place]) MCV 84.6 81.3 - 96.4 fL [facility] ([place]) MCH 27.2 27.1 - 33.3 pg [facility] ([place]) MCHC 32.1(L) 32.3 - 35.7 g/dL [facility] ([place]) RDW CV 14.0 11.1 - 14.9 % [facility]) RDW SD 42.9 35.7 - 48.1 fL [facility]) NRBC abs 0.00 0.00 - 0.01 K/cumm [facility]) Blood 01/08/2025 4:48 AM CDT 01/08/2025 6:08 AM CDT us Juan Ramirez MD LAB BLOOD ORDERABLES Fi nal Result [facility] 1 [facility] [place] [address] * (ABNORMAL) Manual Differential (01/08/2025 4:48 AM CDT) Pathologist [facility] Differential Manual Cells Counted 100 [facility] [...] revised on 2018. Lymphocyte pct 31.0 % [facility] ([place]) Comment: Interpretive Data Percent cell count reference ranges are not reported, since discordance with absolute values may lead to misinterpretation of CBC data. Current Interpretive Data was last revised on 2018. Band Neutrophil pct 1.0 0.0 - 5.0 % [facility]) RBC morphology Consistent with RBC Indicies [facility] ([place]) Platelet estimate Adequate CE [facility] ([place]) Blood 01/08/2025 4:48 AM CDT 01/08/2025 6:08 AM CDT Juan Ramirez MD LAB BLOOD ORDERABLES Fi nal Result Performing Organization Address City/[facility]/ZIP Co de Phone Number [facility] 1 [facility] [place] [place] [address] * Magnesium (01/08/2025 4:48 AM CDT) Pathologist [facility] Magnesium 1.9 1.4 - 2.5 mg/dL Blood 01/08/2025 4:48 AM CDT 01/08/2025 6:08 AM CDT Juan Ramirez MD LAB BLOOD ORDERABLES Fi nal Result Performing Organization Address City/[facility]/ZIP Co de Phone Number [facility] ([place] [address] [facility] [place] [address] * (ABNORMAL) Comprehensive metabolic panel (01/08/2025 4:48 AM CDT) Sodium 138 135 - 145 mmol/L Potassium, pl 4.6 3.3 - 4.9 mmol/L [facility] Chloride 106 97 - 110 mmol/L [facility]) CO2 19(L) 22 - 32 mmol/L [facility]) Anion gap 13 2 - 15 mmol/L [facility] ([place]) BUN 10 6 - 25 mg/dL [facility]) Creatinine 0.64 0.60 - 1.10 [...] MD LAB BLOOD ORDERABLES Fi nal Result [facility] 1 [facility] Department of Laboratories [place], [place] [id number] * POCT glucose (01/08/2025 4:15 AM CDT) Glucose, POC 137 70 - 199 mg/dL Blood 01/08/2025 4:15 AM CDT 01/08/2025 4:15 AM CDT us Megan Sinclair MD LAB POCT ORDERABLES - DEV ICE Final Result Performing Organization Address City/[facility]/ZIP Co de Phone Number [facility] 1 [facility] [place] [address] * POCT glucose (01/08/2025 12:03 AM CDT) Glucose, POC 140 70 - 199 mg/dL Blood 01/08/2025 12:0 3 AM CDT 01/08/2025 12:03 AM CDT Megan Sinclair MD LAB POCT ORDERABLES - DEV ICE Final Result Performing Organization Address [facility] Hospital/[facility] Co de Phone Number KORY [facility] ([place]) 1 [facility] [place] [address] * POCT glucose (01/07/2025 9:27 PM CDT) Glucose, POC 86 70 - 199 mg/dL Blood 01/07/2025 9:27 PM CDT 01/07/2025 9:27 PM CDT Megan Sinclair MD LAB POCT ORDERABLES - DEV ICE Final Result Performing Organization Address City/[facility] Co de Phone Number KORY M[facility] ([place]) 1 [facility] [place] [address] * Troponin T high-sensitivity 6-hour (01/07/2025 8:50 PM CDT) Trop T hs 9 <=14 ng/L Comment: Interpretive Data For further hscTnT resources including the diagnostic algorithm and an aid in interpretation, copy and paste this link: https://nrl.testcatalog.org/show/hsTrop Current Interpretive Data last revised 2020. Trop T hs delta 0 ng/L [facility] ([place]) Trop T hs interp Insignificant [facility] ([place]) Blood 01/07/2025 8:50 PM CDT 01/07/2025 8:57 PM CDT Ananda Abdi MD LAB BLOOD ORDERABLES Final Res ult Performing Organization Address [facility] Co de Phone Number KORY M[facility] ([place]) 1 [place] [address] * Troponin T high-sensitivity 2-hour (01/07/2025 4:52 PM CDT) Trop T hs 8 <=14 ng/L Comment: Interpretive Data For further hscTnT resources including the diagnostic algorithm and an aid in interpretation, copy and paste this link: https://nrl.testcatalog.org/show/hsTrop Current Interpretive Data last revised 2020. Trop T hs delta -1 ng/L [facility] ([place]) Trop T hs interp Insignificant [facility] JULI[facility] ([place]) Blood 01/07/2025 4:52 PM CDT 01/07/2025 4:55 PM CDT Ananda Abdi MD LAB BLOOD ORDERABLES Final Res ult Performing Organization Address [facility] Co de Phone Number KORY MADR[facility] ([place]) 1 [place] [address] * (ABNORMAL) Urinalysis reflex to microscopic and culture Urine (01/07/2025 4:24 PM CDT) Color, ur Straw Yellow Clarity, ur Clear Clear KORY Asif ([place]) Specific gravity, ur 1.045(H) 1.003 - 1.030 KOYR MADRID ([place]) pH, urine 7.0 [facility] ([place]) Comment: Interpretive Data U rine pH is affected by diet, medications, systemic acid-base disturbances, and renal tubular function. pH may affect urinary stone formation. For example, urine pH below 6.0 may help reduce the tendency for calcium phosphate stones and pH greater than 6.0 may reduce the tendency for uric acid stone formation. Source: [facility] Current Interpretive Data was [...] 4:24 PM CDT 01/07/2025 4:26 PM CDT us Sandi Hull MD LAB MICROBIOLOGY - GENERA L ORDERABLES Final Result [facility] ([place]) 1 [facility] [place] [address] * CT Chest Abdomen Pelvis W Contrast [...] Vanessa Roy M.D. FT: FT Report ID: [id number] Reading Location: [id number] Procedure Note Vanessa Mccann MD - 01/07/2025 [...] Vanessa Roy M.D. FT: FT Report ID: [id number] Reading Location: [id number] Sandi Hull MD IMG CT PROCEDURES Final R esult * ECG 12 lead (01/07/2025 2:58 PM CDT) 01/07/2025 2:58 PM CDT Narrative [facility] - 01/07/2025 4:16 PM CDT Vent Rate: 63 bpm RR Interval: 942 msec CO Interval: 192 msec QRS Duration: 101 msec QT Interval: 415 msec QTC Interval: 423 msec P-R-T [place]: 24 - 74 - 58 degrees IMPRESSION: Baseline artifact, probable SINUS RHYTHM MINIMAL ST DEPRESSION [0.025+ mV ST DEPRESSION] BORDERLINE ECG NO CHANGE FROM PREVIOUS TRACING NOTED Electronically Signed By: Brian Venegas MD Sandi Hull MD ECG ORDERABLES Final Res ult [facility] [employer] [facility] * Troponin T high-sensitivity series (baseline, 2hr, 4hr, 6hr) (01/07/2025 2:52 PM CDT) Pathologist [facility] Trop T hs 9 <=14 ng/L Comment: Interpretive Data For further hscTnT resources including the diagnostic algorithm and an aid in interpretation, copy and paste this link: https://nrl.testcatalog.org/show/hsTrop Current Interpretive Data last revised 2020. Blood 01/07/2025 2:52 PM CDT 01/07/2025 2:58 PM CDT Sandi Hull MD LAB BLOOD ORDERABLES Zeina l Result K[facility] ([place]) 1 [facility] [place] [address] * eGFR (01/07/2025 2:52 PM CDT) eGFR [...] 2:52 PM CDT 01/07/2025 2:58 PM CDT Ananda Abdi MD LAB BLOOD ORDERABLES Final Res ult [facility] ([place]) 1 [facility] [place] [address] * (ABNORMAL) Differential, auto (01/07/2025 2:52 PM [...] Final Res ult KORY M[facility]RID ([place]) 1 [facility] [place] [address] * (ABNORMAL) CBC with auto differential (01/07/2025 2:52 PM CDT) WBC 12.4(H) 3.8 - 9.9 K/cumm Hgb 15.3 11.9 - 15.5 g/dL [facility] ([place]) Hct 46.0(H) 35.6 - 45.5 % [facility] ([place]) Plt 246 150 - 400 K/cumm [facility] ([place]) MPV 10.8 9.1 - 12.3 fL [facility] ([place]) RBC 5.59(H) 3.90 - 5.20 M/cumm [facility] ([place]) MCV 82.3 81.3 - 96.4 fL [facility] ([place]) MCH 27.4 27.1 - 33.3 pg [facility] ([place]) MCHC 33.3 32.3 - 35.7 g/dL [facility] ([place]) RDW CV 13.8 11.1 - 14.9 % [facility] ([place]) RDW SD 40.8 35.7 - 48.1 fL [facility] ([place]) NRBC abs 0.00 0.00 - 0.01 K/cumm [facility] ([place]) Blood Venous blood specimen / Unknown 01/07/2025 2:52 PM CDT 01/07/2025 2:58 PM CDT Sandi Hull MD LAB BLOOD ORDERABLES Zeina l Result [facility] ([place]) 1 [facility] [place] [address] * Lipase (01/07/2025 2:52 PM CDT) Pathologist [facility] Lipase 30 10 - 99 Units/L Blood Venous blood specimen / Unknown 01/07/2025 2:52 PM CDT 01/07/2025 2:58 PM CDT Sandi Hull MD LAB BLOOD ORDERABLES Zeina l Result KORY MADRID ([place]) 1 [facility] [place] [address] * Comprehensive metabolic panel (01/07/2025 2:52 PM CDT) Sodium 140 135 - 145 mmol/L Potassium, pl 4.4 3.3 - 4.9 mmol/L [facility] ([place]) Chloride 103 97 - 110 mmol/L [facility] ([place]) CO2 23 22 - 32 mmol/L [facility] ([place]) Anion gap 14 2 - 15 mmol/L [facility] ([place]) BUN 13 6 - 25 mg/dL [facility] ([place]) Creatinine 0.87 0.60 - 1.10 mg/dL [facility] ([place]) Glucose 148 70 - 199 mg/dL [facility] ([place]) [...] MD LAB BLOOD ORDERABLES Zeina danielle Result [facility] ([place]) 1 [facility] [place] [address] * Surgical pathology (01/07/2025 2:22 PM CDT) Tissue specimen (specimen) (Duodenum, Biopsy) 01/07/2025 11:15 AM CDT Tissue specimen (specimen) (Gastric/Stomach biopsy) 01/07/2025 11:16 AM CDT Tissue specimen (specimen) (EG Junction, Biopsy) 01/07/2025 11:17 AM CDT Narrative PATHOLOGY [facility] ([place]) - 01/08/2025 3:36 PM CDT EPIC results best viewed via link to PDF [facility] Department of Pathology [address] [place] [address] Note to Patients: This report may contain [...] Final Report Patient Name: AYALA JAUREGUI Address: [address] [place] [address]- Gender: F : 1960 (Age: 64) Service: Gastro Location: [facility] Hospital #: [id number] Patient Type: [facility] Taken: 01/07/2025 Received: 01/07/2025 Accessioned: 01/07/2025 Reported: [...] measuring 1 mm. All in C. T.A. Kate Brown., P.A./Shante Lomeli M.D. REPORT IMAGES AND SCANNED DOCUMENTS, IF INCLUDED, ONLY VIEWABLE IN PDF VERSION OF REPORT The performance characteristics of some immunohistochemical stains, fluorescence in-situ hybridization tests and immunophenotyping by flow cytometry cited in this report (if any) were determined by the Surgical Pathology Department at [facility] as part of an ongoing data quality consultant program and in compliance with federally mandated [...] characteristics determined by the Surgical Pathology Department [facility]. It has not been cleared or approved by the U. S. Food and Drug Administration. Note for decalcified specimens: This assay has not been validated on decalcified tissues. Results should be interpreted with caution given the possibility of false negativity on decalcified specimens Luana Delgado MD LAB PATHOLOGY ORDERABLES Final R esult Performing Organization Address [facility]/ZIP Co de Phone Number [facility]OLOGY [facility] ([place]) 1 [place] [address] * POCT glucose (01/07/2025 10:18 AM CDT) Glucose, POC 98 70 - 199 mg/dL Blood 01/07/2025 10:1 8 AM CDT 01/07/2025 10:18 AM CDT Luana Delgado MD LAB POCT ORDERABLES - DEVICE Fin al Result Performing Organization Address [facility] Co de Phone Number CERNER [facility] ([place]) 1 [facility] [place] [address] * EGD (01/07/2025 10:11 AM CDT) Anatomical Region Laterality Modality Other Narrative Procedure Note Luana Delgado MD - 01/07/2025 10:11 AM CDT [facility] Patient Name: Ayala Jauregui Procedure Date: 01/07/2025 10:11 AM Date of : 1960 Admit Type: Outpatient Age: 64 Gender: Female Attending MD: Luana Delgado M.D. Room: [facility] ENDOSCOPY ROOM 2 Note Status: Finalized Patient Profile: This is a 64 year old female PMH significant forCOPD, HTN, bipolar, anxiety, hypothyroidism, GERD [...] procedure were verified by the physician, the columnist and the metallurgical or materials technician in the endoscopy suite. Mental Status [...] passed under direct vision. The Endoscope [id number] was introduced through the mouth, and advanced [...] 10:11 AM Procedure Code(s): --- Professional --- 78966, Esophagogastroduodenoscopy, flexible, transoral; with biopsy, single or multiple --- Technical --- 23939, Esophagogastroduodenoscopy, flexible, transoral; with biopsy, single or [...] Nausea with vomiting, unspecified CPT copyright 2020 [place] [employer]. All rights reserved. The codes documented in this report are preliminary and upon consumer electronics merchandiser reviewmay be revised to meet current compliance requirements. Recognized by the [place] [employer] for promoting quality [...] tendency for uric acid stone formation. Source: [employer] Current Interpretive Data was last revised on 2017 Protein, ur ql Negative Negative [facility] ([place]) Glucose, ur ql Negative Negative [facility] ([place]) Ketones, ur Negative Negative [facility] ([place]) Bilirubin, ur Negative Negative [facility] ([place]) Blood, ur Negative Negative [facility] ([place]) Urobilinogen, ur <2.0 <2.0 mg/dL CERNER [facility] ([place]) Nitrite, ur Negative Negative C[facility]ER A ([place]) Leukocyte esterase, ur Negative Negative CERNER [facility] ([place]) UA reflex comment Reflex conditions for microscopic UA and culture not met. KORY [facility] ([place]) Urine 12/31/2024 1:08 PM CDT 12/31/2024 1:12 PM CDT Rose GUY LAB MICROBIOLOGY - GENERA L ORDERABLES Final Result KORY MADRID ([place]) 1 [facility] [place] [address] * eGFR (12/31/2024 12:28 PM CDT) eGFR 75 >=60 mL/min/1. 73 [...] BLOOD ORDERABLES Zeina l Result KORY MADRID ([place]) 1 [facility] [place] [address] * Differential, auto (12/31/2024 12:28 PM CDT) Neutrophil abs 4.9 1.5 - 6.5 K/cumm [...] BLOOD ORDERABLES Zeina l Result [facility] ([place]) 1 [facility] [place] [address] * (ABNORMAL) CBC with auto differential (12/31/2024 [...] BLOOD ORDERABLES Zeina l Result [facility] ([place]) 1 [facility] [place] [address] * Lipase (12/31/2024 12:28 PM CDT) Lipase 20 10 - 99 Units/L Blood 12/31/2024 12:2 8 PM CDT 12/31/2024 12:30 PM CDT Rose GUY LAB BLOOD ORDERABLES Zeina l Result [facility] ([place]) 1 [facility] [place] [address] * Comprehensive metabolic panel (12/31/2024 12:28 PM CDT) Sodium 141 135 - 145 mmol/L Potassium, pl 4.4 3.3 - 4.9 mmol/L [facility] Chloride 101 97 - 110 mmol/L [facility] ([place]) CO2 26 22 - 32 mmol/L [facility] ([place]) Anion gap 14 2 - 15 mmol/L [facility] ([place]) BUN 13 6 - 25 mg/dL [facility] Creatinine 0.86 0.60 - 1.10 mg/dL [facility] Glucose 119 70 - 199 mg/dL [facility] Comment: Interpretive Data Fasting glucose [...] BLOOD ORDERABLES Zeina l Result [facility] ([place]) 1 [facility] [place] [address] * CT Chest PE (CTA) Abdomen Pelvis [...] Electronically signed by Massimo Velasco M.D. KR: KR Report ID: [id number] Reading Location: [place] [address] Procedure Note Massimo Velasco MD - 12/27/2024 [...] Massimo Velasco M.D. KR: JACKELINE Report ID: [id number] Reading Location: [place] [address] Clyde Chester MD IMG CT PROCEDURES Final Res ult * (ABNORMAL) Sepsis Lactate w/ Reflex (12/27/2024 12:26 PM CDT) Sepsis Lactate 2.4(H) 0.7 - 2.0 mmol/L Blood 12/27/2024 12:2 6 PM CDT 12/27/2024 12:29 PM CDT us Clyde Chester MD LAB BLOOD ORDERABLES Final Result [facility] ([place]) 1 [facility] [place] [address] * eGFR (12/27/2024 12:26 PM CDT) eGFR 69 >=60 mL/min/1. 73 m2 Comment: [...] ORDERABLES Final Result [facility] ([place]) 1 [facility] [place] [address] * (ABNORMAL) Differential, auto (12/27/2024 12:26 PM CDT) Neutrophil abs 7.0(H) 1.5 - 6.5 K/cumm [...] BLOOD ORDERABLES Final Result Performing Organization Address City/[facility]/ZIP Co de Phone Number [facility] ([place]) 1 [facility] [place] [address] * (ABNORMAL) CBC with auto differential (12/27/2024 12:26 PM CDT) WBC 11.6(H) 3.8 - 9.9 K/cumm Hgb 14.9 11.9 - 15.5 g/dL [facility] ([place]) Hct 45.7(H) 35.6 - 45.5 [...] - 0.01 K/cumm [facility] ([place]) Blood 12/27/2024 12:2 6 PM CDT 12/27/2024 12:29 PM CDT Clyde Chester MD LAB BLOOD ORDERABLES Final Result Performing Organization Address City/[facility]/ZIP Co de Phone Number [facility] ([place]) 1 [facility] [place] [address] * (ABNORMAL) D-dimer, quantitative (12/27/2024 12:26 PM CDT) D-Dimer 612(H) <=499 ng/mL FEU [facility] MADRID ([place]) Comment: Interpretive data FDA approved the [...] 68, VTE cut-off 680 ng/ml FEU. References; Schouten HT et al. Brit Med J. 2013;346:f2492. Peter CLIFFORD et al. Annals Int Med. 2015;163:701-11. Current interpretive data was last revised on 2019. Blood 12/27/2024 12:2 6 PM CDT 12/27/2024 12:29 PM CDT Clyde Chester MD LAB BLOOD ORDERABLES Final Result [facility] ([place]) 1 [facility] [place] [address] * CRP (acute phase) (12/27/2024 12:26 PM CDT) Pathologist [facility] CRP 4.4 <=10.0 mg/L Blood 12/27/2024 12:2 6 PM CDT 12/27/2024 12:29 PM CDT Clyde Chester MD LAB BLOOD ORDERABLES Final Result KORY MADRID ([place]) 1 [facility] [place] [address] * Comprehensive metabolic panel (12/27/2024 12:26 PM CDT) Pathologist [facility] Sodium 137 135 - 145 mmol/L Potassium, [...] ORDERABLES Final Result [facility] ([place]) 1 [facility] [place] [address] * XR Abdomen 2 Views W Chest [...] Electronically signed by Massimo Velasco M.D. KR: KR Report ID: [id number] Reading Location: [place] [address] Procedure Note Massimo Velasco MD - 12/27/2024 [...] Electronically signed by Massimo Velasco M.D. KR: KR Report ID: [id number] Reading Location: [place] [address] Clyde Chester MD IMG XR PROCEDURES Final [...] tendency for uric acid stone formation. Source: [place] [employer] Current Interpretive Data was last revised on [...] - GENERAL ORDERABLES Final Result KORY MADRID ([place]) 1 [facility] [place] [address] * (ABNORMAL) Drugs of Abuse Screen, Urine [...] 2023. Opiates, ur Not Detected CutOff 300ng/mL [facility] ([place]) Comment: Interpretive Data - Opiates: Samples containing greater than 300 ng/mL morphine or other cross-reacting compounds are reported as positive. False positive and false negative results are possible. Confirmatory testing required for definitive results. Current Interpretive Data was last reviewed 2023. Oxycodone, ur Not Detected CutOff 100ng/mL [facility] ([place]) Comment: Interpretive Data - Oxycodone: Samples containing greater than 100 ng/mL oxycodone or other cross-reacting compounds are reported as positive. False positive and false negative results are possible. Confirmatory testing required for definitive results. Current Interpretive Data was last reviewed 2023. Phencyclidine, ur Not Detected CutOff 25 ng/mL [facility] ([place]) Comment: Interpretive Data - Phencyclidine: Samples containing greater than 25 ng/mL phencyclidine or other cross-reacting compounds are reported as positive. False positive and false negative results are possible. Confirmatory testing required for definitive results. Current Interpretive Data was last reviewed 2023. Urine Creatinine 62 mg/dL [facility] ([place]) Comment: Interpretive Data Urine Creatinine: < 10 mg/dL is extremely dilute = or > 10 but < 20 mg/dL is dilute = or > 20 mg/dL is normal Current Interpretive Data was last revised on 2017. Urine 12/27/2024 12:1 3 PM CDT 12/27/2024 12:18 PM CDT Narrative KORY MADRID ([place]) - 12/27/2024 12:45 PM CDT Drug of Abuse screening is performed by immunoassay for medical purposes only. This is not to be used for Pain Management purposes. Clyde Chester MD LAB URINE ORDERABLES Final Result Performing Organization Address City/[facility] Co de Phone Number KORY MADRID ([place]) 1 [facility] [place] [address] * ECG 12 lead (12/27/2024 12:09 PM CDT) 12/27/2024 12:0 9 PM CDT Narrative [facility] - 12/28/2024 7:02 AM CDT Vent Rate: 65 bpm RR Interval: 916 msec CO Interval: 185 msec QRS Duration: 97 msec QT Interval: 410 msec QTC Interval: 422 msec P-R-T [place]: 76 - 62 - 59 degrees IMPRESSION: Baseline artifact, probable SINUS RHYTHM NORMAL ECG NO CHANGE FROM PREVIOUS TRACING NOTED Electronically Signed By: Brian Venegas MD Clyde Chester MD ECG ORDERABLES Final Resul t Performing Organization Address [facility] Phone Number [facility] * POCT glucose (12/26/2024 12:28 PM CDT) Glucose, POC 84 70 - 199 mg/dL Blood 12/26/2024 12:2 8 PM CDT 12/26/2024 12:28 PM CDT Meredith Eisenberg MD LAB POCT ORDERABLES - DEVICE Final Result Performing Organization Address [facility] Co de Phone Number KORY MADRID ([place]) 1 [facility] [place] [address] * Troponin T high-sensitivity 6-hour (12/26/2024 2:05 [...] 2:05 AM CDT 12/26/2024 3:01 AM CDT Rose GUY LAB BLOOD ORDERABLES Zeina l Result KORY MADRID ([place]) 1 [facility] [place] [address] * eGFR (12/26/2024 2:05 AM CDT) eGFR [...] data was last reviewed 2021. Blood 12/26/2024 2:05 AM CDT 12/26/2024 3:01 AM CDT Rose GUY LAB BLOOD ORDERABLES Zeina l Result [facility] ([place]) 1 [facility] [place] [address] * (ABNORMAL) Differential, auto (12/26/2024 2:05 AM [...] Neutrophil pct 42.0 % [facility] ([place]) Comment: Interpretive Data Percent cell count reference ranges are not reported, since discordance with absolute values may lead to misinterpretation of CBC data. Current Interpretive Data was last revised on 2018. Imm gran pct 0.1 % [facility] ([place]) Comment: Interpretive Data Percent cell count reference ranges are not reported, since discordance with absolute values may lead to misinterpretation of CBC data. Current Interpretive Data was last revised on 2018. Lymphocyte pct 49.5 % [facility] ([place]) Comment: Interpretive Data Percent cell count reference ranges are not reported, since discordance with absolute values may lead to misinterpretation of CBC data. Current Interpretive Data was last revised on 2018. Monocyte pct 5.5 % [facility] ([place]) Comment: Interpretive Data Percent cell count reference ranges are not reported, since discordance with absolute values may lead to misinterpretation of CBC data. Current Interpretive Data was last revised on 2018. Eosinophil pct 2.0 % [facility] ([place]) Comment: Interpretive Data Percent cell count reference [...] 2:05 AM CDT 12/26/2024 3:01 AM CDT Rose GUY LAB BLOOD ORDERABLES Zeina l Result [facility] ([place]) 1 [facility] [place] [address] * (ABNORMAL) CBC with auto differential (12/26/2024 2:05 AM CDT) WBC 8.1 3.8 - 9.9 K/cumm Hgb 13.8 11.9 - 15.5 g/dL [facility] ([place]) Hct 44.2 35.6 - 45.5 % [facility] ([place]) Plt 153 150 - 400 K/cumm [facility] ([place]) MPV 11.4 9.1 - 12.3 fL [facility] ([place]) RBC 5.10 3.90 - 5.20 M/cumm [facility] ([place]) MCV 86.7 81.3 - 96.4 fL [facility] ([place]) MCH 27.1 27.1 - 33.3 pg [facility] ([place]) MCHC 31.2(L) 32.3 - 35.7 g/dL [facility] ([place]) RDW CV 14.2 11.1 - 14.9 % [facility] ([place]) RDW SD 45.2 35.7 - 48.1 fL [facility] ([place]) NRBC abs 0.00 0.00 - 0.01 K/cumm [facility] Blood 12/26/2024 2:05 AM CDT 12/26/2024 3:01 AM CDT Rose GUY LAB BLOOD ORDERABLES Zeina l Result [facility] ([place]) [address] [place] [address] * (ABNORMAL) Comprehensive metabolic panel (12/26/2024 2:05 AM CDT) Sodium 139 135 - 145 mmol/L [...] BLOOD ORDERABLES Zeina l Result KORY MADRID ([place]) 1 [facility] [place] [place] [address] * POCT glucose (12/26/2024 1:35 AM CDT) Glucose, POC 88 70 - 199 mg/dL Blood 12/26/2024 1:35 AM CDT 12/26/2024 1:35 AM CDT Timothy Aviles MD LAB POCT ORDERABLES - DEVICE Fi nal Result Performing Organization Address [facility] Co de Phone Number KORY M[facility] ([place]) 1 [facility] [place] [address] * (ABNORMAL) Troponin T high-sensitivity 4-hour (12/25/2024 11:38 PM CDT) Pathologist [facility] Trop T hs 15(H) <=14 ng/L Comment: Interpretive Data For further hscTnT resources including the diagnostic algorithm and an aid in interpretation, copy and paste this link: https://nrl.testcatalog.org/show/hsTrop Current Interpretive Data last revised 2020. Trop T hs delta 6 ng/L [facility] ([place]) Trop T hs interp Equivocal [facility] ([place]) Blood 12/25/2024 11:3 8 PM CDT 12/26/2024 12:22 AM CDT Rose GUY LAB BLOOD ORDERABLES Zeina l Result Performing Organization Address City/[facility]/ZIP Co de Phone Number KORY MADR[facility] ([place]) 1 [facility] [place] [place] [address] * Troponin T high-sensitivity series (baseline, 2hr, 4hr, 6hr) (12/25/2024 7:29 PM CDT) Pathologist [facility] Trop T hs 9 <=14 ng/L Comment: Interpretive Data For further hscTnT resources including the diagnostic algorithm and an aid in interpretation, copy and paste this link: https://nrl.testcatalog.org/show/hsTrop Current Interpretive Data last revised 2020. Blood 12/25/2024 7:29 PM CDT 12/25/2024 7:41 PM CDT Rose GUY LAB BLOOD ORDERABLES Zeina l Result Performing Organization Address [facility] Co de Phone Number KORY [facility] ([place]) 1 [facility] [place] [address] * ECG 12 lead (12/25/2024 7:19 PM CDT) 12/25/2024 7:19 PM CDT Narrative [facility] - 12/26/2024 8:55 AM CDT Vent Rate: 58 bpm RR Interval: 1026 msec CO Interval: 183 msec QRS Duration: 94 msec QT Interval: 430 msec QTC Interval: 427 msec P-R-T [place]: 83 - 53 - 48 degrees IMPRESSION: Baseline artifact , probable SINUS BRADYCARDIA BORDERLINE ECG NO CHANGE FROM PREVIOUS TRACING NOTED Electronically Signed By: Brian Venegas MD Rose GUY ECG ORDERABLES Final Res ult Performing Organization Address [facility] Co de Phone Number [facility] [employer] [facility] * Urinalysis reflex to microscopic and culture Urine (12/25/2024 7:08 PM CDT) Color, ur Yellow Yellow Clarity, ur Clear Clear [facility] ([place]) Specific gravity, ur 1.015 1.003 - 1.030 [facility] ([place]) pH, urine 5.5 [facility] ([place]) Comment: Interpretive Data U rine pH is affected by diet, medications, systemic acid-base disturbances, and renal tubular function. pH may affect urinary stone formation. For example, urine pH below 6.0 may help reduce the tendency for calcium phosphate stones and pH greater than 6.0 may reduce the tendency for uric acid stone formation. Source: [facility] [place] Current Interpretive Data was last revised on [...] culture not met. [facility] ([place]) Urine 12/25/2024 7:08 PM CDT 12/25/2024 7:10 PM CDT Timothy Aviles MD LAB MICROBIOLOGY - GENERAL SIMONE ORTEGA Final Result [facility] ([place]) 1 [facility] [place] [address] * (ABNORMAL) eGFR (12/25/2024 3:17 PM CDT) [...] BLOOD ORDERABLES Final Resu lt [facility] ([place]) 1 [facility] [place] [address] * (ABNORMAL) Differential, auto (12/25/2024 3:17 PM [...] MD LAB BLOOD ORDERABLES Final Resu lt [facility] ([place]) 1 [facility] [place] [address] * (ABNORMAL) CBC with auto differential (12/25/2024 [...] 14.9 % [facility] ([place]) RDW SD 43.7 35.7 - 48.1 fL [facility] ([place]) NRBC abs 0.00 0.00 - 0.01 K/cumm [facility] ([place]) Blood Venous blood specimen / Unknown 12/25/2024 3:17 PM CDT 12/25/2024 3:19 PM CDT us Timothy Aviles MD LAB BLOOD ORDERABLES Final Resu lt Performing Organization Address City/[facility]/ZIP Co de Phone Number [facility] ([place]) 1 [facility] [place] [address] * Lipase (12/25/2024 3:17 PM CDT) Lipase 16 10 - 99 Units/L Blood Venous blood specimen / Unknown 12/25/2024 3:17 PM CDT 12/25/2024 3:19 PM CDT us Timothy Aviles MD LAB BLOOD ORDERABLES Final Resu lt Performing Organization Address [facility] Co de Phone Number [facility] ([place]) 1 [facility] [place] [address] * Comprehensive metabolic panel (12/25/2024 3:17 PM CDT) Sodium 138 135 - 145 mmol/L Potassium, pl 4.4 3.3 - 4.9 mmol/L [facility] ([place]) Chloride 100 97 - 110 mmol/L [facility] ([place]) CO2 27 22 - 32 mmol/L [facility] [place]) Anion gap 11 2 - 15 mmol/L [facility] BUN 10 6 - 25 mg/dL [facility] Creatinine 1.05 0.60 - 1.10 mg/dL [facility] ([place]) Glucose 87 70 - 199 mg/dL [facility] ([place]) Comment: Interpretive Data Fasting glucose [...] 3:17 PM CDT 12/25/2024 3:19 PM CDT Timothy Aviles MD LAB BLOOD ORDERABLES Final Resu lt [facility] ([place]) 1 [facility] Department of Laboratories [place] [id number] * (ABNORMAL) Urinalysis reflex to microscopic and culture Urine (12/25/2024 1:09 AM CDT) Color, ur Yellow Yellow Clarity, ur Clear Clear [facility] ([place]) Specific gravity, ur 1.010 1.003 - [...] tendency for uric acid stone formation. Source: [facility] [place] Current Interpretive Data was last revised on [...] Reflex to microscopic UA will be performed. [facility] ([place]) Urine 12/25/2024 1:09 AM CDT 12/25/2024 1:12 AM CDT us Ole Parham MD LAB MICROBIOLOGY - GENERAL OR DERABLES Final Result Performing Organization Address [facility] Co de Phone Number [facility] ([place]) 1 [facility] [place] [address] * (ABNORMAL) Urinalysis, microscopic only (12/25/2024 1:09 AM CDT) WBC, ur 6-10(A) 0 - 5 /HPF RBC, ur 0-2 0 - 2 /HPF [facility] ([place]) Epithelial cells, squamous, ur 1-5 0 - 5 /HPF [facility] ([place]) Bacteria, ur Trace(A) [facility] ([place]) Mucous, ur Present(A) [facility] ([place]) Hyaline casts, ur 1-5 0 - 10 /LPF [facility] ([place]) Culture Reflex Comment Reflex conditions for urine culture (WBC >10) not met. [facility] ([place]) Urine 12/25/2024 1:09 AM CDT 12/25/2024 1:12 AM CDT us Ole Parham MD LAB URINE ORDERABLES Final Re sult Performing Organization Address [facility]/ZIP Co de Phone Number [facility] ([place]) 1 [facility] [place] [address] * eGFR (12/24/2024 10:18 PM CDT) eGFR [...] LAB BLOOD ORDERABLES Final Re sult [facility] ([place]) 1 [facility] [place] [address] * (ABNORMAL) Differential, auto (12/24/2024 10:18 PM [...] on 2018. Imm gran pct 0.2 % [facility] ([place]) Comment: Interpretive Data Percent cell count reference ranges are not reported, since discordance with absolute values may lead to misinterpretation of CBC data. Current Interpretive Data was last revised on 2018. Lymphocyte pct 44.5 % [facility] ([place]) Comment: Interpretive Data Percent cell count reference ranges are not reported, since discordance with absolute values may lead to misinterpretation of CBC data. Current Interpretive Data was last revised on 2018. Monocyte pct 5.2 % [facility] ([place]) Comment: Interpretive Data Percent cell count reference ranges are not reported, since discordance with absolute values may lead to misinterpretation of CBC data. Current Interpretive Data was last revised on 2018. Eosinophil pct 1.4 % [facility] ([place]) Comment: Interpretive Data Percent cell count reference ranges are not reported, since discordance with absolute values may lead to misinterpretation of CBC data. Current Interpretive Data was last revised on 2018. Basophil pct 0.8 % [facility] ([place]) Comment: Interpretive Data Percent cell count reference ranges are not reported, since discordance with absolute values may lead to misinterpretation of CBC data. Current Interpretive Data was last revised on 2018. Blood 12/24/2024 10:1 8 PM CDT 12/24/2024 10:20 PM CDT us Ole Parham MD LAB BLOOD ORDERABLES Final Re sult [facility] ([place]) 1 [facility] [place] [address] * (ABNORMAL) CBC with auto differential (12/24/2024 [...] 10:18 PM CDT 12/24/2024 10:20 PM CDT us Ole Parham MD LAB BLOOD ORDERABLES Final Re sult [facility] ([place]) 1 [facility] [place] [address] * Lipase (12/24/2024 10:18 PM CDT) Lipase 14 10 - 99 Units/L Blood Venous blood specimen / Unknown 12/24/2024 10:18 PM CDT 12/24/2024 10:20 PM CDT Ole Parham MD LAB BLOOD ORDERABLES Final Re sult [facility] ([place]) 1 [facility] [place] [address] * Comprehensive metabolic panel (12/24/2024 10:18 PM CDT) Sodium 135 135 - 145 mmol/L Potassium, pl 4.4 3.3 - 4.9 mmol/L [facility] ([place]) Chloride 100 97 - 110 mmol/L [facility] ([place]) CO2 23 22 - 32 mmol/L [facility] ([place]) Anion gap 13 2 - 15 mmol/L [facility] ([place]) BUN 11 6 - 25 mg/dL [facility] ([place]) Creatinine 0.86 0.60 - 1.10 mg/dL [facility] ([place]) Glucose 107 70 - 199 mg/dL [facility] ([place]) [...] 2022. Calcium 9.1 8.5 - 10.3 mg/dL [facility] ([place]) Bilirubin, total 0.3 0.1 - 1.2 mg/dL [facility] ([place]) Protein, pl 6.7 6.5 - 8.5 g/dL [facility] ([place]) Albumin 4.1 3.5 - 5.0 g/dL [facility] ([place]) Alk phos 83 40 - 130 Units/L [facility]) ALT 10 7 - 45 Units/L [facility] ([place]) AST 12 10 - 45 Units/L [facility] ([place]) Comment:Slightly Hemolyzed S pecimen Blood 12/24/2024 10:1 8 PM CDT 12/24/2024 10:20 PM CDT us Ole Parham MD LAB BLOOD ORDERABLES Final Re sult [facility] 1 [facility] [place] [address] * (ABNORMAL) Urinalysis reflex to microscopic and culture Urine (12/24/2024 7:18 PM CDT) Color, ur Yellow Yellow Clarity, ur Clear Clear [facility] ([place]) Specific gravity, ur 1.016 1.003 - [...] tendency for uric acid stone formation. Source: [facility] Current Interpretive Data was last revised on 2017 Protein, ur ql Negative Negative [facility] ([place]) Glucose, ur ql Negative Negative [facility] ([place]) Ketones, ur Negative Negative [facility] ([place]) Bilirubin, ur Negative Negative [facility] ([place]) Blood, ur Negative Negative [facility] ([place]) Urobilinogen, ur <2.0 <2.0 mg/dL [facility] ([place]) Nitrite, ur Negative Negative [facility] ([place]) Leukocyte esterase, ur 2+(A) Negative [facility] ([place]) UA reflex comment Reflex to microscopic UA will be performed. [facility] ([place]) Urine 12/24/2024 7:18 PM CDT 12/24/2024 7:21 PM CDT us Alexander Martino MD LAB MICROBIOLOGY - GENERAL O RDERABLES Final Result [facility] ([place]) 1 [facility] [place] [address] * (ABNORMAL) Urinalysis, microscopic only (12/24/2024 7:18 PM CDT) WBC, ur 6-10(A) 0 - 5 /HPF RBC, ur 0-2 0 - 2 /HPF [facility] ([place]) Epithelial cells, squamous, ur 1-5 0 - 5 /HPF [facility] ([place]) Bacteria, ur Trace(A) [facility] ([place]) Mucous, ur Present(A) [facility] ([place]) Culture Reflex Comment Reflex conditions for urine culture (WBC >10) not met. [facility] ([place]) Urine 12/24/2024 7:18 PM CDT 12/24/2024 7:21 PM CDT Alexander Martino MD LAB URINE ORDERABLES Final R esult [facility] ([place]) 1 [facility] [place] [address] * eGFR (12/24/2024 4:43 PM CDT) eGFR [...] Final R esult [facility] ([place]) 1 [facility] [place] [address] * (ABNORMAL) Differential, auto (12/24/2024 4:43 PM CDT) Neutrophil abs 5.2 1.5 - 6.5 K/cumm Imm gran abs 0.0 0.0 - 0.1 K/cumm [facility] ([place]) Lymphocyte abs 4.1(H) 0.8 - 3.3 K/cumm [facility] ([place]) Monocyte abs 0.5 0.2 - 0.8 K/cumm [facility] ([place]) Eosinophil abs 0.2 0.0 - 0.5 K/cumm [facility] ([place]) Basophil abs 0.1 0.0 - 0.1 K/cumm [facility] ([place]) Neutrophil pct 52.1 % [facility] ([place]) Comment: Interpretive Data Percent cell count reference ranges are not reported, since discordance with absolute values may lead to misinterpretation of CBC data. Current Interpretive Data was last revised on 2018. Imm gran pct 0.2 % [facility] ([place]) Comment: Interpretive Data Percent cell count reference ranges are not reported, since discordance with absolute values may lead to misinterpretation of CBC data. Current Interpretive Data was last revised on 2018. Lymphocyte pct 40.8 % [facility] ([place]) Comment: Interpretive Data Percent cell count reference ranges are not reported, since discordance with absolute values may lead to misinterpretation of CBC data. Current Interpretive Data was last revised on 2018. Monocyte pct 4.7 % [facility] ([place]) Comment: Interpretive Data Percent cell count reference ranges are not reported, since discordance with absolute values may lead to misinterpretation of CBC data. Current Interpretive Data was last revised on 2018. Eosinophil pct 1.5 % [facility] ([place]) Comment: Interpretive Data Percent cell count reference ranges are not reported, since discordance with absolute values may lead to misinterpretation of CBC data. Current Interpretive Data was last revised on 2018. Basophil pct 0.7 % [facility] ([place]) Comment: Interpretive Data Percent cell count reference ranges are not reported, since discordance with absolute values may lead to misinterpretation of CBC data. Current Interpretive Data was last revised on 2018. Blood 12/24/2024 4:43 PM CDT 12/24/2024 5:19 PM CDT Alexander Martino MD LAB BLOOD ORDERABLES Final R esult [facility] ([place]) 1 [facility] [place] [address] * (ABNORMAL) CBC with auto differential (12/24/2024 4:43 PM CDT) WBC 10.0(H) 3.8 - 9.9 K/cumm Hgb 15.7(H) 11.9 - 15.5 g/dL [facility] Hct 49.3(H) 35.6 - 45.5 [...] RDW SD 45.0 35.7 - 48.1 fL [facility] NRBC abs 0.00 0.00 - 0.01 K/cumm [facility] Blood Venous blood specimen / Unknown 12/24/2024 4:43 PM CDT 12/24/2024 5:19 PM CDT Alexander Martino MD LAB BLOOD ORDERABLES Final R esult [facility] ([place]) 1 [facility] [place] [address] * Lipase (12/24/2024 4:43 PM CDT) Lipase 13 10 - 99 Units/L Blood Venous blood specimen / Unknown 12/24/2024 4:43 PM CDT 12/24/2024 5:19 PM CDT Alexander Martino MD LAB BLOOD ORDERABLES Final R esult Performing Organization Address City/[facility] Co de Phone Number [facility] ([place]) 1 [facility] [place] [address] * (ABNORMAL) Comprehensive metabolic panel (12/24/2024 4:43 [...] Bilirubin, total <0.2 0.1 - 1.2 mg/dL [facility] ([place]) Protein, pl 7.2 6.5 - 8.5 g/dL [facility] ([place]) Albumin 4.2 3.5 - 5.0 g/dL [facility] ([place]) Alk phos 86 40 - 130 Units/L [facility] ([place]) ALT 10 7 - 45 Units/L [facility] ([place]) Comment: Hemolysis present. Results may be affected. Moderately Hemolyzed Specimen AST 17 10 - 45 Units/L [facility] ([place]) Comment: Hemolysis present. Results may be affected. Moderately Hemolyzed Specimen Blood 12/24/2024 4:43 PM CDT 12/24/2024 5:19 PM CDT us Alexander Martino MD LAB BLOOD ORDERABLES Final R esult [facility] ([place]) 1 [facility] [place] [address] * eGFR (12/21/2024 11:24 AM CDT) eGFR [...] BLOOD ORDERABLES Final R esult [facility] ([place]) 1 [facility] [place] [address] * Differential, auto (12/21/2024 11:24 AM CDT) Neutrophil abs 4.3 1.5 - 6.5 K/cumm Imm gran abs 0.0 0.0 - 0.1 K/cumm [facility] ([place]) Lymphocyte abs 2.3 0.8 - 3.3 K/cumm [facility] ([place]) Monocyte abs 0.3 0.2 - 0.8 K/cumm [facility] ([place]) Eosinophil abs 0.0 0.0 - 0.5 K/cumm [facility] ([place]) Basophil abs 0.1 0.0 - 0.1 K/cumm [facility] ([place]) Neutrophil pct 60.9 % [facility] ([place]) Comment: Interpretive Data Percent cell count reference ranges are not reported, since discordance with absolute values may lead to misinterpretation of CBC data. Current Interpretive Data was last revised on 2018. Imm gran pct 0.3 % [facility] ([place]) Comment: Interpretive Data Percent cell count reference [...] 2018. Monocyte pct 3.7 % [facility] ([place]) Comment: Interpretive Data Percent cell count reference ranges are not reported, since discordance with absolute values may lead to misinterpretation of CBC data. Current Interpretive Data was last revised on 2018. Eosinophil pct 0.4 % [facility] ([place]) Comment: Interpretive Data Percent cell count reference [...] Final R esult [facility] ([place]) 1 [facility] [place] [address] * (ABNORMAL) CBC with auto differential (12/21/2024 [...] LAB BLOOD ORDERABLES Final R esult [facility]) 1 [facility] [place] [address] * Lipase (12/21/2024 11:24 AM CDT) Lipase 18 10 - 99 Units/L Blood 12/21/2024 11:2 4 AM CDT 12/21/2024 11:27 AM CDT Alexander Martino MD LAB BLOOD ORDERABLES Final R esult Performing Organization Address [facility] Co de Phone Number [facility] ([place]) 1 [facility] [place] [address] * (ABNORMAL) Comprehensive metabolic panel (12/21/2024 11:24 AM CDT) Sodium 136 135 - 145 mmol/L Potassium, pl 4.1 3.3 - 4.9 mmol/L [facility] ([place]) Chloride 101 97 - 110 mmol/L [facility] ([place]) CO2 21(L) 22 - 32 mmol/L [facility] ([place]) Anion gap 14 2 - 15 mmol/L [facility] ([place]) BUN 10 6 - 25 mg/dL [facility] ([place]) Creatinine 0.85 0.60 - 1.10 mg/dL [facility] ([place]) Glucose 157 70 - 199 mg/dL [facility] ([place]) [...] ORDERABLES Final R esult Performing Organization Address [facility]/ZIP Co de Phone Number [facility] ([place]) 1 [facility] [place] [address] * POCT glucose (12/21/2024 7:24 AM CDT) [facility] Glucose, POC 99 70 - 199 mg/dL Blood 12/21/2024 7:24 AM CDT 12/21/2024 7:24 AM CDT Love Menon MD LAB POCT ORDERABLES - DEVICE Fi nal Result Performing Organization Address City/[facility] Co de Phone Number [facility] ([place]) 1 [facility] [place] [place] [address] * Reflex Hepatitis C RNA, Quantitative (12/21/2024 3:28 AM CDT) [facility] HCV RNA result Not Detected [facility] Comment: The quantifiable range of this assay is 15 IU/mL to 100,000,000 IU/mL (1.18 log IU/mL to 8.00 log IU/mL). Testing was performed by the [employer]00 HCV Test ([employer] Testing performed at [facility] Current Interpretive Data was last revised on 2021 Testing performed by: [facility], [address] [place]., [address] Blood 12/21/2024 3:28 AM CDT 12/22/2024 9:40 AM CDT us Nathan Monahan MD LAB BLOOD ORDERABLES Final Result [facility] ([place]) 1 [facility] [place] [address] [facility] * eGFR (12/21/2024 3:28 AM CDT) eGFR [...] MD LAB BLOOD ORDERABLE S Final Result [facility] ([place]) 1 [facility] [place] [address] * (ABNORMAL) Differential, auto (12/21/2024 3:28 AM [...] 3:28 AM CDT 12/21/2024 3:38 AM CDT Anya Rae MD LAB BLOOD ORDERABLE S Final Result Performing Organization Address City/[facility] Co de Phone Number [facility] ([place]) 1 [facility] [place] [address] * (ABNORMAL) CBC with auto differential (12/21/2024 [...] 3:28 AM CDT 12/21/2024 3:38 AM CDT Anya Rae MD LAB BLOOD ORDERABLE S Final Result Performing Organization Address City/[facility]/ZIP Co de Phone Number [facility] ([place]) 1 [facility] [place] [place] [address] * (ABNORMAL) Hepatitis C antibody Blood (12/21/2024 3:28 AM CDT) Hep C Ab Reactive( A) Nonreactive Comment: [...] last revised on 2019. Testing performed by: [address] [address] Blood 12/21/2024 3:28 AM CDT 12/21/2024 9:03 AM CDT Nathan Monahan MD LAB MICROBIOLOGY - GENERAL ORDERABLES Final Result [facility] ([place]) [address] [place] [address] [place] [address] * Hepatitis B Surface Antigen Blood (12/21/2024 3:28 AM CDT) HepBsAg Nonreactive Nonreactive Comment:Testing performed by : [facility], [address] [place] [address]., [address] Blood 12/21/2024 3:28 AM CDT 12/21/2024 9:03 AM CDT Nathan Monahan MD LAB MICROBIOLOGY - GENERAL ORDERABLES Final Result [facility] ([place]) 1 [place] [address] * Erythrocyte sedimentation rate (12/21/2024 3:28 AM CDT) Erythrocyte sedimentation rate 5 1 - 30 mm/hr Blood 12/21/2024 3:28 AM CDT 12/21/2024 3:38 AM CDT Nathan Monahan MD LAB BLOOD ORDERABLES Final Result [facility] ([place]) 1 [facility] [place] [address] * CRP (acute phase) (12/21/2024 3:28 AM CDT) Pathologist [facility] CRP 4.4 <=10.0 mg/L Blood 12/21/2024 3:28 AM CDT 12/21/2024 3:38 AM CDT Nathan Monahan MD LAB BLOOD ORDERABLES Final Result Performing Organization Address City/[facility]/ZIP Co de Phone Number [facility] ([place]) 1 [facility] [place] [address] * Phosphorus (12/21/2024 3:28 AM CDT) Pathologist [facility] Phosphorus, pl 3.9 2.3 - 4.5 mg/dL Blood 12/21/2024 3:28 AM CDT 12/21/2024 3:38 AM CDT us Amie Alonso DO LAB BLOOD ORDERABLES Fin al Result [facility] ([place]) 1 [facility] [place] [address] * Magnesium (12/21/2024 3:28 AM CDT) Pathologist [facility] Magnesium 2.0 1.4 - 2.5 mg/dL Blood 12/21/2024 3:28 AM CDT 12/21/2024 3:38 AM CDT Amie Alonso DO LAB BLOOD ORDERABLES Fin al Result [facility] ([place]) 1 [facility] Department of Laboratories [place], [place] [id number] * (ABNORMAL) Comprehensive metabolic panel (12/21/2024 3:28 AM CDT) Sodium 138 135 - 145 mmol/L Potassium, pl 4.4 3.3 - 4.9 mmol/L [facility] ([place]) Chloride 103 97 - 110 mmol/L [facility] ([place]) CO2 24 22 - 32 mmol/L [...] 3:28 AM CDT 12/21/2024 3:38 AM CDT Anya Rae MD LAB BLOOD ORDERABLE S Final Result Performing Organization Address [facility]/ZIP Co de Phone Number [facility] ([place]) 1 [facility] [place] [address] * POCT glucose (12/21/2024 2:23 AM CDT) Glucose, POC 95 70 - 199 mg/dL Blood 12/21/2024 2:23 AM CDT 12/21/2024 2:23 AM CDT Veda Garay MD LAB POCT ORDERABLES - DEVICE F inal Result Performing Organization Address [facility] Co de Phone Number [facility] ([place]) 1 [place] [address] * POCT glucose (12/20/2024 8:05 PM CDT) Glucose, POC 93 70 - 199 mg/dL Blood 12/20/2024 8:05 PM CDT 12/20/2024 8:05 PM CDT Veda Garay MD LAB POCT ORDERABLES - DEVICE F inal Result Performing Organization Address [facility] Co de Phone Number [facility] ([place]) 1 [facility] [place] [address] * Troponin T high-sensitivity 6-hour (12/20/2024 1:32 PM CDT) Trop T hs 9 <=14 ng/L Comment: Interpretive Data For further hscTnT resources including the diagnostic algorithm and an aid in interpretation, copy and paste this link: https://nrl.testcatalog.org/show/hsTrop Current Interpretive Data last revised 2020. Trop T hs delta 1 ng/L [facility] ([place]) Trop T hs interp Insignificant [facility] ([place]) Blood 12/20/2024 1:32 PM CDT 12/20/2024 1:36 PM CDT Anya Rae MD LAB BLOOD ORDERABLE S Final Result [facility] ([place]) 1 [place] [address] * Sepsis Lactate w/ Reflex (12/20/2024 1:32 PM CDT) Sepsis Lactate 1.1 0.7 - 2.0 mmol/L Blood 12/20/2024 1:32 PM CDT 12/20/2024 1:36 PM CDT Anya Rae MD LAB BLOOD ORDERABLE S Final Result Performing Organization Address [facility]/ZIP Co de Phone Number [facility] ([place]) 1 [facility] [place] [address] * Thyroid Function [place] (12/20/2024 1:32 PM CDT) TSH 3.85 0.30 - 4.20 mcIUnit/mL Blood 12/20/2024 1:32 PM CDT 12/20/2024 7:17 PM CDT Amie Alonso DO LAB BLOOD ORDERABLES Fin al Result [facility] ([place]) 1 [place] [address] * Troponin T high-sensitivity 4-hour (12/20/2024 11:39 AM CDT) Trop T hs 8 <=14 ng/L Comment: Interpretive Data For further hscTnT resources including the diagnostic algorithm and an aid in interpretation, copy and paste this link: https://nrl.testcatalog.org/show/hsTrop Current Interpretive Data last revised 2020. Trop T hs delta 0 ng/L [facility] ([place]) Trop T hs interp Insignificant [facility] ([place]) Blood 12/20/2024 11:3 9 AM CDT 12/20/2024 11:42 AM CDT Anya Rae MD LAB BLOOD ORDERABLE S Final Result [facility] ([place]) 1 [facility] [place] [address] * (ABNORMAL) Sepsis Lactate w/ Reflex (12/20/2024 11:39 AM CDT) Sepsis Lactate 2.4(H) 0.7 - 2.0 mmol/L Blood 12/20/2024 11:3 9 AM CDT 12/20/2024 11:42 AM CDT Anya Rae MD LAB BLOOD ORDERABLE S Final Result Performing Organization Address City/[facility] Co de Phone Number [facility]ORY [facility] ([place]) 1 [facility] [place] [address] * (ABNORMAL) Urinalysis reflex to microscopic and culture Urine (12/20/2024 10:10 AM CDT) Color, ur Straw Yellow Clarity, ur Clear Clear KORY Asif ([place]) Specific gravity, ur 1.034(H) 1.003 - 1.030 [facility] ([place]) pH, urine 5.5 [facility] ([place]) Comment: Interpretive Data U rine pH is affected by diet, medications, systemic acid-base disturbances, and renal tubular function. pH may affect urinary stone formation. For example, urine pH below 6.0 may help reduce the tendency for calcium phosphate stones and pH greater than 6.0 may reduce the tendency for uric acid stone formation. Source: [facility] [place] Current Interpretive Data was last revised on [...] ORDERABLES Final Result [facility] ([place]) 1 [facility] [place] [address] * CT Abdomen Pelvis W Contrast (12/20/2024 [...] Electronically signed by Whitney Ivan M.D. LL: NANO Report ID: [id number] Reading Location: [id number] Procedure Note Whitney Ivan MD - 12/20/2024 [...] Whitney Ivan M.D. LL: LL Report ID: [id number] Reading Location: [place] [address] Anya Rae MD IMG CT PROCEDURES F inal Result * Troponin T high-sensitivity series (baseline, 2hr, 4hr, 6hr) (12/20/2024 7:06 AM CDT) [facility] Trop T hs 8 <=14 ng/L Comment: Interpretive Data For further hscTnT resources including the diagnostic algorithm and an aid in interpretation, copy and paste this link: https://nrl.testcatalog.org/show/hsTrop Current Interpretive Data last revised 2020. Blood 12/20/2024 7:06 AM CDT 12/20/2024 7:10 AM CDT Anya Rae MD LAB BLOOD ORDERABLE S Final Result [facility] [place]) 1 [facility] [place] [address] * (ABNORMAL) Sepsis Lactate w/ Reflex (12/20/2024 7:06 AM CDT) Sepsis Lactate 2.1(H) 0.7 - 2.0 mmol/L Blood 12/20/2024 7:06 AM CDT 12/20/2024 7:10 AM CDT us Anya Rae MD LAB BLOOD ORDERABLE S Final Result [facility] ([place]) 1 [facility] [place] [address] * ECG 12 lead (12/20/2024 12:38 AM ASSISTANT PROFESSOR OF DRAMA) 12/20/2024 12:3 8 AM ASSISTANT PROFESSOR OF DRAMA Narrative [facility] - 12/21/2024 9:24 AM CDT Vent Rate: 52 bpm RR Interval: 1134 msec CO Interval: 187 msec QRS Duration: 86 msec QT Interval: 439 msec QTC Interval: 420 msec P-R-T [place]: 92 - 54 - 67 degrees IMPRESSION: SINUS BRADYCARDIA BORDERLINE ECG NO CHANGE FROM PREVIOUS TRACING NOTED Electronically Signed By: Brian Venegas MD us Sandi Hull MD ECG ORDERABLES Final Res ult Performing Organization Address City/[facility]/ZIP Co de Phone Number [facility] [employer] [facility] * eGFR (12/20/2024 12:35 AM ASSISTANT PROFESSOR OF DRAMA) eGFR 76 >=60 mL/min/1. 73 m2 Comment: [...] reviewed 2021. Blood 12/20/2024 12:3 5 AM ASSISTANT PROFESSOR OF DRAMA 12/20/2024 12:38 AM ASSISTANT PROFESSOR OF DRAMA Sandi Hull MD LAB BLOOD ORDERABLES Zeina shashi Result [facility] ([place]) 1 [facility] [place] [address] * (ABNORMAL) Differential, auto (12/20/2024 12:35 AM ASSISTANT PROFESSOR OF DRAMA) Neutrophil abs 3.6 1.5 - 6.5 K/cumm Imm gran abs 0.0 0.0 - 0.1 K/cumm [facility] ([place]) Lymphocyte abs 4.8(H) 0.8 - 3.3 K/cumm [facility] ([place]) Monocyte abs 0.5 0.2 - 0.8 K/cumm [facility] ([place]) Eosinophil abs 0.2 0.0 - 0.5 K/cumm [facility] ([place]) Basophil abs 0.1 0.0 - 0.1 K/cumm [facility] ([place]) Neutrophil pct 38.9 % [facility] ([place]) Comment: Interpretive Data Percent cell count reference [...] on 2018. Blood 12/20/2024 12:3 5 AM ASSISTANT PROFESSOR OF DRAMA 12/20/2024 12:38 AM ASSISTANT PROFESSOR OF DRAMA us Sandi Hull MD LAB BLOOD ORDERABLES Zeina danielle Result [facility] ([place]) 1 [facility] [place] [address] * (ABNORMAL) CBC with auto differential (12/20/2024 12:35 AM ASSISTANT PROFESSOR OF DRAMA) WBC 9.2 3.8 - 9.9 K/cumm Hgb [...] NRBC abs 0.00 0.00 - 0.01 K/cumm [facility] ([place]) Blood 12/20/2024 12:3 5 AM ASSISTANT PROFESSOR OF DRAMA 12/20/2024 12:38 AM ASSISTANT PROFESSOR OF DRAMA Sandi Hull MD LAB BLOOD ORDERABLES Zeina l Result Performing Organization Address City/[facility]/ZIP Co de Phone Number [facility] ([place]) 1 [facility] [place] [address] * Lipase (12/20/2024 12:35 AM ASSISTANT PROFESSOR OF DRAMA) Pathologist [facility] Lipase 22 10 - 99 Units/L Blood 12/20/2024 12:3 5 AM ASSISTANT PROFESSOR OF DRAMA 12/20/2024 12:38 AM ASSISTANT PROFESSOR OF DRAMA Sandi Hull MD LAB BLOOD ORDERABLES Zeina l Result Performing Organization Address [facility] Co de Phone Number [facility] ([place]) 1 [place] [address] * Comprehensive metabolic panel (12/20/2024 12:35 AM ASSISTANT PROFESSOR OF DRAMA) Sodium 140 135 - 145 mmol/L Potassium, pl 4.2 3.3 - 4.9 mmol/L [facility] ([place]) Chloride 102 97 - 110 mmol/L [facility] ([place]) CO2 27 22 - 32 mmol/L [facility] ([place]) Anion gap 11 2 - 15 mmol/L [facility] BUN 8 6 - 25 mg/dL [facility] ([place]) Creatinine 0.85 0.60 - 1.10 mg/dL [facility] Glucose 86 70 - 199 mg/dL [facility] ([place]) Comment: Interpretive Data Fasting glucose [...] [facility] ([place]) Blood 12/20/2024 12:3 5 AM ASSISTANT PROFESSOR OF DRAMA 12/20/2024 12:38 AM ASSISTANT PROFESSOR OF DRAMA us Sandi Hull MD LAB BLOOD ORDERABLES Zeina l Result [facility] ([place]) 1 [facility] [place] [address] * US RUQ (12/18/2024 2:15 PM ASSISTANT PROFESSOR OF DRAMA) Anatomical Region Laterality Modality Abdomen N/A Ultrasound 12/18/2024 2:44 PM ASSISTANT PROFESSOR OF DRAMA Narrative 12/18/2024 2:48 PM ASSISTANT PROFESSOR OF DRAMA EXAM DESCRIPTION: US RUQ REASON FOR STUDY: [...] No no pericholecystic fluid. No positive sonographic Decherd sign reported. BILIARY: The common bile duct [...] Hebert Montes D.O. AP: AP Report ID: [id number] Reading Location: [id number] Procedure Note Hebert Montes, DO - 12/18/2024 [...] No no pericholecystic fluid. No positive sonographic Decherd signreported. BILIARY: The common bile duct measures [...] Electronically signed by Hebert Montes D.O. AP: JESSE Report ID: [id number] Reading Location: [place] [address] us Kris Howe MD IMG US PROCEDURES F inal Result * eGFR (12/18/2024 12:58 PM ASSISTANT PROFESSOR OF DRAMA) eGFR 81 >=60 mL/min/1. 73 m2 Comment: [...] reviewed 2021. Blood 12/18/2024 12:5 8 PM ASSISTANT PROFESSOR OF DRAMA 12/18/2024 1:07 PM ASSISTANT PROFESSOR OF DRAMA us Kris Howe MD LAB BLOOD ORDERABLE S Final Result [facility] [place]) 1 [facility] Department of Laboratories [place], [place] [id number] * (ABNORMAL) Differential, auto (12/18/2024 12:58 PM ASSISTANT PROFESSOR OF DRAMA) Neutrophil abs 5.3 1.5 - 6.5 K/cumm [...] on 2018. Blood 12/18/2024 12:5 8 PM ASSISTANT PROFESSOR OF DRAMA 12/18/2024 1:07 PM ASSISTANT PROFESSOR OF DRAMA us Kris Howe MD LAB BLOOD ORDERABLE S Final Result [facility] ([place]) 1 [facility] [place] [address] * (ABNORMAL) CBC with auto differential (12/18/2024 12:58 PM ASSISTANT PROFESSOR OF DRAMA) WBC 10.2(H) 3.8 - 9.9 K/cumm Hgb [...] [facility] ([place]) Blood 12/18/2024 12:5 8 PM ASSISTANT PROFESSOR OF DRAMA 12/18/2024 1:07 PM ASSISTANT PROFESSOR OF DRAMA us Kris Howe MD LAB BLOOD ORDERABLE S Final Result [facility] ([place]) 1 [facility] [place] [address] * Lipase (12/18/2024 12:58 PM ASSISTANT PROFESSOR OF DRAMA) Lipase 24 10 - 99 Units/L Blood 12/18/2024 12:5 8 PM ASSISTANT PROFESSOR OF DRAMA 12/18/2024 1:07 PM ASSISTANT PROFESSOR OF DRAMA us Kris Howe MD LAB BLOOD ORDERABLE S Final Result [facility] ([place]) 1 [facility] [place] [address] * (ABNORMAL) Comprehensive metabolic panel (12/18/2024 12:58 PM ASSISTANT PROFESSOR OF DRAMA) Sodium 134(L) 135 - 145 mmol/L Potassium, [...] S pecimen Blood 12/18/2024 12:5 8 PM ASSISTANT PROFESSOR OF DRAMA 12/18/2024 1:07 PM ASSISTANT PROFESSOR OF DRAMA us Kris Howe MD LAB BLOOD ORDERABLE S Final Result [facility] ([place]) 1 [facility] [place] [address] * COLONOSCOPY (09/27/2022 9:23 AM ASSISTANT PROFESSOR OF DRAMA) Anatomical Region Laterality Modality Other Narrative Procedure Note Clyde Esparza MD - 09/27/2022 9:23 AM CST [facility] Patient Name: Ayala Jauregui Procedure Date: 09/27/2022 9:23 AM Date of : 1960 Admit Type: Outpatient Age: 62 Gender: Female Attending MD: Clyde Esparza M.D. Room: [facility] ENDOSCOPY ROOM 2 Note Status: Finalized [...] scope was passed under direct vision. TheColonoscope [id number] was introduced through the anus and advanced [...] 9:23 AM Procedure Code(s): --- Professional --- 03618, Colonoscopy, flexible; with removal of tumor(s), polyp(s), or other lesion(s) by snare technique Diagnosis Code(s): --- Professional --- D12.3, Benign neoplasm of transverse colon (hepatic flexure orsplenic flexure) D12.4, Benign neoplasm of descending colon D12.5, Benign neoplasm of sigmoid colon K64.9, Unspecified hemorrhoids Z86.010, Personal history of colonic polyps CPT copyright 2020 [place] [employer]. All rights reserved. The codes documented in this report are preliminary and upon consumer electronics merchandiser reviewmay be revised to meet current compliance requirements. Recognized by the [place] [employer] for promoting quality in endoscopy Clyde Esparza MD ENDOSCOPY PROCEDURES Final Re sult from Last 3 Months or Most Recently Relevant to Health Maintenance Insurance [facility] OTHER Address: [address] [place] [id number] MEDICARE [facility] MEDICARE Advance Directives For more information, please contact: [phone] * Full Code (Latest Code Status on [...] 9:47 AM 09/27/2022 5:13 PM Care Teams K9 Handler Relationship Specialty Start Date End Date Tressa Johnson MD [address] [place] [address] PCP - General Family Medicine 07/24/23 [place] [address] [facility] [address] [place] [address] Consulting Physician Pulmonary Disease 11/17/20 Nathan Monahan MD [address] [place] [address] DR QUINTANILLA [address] [place] [address] Consulting Physician Gastroenterology 01/09/25
--- OUTSIDE RECORDS SUMMARY | 2025-01-22 12:40 | XMS_ITS | CONTINUITY OF CARE DOCUMENT ---
Author Name saul hughes Address Unknown Organization [facility] Address [address] [place] [address] Phone [phone] Care Team Providers Care Marketing Technology Specialist Name Role Phone Kareem Morejon MD Unavailable [phone] Kareem Morejon MD Unavailable INSURANCE PROVIDERS Payer name Policy type / Coverage type Nena red republican [place] [employer] MEDICAID (2) Medicaid [id number]
--- OUTSIDE RECORDS SUMMARY | 2025-01-22 12:40 | XMS_ITS | Encounter Summary ---
Author Organization [facility] Address [address] [place] [address] Phone Care Team Providers Care Highway Painter Helper Name Role Phone Wesley Moya MD, Christopher Unavailable [phone] Brayden Sellers MD Unavailable [phone] Michi Berman MD Unavailable Tressa Johnson MD Primary Care Provider + [phone] Antoinette George APRN, [facility] Unavailable Reason for Referral * Radiology Services (Routine) - Closed Specialty Diagnoses / Procedures Referred By Sammy galarza Referred To Contact Radiology Diagnoses Unresolved pneumonia Procedures XR CHEST 2 VIEWS Tressa Johnson MD [address] [place] [address] Phone: tel: fax: Referral ID Status Reason Start Date Expiration Date Visits Re quested Visits Authorized [id number] Closed 09/19/2024 1 1 RISING FLOUR MIXER Encounter Details Date Type Department Care Team (Late st Contact Info) Description 09/19/2024 Transcribe Orders [facility] Patient Access Admitting 1 [place] [address] Tressa Johnson MD [address] [place] [address] Unresolved pneumonia (Primary Dx) Social History Tobacco Use Types Packs/Day Years Used Date Smoking Tobacco: Some Days Cigarettes 0.5 2 Started: 02/01/2023 Smokeless Tobacco: Never Comments:Down to 4 cigs a da y Alcohol Use Standard Drinks/Week Comments No 0 (1 standard drink = 0.6 oz pur e alcohol) [facility] Utilities Answer Date Recorded In the [...] declined 05/10/2024 How often do you attend sikhism or yazidi serv ices? Patient declined 05/10/2024 Do you belong to any clubs o r organizations such as sikhism groups, unions, fraternal or athletic groups, or [...] medical care, and heating? Patient declined 05/10/2024 [facility] [place] of Occupat ional Health - Occupational Stress [...] place to sleep or slept in a usp (including now)? Patient declined 12/23/2023 Housing Stability [...] any time in the past 12 m [facility], were you homeless or living in a usp (including now)? Patient declined 05/10/2024 Sexually Active [...] XR CHEST 2 VIEWS (09/19/2024 12:50 PM SELF RISING FLOUR MIXER) Anatomical Region Laterality Modality Chest N/A Digital Radiogra phy 09/25/2024 8:37 AM SELF RISING FLOUR MIXER Impressions 09/25/2024 8:39 AM SELF RISING FLOUR MIXER IMPRESSION: 1. Hazy bibasilar opacities, likely overlying soft tissue. Narrative 09/25/2024 8:39 AM SELF RISING FLOUR MIXER EXAM DESCRIPTION: XR CHEST 2 VIEWS REASON [...] Brayden Camarillo M.D. AG: NETTA Report ID: [id number] Reading Location: [id number] Procedure Note Brayden Camarillo MD - 09/25/2024 [...] Brayden Camarillo M.D. AG: NETTA Report ID: [id number] Reading Location: [id number] IMPRESSION: 1. Hazy bibasilar opacities, likely overlying soft tissue. us Tressa M Dufner MD IMG DIAGNOSTIC ORDERABLES Final Result documented in this encounter Visit Diagnoses Diagnosis Unresolved pneumonia- Primary Pneumonia, organism unspecified Unresolved pneumonia Pneumonia, organism unspecified documented in this encounter Care Teams Highway Painter Helper Relationship Specialty Start Date End Date Tressa Johnson MD [address] [place] [address] PCP - General Family Medicine 07/30/23 Contreras Olson MD [address] [place] [address] Psychiatry 06/17/19 Bryaden Sellers MD [address] [place] [address] Consulting Physician Orthopaedic Sports Medicine 11/10/21 Michi Berman MD [address] [place] [address] Consulting Physician Pulmonary Disease 04/13/22 Antoinette George APRN, ASSISTANT ART DIRECTOR [address] [place] [address] Nurse Practitioner Advanced Practice Nurse 07/02/24 documented as of this encounter
--- OUTSIDE RECORDS SUMMARY | 2025-01-22 12:40 | XMS_ITS ---
Author Organization Unknown Address [address] [place] [phone] Phone Care Team Providers Care Professor Of Surgery Name Role Phone LACIE BLANCOEN Attending Unavailable [...] 208 CVX Pneumococcal conjugate PCV20 , polysaccharide [id number] conjugate, adjuvant, PF 10/24/2022 Completed 216 CVX [...] Randal Worthington M.D. MJ: PETTY Report ID: [id number] Reading Location: [place] [address] Social History Type Status Start Date End Date Code Code Syst em Smoking History Never smoker (Never Smoked) [id number] SNOMED CT Sex Female Hospital Discharge Instructions Should you have any questions prior to discharge, please contact a member of your healthcare team. If you have left the hospital and have any questions, please contact your primary care physician. Reason For Referral No Data Found Plan of Treatment MRI UE Joint WO Contrast ([id number]) 2022 Encounters Encounter Diagnosis Start Date Code Code Sys tem Complete rotator cuff tear o r rupture of right shoulder, not specified as traumatic 09/17/2023 SNOMED-CT Personal Care Team Section Performer Name Performer Role Active Date Inactive Da te Imaging Narrative Notes
--- OUTSIDE RECORDS SUMMARY | 2025-01-22 12:40 | XMS_ITS | Encounter Summary ---
Author Organization [facility] Address [address] [place] [address] Phone Care Team Providers Care Tire Changer Aircraft Name Role Phone Wesley Moya MD, Contreras Unavailable [phone] Riky Strauss MD Primary Care Provider [phone] Brayden Sellers MD Unavailable Michi Berman MD Unavailable Tressa Johnson MD Primary Care Provider [phone] Antoinette George APRN, [facility] Unavailable Reason for Visit * Reason Comments Medication Refill Encounter Details Date Type Department Care Team (Late st Contact Info) Description 01/21/2022 Refill [facility] - Primary Care - Irene [address] [place] [address] Riky Strauss MD [address] [place], [place] [id number] Medication Refill Social History Tobacco Use Types [...] Respiratory Rule-Out 10/16/2022 10/16/2022 023 6:16 AM CORRUGATED BOX MACHINE OPERATOR Influenza 10/16/2022 10/16/2022 10/23/2022 12:1 9 AM CORRUGATED BOX MACHINE OPERATOR COVID - 19 10/21/2022 10/21/2022 10/22/2022 7:50 AM CORRUGATED BOX MACHINE OPERATOR COVID - 19 10/28/2022 10/28/2022 10/29/2022 8:15 AM CORRUGATED BOX MACHINE OPERATOR Respiratory Rule-Out 10/28/2022 10/28/2022 023 4:15 PM CORRUGATED BOX MACHINE OPERATOR COVID - 19 11/09/2022 11/09/2022 11/19/2022 12:1 8 AM CORRUGATED BOX MACHINE OPERATOR COVID - 19 11/25/2022 11/25/2022 11/26/2022 8:06 AM CORRUGATED BOX MACHINE OPERATOR COVID - 19 10/15/2023 10/22/2023 11/01/2023 12:1 6 AM CORRUGATED BOX MACHINE OPERATOR COVID - 19 12/12/2023 12/12/2023 12/12/2023 4:38 AM CORRUGATED BOX MACHINE OPERATOR COVID - 19 12/23/2023 12/23/2023 12/23/2023 12:5 5 PM CDT COVID - 19 04/15/2024 04/15/2024 04/15/2024 4:34 PM CDT COVID - 19 08/25/2024 08/25/2024 08/25/2024 1:35 PM CORRUGATED BOX MACHINE OPERATOR COVID - 19 Confirmed 08/25/2024 08/25/2024 024 12:16 AM CORRUGATED BOX MACHINE OPERATOR COVID - 19 09/09/2024 09/09/2024 09/09/2024 1:04 PM CORRUGATED BOX MACHINE OPERATOR COVID - 19 09/13/2024 09/13/2024 09/13/2024 7:49 AM CORRUGATED BOX MACHINE OPERATOR documented as of this encounter Care Teams Tire Changer Aircraft Relationship Specialty Start Date End Date Riky Strauss MD [address] [place] [address] PCP - General Internal Medicine 09/18/21 07/29/23 Tressa Johnson MD [address] [place] [address] PCP - General Family Medicine 07/30/23 Contreras Olson MD [address] [address] Psychiatry 06/17/19 Brayden Sellers MD [address] [place] [address] Consulting Physician Orthopaedic Sports Medicine 11/10/21 Michi Berman MD [address] [place] [address] Consulting Physician Pulmonary Disease 04/13/22 Antoinette George APRN, PLATE PAINTER [address] [place] [address] Nurse Practitioner Advanced Practice Nurse 07/02/24 documented as of this encounter
--- OUTSIDE RECORDS SUMMARY | 2025-01-22 12:41 | XMS_ITS | Encounter Summary ---
Author Organization [facility] Address [address] [place] [address] Phone Care Team Providers Care Practice Professional Name Role Phone Wesley Moya MD, Contreras Unavailable Riky Strauss MD Primary Care Provider [phone] Brayden Sellers MD Unavailable Michi Berman MD Unavailable Tressa Johnson MD Primary Care Provider [phone] Antoinette George APRN, [facility] Unavailable Reason for Visit * Reason Onset Date Comments requesting order 11/07/2021 Encounter Details Date Type Department Care Team (Late st Contact Info) Description 11/07/2021 Telephone [facility] [address] [place] [address] Riky Strauss MD [address] [place] [address] requesting order Social History Tobacco Use Types [...] COVID-19? No / Unsure 11/10/2021 12:58 PM PROTECTION CHIEF INDUSTRIAL PLANT documented as of this encounter Miscellaneous Notes * Telephone Encounter - Munira Avelar RN - 11/08/2021 9:03 AM PROTECTION CHIEF INDUSTRIAL PLANT Routing to home health. ECTION CHIEF INDUSTRIAL PLANT * Telephone Encounter - Riky Strauss MD - 11/08/2021 7:35 AM PROTECTION CHIEF INDUSTRIAL PLANT That would be fine. ECTION CHIEF INDUSTRIAL PLANT * Telephone Encounter - Janna Giles, PT - 11/07/2021 3:03 PM PROTECTION CHIEF INDUSTRIAL PLANT Dr. Strauss - Would you please give a verbal order for a home school coordinator to see pt in her home 2x/week for a shorttime to assist with bathing? She is fearful to shower without assist at this time due to weakness and a recent fall. Thanks - Mona Giles, PT ECTION CHIEF INDUSTRIAL PLANT documented in this encounter Plan of Treatment Not on file documented as of this encounter Visit Diagnoses Not on filedocumented in this encounter Additional Health Concerns Infection Onset Date Last Indicated Resolved Time COVID - 19 Confirmed 10/20/2021 10/20/2021 022 12:16 AM PROTECTION CHIEF INDUSTRIAL PLANT COVID - 19 04/09/2022 04/09/2022 04/09/2022 2:37 PM CDT COVID - 19 04/15/2022 04/15/2022 04/16/2022 7:50 AM CDT Respiratory Rule-Out 10/16/2022 10/16/2022 023 6:16 AM PROTECTION CHIEF INDUSTRIAL PLANT Influenza 10/16/2022 10/16/2022 10/23/2022 12:1 9 AM PROTECTION CHIEF INDUSTRIAL PLANT COVID - 19 10/21/2022 10/21/2022 10/22/2022 7:50 AM PROTECTION CHIEF INDUSTRIAL PLANT COVID - 19 10/28/2022 10/28/2022 10/29/2022 8:15 AM PROTECTION CHIEF INDUSTRIAL PLANT Respiratory Rule-Out 10/28/2022 10/28/2022 023 4:15 PM PROTECTION CHIEF INDUSTRIAL PLANT COVID - 19 11/09/2022 11/09/2022 11/19/2022 12:1 8 AM PROTECTION CHIEF INDUSTRIAL PLANT COVID - 19 11/25/2022 11/25/2022 11/26/2022 8:06 AM PROTECTION CHIEF INDUSTRIAL PLANT COVID - 19 10/15/2023 10/22/2023 11/01/2023 12:1 6 AM PROTECTION CHIEF INDUSTRIAL PLANT COVID - 19 12/12/2023 12/12/2023 12/12/2023 4:38 AM PROTECTION CHIEF INDUSTRIAL PLANT COVID - 19 12/23/2023 12/23/2023 12/23/2023 12:5 5 PM CDT COVID - 19 04/15/2024 04/15/2024 04/15/2024 4:34 PM CDT COVID - 19 08/25/2024 08/25/2024 08/25/2024 1:35 PM PROTECTION CHIEF INDUSTRIAL PLANT COVID - 19 Confirmed 08/25/2024 08/25/2024 024 12:16 AM PROTECTION CHIEF INDUSTRIAL PLANT COVID - 19 09/09/2024 09/09/2024 09/09/2024 1:04 PM PROTECTION CHIEF INDUSTRIAL PLANT COVID - 19 09/13/2024 09/13/2024 09/13/2024 7:49 AM PROTECTION CHIEF INDUSTRIAL PLANT documented as of this encounter Care Teams Practice Professional Relationship Specialty Start Date End Date Riky Strauss MD [address] [place] [address] PCP - General Internal Medicine 09/18/21 07/29/23 Tressa Johnson MD [address] [place] [address] PCP - General Family Medicine 07/30/23 Contreras Olson MD [address] [address] Psychiatry 06/17/19 Brayden Sellers MD [address] [place] [address] Consulting Physician Orthopaedic Sports Medicine 11/10/21 Michi Berman MD [address] [place] [address] Consulting Physician Pulmonary Disease 04/13/22 Antoinette George APRN, CLINICAL COORDINATOR [address] [place] [address] Nurse Practitioner Advanced Practice Nurse 07/02/24 documented as of this encounter
--- OUTSIDE RECORDS SUMMARY | 2025-01-22 12:41 | XMS_ITS ---
Care Plan - [facility] Created on: January 22, 2025 SHOAIB JAUREGUI : 1960 Sex: Female Author Organization [facility] Address [address] [place] [address] Phone Care Team Providers Care Precipitator Operator Name Role Phone JIMENA DRISCOLL, AMANDA Vu Primary Care Provider
--- OUTSIDE RECORDS SUMMARY | 2025-01-22 12:41 | XMS_ITS | Encounter Summary ---
Author Organization [facility] Address [address] [place] [address] Phone Care Team Providers Care Experimental Machining Lab Manager Name Role Phone Wesley Moya MD, Contreras Unavailable Riky Strauss MD Primary Care Provider [phone] Brayden Sellers MD Unavailable Michi Berman MD Unavailable Tressa Johnson MD Primary Care Provider [phone] Antoinette George APRN, SHOWCASE TRIMMER Unavailable Encounter Details Date Type Department Care Team (Late st Contact Info) Description 11/01/2021 [facility] [address] [place] [address] Riky Strauss MD [address] [place] [address] Chronic obstructive pulmonary disease, unspecified (HCC) Social [...] Coronavirus / COVID-19? Yes 11/02/2021 1:56 PM STOCK ROLLER documented as of this encounter Plan of Treatment Not on file documented as of this encounter Procedures Procedure Name Priority Date/Time Associated Diagnosis Comments CBC WITH AUTO DIFFERENTIAL Routine 11/01/2021 10:40 AM STOCK ROLLER Chronic obstructive pulmonary disease, unspecified (HCC) COMPLETE BLOOD COUNT (CBC) WITH DIFF Routine 11/01/2021 10:40 AM STOCK ROLLER Chronic obstructive pulmonary disease, unspecified (HCC) documented in this encounter Results * (ABNORMAL) CBC WITH AUTO DIFFERENTIAL (11/01/2021 10:40 AM STOCK ROLLER) WBC 17.84(H) 4.00 - 12.00 10(3)/mcL 11/01/2021 2:36 PM STOCK ROLLER [facility] RBC 5.69(H) 3.80 - 5.30 10(6)/mcL 11/01/2021 2:36 PM STOCK ROLLER [facility] HEMOGLOBIN (HGB) 15.8 12.0 - 15.8 g/dL 11/01/2021 2:36 PM STOCK ROLLER [facility] HEMATOCRIT (HCT) 50.9(H) 36.0 - 47.0 % 11/01/2021 2:36 PM STOCK ROLLER [facility] MCV 89.5 82.0 - 96.0 fL 11/01/2021 2:36 PM STOCK ROLLER [facility] MCH 27.8 26.0 - 34.0 pg 11/01/2021 2:36 PM STOCK ROLLER [facility] MCHC 31.0 31.0 - 36.0 g/dL 11/01/2021 2:36 PM STOCK ROLLER [facility] PLATELET COUNT 275 140 - 440 10(3)/mcL 11/01/2021 2:36 PM STOCK ROLLER [facility] RDW 13.5 11.8 - 15.5 % 11/01/2021 2:[address] [facility] MPV 10.8 9.7 - 12.4 fL 11/01/2021 2:[address] [facility] NEUTROPHILS 51.3 47.0 - 73.0 % 11/01/2021 2:36 PM [facility] LYMPHOCYTES 40.2 18.0 - 42.0 % 11/01/2021 2:36 PM [facility] MONOCYTES 6.3 4.0 - 12.0 % 11/01/2021 2:[address] [facility] EOSINOPHILS 1.5 0.0 - 5.0 % 11/01/2021 2:[address] [facility] BASOPHILS 0.7 0.0 - 1.0 % 11/01/2021 2:[address] [facility] ABSOLUTE NEUTROPHILS 9.15(H) 1.60 - 7.70 10(3)/[facility] 11/01/2021 2:[address] [facility] ABSOLUTE LYMPHOCYTES 7.18(H) 1.30 - 3.20 10(3)/[facility] 11/01/2021 2:[address] [facility] ABSOLUTE MONOCYTES 1.13(H) 0.20 - 1.00 10(3)/[facility] 11/01/2021 2:[address] [facility] ABSOLUTE EOSINOPHIL 0.26 0.00 - 0.40 10(3)/[facility] 11/01/2021 2:[address] [facility] ABSOLUTE BASOPHILS 0.12(H) 0.00 - 0.10 10(3)/[facility] 11/01/2021 2:[address] [facility] NRBC PER 100 WBC 0 11/01/19 2:[address] [facility] RESULTS ARE CONSISTENT WITH PERIPHERAL SMEAR REVIEW Yes 11/01/2021 2:[address] [facility] Blood No Phlebotomy Charged / Unknown 11/01/2021 10:40 AM [facility] 11/01/2021 1:24 PM STOCK ROLLER us Riky Strauss MD HEMATOLOGY ORDERABLES Fin al Result Performing Organization Address City/State/[facility] Co de Phone Number [facility] [address] [place] [address] documented in this encounter Visit Diagnoses Diagnosis Chronic obstructive pulmonary disease, unspecified documented in this encounter Additional Health Concerns Infection Onset Date Last Indicated Resolved Time COVID - 19 Confirmed 10/20/2021 10/20/2021 022 12:16 AM STOCK ROLLER COVID - 19 04/09/2022 04/09/2022 04/09/2022 2:37 PM CDT COVID - 19 04/15/2022 04/15/2022 04/16/2022 7:50 AM CDT Respiratory Rule-Out 10/16/2022 10/16/2022 023 6:16 AM STOCK ROLLER Influenza 10/16/2022 10/16/2022 10/23/2022 12:1 9 AM STOCK ROLLER COVID - 19 10/21/2022 10/21/2022 10/22/2022 7:50 AM STOCK ROLLER COVID - 19 10/28/2022 10/28/2022 10/29/2022 8:15 AM STOCK ROLLER Respiratory Rule-Out 10/28/2022 10/28/2022 023 4:15 PM STOCK ROLLER COVID - 19 11/09/2022 11/09/2022 11/19/2022 12:1 8 AM STOCK ROLLER COVID - 19 11/25/2022 11/25/2022 11/26/2022 8:06 AM STOCK ROLLER COVID - 19 10/15/2023 10/22/2023 11/01/2023 12:1 6 AM STOCK ROLLER COVID - 19 12/12/2023 12/12/2023 12/12/2023 4:38 AM STOCK ROLLER COVID - 19 12/23/2023 12/23/2023 12/23/2023 12:5 5 PM CDT COVID - 19 04/15/2024 04/15/2024 04/15/2024 4:34 PM CDT COVID - 19 08/25/2024 08/25/2024 08/25/2024 1:35 PM STOCK ROLLER COVID - 19 Confirmed 08/25/2024 08/25/2024 024 12:16 AM STOCK ROLLER COVID - 19 09/09/2024 09/09/2024 09/09/2024 1:04 PM STOCK ROLLER COVID - 19 09/13/2024 09/13/2024 09/13/2024 7:49 AM STOCK ROLLER documented as of this encounter Care Teams Experimental Machining Lab Manager Relationship Specialty Start Date End Date Riky Strauss MD [address] [place] [address] PCP - General Internal Medicine 09/18/21 07/29/23 Tressa Johnson MD [address] [place] [address] PCP - General Family Medicine 07/30/23 Contreras Olson MD [address] [place] [address] Psychiatry 06/17/19 Brayden Sellers MD [address] [place] [address] Consulting Physician Orthopaedic Sports Medicine 11/10/21 Michi Berman MD [address] [place] [id number] Consulting Physician Pulmonary Disease 04/13/22 Antoinette George APRN, SHOWCASE TRIMMER [address] [place] [address] Nurse Practitioner Advanced Practice Nurse 07/02/24 documented as of this encounter
--- OUTSIDE RECORDS SUMMARY | 2025-01-22 12:41 | XMS_ITS | Clinical Summary ---
Author Organization [facility] Address [address] [place] [address] Care Team Providers Care Track Leader Name Role Phone Alec Domingo MD Primary Care Provider [phone] Source Comments [facility],non-owned Affiliates and Associated Physician Practices is amultiple site organization consisting of ambulatory clinics and hospital sitesin [place], [place], [place] and [place]. This disclosure is being madepursuant to the Care Everywhere program and may not contain all information available regarding this patient. Last updated 18.[facility] Allergies Active Allergy Reactions Criticality Noted Date [...] Comments Blood Pressure 140/68 12/05/2017 6:09 AM SUPERVISOR [employer] MAINTENANCE SERVICES Pulse 68 12/05/2017 6:09 AM SUPERVISOR [employer] MAINTE[employer]CE [employer] Temperature 37 C (98.6 F) 12/05/2017 6:09 AM SUPERVISOR SHIP MAINTENANCE SERVICES Respiratory Rate 18 12/05/2017 6:09 AM SUPERVISOR SHIP MAINTENANCE SERVICES Oxygen Saturation 96% 12/05/2017 6:09 AM SUPERVISOR SHIP MAINTENANCE SERVICES Inhaled Oxygen Concentration - - Weight 88 kg (194 lb 1.6 oz) 12/02/2017 10:20 AM SUPER[employer]OR [employer] MAINTENANCE [employer] Height 165.1 cm (5' 5 ) 12/02/2017 10:20 AM SUPERVISOR [employer] MAINTENANCE SERVICES Body Mass Index 32.3 12/02/2017 10:20 AM SUPERVISOR SHIP MAINTENANCE SERVICES Plan of Treatment Health Maintenance Due Date [...] LIPID PROFILE AM Draw 12/03/2017 8:01 AM SUPERVISOR [employer] MAINTE[employer] from Last 3 Months or Most Recently Relevant to Health Maintenance Results * (ABNORMAL) LIPID PROFILE (12/03/2017 8:01 AM SUPERVISOR [employer] MAINTE[employer]) Cholesterol 323(H) <200 mg/dL 12/03/2017 8:24 AM SUPERVISOR SHIP MAINTENANCE SERVICES [facility] Triglycerides 396(H) <150 mg/dL 12/03/2017 8:24 AM SUPERVISOR SHIP MAINTENANCE SERVICES [facility] HDL Cholesterol 33(L) >40 mg/dL 8 8:24 AM SUPERVISOR SHIP MAINTENANCE SERVICES [facility] LDL Calculated 211(H) <130 mg/dL 12/03/2017 8:24 AM SUPERVISOR SHIP MAINTENANCE SERVICES [facility] VLDL Calculated 79(H) <=30 mg/dL 8 8:24 AM SUPERVISOR SHIP MAINTENANCE [employer] [facility] Chol HDL Ratio 9.8(H) <4.5 12/03/2017 8:24 AM SUPERVISOR [employer] MAINTENAN[employer] [facility] LDL/HDL Ratio 6.4(H) <5.0 12/03/2017 8:24 AM SUPERVISOR SHIP MAINTENANCE SERVICES [facility] Blood BLOOD SPECIMEN / Unknown Venipuncture / Unknown 12/03/2017 8:01 AM SUPERVISOR SHIP MAINTENANCE SERVICES 12/03/2017 8:01 AM SUPERVISOR SHIP MAINTENANCE SERVICES Ta Abraham MD LAB - CHEMISTRY SIMONE [facility] Organization Address City/State/ZIP Co de Phone Number [facility] [address] [place] [address] from Last 3 Months or Most Recently Relevant to Health Maintenance Advance Directives * Full Code (Latest Code Status on File) Date Activated Date Inactivated Comments 12/02/2017 11:04 AM 12/05/2017 2:51 PM * Full Code Date Activated Date Inactivated Comments 04/17/2016 7:41 PM 04/18/2016 7:17 PM * Full Code Date Activated Date Inactivated Comments 04/21/2014 1:04 AM 04/26/2014 7:55 PM Care Teams Track Leader Relationship Specialty Start Date End Date Alec Domingo MD [address] [place] [address] PCP - General Family Medicine 04/11/16
--- OUTSIDE RECORDS SUMMARY | 2025-01-22 12:41 | XMS_ITS | Encounter Summary ---
Author Organization [facility] Address [address] [place] [address] Phone Care Team Providers Care Dog Catcher Name Role Phone Wesley Moya MD, Contreras Unavailable [phone] Riky Strauss MD Primary Care Provider [phone] Brayden Sellers MD Unavailable [phone] Michi Berman MD Unavailable Tressa Johnson MD Primary Care Provider [phone] Antoinette George APRN, SR. MANAGER Unavailable Encounter Details Date Type Department Care Team (Late st Contact Info) Description 11/08/2021 Telephone [facility] [address] [place] [address] Munira Srivastava, OT Social History [...] COVID-19? No / Unsure 11/10/2021 12:58 PM DESKTOP OPERATOR documented as of this encounter Miscellaneous Notes * Telephone Encounter - Munira Srivastava OT - 11/08/2021 1:50 PM DESKTOP OPERATOR Pt was seen in [facility] OT this date and would benefit from a [employer] shower seat with a back due to her hx of COPD, pneumonia and falls. Pt is coming into the office on Saturday11/13/21. Would youplease document face to face and need for a Bath seat and fax over an order to [employer] at [phone] with pts weight and diagnosis. Thank you. Munira [facility] OT TOP OPERATOR documented in this encounter Plan of Treatment Not on file documented as of this encounter Visit Diagnoses Not on filedocumented in this encounter Additional Health Concerns Infection Onset Date Last Indicated Resolved Time COVID - 19 Confirmed 10/20/2021 10/20/2021 022 12:16 AM DESKTOP OPERATOR COVID - 19 04/09/2022 04/09/2022 04/09/2022 2:37 PM CDT COVID - 19 04/15/2022 04/15/2022 04/16/2022 7:50 AM CDT Respiratory Rule-Out 10/16/2022 10/16/2022 023 6:16 AM DESKTOP OPERATOR Influenza 10/16/2022 10/16/2022 10/23/2022 12:1 9 AM DESKTOP OPERATOR COVID - 19 10/21/2022 10/21/2022 10/22/2022 7:50 AM DESKTOP OPERATOR COVID - 19 10/28/2022 10/28/2022 10/29/2022 8:15 AM DESKTOP OPERATOR Respiratory Rule-Out 10/28/2022 10/28/2022 023 4:15 PM DESKTOP OPERATOR COVID - 19 11/09/2022 11/09/2022 11/19/2022 12:1 8 AM DESKTOP OPERATOR COVID - 19 11/25/2022 11/25/2022 11/26/2022 8:06 AM DESKTOP OPERATOR COVID - 19 10/15/2023 10/22/2023 11/01/2023 12:1 6 AM DESKTOP OPERATOR COVID - 19 12/12/2023 12/12/2023 12/12/2023 4:38 AM DESKTOP OPERATOR COVID - 19 12/23/2023 12/23/2023 12/23/2023 12:5 5 PM CDT COVID - 19 04/15/2024 04/15/2024 04/15/2024 4:34 PM CDT COVID - 19 08/25/2024 08/25/2024 08/25/2024 1:35 PM DESKTOP OPERATOR COVID - 19 Confirmed 08/25/2024 08/25/2024 024 12:16 AM DESKTOP OPERATOR COVID - 19 09/09/2024 09/09/2024 09/09/2024 1:04 PM DESKTOP OPERATOR COVID - 19 09/13/2024 09/13/2024 09/13/2024 7:49 AM DESKTOP OPERATOR documented as of this encounter Care Teams Dog Catcher Relationship Specialty Start Date End Date Riky Strauss MD [address] [place] [address] PCP - General Internal Medicine 09/18/21 07/29/23 Tressa Johnson MD [address] [place] [address] PCP - General Family Medicine 07/30/23 Contreras Olson MD [address] [address] Psychiatry 06/17/19 Brayden Sellers MD [address] [place] [address] Consulting Physician Orthopaedic Sports Medicine 11/10/21 Michi Berman MD [address] [place] [phone] Consulting Physician Pulmonary Disease 04/13/22 Antoinette George APRN, SR. MANAGER [address] [place] [address] Nurse Practitioner Advanced Practice Nurse 07/02/24 documented as of this encounter
--- OUTSIDE RECORDS SUMMARY | 2025-01-22 12:42 | XMS_ITS | Encounter Summary ---
Author Organization [facility] Address [address] [place] [address] Phone Care Team Providers Care Horse Trekking Guide Name Role Phone Wesley Moya MD, Contreras Unavailable [phone] Riky Strauss MD Primary Care Provider [phone] Brayden Sellers MD Unavailable Michi Berman MD Unavailable Tressa Johnson MD Primary Care Provider [phone] Antoinette George APRN, [facility] Unavailable Reason for Visit * Reason Comments Medication Refill Encounter Details Date Type Department Care Team (Late st Contact Info) Description 04/02/2022 Refill [facility] - Primary Care - [place] [address] [place] [address] Riky Strauss MD [address] [place], [place] [id number] Medication Refill Social History Tobacco Use Types [...] Respiratory Rule-Out 10/16/2022 10/16/2022 023 6:16 AM KNOTTING MACHINE OPERATOR Influenza 10/16/2022 10/16/2022 10/23/2022 12:1 9 AM KNOTTING MACHINE OPERATOR COVID - 19 10/21/2022 10/21/2022 10/22/2022 7:50 AM KNOTTING MACHINE OPERATOR COVID - 19 10/28/2022 10/28/2022 10/29/2022 8:15 AM KNOTTING MACHINE OPERATOR Respiratory Rule-Out 10/28/2022 10/28/2022 023 4:15 PM KNOTTING MACHINE OPERATOR COVID - 19 11/09/2022 11/09/2022 11/19/2022 12:1 8 AM KNOTTING MACHINE OPERATOR COVID - 19 11/25/2022 11/25/2022 11/26/2022 8:06 AM KNOTTING MACHINE OPERATOR COVID - 19 10/15/2023 10/22/2023 11/01/2023 12:1 6 AM KNOTTING MACHINE OPERATOR COVID - 19 12/12/2023 12/12/2023 12/12/2023 4:38 AM KNOTTING MACHINE OPERATOR COVID - 19 12/23/2023 12/23/2023 12/23/2023 12:5 5 PM CDT COVID - 19 04/15/2024 04/15/2024 04/15/2024 4:34 PM CDT COVID - 19 08/25/2024 08/25/2024 08/25/2024 1:35 PM KNOTTING MACHINE OPERATOR COVID - 19 Confirmed 08/25/2024 08/25/2024 024 12:16 AM KNOTTING MACHINE OPERATOR COVID - 19 09/09/2024 09/09/2024 09/09/2024 1:04 PM KNOTTING MACHINE OPERATOR COVID - 19 09/13/2024 09/13/2024 09/13/2024 7:49 AM KNOTTING MACHINE OPERATOR documented as of this encounter Care Teams Horse Trekking Guide Relationship Specialty Start Date End Date Riky Strauss MD [address] [place] [address] PCP - General Internal Medicine 09/18/21 07/29/23 Tressa Johnson MD [address] [place] [address] PCP - General Family Medicine 07/30/23 Contreras Olson MD [address] [address] Psychiatry 06/17/19 Brayden Sellers MD [address] [place] [address] Consulting Physician Orthopaedic Sports Medicine 11/10/21 Michi Berman MD [address] [place] [address] Consulting Physician Pulmonary Disease 04/13/22 Antoinette George APRN, CUSTOMER PROGRAM SPECIALIST [address] [place] [address] Nurse Practitioner Advanced Practice Nurse 07/02/24 documented as of this encounter
--- OUTSIDE RECORDS SUMMARY | 2025-01-22 12:42 | XMS_ITS | Encounter Summary ---
Author Organization [facility] Address [address] [place] [address] Phone Care Team Providers Care Data Migration Consultant Name Role Phone Wesley Moya MD, Contreras Unavailable [phone] Riky Strauss MD Primary Care Provider [phone] Brayden Sellers MD Unavailable [phone] Michi Berman MD Unavailable Tressa Johnson MD Primary Care Provider [phone] Antoinette George APRN, [facility] Unavailable Reason for Visit * Reason Comments Medication Refill Encounter Details Date Type Department Care Team (Late st Contact Info) Description 03/04/2022 Refill [facility] - Primary Care - [place] [address] [place] [address] Riky Strauss MD [address] [place], [place] [id number] Medication Refill Social History Tobacco Use Types [...] Respiratory Rule-Out 10/16/2022 10/16/2022 023 6:16 AM ENTERTAINMENT DIRECTOR Influenza 10/16/2022 10/16/2022 10/23/2022 12:1 9 AM ENTERTAINMENT DIRECTOR COVID - 19 10/21/2022 10/21/2022 10/22/2022 7:50 AM ENTERTAINMENT DIRECTOR COVID - 19 10/28/2022 10/28/2022 10/29/2022 8:15 AM ENTERTAINMENT DIRECTOR Respiratory Rule-Out 10/28/2022 10/28/2022 023 4:15 PM ENTERTAINMENT DIRECTOR COVID - 19 11/09/2022 11/09/2022 11/19/2022 12:1 8 AM ENTERTAINMENT DIRECTOR COVID - 19 11/25/2022 11/25/2022 11/26/2022 8:06 AM ENTERTAINMENT DIRECTOR COVID - 19 10/15/2023 10/22/2023 11/01/2023 12:1 6 AM ENTERTAINMENT DIRECTOR COVID - 19 12/12/2023 12/12/2023 12/12/2023 4:38 AM ENTERTAINMENT DIRECTOR COVID - 19 12/23/2023 12/23/2023 12/23/2023 12:5 5 PM CDT COVID - 19 04/15/2024 04/15/2024 04/15/2024 4:34 PM CDT COVID - 19 08/25/2024 08/25/2024 08/25/2024 1:35 PM ENTERTAINMENT DIRECTOR COVID - 19 Confirmed 08/25/2024 08/25/2024 024 12:16 AM ENTERTAINMENT DIRECTOR COVID - 19 09/09/2024 09/09/2024 09/09/2024 1:04 PM ENTERTAINMENT DIRECTOR COVID - 19 09/13/2024 09/13/2024 09/13/2024 7:49 AM ENTERTAINMENT DIRECTOR documented as of this encounter Care Teams Data Migration Consultant Relationship Specialty Start Date End Date Riky Strauss MD [address] [place] [address] PCP - General Internal Medicine 09/18/21 07/29/23 Tressa Johnson MD [address] [place] [address] PCP - General Family Medicine 07/30/23 Contreras Olson MD [address] [place] [address] Psychiatry 06/17/19 Brayden Sellers MD [address] [place] [address] Consulting Physician Orthopaedic Sports Medicine 11/10/21 Michi Berman MD [address] [place] [phone] Consulting Physician Pulmonary Disease 04/13/22 Antoinette George APRN, HYDRAULIC OPERATOR [address] [place] [address] Nurse Practitioner Advanced Practice Nurse 07/02/24 documented as of this encounter
--- OUTSIDE RECORDS SUMMARY | 2025-01-22 12:42 | XMS_ITS | Encounter Summary ---
Author Organization [facility] Address [address] [place] [address] Phone Care Team Providers Care Ice Crusher Name Role Phone Wesley Moya MD, Christopher Unavailable [phone] Brayden Sellers MD Unavailable [phone] Michi Berman MD Unavailable Tressa Johnson MD Primary Care Provider [phone] Antoinette George APRN, [employer] Unavailable Encounter Details Date Type Department Care Team (Late st Contact Info) Description 11/22/2023 [facility] [address] [place] [address] Tressa Johnson MD [address] [place] [address] Hypertension, unspecified type (Primary Dx) Social [...] - 19 12/12/2023 12/12/2023 12/12/2023 4:38 AM AUTOMATIC RIVETING MACHINE OPERATOR COVID - 19 12/23/2023 12/23/2023 12/23/2023 12:5 5 PM CDT COVID - 19 04/15/2024 04/15/2024 04/15/2024 4:34 PM CDT COVID - 19 08/25/2024 08/25/2024 08/25/2024 1:35 PM AUTOMATIC RIVETING MACHINE OPERATOR COVID - 19 Confirmed 08/25/2024 08/25/2024 024 12:16 AM AUTOMATIC RIVETING MACHINE OPERATOR COVID - 19 09/09/2024 09/09/2024 09/09/2024 1:04 PM AUTOMATIC RIVETING MACHINE OPERATOR COVID - 19 09/13/2024 09/13/2024 09/13/2024 7:49 AM AUTOMATIC RIVETING MACHINE OPERATOR documented as of this encounter Care Teams Ice Crusher Relationship Specialty Start Date End Date Tressa Johnson MD [address] [place] [address] PCP - General Family Medicine 07/30/23 Contreras Olson MD [address] [place] [address] Psychiatry 06/17/19 Brayden Sellers MD [address] [place] [address] Consulting Physician Orthopaedic Sports Medicine 11/10/21 Michi Berman MD [address] [place] [address] Consulting Physician Pulmonary Disease 04/13/22 Antoinette George APRN, MORNING NEWS PRODUCER [address] [place] [address] Nurse Practitioner Advanced Practice Nurse 07/02/24 documented as of this encounter
[2025-01-22 12:43] LABS: Basophils Absolute Auto 0.08 K/mm3 (0.00-0.10); Basophils Percent Auto 0.8 % (0.0-1.0); Eosinophils Absolute Auto 0.11 K/mm3 (0.02-0.50); Eosinophils Percent Auto 1.1 % (1.0-6.0); Hematocrit 46.4 % (35.0-42.0); Hemoglobin 14.6 g/dL (11.7-13.8); Immature Granulocyte Absolute 0.03 K/mm3 (0.00-0.00); Immature Granulocyte Percent A 0.3 % (0.0-0.0); Lymphocytes Absolute Auto 4.36 K/mm3 (1.10-4.50); Mean Corpuscular HGB Conc 31.5 g/dL (32-36); Mean Corpuscular Hemoglobin 26.4 pg (27.0-31.0); Mean Corpuscular Volume 83.9 fL (78.0-102.0); Mean Platelet Volume 10.8 fl (9.2-11.8); Monocytes Absolute Auto 0.62 K/mm3 (0.10-0.90); Neutrophils Absolute Auto 5.17 K/mm3 (1.70-7.20); Neutrophils Percent Auto 49.8 % (50.0-70.0); Platelet Count Result 202 K/mm3 (150-420); Red Blood Count 5.53 M/mm3 (4.20-5.40); Red Cell Distribution Width 13.8 % (11.6-14.4); White Blood Count 10.4 K/mm3 (4.8-10.8)
--- OUTSIDE RECORDS SUMMARY | 2025-01-22 12:43 | XMS_ITS | Referral Summary ---
Author Organization [facility] Address [address] [place] [address] Care Team Providers Care Android Ios Developer Name Role Phone Harvinder Chicas MD Unavailable [phone] Tressa Johnson MD Primary Care Provider Nathan Monahan MD Unavailable [phone] Encounters Date Type Department Care Team Description 01/15/20 [facility] Post Discharge Follow up phone call [facility] Care [address] [place] [address] Belkys Reich 01/12/20 25 9:17 AM CDT - 01/12/20 25 11:59 PM CDT Hospital Encounter [facility] Emergency, Room R Discharge Disposition: Discharge to home or self care 01/12/20 25 9:44 AM CDT - 01/12/20 25 12:06 PM CDT Emergency [facility] Emergency Department [address] [place] [address] Discharge Disposition: Left without being seen 01/08/20 25 2:45 PM CDT - 01/10/20 25 2:55 PM CDT Hospital Encounter [address] [address] Sandi Hull MD Kheirkhahan, Nazanin, MD Sargsyan, Narine, MD Abdominal pain (Primary Dx); Duodenitis Discharge Disposition: Discharge to home or self care 01/09/20 25 Results Follow-Up [facility] Gastroenterology at [place] [address] [facility] [address] [place] [phone] Luana Delgado MD 01/08/20 2:16 PM CDT - 01/08/20 11:59 PM CDT Hospital Encounter [facility] Emergency, Room R Discharge Disposition: Discharge to home or self care 01/08/20 10:56 AM CDT Anesthesia Event [address] [address] Young Connor MD 01/08/20 10:25 AM CDT - 01/08/20 11:00 AM CDT Surgery [address] [address] Luana Delgado MD ESOPHAGOGASTRODUODENOSCOPY BIOPSY 01/08/20 9:34 AM CDT - 01/08/20 12:08 PM CDT Hospital Encounter [address] [address] Luana Delgado MD Epigastric pain Discharge Disposition: Discharge to home or self care 01/06/[address] [facility] Gastroenterology at [address] [place] [address] Serina Martinez MA 01/05/20 Orders Only [facility] [address] [place] [phone] Jeffrey Ashraf MD Hepatitis C virus infection without hepatic coma, unspecified chronicity (Primary Dx); Chronic hepatitis C without hepatic coma (HCC) 01/04/20 2:52 PM CDT - 01/04/20 3:47 PM CDT Emergency [facility] Emergency Department [address] [place] [address] Ananda Abdi MD Abdominal pain (Primary Dx) Discharge Disposition: Discharge to home or self care 01/02/[address] [facility] Gastroenterology at [address] [place] [address] Bonita Schrader 01/01/20 11:24 AM CDT - 01/01/20 2:42 PM CDT Emergency [facility] Emergency Department [address] [place] [address] Amie Bowen DO Abdominal pain (Primary Dx) Discharge Disposition: Discharge to home or self care 12/31/19 3:29 PM CDT - 12/31/19 3:37 PM CDT Emergency [facility] Emergency Department [address] [place] [address] Discharge Disposition: Left without being seen 12/31/19 25 - 12/31/19 1:06 PM CDT Emergency [facility] Emergency Department [address] [place] [address] Discharge Disposition: ED Dismiss - Never Arrived 12/28/19 11:51 AM CDT - 12/28/19 4:27 PM CDT [facility] Emergency Department [address] [place] [address] Clyde Chester MD Abdominal pain (Primary Dx) Discharge Disposition: Discharge to home or self care 12/26/19 6:46 PM CDT - 12/27/19 4:24 PM CDT [facility] Medical Care [address] [place] [address] Timothy Aviles MD Sargsyan, Narine, MD Abdominal pain (Primary Dx) Discharge Disposition: Left Against Medical Advice 12/25/19 11:39 PM CDT - 12/26/19 3:13 AM CDT Emergency [facility] Emergency Department [address] [place] [address] Ole Parham MD Abdominal pain (Primary Dx) Discharge Disposition: Discharge to home or self care 12/25/19 5:09 PM CDT - 12/25/19 8:38 PM CDT Emergency [facility] Emergency Department [address] [place] [address] Alexander Martino MD Chronic abdominal pain (Primary Dx) Discharge Disposition: Discharge to home or self care 12/24/19 Results Follow-Up [facility] Gastroenterology at [address] [place] [address] Deya Cowan MA 12/22/19 11:00 AM CDT - 12/22/19 1:45 PM CDT [facility] Emergency Department [address] [place] [address] Alexander Martino MD Chronic abdominal pain (Primary Dx) Discharge Disposition: Discharge to home or self care 12/21/19 25 6:34 AM CDT - 12/22/19 25 9:19 AM CDT Hospital Encounter [facility] Surgery Care [address] [place] [address] Anya Rae MD Nikolic, Jelena, MD Singh, Supriya, MD Intractable abdominal pain (Primary Dx); Abdominal wall hernia Discharge Disposition: Left Against Medical Advice 12/19/19 25 12:39 PM SLEEP TECHNOLOGIST - 12/19/19 25 3:16 PM SLEEP TECHNOLOGIST Emergency [facility] Emergency Department [address] [place] [address] Kris Howe MD Hanson, Thomas S., MD [...] 1 tablet (100 mcg total) by mouth hand salter before breakfast 11/17/19 21 Active divalproex ER [...] (08/02/2022): Added automatically from request for surgery [id number] Encounter for removal of sutures 07/18/2020 Essential [...] drink = 0.6 oz pur e alcohol) [facility] Utilities Answer Date Recorded In the past 12 months has [employer] electric, gas, oil, or water company threatened [...] often do you attend chur ch or church services? Patient declined 01/08/2025 Do you belong [...] time in the past 12 m [employer], were you homeless or living in a mcfp (including now)? No 01/08/2025 Personal Safety Answer Date Recorded Have you ever been in or are you currently in a harmful physical or emotional relationship or is someone making you feel afraid or unsafe? Denies 01/11/2025 Comments No Sex and Gender Information Value Date Recorded Sex Assigned at Not on file Legal Sex Female 12:54 AM SLEEP TECHNOLOGIST Gender Identity Not on file Sexual Orientation [...] CDT ECG 12-LEAD Routine 12/20/2024 12:38 AM SLEEP TECHNOLOGIST EGFR STAT 12/20/2024 12:35 AM SLEEP TECHNOLOGIST DIFFERENTIAL AUTO STAT 12/20/2024 12:35 AM SLEEP TECHNOLOGIST COMPREHENSIVE METABOLIC PANEL STAT 12:35 AM SLEEP TECHNOLOGIST CBC WITH AUTO DIFFERENTIAL STAT 12/20 12:35 AM SLEEP TECHNOLOGIST LIPASE STAT 12/20/2024 12:35 AM SLEEP TECHNOLOGIST US RUQ ED 12/18/2024 2:15 PM SLEEP TECHNOLOGIST EGFR STAT 12/18/2024 12:58 PM SLEEP TECHNOLOGIST DIFFERENTIAL AUTO STAT 12/18/2024 12:58 PM SLEEP TECHNOLOGIST LIPASE STAT 12/18/2024 12:58 PM SLEEP TECHNOLOGIST COMPREHENSIVE METABOLIC PANEL STAT 12:58 PM SLEEP TECHNOLOGIST CBC WITH AUTO DIFFERENTIAL STAT 12/18 12:58 PM SLEEP TECHNOLOGIST COLONOSCOPY 09/27/2022 9:23 AM SLEEP TECHNOLOGIST from Last 3 Months or Most Recently [...] BLOOD ORDERABLES Final Res ult [facility] ([place]) 1 [facility] [place] [address] * eGFR (01/11/2025 11:03 AM CDT) eGFR [...] BLOOD ORDERABLES Final Res ult [facility] ([place]) 1 [facility] [place] [address] * (ABNORMAL) Differential, auto (01/11/2025 11:03 AM CDT) Neutrophil abs 9.4(H) 1.5 - 6.5 K/cumm Imm gran abs 0.1 0.0 - 0.1 K/cumm [facility] ([place]) Lymphocyte abs 3.9(H) 0.8 - 3.3 K/cumm [facility] ([place]) Monocyte abs 0.7 0.2 - 0.8 K/cumm [facility] ([place]) Eosinophil abs 0.1 0.0 - 0.5 K/cumm [facility] ([place]) Basophil abs 0.1 0.0 - 0.1 K/cumm [facility] ([place]) Neutrophil pct 65.9 % [facility] ([place]) Comment: Interpretive Data Percent cell count reference ranges are not reported, since discordance with absolute values may lead to misinterpretation of CBC data. Current Interpretive Data was last revised on 2018. Imm gran pct 0.4 % [facility] ([place]) Comment: Interpretive Data Percent cell count reference ranges are not reported, since discordance with absolute values may lead to misinterpretation of CBC data. Current Interpretive Data was last revised on 2018. Lymphocyte pct 27.0 % [facility] ([facility]) Comment: Interpretive Data Percent cell count reference ranges are not reported, since discordance with absolute values may lead to misinterpretation of CBC data. Current Interpretive Data was last revised on 2018. Monocyte pct 5.1 % [facility] ([place]) Comment: Interpretive Data Percent cell count reference ranges are not reported, since discordance with absolute values may lead to misinterpretation of CBC data. Current Interpretive Data was last revised on 2018. Eosinophil pct 0.8 % [facility] ([facility]) Comment: Interpretive Data Percent cell count reference [...] Final Res ult [facility] ([place]) 1 [facility] [place] [address] * (ABNORMAL) CBC with auto differential (01/11/2025 [...] Final Res ult [facility] ([place]) 1 [facility] [place] [address] * Lipase (01/11/2025 11:03 AM CDT) Lipase 21 10 - 99 Units/L Blood Venous blood specimen / Unknown 01/11/2025 11:03 AM CDT 01/11/2025 11:08 AM CDT Ananda Abdi MD LAB BLOOD ORDERABLES Final Res ult Performing Organization Address City/[facility] Co de Phone Number [facility] ([place]) 1 [facility] [place] [address] * Comprehensive metabolic panel (01/11/2025 11:03 AM [...] MD LAB BLOOD ORDERABLES Final Res ult [facility] ([place]) 1 [facility] Department of Laboratories [place] [id number] * Urinalysis reflex to microscopic and culture [...] tendency for uric acid stone formation. Source: [facility] [employer] Current Interpretive Data was last revised on [...] Leukocyte esterase, ur Negative Negative [facility] ([place]) UA reflex comment Reflex conditions for microscopic UA and culture not met. [facility] ([place]) Urine 01/11/2025 10:3 4 AM CDT 01/11/2025 10:39 AM CDT Ananda Abdi MD LAB MICROBIOLOGY - GENERAL ORD ERABLES Final Result Performing Organization Address City/[facility] Co de Phone Number [facility] ([place]) 1 [facility] Department [place] [employer] [place] [address] * ECG 12 lead (01/11/2025 10:10 AM CDT) 01/11/2025 10:[address] [facility] - 01/11/2025 12:25 PM CDT Vent Rate: 69 bpm RR Interval: 859 msec CA Interval: 0 msec QRS Duration: 98 msec QT Interval: 400 msec QTC Interval: 420 msec P-R-T [place]: [address] - 45 - 9 degrees IMPRESSION: Baseline artifact, probable sinus rhythm ABNORMAL RHYTHM ECG NO CHANGE FROM PREVIOUS TRACING NOTED Electronically Signed By: Brian Venegas MD Ananda Abdi MD ECG ORDERABLES Final Result Performing Organization Address [facility] Co de Phone Number [facility] * POCT glucose (01/09/2025 11:57 AM CDT) Glucose, POC 153 70 - 199 mg/dL Blood 01/09/2025 11:5 7 AM CDT 01/09/2025 11:57 AM CDT Meredith Eisenberg MD LAB POCT ORDERABLES - DEVICE Final Result Performing Organization Address City/[facility]/ZIP Co de Phone Number [facility] ([place]) 1 [facility] Department [place] [employer] [address] * POCT glucose (01/09/2025 8:12 AM CDT) Glucose, POC 103 70 - 199 mg/dL Blood 01/09/2025 8:12 AM CDT 01/09/2025 8:12 AM CDT Meredith Eisenberg MD LAB POCT ORDERABLES - DEVICE Final Result Performing Organization Address City/[facility]/ZIP Co de Phone Number [facility] ([place]) 1 [facility] [place] [address] * POCT glucose (01/09/2025 4:07 AM CDT) Glucose, POC 115 70 - 199 mg/dL Blood 01/09/2025 4:07 AM CDT 01/09/2025 4:07 AM CDT Meredith Eisenberg MD LAB POCT ORDERABLES - DEVICE Final Result Performing Organization Address [facility] de Phone Number [facility] ([place]) [address] [facility] [place] [address] * eGFR (01/09/2025 3:57 AM CDT) eGFR [...] Fi nal Result [facility] ([place]) 1 [facility] [place] [address] * (ABNORMAL) Differential, auto (01/09/2025 3:57 AM [...] ORDERABLES nal Result [facility] ([place]) 1 [facility] Department [place] [address] * CBC with auto differential (01/09/2025 3:57 [...] Fi nal Result [facility] ([place]) 1 [facility] [place] [address] * Magnesium (01/09/2025 3:57 AM CDT) Magnesium 1.8 1.4 - 2.5 mg/dL Blood 01/09/2025 3:57 AM CDT 01/09/2025 4:06 AM CDT Juan Ramirez MD LAB BLOOD ORDERABLES Fi nal Result Performing Organization Address [facility] Co de Phone Number [facility] ([place]) [address] [facility] [place] [address] * (ABNORMAL) Comprehensive metabolic panel (01/09/2025 3:57 AM CDT) Sodium 141 135 - 145 mmol/L Potassium, pl 3.8 3.3 - 4.9 mmol/L [facility] ([place]) Chloride 109 97 - 110 mmol/L [facility] ([place]) CO2 21(L) 22 - 32 mmol/L [facility] ([place]) Anion gap 11 2 - 15 mmol/L [facility] ([place]) BUN 11 6 - 25 mg/dL [facility] ([place]) Creatinine 0.85 0.60 - 1.10 mg/dL [facility] Glucose 119 70 - 199 mg/dL [facility] ([place]) Comment: Interpretive Data Fasting glucose [...] Fi nal Result [facility] ([place]) 1 [facility] [employer] [place] [address] * POCT glucose (01/08/2025 11:57 PM CDT) Glucose, POC 84 70 - 199 mg/dL Blood 01/08/2025 11:5 7 PM CDT 01/08/2025 11:57 PM CDT Meredith [place]berg MD LAB POCT ORDERABLES - DEVICE Final Result [facility] ([place]) 1 [facility] [employer] [address] * POCT glucose (01/08/2025 8:08 PM CDT) Glucose, POC 194 70 - 199 mg/dL Blood 01/08/2025 8:08 PM CDT 01/08/2025 8:08 PM CDT us Meredith [place]berg MD LAB POCT ORDERABLES - DEVICE Final Result [facility] ([place]) [address] [facility] [place] [address] * POCT glucose (01/08/2025 4:34 PM CDT) Glucose, POC 113 70 - 199 mg/dL Blood 01/08/2025 4:34 PM CDT 01/08/2025 4:34 PM CDT us Meredith [place]berg MD LAB POCT ORDERABLES - DEVICE Final Result [facility] ([place]) [address] [facility] [place] [address] * POCT glucose (01/08/2025 11:06 AM CDT) Glucose, POC 133 70 - 199 mg/dL Blood 01/08/2025 11:0 6 AM CDT 01/08/2025 11:06 AM CDT us Meredith Eisenberg MD LAB POCT ORDERABLES - DEVICE Final Result [facility] ([place]) [address] [facility] [place] [address] * POCT glucose (01/08/2025 9:00 AM CDT) Glucose, POC 153 70 - 199 mg/dL Blood 01/08/2025 9:00 AM CDT 01/08/2025 9:00 AM CDT us Meredith Eisenberg MD LAB POCT ORDERABLES - DEVICE Final Result [facility] ([place]) [address] [facility] [place] [address] * eGFR (01/08/2025 4:48 AM CDT) Pathologist [facility] eGFR >90 >=60 mL/min/1. 73 m2 Comment: [...] ORDERABLES nal Result [facility] ([place]) 1 [facility] Department [place] [address] * (ABNORMAL) CBC with auto differential (01/08/2025 4:48 AM CDT) Pathologist [facility] WBC 7.8 3.8 - 9.9 K/cumm Hgb [...] NRBC abs 0.00 0.00 - 0.01 K/cumm [facility] Blood 01/08/2025 4:48 AM CDT 01/08/2025 6:08 AM CDT us Juan Ramirez MD LAB BLOOD ORDERABLES Fi nal Result [facility] 1 [facility] Department [place] [address] * (ABNORMAL) Manual Differential (01/08/2025 4:48 AM [...] ([place]) RBC morphology Consistent with RBC Indicies [facility] ([place]) Platelet estimate Adequate [facility] ([place]) Blood 01/08/2025 4:48 AM CDT 01/08/2025 6:08 AM CDT Juan Ramirez MD LAB BLOOD ORDERABLES Fi nal Result [facility] ([place]) [address] [facility] [place] [address] * Magnesium (01/08/2025 4:48 AM CDT) Magnesium 1.9 1.4 - 2.5 mg/dL Blood 01/08/2025 4:48 AM CDT 01/08/2025 6:08 AM CDT Juan Ramirez MD LAB BLOOD ORDERABLES Fi nal Result Performing Organization Address [facility] Co de Phone Number [facility] ([place]) [address] [facility] [place] [address] * (ABNORMAL) Comprehensive metabolic panel (01/08/2025 4:48 AM CDT) Sodium 138 135 - 145 mmol/L Potassium, pl 4.6 3.3 - 4.9 mmol/L [facility] Chloride 106 97 - 110 mmol/L [facility] ([place]) CO2 19(L) 22 - 32 mmol/L [facility] ([place] Anion gap 13 2 - 15 mmol/L [facility] ([place]) BUN 10 6 - 25 mg/dL [facility] ([place]) Creatinine 0.64 0.60 - 1.10 [...] Fi nal Result [facility] ([place]) 1 [facility] [employer] [place] [address] * POCT glucose (01/08/2025 4:15 AM CDT) Glucose, POC 137 70 - 199 mg/dL Blood 01/08/2025 4:15 AM CDT 01/08/2025 4:15 AM CDT Megan Sinclair MD LAB POCT ORDERABLES - DEV ICE Final Result [facility] 1 [facility] [employer] [place] [address] * POCT glucose (01/08/2025 12:03 AM CDT) Glucose, POC 140 70 - 199 mg/dL Blood 01/08/2025 12:0 3 AM CDT 01/08/2025 12:03 AM CDT Megan Sinclair MD LAB POCT ORDERABLES - DEV ICE Final Result [facility] ([place]) 1 [facility] [place] [address] * POCT glucose (01/07/2025 9:27 PM CDT) Glucose, POC 86 70 - 199 mg/dL Blood 01/07/2025 9:27 PM CDT 01/07/2025 9:27 PM CDT Megan Sinclair MD LAB POCT ORDERABLES - DEV ICE Final Result Performing Organization Address [facility] Co de Phone Number [facility] ([place]) [address] [facility] [place] [address] * Troponin T high-sensitivity 6-hour (01/07/2025 8:50 PM CDT) Trop T hs 9 <=14 ng/L Comment: Interpretive Data For further hscTnT resources including the diagnostic algorithm and an aid in interpretation, copy and paste this link: https://nrl.testcatalog.org/show/hsTrop Current Interpretive Data last revised 2020. Trop T hs delta 0 ng/L [facility] ([place]) Trop T hs interp Insignificant [facility] ([place]) Blood 01/07/2025 8:50 PM CDT 01/07/2025 8:57 PM CDT Ananda Abdi MD LAB BLOOD ORDERABLES Final Res ult [facility] ([place]) 1 [facility] [place] [address] * Troponin T high-sensitivity 2-hour (01/07/2025 4:52 [...] Final Res ult [facility] ([place]) 1 [facility] [place] [address] * (ABNORMAL) Urinalysis reflex to microscopic and [...] tendency for uric acid stone formation. Source: [facility] [employer] Current Interpretive Data was last revised on [...] GENERA L ORDERABLES Final Result [facility] ([place]) 1 [facility] [place] [address] * CT Chest Abdomen Pelvis W Contrast [...] Vanessa Roy M.D. FT: FT Report ID: [id number] Reading Location: [id number] Procedure Note Vanessa Mccann MD - 01/07/2025 [...] Vanessa Roy M.D. FT: FT Report ID: [id number] Reading Location: [id number] us Sandi Hull MD IMG CT PROCEDURES Final R esult * ECG 12 lead (01/07/2025 2:58 PM CDT) 01/07/2025 2:58 PM CDT [facility] - 01/07/2025 4:16 PM CDT Vent Rate: 63 bpm RR Interval: 942 msec CA Interval: 192 msec QRS Duration: 101 msec QT Interval: 415 msec QTC Interval: 423 msec P-R-T [place]: 24 - 74 - 58 degrees IMPRESSION: Baseline artifact, probable SINUS RHYTHM MINIMAL ST DEPRESSION [0.025+ mV ST DEPRESSION] BORDERLINE ECG NO CHANGE FROM PREVIOUS TRACING NOTED Electronically Signed By: Brian Venegas MD Sandi Hull MD ECG ORDERABLES Final Res ult [facility] * Troponin T high-sensitivity series [...] ORDERABLES Zeina l Result Performing Organization Address City/[facility]/ZIP Co de Phone Number [facility] ([place]) 1 [facility] Department of Laboratories [place], [place] [id number] * eGFR (01/07/2025 2:52 PM CDT) eGFR [...] BLOOD ORDERABLES Final Res ult [facility] ([place]) 1 [facility] [place] [address] * (ABNORMAL) Differential, auto (01/07/2025 2:52 PM [...] Final Res ult [facility] ([place]) 1 [facility] [place] [address] * (ABNORMAL) CBC with auto differential (01/07/2025 [...] RDW SD 40.8 35.7 - 48.1 fL [facility] ([place]) NRBC abs 0.00 0.00 - 0.01 K/cumm [facility] ([place]) Blood Venous blood specimen / Unknown 01/07/2025 2:52 PM CDT 01/07/2025 2:58 PM CDT Sandi Hull MD LAB BLOOD ORDERABLES Zeina l Result [facility] ([place]) [address] [facility] [place] [address] * Lipase (01/07/2025 2:52 PM CDT) Pathologist [facility] Lipase 30 10 - 99 Units/L Blood Venous blood specimen / Unknown 01/07/2025 2:52 PM CDT 01/07/2025 2:58 PM CDT Sandi Hull MD LAB BLOOD ORDERABLES Zeina l Result Performing Organization Address City/[facility]/ZIP Co de Phone Number [facility] ([place]) [address] [facility] [place] [address] * Comprehensive metabolic panel (01/07/2025 2:52 PM CDT) Sodium 140 135 - 145 mmol/L Potassium, pl 4.4 3.3 - 4.9 mmol/L [facility] ([place]) Chloride 103 97 - 110 mmol/L [facility] ([place]) CO2 23 22 - 32 mmol/L [facility] ([place]) Anion gap 14 2 - 15 mmol/L [facility] ([place]) BUN 13 6 - 25 mg/dL [facility] ([place]) Creatinine 0.87 0.60 - 1.10 mg/dL [facility] ([place]) Glucose 148 70 - 199 mg/dL [facility] ([place]) Comment: Interpretive Data Fasting glucose [...] 9.5 8.5 - 10.3 mg/dL [facility] ([place]) Bilirubin, total 0.2 0.1 - 1.2 mg/dL [...] MD LAB BLOOD ORDERABLES Zeina danielle Result [facility] ([place]) [address] [place] [address] [place] [address] * Surgical pathology (01/07/2025 2:22 PM CDT) Tissue specimen (specimen) (Duodenum, Biopsy) 01/07/2025 11:15 AM CDT Tissue specimen (specimen) (Gastric/Stomach biopsy) 01/07/2025 11:16 AM CDT Tissue specimen (specimen) (EG Junction, Biopsy) 01/07/2025 11:17 AM CDT Narrative PATHOLOGY [facility] ([place]) - 01/08/2025 3:36 PM CDT EPIC results best viewed via link to PDF [facility] Department of Pathology [address] [place] [id number] Note to Patients: This report may contain [...] Final Report Patient Name: AYALA JAUREGUI Address: [address] [place] [address]- Gender: F : 1960 (Age: 64) Service: Gastro Location: [facility] Hospital #: [id number] Patient Type: [facility] Taken: 01/07/2025 Received: 01/07/2025 Accessioned: 01/07/2025 [...] determined by the Surgical Pathology Department at [facility] as part of an ongoing water quality tester program and in compliance with federally mandated [...] characteristics determined by the Surgical Pathology Department [facility]. It has not been cleared or approved by the U. S. Food and Drug Administration. Note for decalcified specimens: This assay has not been validated on decalcified tissues. Results should be interpreted with caution given the possibility of false negativity on decalcified specimens Luana Delgado MD LAB PATHOLOGY ORDERABLES Final R esult [facility]Y [facility] ([place]) [address] [place] [address] * POCT glucose (01/07/2025 10:18 AM CDT) Glucose, POC 98 70 - 199 mg/dL Blood 01/07/2025 10:1 8 AM CDT 01/07/2025 10:18 AM CDT us Luana Delgado MD LAB POCT ORDERABLES - DEVICE Fin al Result Performing Organization Address [facility] [facility] Co de Phone Number [facility] ([place]) 1 [facility] [place] [address] * EGD (01/07/2025 10:11 AM CDT) Anatomical Region Laterality Modality Other Narrative Procedure Note Luana Delgado MD - 01/07/2025 10:11 AM CDT [facility] Patient Name: Ayala Jauregui Procedure Date: 01/07/2025 10:11 AM Date of : 1960 Admit Type: Outpatient Age: 64 Gender: Female Attending MD: Luana Delgado M.D. Room: [facility] ENDOSCOPY ROOM 2 Note Status: Finalized [...] procedure were verified by the physician, the cage maker and the process mold technician in the endoscopy suite. Mental Status [...] passed under direct vision. The Endoscope [id number] was introduced through the mouth, and advanced [...] 10:11 AM Procedure Code(s): --- Professional --- 26048, Esophagogastroduodenoscopy, flexible, transoral; with biopsy, single or multiple --- Technical --- 24933, Esophagogastroduodenoscopy, flexible, transoral; with biopsy, single or [...] Nausea with vomiting, unspecified CPT copyright 2020 [employer]. All rights reserved. The codes documented in this report are preliminary and upon television reporter reviewmay be revised to meet current compliance requirements. Recognized by the [employer] for promoting quality [...] for uric acid stone formation. Source: [employer] Current Interpretive Data was last revised on [...] ORDERABLES Final Result [facility] ([place]) 1 [facility] [place] [address] * eGFR (12/31/2024 12:28 PM CDT) Pathologist [facility] eGFR 75 >=60 mL/min/1. 73 m2 Comment: [...] LAB BLOOD ORDERABLES Zeina l Result [facility] ([place]) 1 [facility] Department [place] [address] * Differential, auto (12/31/2024 12:28 PM CDT) Pathologist [facility] Neutrophil abs 4.9 1.5 - 6.5 K/cumm [...] Zeina danielle Result [facility] ([place]) 1 [facility] [place] [address] * (ABNORMAL) CBC with auto differential (12/31/2024 [...] ORDERABLES Zeina l Result Performing Organization Address City/[facility] Co de Phone Number [facility] ([place]) 1 [facility] [employer] [address] * Lipase (12/31/2024 12:28 PM CDT) Pathologist [facility] Lipase 20 10 - 99 Units/L Blood 12/31/2024 12:2 8 PM CDT 12/31/2024 12:30 PM CDT Rose GUY LAB BLOOD ORDERABLES Zeina l Result Performing Organization Address City/[facility]/ZIP Co de Phone Number [facility] ([place]) 1 [facility] [place] [address] * Comprehensive metabolic panel (12/31/2024 12:28 PM [...] Zeina danielle Result [facility] [place]) 1 [facility] [place] [address] * CT Chest PE (CTA) Abdomen Pelvis [...] Massimo Velasco M.D. KR: JACKELINE Report ID: [id number] Reading Location: [place] [address] Procedure Note Massimo Velasco MD - 12/27/2024 [...] Massimo Velasco M.D. KR: JACKELINE Report ID: [id number] Reading Location: [place] [address] Clyde Chester MD IMG CT PROCEDURES Final Res ult * (ABNORMAL) Sepsis Lactate w/ Reflex (12/27/2024 12:26 PM CDT) Sepsis Lactate 2.4(H) 0.7 - 2.0 mmol/L Blood 12/27/2024 12:2 6 PM CDT 12/27/2024 12:29 PM CDT Clyde Chester MD LAB BLOOD ORDERABLES Final Result [facility] ([place]) 1 [facility] [place] [address] * eGFR (12/27/2024 12:26 PM CDT) Pathologist [facility] eGFR 69 >=60 mL/min/1. 73 m2 Comment: [...] Chester MD LAB BLOOD ORDERABLES Final Result [facility] ([place]) 1 [facility] Department [place] [address] * (ABNORMAL) Differential, auto (12/27/2024 12:26 PM CDT) Pathologist [facility] Neutrophil abs 7.0(H) 1.5 - 6.5 K/cumm [...] ORDERABLES Final Result [facility] ([place]) 1 [facility] [place] [address] * (ABNORMAL) CBC with auto differential (12/27/2024 12:26 PM CDT) WBC 11.6(H) 3.8 - 9.9 K/cumm Hgb 14.9 11.9 - 15.5 g/dL [facility] Hct 45.7(H) 35.6 - 45.5 [...] RDW CV 13.9 11.1 - 14.9 % [facility] RDW SD 42.9 35.7 - 48.1 fL [facility] NRBC abs 0.00 0.00 - 0.01 K/cumm [facility] Blood 12/27/2024 12:2 6 PM CDT 12/27/2024 12:29 PM CDT Clyde Chester MD LAB BLOOD ORDERABLES Final Result [facility] ([place]) 1 [facility] Department [place] [address] * (ABNORMAL) D-dimer, quantitative (12/27/2024 12:26 PM CDT) D-Dimer 612(H) <=499 ng/mL FEU [facility] Comment: Interpretive data FDA approved [...] BLOOD ORDERABLES Final Result Performing Organization Address [facility]/ZIP Co de Phone Number [facility] ([place]) 1 [facility] [place] [address] * CRP (acute phase) (12/27/2024 12:26 PM CDT) CRP 4.4 <=10.0 mg/L Blood 12/27/2024 12:2 6 PM CDT 12/27/2024 12:29 PM CDT Clyde Chester MD LAB BLOOD ORDERABLES Final Result Performing Organization Address [facility] de Phone Number [facility] ([place]) 1 [facility] [place] [address] * Comprehensive metabolic panel (12/27/2024 12:26 PM [...] ORDERABLES Final Result [facility] ([place]) 1 [facility] Department [place] [address] * XR Abdomen 2 Views W Chest [...] Massimo Velasco M.D. KR: JACKELINE Report ID: [id number] Reading Location: [id number] Procedure Note Massimo Velasco MD - 12/27/2024 [...] Massimo Velasco M.D. KR: JACKELINE Report ID: [id number] Reading Location: [id number] us Clyde Chester MD IMG XR PROCEDURES [...] tendency for uric acid stone formation. Source: [facility] [employer] Current Interpretive Data was last revised on [...] ORDERABLES Final Result [facility] ([place]) 1 [facility] Department [place] [address] * (ABNORMAL) Drugs of Abuse Screen, Urine [...] LAB URINE ORDERABLES Final Result [facility] ([place]) 1 [facility] [place] [address] * ECG 12 lead (12/27/2024 12:09 PM CDT) 12/27/2024 12:0 9 PM CDT Narrative [facility] - 12/28/2024 7:02 AM CDT Vent Rate: 65 bpm RR Interval: 916 msec CA Interval: 185 msec QRS Duration: 97 msec QT Interval: 410 msec QTC Interval: 422 msec P-R-T [place]: 76 - 62 - 59 degrees IMPRESSION: Baseline artifact, probable SINUS RHYTHM NORMAL ECG NO CHANGE FROM PREVIOUS TRACING NOTED Electronically Signed By: Brian Venegas MD us Clyde Chester MD ECG ORDERABLES Final Resul t [facility] * POCT glucose (12/26/2024 12:28 PM CDT) Glucose, POC 84 70 - 199 mg/dL Blood 12/26/2024 12:2 8 PM CDT 12/26/2024 12:28 PM CDT us Meredith Eisenberg MD LAB POCT ORDERABLES - DEVICE Final Result [facility] ([place]) 1 [facility] [place] [address] * Troponin T high-sensitivity 6-hour (12/26/2024 2:05 [...] BLOOD ORDERABLES Zeina l Result [facility] ([place]) 1 [facility] Department [place] [address] * eGFR (12/26/2024 2:05 AM CDT) eGFR [...] BLOOD ORDERABLES Zeina l Result [facility] ([place]) 1 [facility] Department [place] [address] * (ABNORMAL) Differential, auto (12/26/2024 2:05 AM [...] Lymphocyte pct 49.5 % [facility] ([place]) Comment: Interpretive Data Percent cell count reference [...] BLOOD ORDERABLES Zeina l Result [facility] ([place]) 1 [facility] Department [place] [address] * (ABNORMAL) CBC with auto differential (12/26/2024 2:05 AM CDT) WBC 8.1 3.8 - 9.9 K/cumm Hgb 13.8 11.9 - 15.5 g/dL [facility] Hct 44.2 35.6 - 45.5 % [facility] ([place] Plt 153 150 - 400 K/cumm [facility] ([place]) MPV 11.4 9.1 - 12.3 fL [facility] ([place]) RBC 5.10 3.90 - 5.20 M/cumm [facility] ([place]) MCV 86.7 81.3 - 96.4 fL [facility] MCH 27.1 27.1 - 33.3 pg [facility] MCHC 31.2(L) 32.3 - 35.7 g/dL [facility] RDW CV 14.2 11.1 - 14.9 % [facility] RDW SD 45.2 35.7 - 48.1 fL [facility] NRBC abs 0.00 0.00 - 0.01 K/cumm [facility] Blood 12/26/2024 2:05 AM CDT 12/26/2024 3:01 AM CDT us Rose GUY LAB BLOOD ORDERABLES Zeina l Result [facility] ([place]) 1 [facility] Department [place] [address] * (ABNORMAL) Comprehensive metabolic panel (12/26/2024 2:05 AM CDT) Pathologist [facility] Sodium 139 135 - 145 mmol/L Potassium, pl 4.6 3.3 - 4.9 mmol/L [facility] Chloride 102 97 - 110 mmol/L [facility]) CO2 23 22 - 32 mmol/L [facility] ([place]) Anion gap 14 2 - 15 mmol/L [facility] BUN 11 6 - 25 [...] GUY LAB BLOOD ORDERABLES Zeina l Result [facility] 1 [facility] Department [place] [address] * POCT glucose (12/26/2024 1:35 AM CDT) [facility] Signature Glucose, POC 88 70 - 199 mg/dL Blood 12/26/2024 1:35 AM CDT 12/26/2024 1:35 AM CDT us Timothy Aviles MD LAB POCT ORDERABLES - DEVICE Fi nal Result [facility] ([place]) 1 [facility] [place] [address] * (ABNORMAL) Troponin T high-sensitivity 4-hour (12/25/2024 11:38 PM CDT) Trop T hs 15(H) <=14 ng/L Comment: Interpretive Data For further hscTnT resources including the diagnostic algorithm and an aid in interpretation, copy and paste this link: [email or web address]/show/[email or web address] Current Interpretive Data last revised 2020. Trop T hs delta 6 ng/L [facility] ([place]) Trop T hs interp Equivocal [facility] ([place]) Blood 12/25/2024 11:3 8 PM CDT 12/26/2024 12:22 AM CDT Rose GUY LAB BLOOD ORDERABLES Zeina l Result Performing Organization Address [facility]/ZIP Co de Phone Number [facility] ([place]) 1 [facility] [place] [place] [address] * Troponin T high-sensitivity series (baseline, 2hr, 4hr, 6hr) (12/25/2024 7:29 PM CDT) Trop T hs 9 <=14 ng/L Comment: Interpretive Data For further hscTnT resources including the diagnostic algorithm and an aid in interpretation, copy and paste this link: [email or web address]/show/[email or web address] Current Interpretive Data last revised 2020. Blood 12/25/2024 7:29 PM CDT 12/25/2024 7:41 PM CDT Rose GUY LAB BLOOD ORDERABLES Zeina l Result [facility] ([place]) 1 [facility] [place] [address] * ECG 12 lead (12/25/2024 7:19 PM CDT) 12/25/2024 7:19 PM CDT Narrative [facility] - 12/26/2024 8:55 AM CDT Vent Rate: 58 bpm RR Interval: 1026 msec CA Interval: 183 msec QRS Duration: 94 msec QT Interval: 430 msec QTC Interval: 427 msec P-R-T [place]: 83 - 53 - 48 degrees IMPRESSION: Baseline artifact , probable SINUS BRADYCARDIA BORDERLINE ECG NO CHANGE FROM PREVIOUS TRACING NOTED Electronically Signed By: Brian Venegas MD us Rose GUY ECG ORDERABLES Final Res ult [facility] [place] * Urinalysis reflex to microscopic and [...] tendency for uric acid stone formation. Source: [facility] Current Interpretive Data was [...] UA and culture not met. [facility] ([place]) Urine 12/25/2024 7:08 PM CDT 12/25/2024 7:10 PM CDT us Timothy Aviles MD LAB MICROBIOLOGY - GENERAL ORDE RABLES Final Result Performing Organization Address City/[facility]/ZIP Co de Phone Number [facility] ([place]) 1 [facility] Department [place] [employer] [place] [place] [address] * (ABNORMAL) eGFR (12/25/2024 3:17 PM CDT) [...] Final Resu lt [facility] ([place]) 1 [facility] Department [place] [place] [address] * (ABNORMAL) Differential, auto (12/25/2024 3:17 PM [...] Final Resu lt [facility] ([place]) 1 [facility] Department [place] [address] * (ABNORMAL) CBC with auto differential (12/25/2024 [...] Final Resu lt [facility] ([place]) 1 [facility] Department [place] [employer] [place] [address] * Lipase (12/25/2024 3:17 PM CDT) Lipase 16 10 - 99 Units/L Blood Venous blood specimen / Unknown 12/25/2024 3:17 PM CDT 12/25/2024 3:19 PM CDT us Timothy Aviles MD LAB BLOOD ORDERABLES Final Resu lt [facility] ([place]) 1 [facility] Department [place] [address] * Comprehensive metabolic panel (12/25/2024 3:17 PM CDT) Sodium 138 135 - 145 mmol/L Potassium, pl 4.4 3.3 - 4.9 mmol/L [facility] ([place]) Chloride 100 97 - 110 mmol/L [facility] ([place]) CO2 27 22 - 32 mmol/L [facility] ([place]) Anion gap 11 2 - 15 mmol/L [facility] ([place]) BUN 10 6 - 25 mg/dL [facility] Creatinine 1.05 0.60 - 1.10 mg/dL [facility] ([place]) Glucose 87 70 - 199 mg/dL [facility] ([place] Comment: Interpretive Data Fasting [...] Final Resu lt [facility] ([place]) 1 [facility] Department [place] [address] * (ABNORMAL) Urinalysis reflex to microscopic and [...] tendency for uric acid stone formation. Source: [facility] Current Interpretive Data was [...] - GENERAL OR DERABLES Final Result [facility]anco[facility]) 1 [facility] [place] [address] * (ABNORMAL) Urinalysis, microscopic only (12/25/2024 1:09 AM CDT) WBC, ur 6-10(A) 0 - 5 /HPF RBC, ur 0-2 0 - 2 /HPF [facility] ([place]) Epithelial cells, squamous, ur 1-5 0 - 5 /HPF [facility] ([place]) Bacteria, ur Trace(A) [facility] ([place]) Mucous, ur Present(A) [facility] ([place]) Hyaline casts, ur 1-5 0 - 10 /LPF [facility] ([place]) Culture Reflex Comment Reflex conditions for urine culture (WBC >10) not met. [facility] ([place]) Urine 12/25/2024 1:09 AM CDT 12/25/2024 1:12 AM CDT us Ole Parham MD LAB URINE ORDERABLES Final Re sult Performing Organization Address City/[facility] Co de Phone Number [facility] ([place]) 1 [facility] [place] [address] * eGFR (12/24/2024 10:18 PM CDT) eGFR [...] MD LAB BLOOD ORDERABLES Final Re sult [facility] 1 [facility] [place] [address] * (ABNORMAL) Differential, auto (12/24/2024 10:18 PM [...] Final Re sult [facility] ([place]) 1 [facility] [place] [address] * (ABNORMAL) CBC with auto differential (12/24/2024 [...] ([place]) MCHC 32.0(L) 32.3 - 35.7 g/dL [facility] RDW CV 14.0 11.1 - 14.9 % [facility] RDW SD 43.1 35.7 - 48.1 fL [facility] ([place] NRBC abs 0.00 0.00 - 0.01 K/cumm [facility] Blood Venous blood specimen / Unknown 12/24/2024 10:18 PM CDT 12/24/2024 10:20 PM CDT Ole Parham MD LAB BLOOD ORDERABLES Final Re sult [facility] ([place]) 1 [facility] Department [place] [employer] [place] [address] * Lipase (12/24/2024 10:18 PM CDT) Pathologist [facility] Lipase 14 10 - 99 Units/L Blood Venous blood specimen / Unknown 12/24/2024 10:18 PM CDT 12/24/2024 10:20 PM CDT Ole Parham MD LAB BLOOD ORDERABLES Final Re sult [facility] ([place] 1 [facility] [place] [address] * Comprehensive metabolic panel (12/24/2024 10:18 PM CDT) Sodium 135 135 - 145 mmol/L Potassium, pl 4.4 3.3 - 4.9 mmol/L [facility] ([place]) Chloride 100 97 - 110 mmol/L [facility] ([place]) CO2 23 22 - 32 mmol/L [facility] ([place]) Anion gap 13 2 - 15 mmol/L [facility] ([place]) BUN 11 6 - 25 mg/dL [facility] ([place]) Creatinine 0.86 0.60 - 1.10 mg/dL [facility] ([place]) Glucose 107 70 - 199 mg/dL [facility] ([place]) Comment: Interpretive Data Fasting [...] 2022. Calcium 9.1 8.5 - 10.3 mg/dL [facility] ([place]) Bilirubin, total 0.3 0.1 - 1.2 mg/dL [facility] ([place]) Protein, pl 6.7 6.5 - 8.5 g/dL [facility] ([place]) Albumin 4.1 3.5 - 5.0 g/dL [facility] Alk phos 83 40 - 130 Units/L [facility] ([place]) ALT 10 7 - 45 Units/L [facility] ([place]) AST 12 10 - 45 Units/L [facility] Comment:Slightly Hemolyzed S pecimen Blood 12/24/2024 10:1 8 PM CDT 12/24/2024 10:20 PM CDT us Ole Parham MD LAB BLOOD ORDERABLES Final Re sult [facility] ([place]) 1 [facility] Department [place] [address] * (ABNORMAL) Urinalysis reflex to microscopic and culture Urine (12/24/2024 7:18 PM CDT) Color, ur Yellow Yellow Clarity, ur Clear Clear [facility] ([place]) Specific gravity, ur 1.016 1.003 - 1.030 [facility] ([place]) pH, urine 6.0 [facility] ([place]) Comment: Interpretive Data U rine pH is affected by diet, medications, systemic acid-base disturbances, and renal tubular function. pH may affect urinary stone formation. For example, urine pH below 6.0 may help reduce the tendency for calcium phosphate stones and pH greater than 6.0 may reduce the tendency for uric acid stone formation. Source: [facility] [employer] Current Interpretive Data was last revised on [...] GENERAL O RDERABLES Final Result [facility] ([place]) 1 [facility] [place] [address] * (ABNORMAL) Urinalysis, microscopic only (12/24/2024 7:18 [...] URINE ORDERABLES Final R esult [facility] ([place]) 1 [facility] [place] [address] * eGFR (12/24/2024 4:43 PM CDT) eGFR [...] ORDERABLES Final R esult Performing Organization Address City/[facility]/ZIP Co de Phone Number [facility] ([place]) 1 [facility] Department [place] [address] * (ABNORMAL) Differential, auto (12/24/2024 4:43 PM [...] BLOOD ORDERABLES Final R esult [facility] ([place]) 1 [facility] [place] [address] * (ABNORMAL) CBC with auto differential (12/24/2024 [...] NRBC abs 0.00 0.00 - 0.01 K/cumm [facility] Blood Venous blood specimen / Unknown 12/24/2024 4:43 PM CDT 12/24/2024 5:19 PM CDT Alexander Martino MD LAB BLOOD ORDERABLES Final R esult Performing Organization Address City/[facility] Co de Phone Number [facility] ([place]) 1 [facility] Department [place] [address] * Lipase (12/24/2024 4:43 PM CDT) Lipase 13 10 - 99 Units/L Blood Venous blood specimen / Unknown 12/24/2024 4:43 PM CDT 12/24/2024 5:19 PM CDT Alexander Martino MD LAB BLOOD ORDERABLES Final R esult Performing Organization Address City/[facility]/ZIP Co de Phone Number [facility] ([place]) 1 [facility] Department [place] [address] * (ABNORMAL) Comprehensive metabolic panel (12/24/2024 4:43 [...] ORDERABLES Final R esult Performing Organization Address City/[facility] Co de Phone Number [facility] ([place]) 1 [facility] [place] [employer] [place] [address] * eGFR (12/21/2024 11:24 AM CDT) eGFR [...] ORDERABLES Final R esult Performing Organization Address City/[facility]/ZIP Co de Phone Number [facility] ([place]) 1 [facility] [place] [employer] [place] [address] * Differential, auto (12/21/2024 11:24 AM CDT) [...] Final R esult [facility] ([place]) 1 [facility] [employer] [place] [address] * (ABNORMAL) CBC with auto differential (12/21/2024 [...] Final R esult [facility] ([place]) 1 [facility] [employer] [place] [address] * Lipase (12/21/2024 11:24 AM CDT) Lipase 18 10 - 99 Units/L Blood 12/21/2024 11:2 4 AM CDT 12/21/2024 11:27 AM CDT us Alexandre Martino MD LAB BLOOD ORDERABLES Final R esult [facility] ([place]) 1 [facility] Department [place] [address] * (ABNORMAL) Comprehensive metabolic panel (12/21/2024 11:24 [...] ORDERABLES Final R esult Performing Organization Address City/[facility]/ZIP Co de Phone Number [facility] ([place]) 1 [facility] [place] [address] * POCT glucose (12/21/2024 7:24 AM CDT) Glucose, POC 99 70 - 199 mg/dL Blood 12/21/2024 7:24 AM CDT 12/21/2024 7:24 AM CDT us Love Menon MD LAB POCT ORDERABLES - DEVICE Fi nal Result Performing Organization Address [facility] Co de Phone Number [facility] ([place]) 1 [facility] [place] [employer] [place] [address] * Reflex Hepatitis C RNA, Quantitative (12/21/2024 3:28 AM CDT) Pathologist [facility] HCV RNA result Not Detected [facility] Comment: The quantifiable range of this assay is 15 IU/mL to 100,000,000 IU/mL (1.18 log IU/mL to 8.00 log IU/mL). Testing was performed by the [employer] 6800 HCV Test ([employer] Testing performed at [facility] Current Interpretive Data was last revised on 2021 Testing performed by: [facility], [address] [facility], [place]., [address] Blood 12/21/2024 3:28 AM CDT 12/22/2024 9:40 AM CDT us Nathan Monahan MD LAB BLOOD ORDERABLES Final Result Performing Organization Address City/[facility]/ZIP Co de Phone Number [facility] ([place]) [address] [place] [address] [facility] * eGFR (12/21/2024 3:28 AM CDT) eGFR [...] MD LAB BLOOD ORDERABLE S Final Result [facility] ([place]) 1 [facility] [place] [address] * (ABNORMAL) Differential, auto (12/21/2024 3:28 AM [...] S Final Result [facility] ([place]) 1 [facility] Department [place] [address] * (ABNORMAL) CBC with auto differential (12/21/2024 [...] S Final Result [facility] ([place]) 1 [facility] [place] [address] * (ABNORMAL) Hepatitis C antibody Blood (12/21/2024 3:28 AM CDT) Pathologist [facility] Hep C Ab Reactive( A) Nonreactive Comment: [...] last revised on 2019. Testing performed by: [facility], [address] [place] [address], [id number] Blood 12/21/2024 3:28 AM CDT 12/21/2024 9:03 AM CDT Nathan Monahan MD LAB MICROBIOLOGY - GENERAL ORDERABLES Final Result [facility] ([place]) [address] [facility] [place] [address] * Hepatitis B Surface Antigen Blood (12/21/2024 3:28 AM CDT) HepBsAg Nonreactive Nonreactive Comment:Testing performed by : [facility], [address] [place] [address]., [id number] Blood 12/21/2024 3:28 AM CDT 12/21/2024 9:03 AM CDT Nathan Monahan MD LAB MICROBIOLOGY - GENERAL ORDERABLES Final Result Performing Organization Address City/[facility] Co de Phone Number [facility] ([place]) 1 [place] [address] * Erythrocyte sedimentation rate (12/21/2024 3:28 AM CDT) Erythrocyte sedimentation rate 5 1 - 30 mm/hr Blood 12/21/2024 3:28 AM CDT 12/21/2024 3:38 AM CDT Nathan Monahan MD LAB BLOOD ORDERABLES Final Result [facility] ([place]) [address] [facility] [place] [address] * CRP (acute phase) (12/21/2024 3:28 AM CDT) Pathologist [facility] CRP 4.4 <=10.0 mg/L Blood 12/21/2024 3:28 AM CDT 12/21/2024 3:38 AM CDT Nathan Monahan MD LAB BLOOD ORDERABLES Final Result Performing Organization Address City/[facility]/ZIP Co de Phone Number [facility] ([place]) [address] [place] [address] * Phosphorus (12/21/2024 3:28 AM CDT) [facility] Phosphorus, pl 3.9 2.3 - 4.5 mg/dL Blood 12/21/2024 3:28 AM CDT 12/21/2024 3:38 AM CDT Amie Alonso DO LAB BLOOD ORDERABLES Fin al Result Performing Organization Address [facility] de Phone Number [facility] ([place] [address] [place] [address] * Magnesium (12/21/2024 3:28 AM CDT) [facility] Magnesium 2.0 1.4 - 2.5 mg/dL Blood 12/21/2024 3:28 AM CDT 12/21/2024 3:38 AM CDT Amie Alonso DO LAB BLOOD ORDERABLES Fin al Result Performing Organization Address [facility] de Phone Number [facility] ([place] [address] [facility] [employer] [address] * (ABNORMAL) Comprehensive metabolic panel (12/21/2024 3:28 AM CDT) Pathologist [facility] Sodium 138 135 - 145 mmol/L Potassium, pl 4.4 3.3 - 4.9 mmol/L [facility] ([place]) Chloride 103 97 - 110 mmol/L [facility] ([place]) CO2 24 22 - 32 [...] S Final Result [facility] ([place] 1 [facility] [place] [address] * POCT glucose (12/21/2024 2:23 AM CDT) Glucose, POC 95 70 - 199 mg/dL Blood 12/21/2024 2:23 AM CDT 12/21/2024 2:23 AM CDT Veda Garay MD LAB POCT ORDERABLES - DEVICE F inal Result [facility] ([place]) 1 [facility] [place] [employer] [address] * POCT glucose (12/20/2024 8:05 PM CDT) Glucose, POC 93 70 - 199 mg/dL Blood 12/20/2024 8:05 PM CDT 12/20/2024 8:05 PM CDT Veda Garay MD LAB POCT ORDERABLES - DEVICE F inal Result Performing Organization Address [facility] Co de Phone Number [facility] ([place]) 1 [facility] [place] [employer] [place] [address] * Troponin T high-sensitivity 6-hour (12/20/2024 1:32 PM CDT) Trop T hs 9 <=14 ng/L Comment: Interpretive Data For further hscTnT resources including the diagnostic algorithm and an aid in interpretation, copy and paste this link: https://nrl.testcatalog.org/show/hsTrop Current Interpretive Data last revised 2020. Trop T hs delta 1 ng/L [facility] ([place]) Trop T hs interp Insignificant [facility] ([place]) Blood 12/20/2024 1:32 PM CDT 12/20/2024 1:36 PM CDT Anya Rae MD LAB BLOOD ORDERABLE S Final Result [facility] ([place]) 1 [facility] [place] [employer] [address] * Sepsis Lactate w/ Reflex (12/20/2024 1:32 PM CDT) Sepsis Lactate 1.1 0.7 - 2.0 mmol/L Blood 12/20/2024 1:32 PM CDT 12/20/2024 1:36 PM CDT Anya Rae MD LAB BLOOD ORDERABLE S Final Result [facility] ([place]) 1 [facility] Department [place] [employer] [place] [place] [address] * Thyroid Function Mineral (12/20/2024 1:32 PM CDT) Pathologist [facility] TSH 3.85 0.30 - 4.20 mcIUnit/mL Blood 12/20/2024 1:32 PM CDT 12/20/2024 7:17 PM CDT Amie Alonso DO LAB BLOOD ORDERABLES Fin al Result Performing Organization Address [facility] de Phone Number [facility] ([place]) 1 [facility] [place] [employer] [place] [address] * Troponin T high-sensitivity 4-hour (12/20/2024 11:39 AM CDT) Pathologist [facility] Trop T hs 8 <=14 ng/L Comment: [...] ORDERABLE S Final Result Performing Organization Address City/[facility]/ZIP Co de Phone Number [facility] ([place]) [address] [place] [address] * (ABNORMAL) Sepsis Lactate w/ Reflex (12/20/2024 11:39 AM CDT) Sepsis Lactate 2.4(H) 0.7 - 2.0 mmol/L Blood 12/20/2024 11:3 9 AM CDT 12/20/2024 11:42 AM CDT us Anya Rae MD LAB BLOOD ORDERABLE S Final Result [facility] ([place] 1 [facility] [place] [address] * (ABNORMAL) Urinalysis reflex to microscopic and [...] tendency for uric acid stone formation. Source: [facility] [employer] Current Interpretive Data was last revised on [...] - GENERAL ORDERABLES Final Result [facility] ([place]) 1 [facility] [place] [address] * CT Abdomen Pelvis W Contrast (12/20/2024 [...] Whitney Ivan M.D. LL: LL Report ID: [id number] Reading Location: [id number] Procedure Note Whitney Ivan MD - 12/20/2024 [...] Whitney Ivan M.D. LL: LL Report ID: [id number] Reading Location: [place] [address] Anya Rae MD IMG CT PROCEDURES F [...] BLOOD ORDERABLE S Final Result [facility] ([place]) 1 [facility] [employer] [address] * (ABNORMAL) Sepsis Lactate w/ Reflex (12/20/2024 7:06 AM CDT) Sepsis Lactate 2.1(H) 0.7 - 2.0 mmol/L Blood 12/20/2024 7:06 AM CDT 12/20/2024 7:10 AM CDT Anya Rae MD LAB BLOOD ORDERABLE S Final Result [facility] ([place]) 1 [facility] [employer] [place] [employer] [address] * ECG 12 lead (12/20/2024 12:38 AM SLEEP TECHNOLOGIST) 12/20/2024 12:3 8 AM SLEEP TECHNOLOGIST Narrative [facility] - 12/21/2024 9:24 AM CDT Vent Rate: 52 bpm RR Interval: 1134 msec CA Interval: 187 msec QRS Duration: 86 msec QT Interval: 439 msec QTC Interval: 420 msec P-R-T [place]: 92 - 54 - 67 degrees IMPRESSION: SINUS BRADYCARDIA BORDERLINE ECG NO CHANGE FROM PREVIOUS TRACING NOTED Electronically Signed By: Brian Venegas MD Sandi Hull MD ECG ORDERABLES Final Res ult [facility] [employer] [facility] * eGFR (12/20/2024 12:35 AM SLEEP TECHNOLOGIST) eGFR 76 >=60 mL/min/1. 73 m2 Comment: [...] reviewed 2021. Blood 12/20/2024 12:3 5 AM SLEEP TECHNOLOGIST 12/20/2024 12:38 AM SLEEP TECHNOLOGIST Sandi Hull MD LAB BLOOD ORDERABLES Zeina l Result [facility] ([place]) 1 [facility] Department [place] [address] * (ABNORMAL) Differential, auto (12/20/2024 12:35 AM SLEEP TECHNOLOGIST) Neutrophil abs 3.6 1.5 - 6.5 K/cumm [...] on 2018. Blood 12/20/2024 12:3 5 AM SLEEP TECHNOLOGIST 12/20/2024 12:38 AM SLEEP TECHNOLOGIST Sandi Hull MD LAB BLOOD ORDERABLES Zeina l Result Performing Organization Address City/[facility]/ZIP Co de Phone Number [facility] ([place] 1 [facility] [employer] [place] [address] * (ABNORMAL) CBC with auto differential (12/20/2024 12:35 AM SLEEP TECHNOLOGIST) WBC 9.2 3.8 - 9.9 K/cumm Hgb [...] [facility] ([place]) Blood 12/20/2024 12:3 5 AM SLEEP TECHNOLOGIST 12/20/2024 12:38 AM SLEEP TECHNOLOGIST Sandi Hull MD LAB BLOOD ORDERABLES Zeina l Result Performing Organization Address City/[facility]/ZIP Co de Phone Number [facility] ([place] 1 [facility] [place] [employer] [place] [address] * Lipase (12/20/2024 12:35 AM SLEEP TECHNOLOGIST) Lipase 22 10 - 99 Units/L Blood 12/20/2024 12:3 5 AM SLEEP TECHNOLOGIST 12/20/2024 12:38 AM SLEEP TECHNOLOGIST us Sandi Hull MD LAB BLOOD ORDERABLES Zeina l Result [facility] ([place]) 1 [facility] [place] [address] * Comprehensive metabolic panel (12/20/2024 12:35 AM SLEEP TECHNOLOGIST) Sodium 140 135 - 145 mmol/L Potassium, [...] [facility] ([place]) Blood 12/20/2024 12:3 5 AM SLEEP TECHNOLOGIST 12/20/2024 12:38 AM SLEEP TECHNOLOGIST us Sandi Hull MD LAB BLOOD ORDERABLES Zeina l Result [facility] ([place]) 1 [facility] [place] [address] * US RUQ (12/18/2024 2:15 PM SLEEP TECHNOLOGIST) Anatomical Region Laterality Modality Abdomen N/A Ultrasound 12/18/2024 2:44 PM SLEEP TECHNOLOGIST Narrative 12/18/2024 2:48 PM SLEEP TECHNOLOGIST EXAM DESCRIPTION: US RUQ REASON FOR STUDY: [...] No no pericholecystic fluid. No positive sonographic Meherrin sign reported. BILIARY: The common bile duct [...] Hebert Montes D.O. AP: AP Report ID: [id number] Reading Location: [place] [address] Procedure Note Hebert Montes, DO - 12/18/2024 [...] No no pericholecystic fluid. No positive sonographic Meherrin signreported. BILIARY: The common bile duct measures [...] Hebert Montes D.O. AP: AP Report ID: [id number] Reading Location: [place] [address] us Kris Howe MD IMG US PROCEDURES F inal Result * eGFR (12/18/2024 12:58 PM SLEEP TECHNOLOGIST) eGFR 81 >=60 mL/min/1. 73 m2 Comment: [...] reviewed 2021. Blood 12/18/2024 12:5 8 PM SLEEP TECHNOLOGIST 12/18/2024 1:07 PM SLEEP TECHNOLOGIST Kris Howe MD LAB BLOOD ORDERABLE S Final Result [facility] ([place] 1 [facility] Department [place] [address] * (ABNORMAL) Differential, auto (12/18/2024 12:58 PM SLEEP TECHNOLOGIST) Neutrophil abs 5.3 1.5 - 6.5 K/cumm [...] on 2018. Blood 12/18/2024 12:5 8 PM SLEEP TECHNOLOGIST 12/18/2024 1:07 PM SLEEP TECHNOLOGIST us Kris Howe MD LAB BLOOD ORDERABLE S Final Result [facility] ([place] 1 [facility] Department [place] [address] * (ABNORMAL) CBC with auto differential (12/18/2024 12:58 PM SLEEP TECHNOLOGIST) WBC 10.2(H) 3.8 - 9.9 K/cumm Hgb [...] [facility] ([place]) Blood 12/18/2024 12:5 8 PM SLEEP TECHNOLOGIST 12/18/2024 1:07 PM SLEEP TECHNOLOGIST us Kris Howe MD LAB BLOOD ORDERABLE S Final Result [facility] ([place] 1 [facility] [place] [address] * Lipase (12/18/2024 12:58 PM SLEEP TECHNOLOGIST) Lipase 24 10 - 99 Units/L Blood 12/18/2024 12:5 8 PM SLEEP TECHNOLOGIST 12/18/2024 1:07 PM SLEEP TECHNOLOGIST us Kris Howe MD LAB BLOOD ORDERABLE S Final Result [facility] ([place] 1 [facility] [place] [address] * (ABNORMAL) Comprehensive metabolic panel (12/18/2024 12:58 PM SLEEP TECHNOLOGIST) Sodium 134(L) 135 - 145 mmol/L Potassium, [...] 95 40 - 130 Units/L [facility] ([place]) ALT 11 7 - 45 Units/L [facility] ([place]) AST 12 10 - 45 Units/L [facility] ([place]) Comment:Slightly Hemolyzed S pecimen Blood 12/18/2024 12:5 8 PM SLEEP TECHNOLOGIST 12/18/2024 1:07 PM SLEEP TECHNOLOGIST us Kris Howe MD LAB BLOOD ORDERABLE S Final Result [facility] ([place]) [address] Department [place] [address] * COLONOSCOPY (09/27/2022 9:23 AM SLEEP TECHNOLOGIST) Anatomical Region Laterality Modality Other Narrative Procedure Note Clyde Esparza MD - 09/27/2022 9:23 AM CST [facility] Patient Name: Ayala Jauregui Procedure Date: 09/27/2022 9:23 AM Date of : 1960 Admit Type: Outpatient Age: 62 Gender: Female Attending MD: Clyde Esparza M.D. Room: [facility] ENDOSCOPY ROOM 2 Note Status: Finalized [...] scope was passed under direct vision. TheColonoscope [id number] was introduced through the anus and advanced [...] 9:23 AM Procedure Code(s): --- Professional --- 55441, Colonoscopy, flexible; with removal of tumor(s), polyp(s), or other lesion(s) by snare technique Diagnosis Code(s): --- Professional --- D12.3, Benign neoplasm of transverse colon (hepatic flexure orsplenic flexure) D12.4, Benign neoplasm of descending colon D12.5, Benign neoplasm of sigmoid colon K64.9, Unspecified hemorrhoids Z86.010, Personal history of colonic polyps CPT copyright 2020 [employer]. All rights reserved. The codes documented in this report are preliminary and upon television reporter reviewmay be revised to meet current compliance requirements. Recognized by the [employer] for promoting quality in endoscopy Clyde Esparza MD ENDOSCOPY PROCEDURES Final Re sult from Last 3 Months or Most Recently Relevant to Health Maintenance Insurance [facility] MEDICARE [place] [facility] MEDICARE Advance Directives For more information, please contact: [phone] * Full Code (Latest Code Status on [...] 9:47 AM 09/27/2022 5:13 PM Care Teams Android Ios Developer Relationship Specialty Start Date End Date Tressa Johnson MD [address] [place] [id number] PCP - General Family Medicine 07/24/23 [place] [address] [address] Consulting Physician Pulmonary Disease 11/17/20 Nathan Monahan MD [address] [place] [id number] Consulting Physician Gastroenterology 01/09/25
--- OUTSIDE RECORDS SUMMARY | 2025-01-22 12:44 | XMS_ITS ---
Author Organization Unknown Address [address] [place] [phone] Phone Care Team Providers Care Cra Name Role Phone JOHN [place] Resendiz Attending [...] 208 CVX Pneumococcal conjugate PCV20 , polysaccharide MVW118 conjugate, adjuvant, PF 10/24/2022 Completed 216 CVX COVID-19, mRNA, LNP-S, PF, 3 0 mcg/0.3 mL dose, raymond-sucrose 01/02/2022 Completed 217 CVX Social History Type Status Start Date End Date Code Code Syst em Smoking History Never smoker (Never Smoked) [id number] SNOMED CT Sex Female Hospital Discharge Instructions [...] of Treatment MRI UE Joint WO Contrast (83674) 2022 Encounters Encounter Diagnosis Start Date Code Code Sys tem Strain of muscle(s) and tend on(s) of the rotator cuff of right shoulder, subsequent encounter 10/29/2023 [facility] MED-CT Personal Care Team Section Performer Name Performer Role Active Date Inactive Da te
--- OUTSIDE RECORDS SUMMARY | 2025-01-22 12:44 | XMS_ITS | Clinical Summary ---
Author Organization [facility] Address [address] [place] [address] Care Team Providers Care Vehicle Washer Name Role Phone Harvinder Chicas MD Unavailable [phone] Tressa Johnson MD Primary Care Provider Nathan Monahan MD Unavailable [phone] Allergies Active Allergy Reactions Criticality Noted Date [...] 1 tablet (100 mcg total) by mouth snap shearer before breakfast 11/17/19 21 Active divalproex ER [...] (08/02/2022): Added automatically from request for surgery [id number] Encounter for removal of sutures 07/18/2020 Essential [...] Date Type Department Care Team Description 01/15/20 [facility] Post Discharge Follow up phone call [facility] Surgery Care [address] [place] [address] Belkys Reich 01/12/20 9:44 AM CDT - 01/12/20 12:06 PM CDT Emergency [facility] Emergency Department [address] [place] [address] Discharge Disposition: Left without being seen 01/12/20 9:17 AM CDT - 01/12/20 11:59 PM CDT Hospital Encounter [facility] Emergency, Room R Discharge Disposition: Discharge to home or self care 01/09/20 Results Follow-Up [facility] Gastroenterology at [address] [place] [address] Luana Delgado MD 01/08/20 2:45 PM CDT - 01/10/20 2:55 PM CDT Hospital Encounter [facility] Surgery Care [address] [place] [address] Sandi Hull MD Kheirkhahan, Nazanin, MD Sargsyan, Narine, MD Abdominal pain (Primary Dx); Duodenitis Discharge Disposition: Discharge to home or self care 01/08/20 25 2:16 PM CDT - 01/08/20 11:59 PM CDT Hospital Encounter [facility] Emergency, Room R Discharge Disposition: Discharge to home or self care 01/08/20 10:56 AM CDT Anesthesia Event [address] [address] Young Connor MD 01/08/20 10:25 AM CDT - 01/08/20 11:00 AM CDT Surgery [address] [address] Luana Delgado MD ESOPHAGOGASTRODUODENOSCOPY BIOPSY 01/08/20 9:34 AM CDT - 01/08/20 12:08 PM CDT Hospital Encounter [address] [address] Luana Delgado MD Epigastric pain Discharge Disposition: Discharge to home or self care 01/06/20 Telephone [facility] Gastroenterology at [address] [place] [address] Serina Martinez MA 01/05/20 Orders Only [facility] [address] [place] [phone] Jeffrey Ashraf MD Hepatitis C virus infection without hepatic coma, unspecified chronicity (Primary Dx); Chronic hepatitis C without hepatic coma (HCC) 01/04/20 2:52 PM CDT - 01/04/20 3:47 PM CDT Emergency [facility] Emergency Department [address] [place] [address] Ananda Abdi MD Abdominal pain (Primary Dx) Discharge Disposition: Discharge to home or self care 01/02/20 Telephone [facility] Gastroenterology at [address] [place] [address] Bonita Schrader 01/01/20 11:24 AM CDT - 01/01/20 25 2:42 PM CDT Emergency [facility] Emergency Department [address] [place] [address] Amie Alonso DO Abdominal pain (Primary Dx) Discharge Disposition: Discharge to home or self care 12/31/19 25 3:29 PM CDT - 12/31/19 25 3:37 PM CDT Emergency [facility] Emergency Department [address] [place] [address] Discharge Disposition: Left without being seen 12/31/19 - 12/31/19 1:06 PM CDT Emergency [facility] Emergency Department [address] [place] [address] Discharge Disposition: ED Dismiss - Never Arrived 12/28/19 11:51 AM CDT - 12/28/19 4:27 PM CDT Emergency [facility] Emergency Department [address] [place] [address] Clyde Chester MD Abdominal pain (Primary Dx) Discharge Disposition: Discharge to home or self care 12/26/19 6:46 PM CDT - 12/27/19 4:24 PM CDT Emergency [facility] Medical Care [address] [place] [address] Timothy Aviles MD Sargsyan, Narine, MD Abdominal pain (Primary Dx) Discharge Disposition: Left Against Medical Advice 12/25/19 11:39 PM CDT - 12/26/19 3:13 AM CDT Emergency [facility] Emergency Department [address] [place] [address] Ole Parham MD Abdominal pain (Primary Dx) Discharge Disposition: Discharge to home or self care 12/25/19 5:09 PM CDT - 12/25/19 8:38 PM CDT Emergency [facility] Emergency Department [address] [place] [address] Alexander Martino MD Chronic abdominal pain (Primary Dx) Discharge Disposition: Discharge to home or self care 12/24/19 Results Follow-Up [facility] Gastroenterology at [address] [place] [address] Deya Cowan MA 12/22/19 11:00 AM CDT - 12/22/19 1:45 PM CDT Emergency [facility] Emergency Department [address] [place] [address] Alexander Martino MD Chronic abdominal pain (Primary Dx) Discharge Disposition: Discharge to home or self care 12/21/19 6:34 AM CDT - 12/22/19 9:19 AM CDT Hospital Encounter [facility] Surgery Care 1 [place] [address] Anya Rae MD Nikolic, Jelena, MD Singh, Supriya, MD Intractable abdominal pain (Primary Dx); Abdominal wall hernia Discharge Disposition: Left Against Medical Advice 12/19/19 12:39 PM INVENTORY REPRESENTATIVE - 12/19/19 3:16 PM INVENTORY REPRESENTATIVE Emergency [facility] Emergency Department 1 [place] [address] Kris Howe MD Hanson, Thomas S., MD [...] drink = 0.6 oz pur e alcohol) [facility] Utilities Answer Date Recorded In the past 12 months has th e [employer], gas, oil, or water [employer] threatened to shut off services in your [...] often do you attend chur ch or jainism services? Patient declined 01/08/2025 Do you belong to any clubs o r organizations such as adventist groups, unions, fraternal or athletic groups, or [...] any time in the past 12 m [facility], were you homeless or living in a assisted (including now)? No 01/08/2025 Personal Safety Answer Date Recorded Have you ever been in or are you currently in a harmful physical or emotional relationship or is someone making you feel afraid or unsafe? Denies 01/11/2025 Comments No Sex and Gender Information Value Date Recorded Sex Assigned at Not on file Legal Sex Female 12:54 AM INVENTORY REPRESENTATIVE Gender Identity Not on file Sexual Orientation [...] CDT ECG 12-LEAD Routine 12/20/2024 12:38 AM INVENTORY REPRESENTATIVE EGFR STAT 12/20/2024 12:35 AM INVENTORY REPRESENTATIVE DIFFERENTIAL AUTO STAT 12/20/2024 12:35 AM INVENTORY REPRESENTATIVE COMPREHENSIVE METABOLIC PANEL STAT 12:35 AM INVENTORY REPRESENTATIVE CBC WITH AUTO DIFFERENTIAL STAT 12/20 12:35 AM INVENTORY REPRESENTATIVE LIPASE STAT 12/20/2024 12:35 AM INVENTORY REPRESENTATIVE US RUQ ED 12/18/2024 2:15 PM INVENTORY REPRESENTATIVE EGFR STAT 12/18/2024 12:58 PM INVENTORY REPRESENTATIVE DIFFERENTIAL AUTO STAT 12/18/2024 12:58 PM INVENTORY REPRESENTATIVE LIPASE STAT 12/18/2024 12:58 PM INVENTORY REPRESENTATIVE COMPREHENSIVE METABOLIC PANEL STAT 12:58 PM INVENTORY REPRESENTATIVE CBC WITH AUTO DIFFERENTIAL STAT 12/18 12:58 PM INVENTORY REPRESENTATIVE COLONOSCOPY 09/27/2022 9:23 AM INVENTORY REPRESENTATIVE from Last 3 Months or Most Recently [...] BLOOD ORDERABLES Final Res ult [facility] [place] [facility] [place] [address] * eGFR (01/11/2025 11:03 AM [...] LAB BLOOD ORDERABLES Final Res ult [facility] ([place]) 1 [facility] [place] [address] * (ABNORMAL) Differential, auto (01/11/2025 11:03 AM [...] Final Res ult [facility] ([place]) 1 [facility] [place] [address] * (ABNORMAL) CBC with auto differential (01/11/2025 [...] ([place]) MCHC 32.9 32.3 - 35.7 g/dL [facility] ([place]) RDW CV 14.2 11.1 - 14.9 % [facility] ([place]) RDW SD 42.0 35.7 - 48.1 fL [facility] ([place]) NRBC abs 0.00 0.00 - 0.01 K/cumm [facility] ([place]) Blood Venous blood specimen / Unknown 01/11/2025 11:03 AM CDT 01/11/2025 11:08 AM CDT Ananda Abdi MD LAB BLOOD ORDERABLES Final Res ult [facility] ([place]) 1 [facility] [employer] [place] [address] * Lipase (01/11/2025 11:03 AM CDT) Pathologist [facility] Lipase 21 10 - 99 Units/L Blood Venous blood specimen / Unknown 01/11/2025 11:03 AM CDT 01/11/2025 11:08 AM CDT Ananda Abdi MD LAB BLOOD ORDERABLES Final Res ult [facility] ([place]) 1 [facility] [place] [address] * Comprehensive metabolic panel (01/11/2025 11:03 AM CDT) Sodium 138 135 - 145 mmol/L Potassium, pl 4.3 3.3 - 4.9 mmol/L [facility] ([place]) Chloride 100 97 - 110 mmol/L [facility] [place]) CO2 23 22 - 32 mmol/L [facility] ([place]) Anion gap 15 2 - 15 mmol/L [facility] ([place]) BUN 16 6 - 25 mg/dL [facility] ([place]) Creatinine 0.78 0.60 - 1.10 mg/dL [facility] ([place]) Glucose 92 70 - 199 mg/dL [facility] ([place]) Comment: Interpretive Data Fasting [...] ([place]) AST 11 10 - 45 Units/L [facility] ([place]) Blood 01/11/2025 11:0 3 AM CDT 01/11/2025 11:08 AM CDT us Ananda Abdi MD LAB BLOOD ORDERABLES Final Res ult [facility] ([place]) 1 [facility] [place] [address] * Urinalysis reflex to microscopic and culture [...] for uric acid stone formation. Source: [facility] Current Interpretive Data was last revised [...] ORD ERABLES Final Result Performing Organization Address City/[facility] Co de Phone Number [facility] ([place]) 1 [facility] [place] [address] * ECG 12 lead (01/11/2025 10:10 AM CDT) 01/11/2025 10:1 0 AM CDT Narrative [facility] - 01/11/2025 12:25 PM CDT Vent Rate: 69 bpm RR Interval: 859 msec CA Interval: 0 msec QRS Duration: 98 msec QT Interval: 400 msec QTC Interval: 420 msec P-R-T [place]: [id number] - 45 - 9 degrees IMPRESSION: Baseline artifact, probable sinus rhythm ABNORMAL RHYTHM ECG NO CHANGE FROM PREVIOUS TRACING NOTED Electronically Signed By: Brian Venegas MD Ananda Abdi MD ECG ORDERABLES Final Result Performing Organization Address [facility]/ZIP Co de Phone Number [facility] [employer] [facility] * POCT glucose (01/09/2025 11:57 AM CDT) Glucose, POC 153 70 - 199 mg/dL Blood 01/09/2025 11:5 7 AM CDT 01/09/2025 11:57 AM CDT Meredith Eisenberg MD LAB POCT ORDERABLES - DEVICE Final Result Performing Organization Address [facility] Co de Phone Number [facility] ([place]) [address] [facility] [place] [address] * POCT glucose (01/09/2025 8:12 AM CDT) Glucose, POC 103 70 - 199 mg/dL Blood 01/09/2025 8:12 AM CDT 01/09/2025 8:12 AM CDT Meredith Eisenberg MD LAB POCT ORDERABLES - DEVICE Final Result Performing Organization Address [facility] de Phone Number [facility] ([place]) [address] [facility] [place] [address] * POCT glucose (01/09/2025 4:07 AM CDT) Glucose, POC 115 70 - 199 mg/dL Blood 01/09/2025 4:07 AM CDT 01/09/2025 4:07 AM CDT Meredith Eisenberg MD LAB POCT ORDERABLES - DEVICE Final Result Performing Organization Address [facility] Co de Phone Number [facility] ([place]) [address] [facility] [place] [address] * eGFR (01/09/2025 3:57 AM CDT) eGFR [...] BLOOD ORDERABLES Fi nal Result [facility] ([place]) 1 [facility] [place] [address] * (ABNORMAL) Differential, auto (01/09/2025 3:57 AM [...] Imm gran pct 0.3 % [facility] ([place]) Comment: Interpretive Data Percent cell count reference [...] ORDERABLES nal Result [facility] ([place]) 1 [facility] [place], [place] [id number] * CBC with auto differential (01/09/2025 3:57 [...] ([place]) MCV 84.7 81.3 - 96.4 fL [facility] ([place]) MCH 27.4 27.1 - 33.3 pg [facility] ([place]) MCHC 32.3 32.3 - 35.7 g/dL [facility] ([place]) RDW CV 14.3 11.1 - 14.9 % [facility] ([place]) RDW SD 43.8 35.7 - 48.1 fL [facility] ([place]) NRBC abs 0.00 0.00 - 0.01 K/cumm [facility] ([place]) Blood 01/09/2025 3:57 AM CDT 01/09/2025 4:06 AM CDT Juan Ramirez MD LAB BLOOD ORDERABLES Fi nal Result [facility] ([place] 1 [facility] [place] [address] * Magnesium (01/09/2025 3:57 AM CDT) Pathologist [facility] Magnesium 1.8 1.4 - 2.5 mg/dL Blood 01/09/2025 3:57 AM CDT 01/09/2025 4:06 AM CDT us Juan Ramirez MD LAB BLOOD ORDERABLES Fi nal Result [facility] ([place] [address] [facility] [place] [address] * (ABNORMAL) Comprehensive metabolic panel (01/09/2025 3:57 AM CDT) Sodium 141 135 - 145 mmol/L Potassium, pl 3.8 3.3 - 4.9 mmol/L [facility] ([place]) Chloride 109 97 - 110 mmol/L [facility] ([place]) CO2 21(L) 22 - 32 mmol/L [facility] ([place]) Anion gap 11 2 - 15 mmol/L [facility] ([place]) BUN 11 6 - 25 mg/dL [facility] ([place]) Creatinine 0.85 0.60 - 1.10 [...] Fi nal Result [facility] ([place] 1 [facility] [place], [place] [id number] * POCT glucose (01/08/2025 11:57 PM CDT) Glucose, POC 84 70 - 199 mg/dL Blood 01/08/2025 11:5 7 PM CDT 01/08/2025 11:57 PM CDT us Meredith Eisenberg MD LAB POCT ORDERABLES - DEVICE Final Result [facility] [address] [facility] [place] [address] * POCT glucose (01/08/2025 8:08 PM CDT) Glucose, POC 194 70 - 199 mg/dL Blood 01/08/2025 8:08 PM CDT 01/08/2025 8:08 PM CDT us Meredith Eisenberg MD LAB POCT ORDERABLES - DEVICE Final Result [facility] ([place] [address] [facility] [place] [address] * POCT glucose (01/08/2025 4:34 PM CDT) Glucose, POC 113 70 - 199 mg/dL Blood 01/08/2025 4:34 PM CDT 01/08/2025 4:34 PM CDT us Meredith Eisenberg MD LAB POCT ORDERABLES - DEVICE Final Result [facility] ([place]) [address] [facility] [place] [address] * POCT glucose (01/08/2025 11:06 AM CDT) Glucose, POC 133 70 - 199 mg/dL Blood 01/08/2025 11:0 6 AM CDT 01/08/2025 11:06 AM CDT us Meredith Eisenberg MD LAB POCT ORDERABLES - DEVICE Final Result [facility] ([place] [address] [facility] [place] [address] * POCT glucose (01/08/2025 9:00 AM CDT) Glucose, POC 153 70 - 199 mg/dL Blood 01/08/2025 9:00 AM CDT 01/08/2025 9:00 AM CDT us Meredith Eisenberg MD LAB POCT ORDERABLES - DEVICE Final Result Performing Organization Address [facility]/ZIP Co de Phone Number [facility] ([place]) 1 [facility] [place] [address] * eGFR (01/08/2025 4:48 AM CDT) eGFR [...] Fi nal Result [facility] ([place]) 1 [facility] [place] [address] * (ABNORMAL) CBC with auto differential (01/08/2025 4:48 AM CDT) Pathologist [facility] WBC 7.8 3.8 - 9.9 K/cumm Hgb [...] MD LAB BLOOD ORDERABLES Fi nal Result [facility] ([place] 1 [facility] [place] [address] * (ABNORMAL) Manual Differential (01/08/2025 4:48 AM CDT) Pathologist [facility] Differential Manual Cells Counted 100 [facility] [...] ORDERABLES Fi nal Result Performing Organization Address [facility]/ZIP Co de Phone Number [facility] ([place]) 1 [facility] [place] [address] * Magnesium (01/08/2025 4:48 AM CDT) Pathologist [facility] Magnesium 1.9 1.4 - 2.5 mg/dL Blood 01/08/2025 4:48 AM CDT 01/08/2025 6:08 AM CDT Juan Ramirez MD LAB BLOOD ORDERABLES Fi nal Result Performing Organization Address [facility]/ZIP Co de Phone Number [facility] ([place]) [address] [facility] [place] [address] * (ABNORMAL) Comprehensive metabolic panel (01/08/2025 4:48 AM CDT) Sodium 138 135 - 145 mmol/L Potassium, pl 4.6 3.3 - 4.9 mmol/L [facility] ([place]) Chloride 106 97 - 110 mmol/L [facility] ([place]) CO2 19(L) 22 - 32 mmol/L [facility] ([place]) Anion gap 13 2 - 15 mmol/L [facility] ([place]) BUN 10 6 - 25 mg/dL [...] MD LAB BLOOD ORDERABLES Fi nal Result [facility] ([place] 1 [facility] [place], [place] [id number] * POCT glucose (01/08/2025 4:15 AM CDT) Glucose, POC 137 70 - 199 mg/dL Blood 01/08/2025 4:15 AM CDT 01/08/2025 4:15 AM CDT us Megan Sinclair MD LAB POCT ORDERABLES - DEV ICE Final Result Performing Organization Address [facility]/ZIP Co de Phone Number [facility] ([place]) [address] [facility] [place] [address] * POCT glucose (01/08/2025 12:03 AM CDT) Glucose, POC 140 70 - 199 mg/dL Blood 01/08/2025 12:0 3 AM CDT 01/08/2025 12:03 AM CDT Megan Sinclair MD LAB POCT ORDERABLES - DEV ICE Final Result Performing Organization Address [facility] Co de Phone Number [facility] ([place]) [address] [facility] [place] [address] * POCT glucose (01/07/2025 9:27 PM CDT) Glucose, POC 86 70 - 199 mg/dL Blood 01/07/2025 9:27 PM CDT 01/07/2025 9:27 PM CDT Megan Sinclair MD LAB POCT ORDERABLES - DEV ICE Final Result Performing Organization Address City/[facility] Co de Phone Number [facility] ([place]) [address] [facility] [place] [address] * Troponin T high-sensitivity 6-hour (01/07/2025 8:50 PM CDT) Trop T hs 9 <=14 ng/L Comment: Interpretive Data For further hscTnT resources including the diagnostic algorithm and an aid in interpretation, copy and paste this link: https://nrl.testcatalog.org/show/hsTrop Current Interpretive Data last revised 2020. Trop T hs delta 0 ng/L [facility] ([place]) Trop T hs interp Insignificant [facility] ([place]) Blood 01/07/2025 8:50 PM CDT 01/07/2025 8:57 PM CDT Ananda Abdi MD LAB BLOOD ORDERABLES Final Res ult Performing Organization Address [facility] Co de Phone Number [facility] ([place]) 1 [place] [address] * Troponin T high-sensitivity 2-hour (01/07/2025 4:52 PM CDT) Trop T hs 8 <=14 ng/L Comment: Interpretive Data For further hscTnT resources including the diagnostic algorithm and an aid in interpretation, copy and paste this link: https://nrl.testcatalog.org/show/hsTrop Current Interpretive Data last revised 2020. Trop T hs delta -1 ng/L [facility] ([place]) Trop T hs interp Insignificant [facility] ([place]) Blood 01/07/2025 4:52 PM CDT 01/07/2025 4:55 PM CDT Ananda Abdi MD LAB BLOOD ORDERABLES Final Res ult Performing Organization Address [facility] Co de Phone Number [facility] ([place]) 1 [place] [address] * (ABNORMAL) Urinalysis reflex to microscopic and culture Urine (01/07/2025 4:24 PM CDT) Color, ur Straw Yellow Clarity, ur Clear Clear [facility] ([place]) Specific gravity, ur 1.045(H) 1.003 - 1.030 [facility] ([place]) pH, urine 7.0 [facility] ([place]) Comment: Interpretive Data U rine pH is affected by diet, medications, systemic acid-base disturbances, and renal tubular function. pH may affect urinary stone formation. For example, urine pH below 6.0 may help reduce the tendency for calcium phosphate stones and pH greater than 6.0 may reduce the tendency for uric acid stone formation. Source: [facility] Current Interpretive Data was last revised [...] GENERA L ORDERABLES Final Result [facility] ([place]) 1 [facility] [place] [address] * CT Chest Abdomen Pelvis W Contrast [...] Vanessa Roy M.D. FT: FT Report ID: [id number] Reading Location: [id number] Procedure Note Vanessa Mccann MD - 01/07/2025 [...] Vanessa Roy M.D. FT: FT Report ID: [id number] Reading Location: [id number] Sandi Hull MD IMG CT PROCEDURES Final R esult * ECG 12 lead (01/07/2025 2:58 PM CDT) 01/07/2025 2:58 PM CDT Narrative [facility] - 01/07/2025 4:16 PM CDT Vent Rate: 63 bpm RR Interval: 942 msec CA Interval: 192 msec QRS Duration: 101 msec QT Interval: 415 msec QTC Interval: 423 msec P-R-T [place]: 24 - 74 - 58 degrees IMPRESSION: Baseline artifact, probable SINUS RHYTHM MINIMAL ST DEPRESSION [0.025+ mV ST DEPRESSION] BORDERLINE ECG NO CHANGE FROM PREVIOUS TRACING NOTED Electronically Signed By: Brian Venegas MD Sandi Hull MD ECG ORDERABLES Final Res ult [facility] [employer] [facility] * Troponin T high-sensitivity series (baseline, 2hr, 4hr, 6hr) (01/07/2025 2:52 PM CDT) Pathologist [facility] Trop T hs 9 <=14 ng/L Comment: Interpretive Data For further hscTnT resources including the diagnostic algorithm and an aid in interpretation, copy and paste this link: https://nrl.testcatalog.org/show/hsTrop Current Interpretive Data last revised 2020. Blood 01/07/2025 2:52 PM CDT 01/07/2025 2:58 PM CDT Sandi Hull MD LAB BLOOD ORDERABLES Zeina l Result [facility] ([place]) 1 [facility] [place] [address] * eGFR (01/07/2025 2:52 PM CDT) eGFR [...] MD LAB BLOOD ORDERABLES Final Res ult [facility] ([place]) 1 [facility] [place] [address] * (ABNORMAL) Differential, auto (01/07/2025 2:52 PM [...] Final Res ult [facility] ([place]) 1 [facility] [place] [address] * (ABNORMAL) CBC with auto differential (01/07/2025 [...] BLOOD ORDERABLES Zeina l Result [facility] ([place]) 1 [facility] [place] [address] * Lipase (01/07/2025 2:52 PM CDT) Pathologist [facility] Lipase 30 10 - 99 Units/L Blood Venous blood specimen / Unknown 01/07/2025 2:52 PM CDT 01/07/2025 2:58 PM CDT Sandi Hull MD LAB BLOOD ORDERABLES Zeina l Result [facility] ([place]) 1 [facility] [place] [address] * Comprehensive metabolic panel (01/07/2025 2:52 PM [...] Zeina danielle Result [facility] ([place]) 1 [facility] [place] [address] * Surgical pathology (01/07/2025 2:22 PM CDT) Tissue specimen (specimen) (Duodenum, Biopsy) 01/07/2025 11:15 AM CDT Tissue specimen (specimen) (Gastric/Stomach biopsy) 01/07/2025 11:16 AM CDT Tissue specimen (specimen) (EG Junction, Biopsy) 01/07/2025 11:17 AM CDT Narrative PATHOLOGY [facility] ([place]) - 01/08/2025 3:36 PM CDT EPIC results best viewed via link to PDF [facility] Department of Pathology [address] [place] [address] Note to Patients: This report may contain [...] Final Report Patient Name: AYALA JAUREGUI Address: [address] [place] [address]- Gender: F : 1960 (Age: 64) Service: Gastro Location: [facility] Hospital #: [id number] Patient Type: [facility] Taken: 01/07/2025 Received: 01/07/2025 Accessioned: 01/07/2025 [...] determined by the Surgical Pathology Department at [facility] as part of an ongoing director of quality program and in compliance with federally mandated [...] characteristics determined by the Surgical Pathology Department [facility]. It has not been cleared or approved by the U. S. Food and Drug Administration. Note for decalcified specimens: This assay has not been validated on decalcified tissues. Results should be interpreted with caution given the possibility of false negativity on decalcified specimens Luana Delgado MD LAB PATHOLOGY ORDERABLES Final R esult Performing Organization Address [facility]/ZIP Co de Phone Number PATHOLOGY [facility] ([place]) [address] [place] [address] * POCT glucose (01/07/2025 10:18 AM CDT) Glucose, POC 98 70 - 199 mg/dL Blood 01/07/2025 10:1 8 AM CDT 01/07/2025 10:18 AM CDT Luana Delgado MD LAB POCT ORDERABLES - DEVICE Fin al Result Performing Organization Address [facility] Co de Phone Number [facility] ([place]) 1 [facility] Department [place] [address] * EGD (01/07/2025 10:11 AM CDT) Anatomical Region Laterality Modality Other Narrative Procedure Note Luana Delgado MD - 01/07/2025 10:11 AM CDT [facility] Patient Name: Ayala Jauregui Procedure Date: 01/07/2025 10:11 AM Date of : 1960 Admit Type: Outpatient Age: 64 Gender: Female Attending MD: Luana Delgado M.D. Room: [facility] ENDOSCOPY ROOM 2 Note Status: Finalized Patient [...] procedure were verified by the physician, the filler and trimmer and the technical maintenance technician in the endoscopy suite. Mental Status [...] passed under direct vision. The Endoscope [id number] was introduced through the mouth, and advanced [...] 10:11 AM Procedure Code(s): --- Professional --- 76242, Esophagogastroduodenoscopy, flexible, transoral; with biopsy, single or multiple --- Technical --- 79775, Esophagogastroduodenoscopy, flexible, transoral; with biopsy, single or [...] Nausea with vomiting, unspecified CPT copyright 2020 [employer]. All rights reserved. The codes documented in this report are preliminary and upon food and beverage director reviewmay be revised to meet current compliance requirements. Recognized by the [place] [employer] for promoting quality [...] tendency for uric acid stone formation. Source: [employer] Current Interpretive Data was last revised on 2017 Protein, ur ql Negative Negative [facility] ([place]) Glucose, ur ql Negative Negative [facility] ([place]) Ketones, ur Negative Negative [facility] ([place]) Bilirubin, ur Negative Negative [facility] ([place]) Blood, ur Negative Negative [facility] ([place]) Urobilinogen, ur <2.0 <2.0 mg/dL [facility] ([place]) Nitrite, ur Negative Negative [facility] ([place]) Leukocyte esterase, ur Negative Negative [facility] ([place]) UA reflex comment Reflex conditions for microscopic UA and culture not met. [facility] ([place]) Urine 12/31/2024 1:08 PM CDT 12/31/2024 1:12 PM CDT Rose GUY LAB MICROBIOLOGY - GENERA L ORDERABLES Final Result [facility] ([place]) 1 [facility] [place] [address] * eGFR (12/31/2024 12:28 PM CDT) eGFR [...] BLOOD ORDERABLES Zeina l Result [facility] ([place]) 1 [facility] [place] [address] * Differential, auto (12/31/2024 12:28 PM CDT) [...] Zeina l Result [facility] ([place]) 1 [facility] [place] [address] * (ABNORMAL) CBC with auto differential (12/31/2024 [...] Zeina l Result [facility] ([place]) 1 [facility] [place] [address] * Lipase (12/31/2024 12:28 PM CDT) Lipase 20 10 - 99 Units/L Blood 12/31/2024 12:2 8 PM CDT 12/31/2024 12:30 PM CDT Rose GUY LAB BLOOD ORDERABLES Zeina l Result [facility] ([place]) 1 [facility] [place] [address] * Comprehensive metabolic panel (12/31/2024 12:28 PM CDT) Sodium 141 135 - 145 mmol/L Potassium, pl 4.4 3.3 - 4.9 mmol/L [facility] ([place]) Chloride 101 97 - 110 mmol/L [facility] ([place]) CO2 26 22 - 32 mmol/L [facility] ([place]) Anion gap 14 2 - 15 mmol/L [facility] ([place]) BUN 13 6 - 25 mg/dL [facility] ([place]) Creatinine 0.86 0.60 - 1.10 mg/dL [facility] ([place]) Glucose 119 70 - 199 mg/dL [facility] ([place]) Comment: Interpretive Data Fasting glucose [...] BLOOD ORDERABLES Zeina l Result [facility] ([place]) 1 [facility] [place] [address] * CT Chest PE (CTA) Abdomen Pelvis [...] Massimo Velasco M.D. KR: KR Report ID: [id number] Reading Location: [place] [address] Procedure Note Massimo Velasco MD - 12/27/2024 [...] Massimo Velasco M.D. KR: JACKELINE Report ID: [id number] Reading Location: [place] [address] Clyde Chester MD IMG CT PROCEDURES Final Res ult * (ABNORMAL) Sepsis Lactate w/ Reflex (12/27/2024 12:26 PM CDT) Sepsis Lactate 2.4(H) 0.7 - 2.0 mmol/L Blood 12/27/2024 12:2 6 PM CDT 12/27/2024 12:29 PM CDT us Clyde Chester MD LAB BLOOD ORDERABLES Final Result [facility] ([place]) 1 [facility] [place] [address] * eGFR (12/27/2024 12:26 PM CDT) eGFR [...] ORDERABLES Final Result [facility] ([place]) 1 [facility] [place] [address] * (ABNORMAL) Differential, auto (12/27/2024 12:26 PM [...] BLOOD ORDERABLES Final Result Performing Organization Address City/[facility]/ZIP Co de Phone Number [facility] ([place]) 1 [facility] [employer] [place] [address] * (ABNORMAL) CBC with auto differential (12/27/2024 [...] BLOOD ORDERABLES Final Result Performing Organization Address City/[facility]/ZIP Co de Phone Number [facility] ([place]) 1 [facility] [place] [address] * (ABNORMAL) D-dimer, quantitative (12/27/2024 12:26 PM [...] LAB BLOOD ORDERABLES Final Result [facility] ([place]) 1 [facility] [place] [address] * CRP (acute phase) (12/27/2024 12:26 PM CDT) Pathologist [facility] CRP 4.4 <=10.0 mg/L Blood 12/27/2024 12:2 6 PM CDT 12/27/2024 12:29 PM CDT Clyde Chester MD LAB BLOOD ORDERABLES Final Result [facility] ([place]) 1 [facility] [place] [address] * Comprehensive metabolic panel (12/27/2024 12:26 PM CDT) Pathologist [facility] Sodium 137 135 - 145 mmol/L Potassium, [...] ORDERABLES Final Result [facility] ([place]) 1 [facility] [place] [address] * XR Abdomen 2 Views W Chest [...] Massimo Velasco M.D. KR: KR Report ID: [id number] Reading Location: [place] [address] Procedure Note Massimo Velasco MD - 12/27/2024 [...] Massimo Velasco M.D. KR: KR Report ID: [id number] Reading Location: [place] [address] Clyde Chester MD IMG XR PROCEDURES Final [...] tendency for uric acid stone formation. Source: [employer] Current Interpretive Data was last revised on [...] ORDERABLES Final Result [facility] ([place]) 1 [facility] [place] [address] * (ABNORMAL) Drugs of Abuse Screen, Urine [...] 12/27/2024 12:18 PM CDT Narrative [facility] ([place]) - 12/27/2024 12:45 PM CDT Drug of Abuse screening is performed by immunoassay for medical purposes only. This is not to be used for Pain Management purposes. Clyde Chester MD LAB URINE ORDERABLES Final Result Performing Organization Address City/[facility] Co de Phone Number [facility] ([place]) 1 [facility] [place] [address] * ECG 12 lead (12/27/2024 12:09 PM CDT) 12/27/2024 12:0 9 PM CDT Narrative [facility] - 12/28/2024 7:02 AM CDT Vent Rate: 65 bpm RR Interval: 916 msec CA Interval: 185 msec QRS Duration: 97 msec QT Interval: 410 msec QTC Interval: 422 msec P-R-T [place]: 76 - 62 - 59 degrees IMPRESSION: Baseline artifact, probable SINUS RHYTHM NORMAL ECG NO CHANGE FROM PREVIOUS TRACING NOTED Electronically Signed By: Brian Venegas MD Clyde Chester MD ECG ORDERABLES Final Resul t Performing Organization Address [facility] Phone Number [facility] * POCT glucose (12/26/2024 12:28 PM CDT) Glucose, POC 84 70 - 199 mg/dL Blood 12/26/2024 12:2 8 PM CDT 12/26/2024 12:28 PM CDT Meredith Eisenberg MD LAB POCT ORDERABLES - DEVICE Final Result Performing Organization Address [facility] Co de Phone Number [facility] ([place]) 1 [facility] [place] [address] * Troponin T high-sensitivity 6-hour (12/26/2024 2:05 [...] BLOOD ORDERABLES Zeina l Result [facility] ([place]) 1 [facility] [place] [address] * eGFR (12/26/2024 2:05 AM CDT) eGFR [...] Zeina l Result [facility] ([place]) 1 [facility] [place] [address] * (ABNORMAL) Differential, auto (12/26/2024 2:05 AM [...] Neutrophil pct 42.0 % [facility] ([place]) Comment: Interpretive Data Percent cell count reference ranges are not reported, since discordance with absolute values may lead to misinterpretation of CBC data. Current Interpretive Data was last revised on 2018. Imm gran pct 0.1 % [facility] ([place]) Comment: Interpretive Data Percent cell count reference [...] 2018. Monocyte pct 5.5 % [facility] ([place]) Comment: Interpretive Data Percent cell count reference ranges are not reported, since discordance with absolute values may lead to misinterpretation of CBC data. Current Interpretive Data was last revised on 2018. Eosinophil pct 2.0 % [facility] ([place]) Comment: Interpretive Data Percent cell count reference [...] Zeina l Result [facility] ([place]) 1 [facility] [place] [address] * (ABNORMAL) CBC with auto differential (12/26/2024 [...] NRBC abs 0.00 0.00 - 0.01 K/cumm [facility] ([place]) Blood 12/26/2024 2:05 AM CDT 12/26/2024 3:01 AM CDT Rose GUY LAB BLOOD ORDERABLES Zeina l Result [facility] ([place]) [address] [place] [address] * (ABNORMAL) Comprehensive metabolic panel (12/26/2024 2:05 [...] BLOOD ORDERABLES Zeina l Result [facility] ([place]) 1 [facility] [place] [address] * POCT glucose (12/26/2024 1:35 AM CDT) Glucose, POC 88 70 - 199 mg/dL Blood 12/26/2024 1:35 AM CDT 12/26/2024 1:35 AM CDT Timothy Aviles MD LAB POCT ORDERABLES - DEVICE Fi nal Result Performing Organization Address [facility] Co de Phone Number [facility] ([place]) [address] [facility] [place] [address] * (ABNORMAL) Troponin T high-sensitivity 4-hour (12/25/2024 11:38 PM CDT) Pathologist [facility] Trop T hs 15(H) <=14 ng/L Comment: [...] ORDERABLES Zeina l Result Performing Organization Address City/[facility]/ZIP Co de Phone Number [facility] ([place]) 1 [facility] [place] [address] * Troponin T high-sensitivity series (baseline, 2hr, 4hr, 6hr) (12/25/2024 7:29 PM CDT) Pathologist [facility] Trop T hs 9 <=14 ng/L Comment: Interpretive Data For further hscTnT resources including the diagnostic algorithm and an aid in interpretation, copy and paste this link: [email or web address].testcatalog.org/show/[email or web address] Current Interpretive Data last revised 2020. Blood 12/25/2024 7:29 PM CDT 12/25/2024 7:41 PM CDT Rose GUY LAB BLOOD ORDERABLES Zeina l Result Performing Organization Address [facility] Co de Phone Number [facility] ([place]) 1 [facility] [place] [address] * ECG 12 lead (12/25/2024 7:19 PM CDT) 12/25/2024 7:19 PM CDT Narrative [facility] - 12/26/2024 8:55 AM CDT Vent Rate: 58 bpm RR Interval: 1026 msec CA Interval: 183 msec QRS Duration: 94 msec QT Interval: 430 msec QTC Interval: 427 msec P-R-T [place]: 83 - 53 - 48 degrees IMPRESSION: Baseline artifact , probable SINUS BRADYCARDIA BORDERLINE ECG NO CHANGE FROM PREVIOUS TRACING NOTED Electronically Signed By: Brian Venegas MD Rose GUY ECG ORDERABLES Final Res ult Performing Organization Address [facility] Co de Phone Number [facility] [employer] [facility] * Urinalysis reflex to microscopic and culture Urine (12/25/2024 7:08 PM CDT) Color, ur Yellow Yellow Clarity, ur Clear Clear [facility] A ([place]) Specific gravity, ur 1.015 1.003 - 1.030 [...] for uric acid stone formation. Source: [facility] [place] Current Interpretive Data was last revised on [...] ORTEGA Final Result [facility] ([place]) 1 [facility] [place] [address] * (ABNORMAL) eGFR (12/25/2024 3:17 PM CDT) [...] BLOOD ORDERABLES Final Resu lt [facility] ([place]) 1 [facility] [place] [address] * (ABNORMAL) Differential, auto (12/25/2024 3:17 PM [...] Final Resu lt [facility] ([place]) 1 [facility] [place] [address] * (ABNORMAL) CBC with auto differential (12/25/2024 [...] ORDERABLES Final Resu lt Performing Organization Address City/[facility]/ZIP Co de Phone Number [facility] ([place]) [address] [facility] [place] [address] * Lipase (12/25/2024 3:17 PM CDT) Lipase 16 10 - 99 Units/L Blood Venous blood specimen / Unknown 12/25/2024 3:17 PM CDT 12/25/2024 3:19 PM CDT us Timothy Aviles MD LAB BLOOD ORDERABLES Final Resu lt Performing Organization Address [facility] Co de Phone Number [facility] ([place]) [address] [facility] [place] [address] * Comprehensive metabolic panel (12/25/2024 3:17 PM CDT) Sodium 138 135 - 145 mmol/L Potassium, pl 4.4 3.3 - 4.9 mmol/L [facility] ([place]) Chloride 100 97 - 110 mmol/L [facility] ([place]) CO2 27 22 - 32 mmol/L [facility] ([place]) Anion gap 11 2 - 15 mmol/L [facility] ([place]) BUN 10 6 - 25 mg/dL [facility]) Creatinine 1.05 0.60 - 1.10 mg/dL [facility] ([place]) Glucose 87 70 - 199 mg/dL [facility] ([place]) Comment: Interpretive Data Fasting [...] MD LAB BLOOD ORDERABLES Final Resu lt [facility] ([place]) 1 [facility] Department of [facility] [place] [id number] * (ABNORMAL) Urinalysis reflex to microscopic and [...] for uric acid stone formation. Source: [facility] [place] Current Interpretive Data was last revised on [...] Reflex to microscopic UA will be performed. [facility] ([place]) Urine 12/25/2024 1:09 AM CDT 12/25/2024 1:12 AM CDT us Ole Parham MD LAB MICROBIOLOGY - GENERAL OR DERABLES Final Result Performing Organization Address [facility] Co de Phone Number [facility] ([place]) 1 [facility] [place] [address] * (ABNORMAL) Urinalysis, microscopic only (12/25/2024 1:09 [...] for urine culture (WBC >10) not met. [facility] ([place]) Urine 12/25/2024 1:09 AM CDT 12/25/2024 1:12 AM CDT us Ole Parham MD LAB URINE ORDERABLES Final Re sult Performing Organization Address [facility]/ZIP Co de Phone Number [facility] ([place]) 1 [facility] [employer] [address] * eGFR (12/24/2024 10:18 PM CDT) eGFR [...] LAB BLOOD ORDERABLES Final Re sult [facility] ([place]) 1 [facility] [place] [address] * (ABNORMAL) Differential, auto (12/24/2024 10:18 PM [...] Final Re sult [facility] ([place]) 1 [facility] [place] [address] * (ABNORMAL) CBC with auto [...] Final Re sult [facility] ([place]) 1 [facility] [place] [address] * Lipase (12/24/2024 10:18 PM CDT) Lipase 14 10 - 99 Units/L Blood Venous blood specimen / Unknown 12/24/2024 10:18 PM CDT 12/24/2024 10:20 PM CDT Ole Parham MD LAB BLOOD ORDERABLES Final Re sult [facility] ([place]) 1 [facility] [place] [address] * Comprehensive metabolic panel (12/24/2024 10:18 PM [...] MD LAB BLOOD ORDERABLES Final Re sult [facility] ([place]) [address] [facility] [place] [address] * (ABNORMAL) Urinalysis reflex to microscopic and [...] tendency for uric acid stone formation. Source: [facility] Current Interpretive Data was last revised on 2017 Protein, ur ql Negative Negative [facility] ([place]) Glucose, ur ql Negative Negative [facility] R [...] - GENERAL O RDERABLES Final Result [facility] ([place]) 1 [facility] [place] [address] * (ABNORMAL) Urinalysis, microscopic only (12/24/2024 7:18 PM CDT) WBC, ur 6-10(A) 0 - 5 /HPF RBC, ur 0-2 0 - 2 /HPF [facility] ([place]) Epithelial cells, squamous, ur 1-5 0 - 5 /HPF [facility] ([place]) Bacteria, ur Trace(A) [facility] ([place]) Mucous, ur Present(A) [facility] ([place]) Culture Reflex Comment Reflex conditions for urine culture (WBC >10) not met. [facility] ([place]) Urine 12/24/2024 7:18 PM CDT 12/24/2024 7:21 PM CDT Alexander Martino MD LAB URINE ORDERABLES Final R esult [facility] ([place]) 1 [facility] [place] [address] * eGFR (12/24/2024 4:43 PM CDT) eGFR [...] Final R esult [facility] ([place]) 1 [facility] [place] [address] * (ABNORMAL) Differential, auto (12/24/2024 4:43 PM CDT) Neutrophil abs 5.2 1.5 - 6.5 K/cumm Imm gran abs 0.0 0.0 - 0.1 K/cumm [facility] ([place]) Lymphocyte abs 4.1(H) 0.8 - 3.3 K/cumm [facility] ([place]) Monocyte abs 0.5 0.2 - 0.8 K/cumm [facility] ([place]) Eosinophil abs 0.2 0.0 - 0.5 K/cumm [facility] ([place]) Basophil abs 0.1 0.0 - 0.1 K/cumm [facility] ([place]) Neutrophil pct 52.1 % [facility] ([place]) Comment: Interpretive Data Percent cell count reference ranges are not reported, since discordance with absolute values may lead to misinterpretation of CBC data. Current Interpretive Data was last revised on 2018. Imm gran pct 0.2 % [facility] ([place]) Comment: Interpretive Data Percent cell count reference ranges are not reported, since discordance with absolute values may lead to misinterpretation of CBC data. Current Interpretive Data was last revised on 2018. Lymphocyte pct 40.8 % [facility] ([place]) Comment: Interpretive Data Percent cell count reference ranges are not reported, since discordance with absolute values may lead to misinterpretation of CBC data. Current Interpretive Data was last revised on 2018. Monocyte pct 4.7 % [facility] ([place]) Comment: Interpretive Data Percent cell count reference ranges are not reported, since discordance with absolute values may lead to misinterpretation of CBC data. Current Interpretive Data was last revised on 2018. Eosinophil pct 1.5 % [facility] ([place]) Comment: Interpretive Data Percent cell count reference ranges are not reported, since discordance with absolute values may lead to misinterpretation of CBC data. Current Interpretive Data was last revised on 2018. Basophil pct 0.7 % [facility] ([place]) Comment: Interpretive Data Percent cell count reference ranges are not reported, since discordance with absolute values may lead to misinterpretation of CBC data. Current Interpretive Data was last revised on 2018. Blood 12/24/2024 4:43 PM CDT 12/24/2024 5:19 PM CDT Alexander Martino MD LAB BLOOD ORDERABLES Final R esult [facility] ([place]) 1 [facility] [place] [address] * (ABNORMAL) CBC with auto differential (12/24/2024 4:43 PM CDT) WBC 10.0(H) 3.8 - 9.9 K/cumm Hgb 15.7(H) 11.9 - 15.5 g/dL [facility] ([place]) Hct 49.3(H) 35.6 - 45.5 [...] RDW SD 45.0 35.7 - 48.1 fL [facility] ([place]) NRBC abs 0.00 0.00 - 0.01 K/cumm [facility] ([place]) Blood Venous blood specimen / Unknown 12/24/2024 4:43 PM CDT 12/24/2024 5:19 PM CDT Alexander Martino MD LAB BLOOD ORDERABLES Final R esult [facility] ([place]) 1 [facility] [place] [address] * Lipase (12/24/2024 4:43 PM CDT) Lipase 13 10 - 99 Units/L Blood Venous blood specimen / Unknown 12/24/2024 4:43 PM CDT 12/24/2024 5:19 PM CDT Alexander Martino MD LAB BLOOD ORDERABLES Final R esult Performing Organization Address City/[facility] Co de Phone Number [facility] ([place]) 1 [facility] [place] [address] * (ABNORMAL) Comprehensive metabolic panel (12/24/2024 4:43 [...] Bilirubin, total <0.2 0.1 - 1.2 mg/dL [facility] ([place]) Protein, pl 7.2 6.5 - 8.5 g/dL [facility] ([place]) Albumin 4.2 3.5 - 5.0 g/dL [facility] ([place]) Alk phos 86 40 - 130 Units/L [facility] ([place]) ALT 10 7 - 45 Units/L [facility] ([place]) Comment: Hemolysis present. Results may be affected. Moderately Hemolyzed Specimen AST 17 10 - 45 Units/L [facility] ([place]) Comment: Hemolysis present. Results may be affected. Moderately Hemolyzed Specimen Blood 12/24/2024 4:43 PM CDT 12/24/2024 5:19 PM CDT us Alexander Martino MD LAB BLOOD ORDERABLES Final R esult [facility] ([place]) 1 [facility] [place] [address] * eGFR (12/21/2024 11:24 AM CDT) eGFR [...] BLOOD ORDERABLES Final R esult [facility] ([place]) 1 [facility] [place] [address] * Differential, auto (12/21/2024 11:24 AM CDT) Neutrophil abs 4.3 1.5 - 6.5 K/cumm Imm gran abs 0.0 0.0 - 0.1 K/cumm [facility] ([place]) Lymphocyte abs 2.3 0.8 - 3.3 K/cumm [facility] ([place]) Monocyte abs 0.3 0.2 - 0.8 K/cumm [facility] ([place]) Eosinophil abs 0.0 0.0 - 0.5 K/cumm [facility] ([place]) Basophil abs 0.1 0.0 - 0.1 K/cumm [facility] ([place]) Neutrophil pct 60.9 % [facility] ([place]) Comment: Interpretive Data Percent cell count reference ranges are not reported, since discordance with absolute values may lead to misinterpretation of CBC data. Current Interpretive Data was last revised on 2018. Imm gran pct 0.3 % [facility] ([place]) Comment: Interpretive Data Percent cell count reference [...] 2018. Monocyte pct 3.7 % [facility] ([place]) Comment: Interpretive Data Percent cell count reference ranges are not reported, since discordance with absolute values may lead to misinterpretation of CBC data. Current Interpretive Data was last revised on 2018. Eosinophil pct 0.4 % [facility] ([place]) Comment: Interpretive Data Percent cell count reference [...] Final R esult [facility] ([place]) 1 [facility] [place] [address] * (ABNORMAL) CBC with auto differential (12/21/2024 [...] ORDERABLES Final R esult [facility]) 1 [facility] [place] [address] * Lipase (12/21/2024 11:24 AM CDT) Lipase 18 10 - 99 Units/L Blood 12/21/2024 11:2 4 AM CDT 12/21/2024 11:27 AM CDT Alexander Martino MD LAB BLOOD ORDERABLES Final R esult Performing Organization Address [facility] Co de Phone Number [facility] [facility] ([place]) [address] [facility] [place] [address] * (ABNORMAL) Comprehensive metabolic panel (12/21/2024 11:24 AM CDT) Sodium 136 135 - 145 mmol/L Potassium, pl 4.1 3.3 - 4.9 mmol/L [facility] ([place]) Chloride 101 97 - 110 mmol/L [facility] ([place]) CO2 21(L) 22 - 32 mmol/L [facility] ([place]) Anion gap 14 2 - 15 mmol/L [facility] ([place]) BUN 10 6 - 25 mg/dL [facility] ([place]) Creatinine 0.85 0.60 - 1.10 mg/dL [facility] ([place]) Glucose 157 70 - 199 mg/dL [facility] ([place]) Comment: Interpretive Data Fasting glucose >/= [...] ORDERABLES Final R esult Performing Organization Address [facility]/ZIP Co de Phone Number [facility] ([place]) 1 [facility] [place] [address] * POCT glucose (12/21/2024 7:24 AM CDT) [facility] Glucose, POC 99 70 - 199 mg/dL Blood 12/21/2024 7:24 AM CDT 12/21/2024 7:24 AM CDT Love Menon MD LAB POCT ORDERABLES - DEVICE Fi nal Result Performing Organization Address City/[facility] Co de Phone Number [facility] ([place]) 1 [facility] [place] [address] * Reflex Hepatitis C RNA, Quantitative (12/21/2024 3:28 AM CDT) [facility] HCV RNA result Not Detected [facility] Comment: The quantifiable range of this assay is 15 IU/mL to 100,000,000 IU/mL (1.18 log IU/mL to 8.00 log IU/mL). Testing was performed by the POONAM 6800 HCV Test ([employer] Testing performed at [facility] Current Interpretive Data was last revised on 2021 Testing performed by: [facility], [address] [place]., [address] Blood 12/21/2024 3:28 AM CDT 12/22/2024 9:40 AM CDT us Nathan Monahan MD LAB BLOOD ORDERABLES Final Result [facility] ([place]) 1 [facility] [place] [address] [facility] * eGFR (12/21/2024 3:28 AM CDT) [...] S Final Result [facility] ([place]) 1 [facility] [place] [address] * (ABNORMAL) Differential, auto (12/21/2024 3:28 AM [...] ORDERABLE S Final Result Performing Organization Address City/[facility] Co de Phone Number [facility] ([place]) 1 [facility] [place] [address] * (ABNORMAL) CBC with auto differential (12/21/2024 [...] ORDERABLE S Final Result Performing Organization Address City/[facility]/ZIP Co de Phone Number [facility] ([place]) 1 [facility] [place] [address] * (ABNORMAL) Hepatitis C antibody Blood (12/21/2024 [...] last revised on 2019. Testing performed by: [address] [address] Blood 12/21/2024 3:28 AM CDT 12/21/2024 9:03 AM CDT Nathan Monahan MD LAB MICROBIOLOGY - GENERAL ORDERABLES Final Result [facility] ([place]) [address] [place] [address] [place] [address] * Hepatitis B Surface Antigen Blood (12/21/2024 3:28 AM CDT) HepBsAg Nonreactive Nonreactive Comment:Testing performed by : [facility], [address] [place] [address]., [address] Blood 12/21/2024 3:28 AM CDT 12/21/2024 9:03 AM CDT Nathan Monahan MD LAB MICROBIOLOGY - GENERAL ORDERABLES Final Result [facility] ([place]) 1 [place] [address] * Erythrocyte sedimentation rate (12/21/2024 3:28 AM CDT) Erythrocyte sedimentation rate 5 1 - 30 mm/hr Blood 12/21/2024 3:28 AM CDT 12/21/2024 3:38 AM CDT Nathan Monahan MD LAB BLOOD ORDERABLES Final Result [facility] ([place]) 1 [facility] [place] [address] * CRP (acute phase) (12/21/2024 3:28 AM CDT) Pathologist [facility] CRP 4.4 <=10.0 mg/L Blood 12/21/2024 3:28 AM CDT 12/21/2024 3:38 AM CDT Nathan Monahan MD LAB BLOOD ORDERABLES Final Result Performing Organization Address City/[facility]/ZIP Co de Phone Number [facility] ([place]) [address] [facility] [place] [address] * Phosphorus (12/21/2024 3:28 AM CDT) Pathologist [facility] Phosphorus, pl 3.9 2.3 - 4.5 mg/dL Blood 12/21/2024 3:28 AM CDT 12/21/2024 3:38 AM CDT us Amie Alonso DO LAB BLOOD ORDERABLES Fin al Result [facility] ([place]) [address] [facility] [place] [address] * Magnesium (12/21/2024 3:28 AM CDT) Pathologist [facility] Magnesium 2.0 1.4 - 2.5 mg/dL Blood 12/21/2024 3:28 AM CDT 12/21/2024 3:38 AM CDT Amie Alonso DO LAB BLOOD ORDERABLES Fin al Result [facility] ([place]) 1 [facility] [place], [place] [id number] * (ABNORMAL) Comprehensive metabolic panel (12/21/2024 3:28 [...] ORDERABLE S Final Result Performing Organization Address [facility]/ZIP Co de Phone Number [facility] ([place]) [address] [facility] [place] [address] * POCT glucose (12/21/2024 2:23 AM CDT) Glucose, POC 95 70 - 199 mg/dL Blood 12/21/2024 2:23 AM CDT 12/21/2024 2:23 AM CDT Veda Garay MD LAB POCT ORDERABLES - DEVICE F inal Result Performing Organization Address [facility] Co de Phone Number [facility] ([place]) 1 [place] [address] * POCT glucose (12/20/2024 8:05 PM CDT) Glucose, POC 93 70 - 199 mg/dL Blood 12/20/2024 8:05 PM CDT 12/20/2024 8:05 PM CDT Veda Garay MD LAB POCT ORDERABLES - DEVICE F inal Result Performing Organization Address [facility] Co de Phone Number [facility] ([place]) [address] [facility] [place] [address] * Troponin T high-sensitivity 6-hour (12/20/2024 1:32 PM CDT) Trop T hs 9 <=14 ng/L Comment: Interpretive Data For further hscTnT resources including the diagnostic algorithm and an aid in interpretation, copy and paste this link: https://nrl.testcatalog.org/show/hsTrop Current Interpretive Data last revised 2020. Trop T hs delta 1 ng/L [facility] ([place]) Trop T hs interp Insignificant [facility] ([place]) Blood 12/20/2024 1:32 PM CDT 12/20/2024 1:36 PM CDT Anya Rae MD LAB BLOOD ORDERABLE S Final Result [facility] ([place]) 1 [place] [address] * Sepsis Lactate w/ Reflex (12/20/2024 1:32 PM CDT) Sepsis Lactate 1.1 0.7 - 2.0 mmol/L Blood 12/20/2024 1:32 PM CDT 12/20/2024 1:36 PM CDT Anya Rae MD LAB BLOOD ORDERABLE S Final Result Performing Organization Address [facility]/ZIP Co de Phone Number [facility] ([place]) 1 [facility] [place] [address] * Thyroid Function [place] (12/20/2024 1:32 PM CDT) TSH 3.85 0.30 - 4.20 mcIUnit/mL Blood 12/20/2024 1:32 PM CDT 12/20/2024 7:17 PM CDT Amie Alonso DO LAB BLOOD ORDERABLES Fin al Result [facility] ([place]) 1 [place] [address] * Troponin T high-sensitivity 4-hour (12/20/2024 11:39 AM CDT) Trop T hs 8 <=14 ng/L Comment: Interpretive Data For further hscTnT resources including the diagnostic algorithm and an aid in interpretation, copy and paste this link: https://nrl.testcatalog.org/show/hsTrop Current Interpretive Data last revised 2020. Trop T hs delta 0 ng/L [facility] ([place]) Trop T hs interp Insignificant [facility] ([place]) Blood 12/20/2024 11:3 9 AM CDT 12/20/2024 11:42 AM CDT Anya Rae MD LAB BLOOD ORDERABLE S Final Result [facility] ([place]) [address] [facility] [place] [address] * (ABNORMAL) Sepsis Lactate w/ Reflex (12/20/2024 11:39 AM CDT) Sepsis Lactate 2.4(H) 0.7 - 2.0 mmol/L Blood 12/20/2024 11:3 9 AM CDT 12/20/2024 11:42 AM CDT Anya Rae MD LAB BLOOD ORDERABLE S Final Result Performing Organization Address City/[facility] Co de Phone Number [facility] ([place]) 1 [facility] [place] [address] * (ABNORMAL) Urinalysis reflex to microscopic and culture Urine (12/20/2024 10:10 AM CDT) Color, ur Straw Yellow Clarity, ur Clear Clear [facility] ([place]) Specific gravity, ur 1.034(H) 1.003 - 1.030 [facility] ([place]) pH, urine 5.5 [facility] ([place]) Comment: Interpretive Data U rine pH is affected by diet, medications, systemic acid-base disturbances, and renal tubular function. pH may affect urinary stone formation. For example, urine pH below 6.0 may help reduce the tendency for calcium phosphate stones and pH greater than 6.0 may reduce the tendency for uric acid stone formation. Source: [facility] [place] Current Interpretive Data was last revised on [...] Leukocyte esterase, ur Negative Negative [facility] ([place]) UA reflex comment Reflex conditions for microscopic UA and culture not met. [facility] ([place]) Urine 12/20/2024 10:1 0 AM CDT 12/20/2024 10:13 AM CDT us Anya Rae MD LAB MICROBIOLOGY - GENERAL ORDERABLES Final Result [facility] ([place]) 1 [facility] [place] [address] * CT Abdomen Pelvis W Contrast (12/20/2024 [...] Whitney Ivan M.D. LL: NANO Report ID: [id number] Reading Location: [id number] Procedure Note Whitney Ivan MD - 12/20/2024 [...] Whitney Ivan M.D. LL: LL Report ID: [id number] Reading Location: [place] [address] Anya Rae MD IMG CT PROCEDURES F inal Result * Troponin T high-sensitivity series (baseline, 2hr, 4hr, 6hr) (12/20/2024 7:06 AM CDT) [facility] Trop T hs 8 <=14 ng/L Comment: Interpretive Data For further hscTnT resources including the diagnostic algorithm and an aid in interpretation, copy and paste this link: https://nrl.testcatalog.org/show/hsTrop Current Interpretive Data last revised 2020. Blood 12/20/2024 7:06 AM CDT 12/20/2024 7:10 AM CDT Anya Rae MD LAB BLOOD ORDERABLE S Final Result [facility] [place]) 1 [facility] [place] [address] * (ABNORMAL) Sepsis Lactate w/ Reflex (12/20/2024 7:06 AM CDT) Sepsis Lactate 2.1(H) 0.7 - 2.0 mmol/L Blood 12/20/2024 7:06 AM CDT 12/20/2024 7:10 AM CDT us Anya Rae MD LAB BLOOD ORDERABLE S Final Result [facility] ([place]) 1 [facility] [place] [address] * ECG 12 lead (12/20/2024 12:38 AM INVENTORY REPRESENTATIVE) 12/20/2024 12:3 8 AM INVENTORY REPRESENTATIVE Narrative [facility] - 12/21/2024 9:24 AM CDT Vent Rate: 52 bpm RR Interval: 1134 msec CA Interval: 187 msec QRS Duration: 86 msec QT Interval: 439 msec QTC Interval: 420 msec P-R-T [place]: 92 - 54 - 67 degrees IMPRESSION: SINUS BRADYCARDIA BORDERLINE ECG NO CHANGE FROM PREVIOUS TRACING NOTED Electronically Signed By: Brian Venegas MD us Sandi Hull MD ECG ORDERABLES Final Res ult Performing Organization Address City/[facility]/ZIP Co de Phone Number [facility] [employer] [facility] * eGFR (12/20/2024 12:35 AM INVENTORY REPRESENTATIVE) eGFR 76 >=60 mL/min/1. 73 m2 Comment: [...] reviewed 2021. Blood 12/20/2024 12:3 5 AM INVENTORY REPRESENTATIVE 12/20/2024 12:38 AM INVENTORY REPRESENTATIVE Sandi Hull MD LAB BLOOD ORDERABLES Zeina shashi Result [facility] ([place]) 1 [facility] [place] [address] * (ABNORMAL) Differential, auto (12/20/2024 12:35 AM INVENTORY REPRESENTATIVE) Neutrophil abs 3.6 1.5 - 6.5 K/cumm Imm gran abs 0.0 0.0 - 0.1 K/cumm [facility] ([place]) Lymphocyte abs 4.8(H) 0.8 - 3.3 K/cumm [facility] ([place]) Monocyte abs 0.5 0.2 - 0.8 K/cumm [facility] ([place]) Eosinophil abs 0.2 0.0 - 0.5 K/cumm [facility] ([place]) Basophil abs 0.1 0.0 - 0.1 K/cumm [facility] ([place]) Neutrophil pct 38.9 % [facility] ([place]) Comment: Interpretive Data Percent cell count reference [...] on 2018. Blood 12/20/2024 12:3 5 AM INVENTORY REPRESENTATIVE 12/20/2024 12:38 AM INVENTORY REPRESENTATIVE us Sandi Hull MD LAB BLOOD ORDERABLES Zeina danielle Result [facility] ([place]) 1 [facility] [place] [address] * (ABNORMAL) CBC with auto differential (12/20/2024 12:35 AM INVENTORY REPRESENTATIVE) WBC 9.2 3.8 - 9.9 K/cumm Hgb [...] NRBC abs 0.00 0.00 - 0.01 K/cumm [facility] ([place]) Blood 12/20/2024 12:3 5 AM INVENTORY REPRESENTATIVE 12/20/2024 12:38 AM INVENTORY REPRESENTATIVE Sandi Hull MD LAB BLOOD ORDERABLES Zeina l Result Performing Organization Address City/[facility]/ZIP Co de Phone Number [facility] ([place]) [address] [facility] [place] [address] * Lipase (12/20/2024 12:35 AM INVENTORY REPRESENTATIVE) Pathologist [facility] Lipase 22 10 - 99 Units/L Blood 12/20/2024 12:3 5 AM INVENTORY REPRESENTATIVE 12/20/2024 12:38 AM INVENTORY REPRESENTATIVE Sandi Hull MD LAB BLOOD ORDERABLES Zeina l Result Performing Organization Address [facility] Co de Phone Number [facility] ([place]) 1 [place] [address] * Comprehensive metabolic panel (12/20/2024 12:35 AM INVENTORY REPRESENTATIVE) Sodium 140 135 - 145 mmol/L Potassium, pl 4.2 3.3 - 4.9 mmol/L [facility] ([place]) Chloride 102 97 - 110 mmol/L [facility] ([place]) CO2 27 22 - 32 mmol/L [facility] ([place]) Anion gap 11 2 - 15 mmol/L [facility] ([place]) BUN 8 6 - 25 mg/dL [facility] ([place]) Creatinine 0.85 0.60 - 1.10 mg/dL [facility] ([place]) Glucose 86 70 - 199 mg/dL [facility] ([place]) Comment: Interpretive Data Fasting [...] 7.0 6.5 - 8.5 g/dL [facility] ([place]) Albumin 4.0 3.5 - 5.0 g/dL [facility] ([place]) Alk phos 91 40 - 130 Units/L [facility] ([place]) ALT 10 7 - 45 Units/L [facility] ([place]) AST 11 10 - 45 Units/L [facility] ([place]) Blood 12/20/2024 12:3 5 AM INVENTORY REPRESENTATIVE 12/20/2024 12:38 AM INVENTORY REPRESENTATIVE us Sandi Hull MD LAB BLOOD ORDERABLES Zeina l Result [facility] ([place]) 1 [facility] [place] [address] * US RUQ (12/18/2024 2:15 PM INVENTORY REPRESENTATIVE) Anatomical Region Laterality Modality Abdomen N/A Ultrasound 12/18/2024 2:44 PM INVENTORY REPRESENTATIVE Narrative 12/18/2024 2:48 PM INVENTORY REPRESENTATIVE EXAM DESCRIPTION: US RUQ REASON FOR STUDY: [...] No no pericholecystic fluid. No positive sonographic [place] sign reported. BILIARY: The common bile duct [...] Hebert Montes D.O. AP: AP Report ID: [id number] Reading Location: [id number] Procedure Note Hebert Montes, DO - 12/18/2024 [...] No no pericholecystic fluid. No positive sonographic [place] signreported. BILIARY: The common bile duct measures [...] Hebert Montes D.O. AP: JESSE Report ID: [id number] Reading Location: [place] [address] us Kris Howe MD IMG US PROCEDURES F inal Result * eGFR (12/18/2024 12:58 PM INVENTORY REPRESENTATIVE) eGFR 81 >=60 mL/min/1. 73 m2 Comment: [...] reviewed 2021. Blood 12/18/2024 12:5 8 PM INVENTORY REPRESENTATIVE 12/18/2024 1:07 PM INVENTORY REPRESENTATIVE us Kris Howe MD LAB BLOOD ORDERABLE S Final Result [facility] [place]) 1 [facility] of Laboratories [place], [place] [id number] * (ABNORMAL) Differential, auto (12/18/2024 12:58 PM INVENTORY REPRESENTATIVE) Neutrophil abs 5.3 1.5 - 6.5 K/cumm [...] on 2018. Blood 12/18/2024 12:5 8 PM INVENTORY REPRESENTATIVE 12/18/2024 1:07 PM INVENTORY REPRESENTATIVE us Kris Howe MD LAB BLOOD ORDERABLE S Final Result [facility] ([place]) 1 [facility] [place] [address] * (ABNORMAL) CBC with auto differential (12/18/2024 12:58 PM INVENTORY REPRESENTATIVE) WBC 10.2(H) 3.8 - 9.9 K/cumm Hgb [...] [facility] ([place]) Blood 12/18/2024 12:5 8 PM INVENTORY REPRESENTATIVE 12/18/2024 1:07 PM INVENTORY REPRESENTATIVE us Kris Howe MD LAB BLOOD ORDERABLE S Final Result [facility] ([place]) 1 [facility] [place] [address] * Lipase (12/18/2024 12:58 PM INVENTORY REPRESENTATIVE) Lipase 24 10 - 99 Units/L Blood 12/18/2024 12:5 8 PM INVENTORY REPRESENTATIVE 12/18/2024 1:07 PM INVENTORY REPRESENTATIVE us Kris Howe MD LAB BLOOD ORDERABLE S Final Result [facility] ([place]) 1 [facility] [place] [address] * (ABNORMAL) Comprehensive metabolic panel (12/18/2024 12:58 PM INVENTORY REPRESENTATIVE) Sodium 134(L) 135 - 145 mmol/L Potassium, [...] S pecimen Blood 12/18/2024 12:5 8 PM INVENTORY REPRESENTATIVE 12/18/2024 1:07 PM INVENTORY REPRESENTATIVE us Kris Howe MD LAB BLOOD ORDERABLE S Final Result [facility] ([place]) 1 [facility] [place] [address] * COLONOSCOPY (09/27/2022 9:23 AM INVENTORY REPRESENTATIVE) Anatomical Region Laterality Modality Other Narrative Procedure Note Clyde Esparza MD - 09/27/2022 9:23 AM CST [facility] Patient Name: Ayala Jauregui Procedure Date: 09/27/2022 9:23 AM Date of : 1960 Admit Type: Outpatient Age: 62 Gender: Female Attending MD: Clyde Esparza M.D. Room: [facility] ENDOSCOPY ROOM 2 Note Status: Finalized Patient [...] scope was passed under direct vision. TheColonoscope [id number] was introduced through the anus and advanced [...] 9:23 AM Procedure Code(s): --- Professional --- 22152, Colonoscopy, flexible; with removal of tumor(s), polyp(s), or other lesion(s) by snare technique Diagnosis Code(s): --- Professional --- D12.3, Benign neoplasm of transverse colon (hepatic flexure orsplenic flexure) D12.4, Benign neoplasm of descending colon D12.5, Benign neoplasm of sigmoid colon K64.9, Unspecified hemorrhoids Z86.010, Personal history of colonic polyps CPT copyright 2020 [employer]. All rights reserved. The codes documented in this report are preliminary and upon food and beverage director reviewmay be revised to meet current compliance requirements. Recognized by the [place] [employer] for promoting quality in endoscopy Clyde Esparza MD ENDOSCOPY PROCEDURES Final Re sult from Last 3 Months or Most Recently Relevant to Health Maintenance Insurance [facility] OTHER Address: [address] [place] [id number] MEDICARE IDPA [facility] MEDICARE Advance Directives For more information, please contact: [phone] * Full Code (Latest Code Status on [...] 9:47 AM 09/27/2022 5:13 PM Care Teams Vehicle Washer Relationship Specialty Start Date End Date Tressa Johnson MD [address] [place] [id number] PCP - General Family Medicine 07/24/23 [place] [address] [facility] [address] [place] [address] Consulting Physician Pulmonary Disease 11/17/20 Nathan Monahan MD [address] [place] [address] DR QUINT[address] [place] [address] Consulting Physician Gastroenterology 01/09/25
--- OUTSIDE RECORDS SUMMARY | 2025-01-22 12:44 | XMS_ITS | Encounter Summary ---
Author Organization [facility] Address [address] [place] [address] Phone Care Team Providers Care Agricultural Adviser Name Role Phone Wesley Moya MD, Sethgodwinemilee Unavailable [phone] Riky Strauss MD Primary Care Provider [phone] Brayden Sellers MD Unavailable Michi Berman MD Unavailable Tressa Johnson MD Primary Care Provider [phone] Antoinette George APRN, BUSINESS OPERATIONS SPECIALIST Unavailable Reason for Visit * Reason Comments Medication Refill Encounter Details Date Type Department Care Team (Late st Contact Info) Description 09/02/2022 Refill [facility] - Pulmonology & Sleep Medicine [facility] [address] [place] [address] Michi Berman MD [address] [place] [address] Medication Refill Social History Tobacco [...] Coronavirus/COVID-19? No / Unsure 08/30/2022 10:06 AM PIPE ORGAN MECHANIC documented as of this encounter Miscellaneous Notes * Telephone Encounter - Shruti Connor RN - 09/03/2022 8:05 AM PIPE ORGAN MECHANIC Medication failed the protocol, provider to review [...] Dept 06/07/22 Office Visit Lico Kyle, NOELLE [facility] [address] 05/03/22 Office Visit Michi Berman MD [facility] 04/13/22 Office Visit Riky Strauss MD [facility] [address] 02/28/22 Office Visit Riky Strauss MD [facility] [address] 02/08/22 Office Visit Michi Berman MD [facility] [place] [facility] 12/29/21 Office Visit Riky Strauss MD [facility] [address] 12/22/21 Office Visit Madai Barrera APRN, BUSINESS OPERATIONS SPECIALIST [facility] [address] 11/10/21 Office Visit Riky Strauss MD [facility] [address] 11/06/21 Office Visit Michi Berman MD [facility] [place] [facility] 10/27/21 Office Visit Riky Strauss MD [facility] Showing recent visits within past 365 days and meeting all other requirements Future Appointments Date Type Provider Dept 09/10/22 Appointment Riky Strauss MD [facility] Showing future appointments within next 90 days and meeting all other requirements ORGAN MECHANIC documented in this encounter Plan of Treatment Not on file documented as of this encounter Visit Diagnoses Not on filedocumented in this encounter Additional Health Concerns Infection Onset Date Last Indicated Resolved Time Respiratory Rule-Out 10/16/2022 10/16/2022 023 6:16 AM PIPE ORGAN MECHANIC Influenza 10/16/2022 10/16/2022 10/23/2022 12:1 9 AM PIPE ORGAN MECHANIC COVID - 19 10/21/2022 10/21/2022 10/22/2022 7:50 AM PIPE ORGAN MECHANIC COVID - 19 10/28/2022 10/28/2022 10/29/2022 8:15 AM PIPE ORGAN MECHANIC Respiratory Rule-Out 10/28/2022 10/28/2022 023 4:15 PM PIPE ORGAN MECHANIC COVID - 19 11/09/2022 11/09/2022 11/19/2022 12:1 8 AM PIPE ORGAN MECHANIC COVID - 19 11/25/2022 11/25/2022 11/26/2022 8:06 AM PIPE ORGAN MECHANIC COVID - 19 10/15/2023 10/22/2023 11/01/2023 12:1 6 AM PIPE ORGAN MECHANIC COVID - 19 12/12/2023 12/12/2023 12/12/2023 4:38 AM PIPE ORGAN MECHANIC COVID - 19 12/23/2023 12/23/2023 12/23/2023 12:5 5 PM CDT COVID - 19 04/15/2024 04/15/2024 04/15/2024 4:34 PM CDT COVID - 19 08/25/2024 08/25/2024 08/25/2024 1:35 PM PIPE ORGAN MECHANIC COVID - 19 Confirmed 08/25/2024 08/25/2024 024 12:16 AM PIPE ORGAN MECHANIC COVID - 19 09/09/2024 09/09/2024 09/09/2024 1:04 PM PIPE ORGAN MECHANIC COVID - 19 09/13/2024 09/13/2024 09/13/2024 7:49 AM PIPE ORGAN MECHANIC documented as of this encounter Care Teams Agricultural Adviser Relationship Specialty Start Date End Date Riky Strauss MD [address] [place] [address] PCP - General Internal Medicine 09/18/21 07/29/23 Tressa Johnson MD [address] [place] [address] PCP - General Family Medicine 07/30/23 Contreras Olson MD [address] [place] [address] Psychiatry 06/17/19 Brayden Sellers MD [address] [place] [address] Consulting Physician Orthopaedic Sports Medicine 11/10/21 Michi Berman MD [address] [place] [address] Consulting Physician Pulmonary Disease 04/13/22 Antoinette George APRN, BUSINESS OPERATIONS SPECIALIST [address] [place] [address] Nurse Practitioner Advanced Practice Nurse 07/02/24 documented as of this encounter
--- OUTSIDE RECORDS SUMMARY | 2025-01-22 12:44 | XMS_ITS | Encounter Summary ---
Author Organization [facility] Address [address] [place] [address] Phone Care Team Providers Care Group Leader Wafer Pol[employer] Name Role Phone Wesley Moya MD, Contreras Unavailable [phone] Riky Strauss MD Primary Care Provider [phone] Brayden Sellers MD Unavailable Michi Berman MD Unavailable Tressa Johnson MD Primary Care Provider [phone] Antoinette George APRN, [facility] Unavailable Reason for Visit * Reason Comments Medication Refill Encounter Details Date Type Department Care Team (Late st Contact Info) Description 06/06/2022 Refill [facility] - Primary Care - [place] [address] [place] [address] Riky Strauss MD [address] [place], [place] [id number] Medication Refill Social History Tobacco Use Types [...] Dept 04/13/22 Office Visit Riky Strauss MD [facility] 02/28/22 Office Visit Riky Strauss MD [facility] 12/29/21 Office Visit Riky Strauss MD [facility] 12/22/21 Office Visit Madai Barrera APRN, INCOME AUDITOR [facility] 11/10/21 Office [facility] 10/27/21 Office Visit [facility] Stra[facility] 09/22/21 Office Visit Riky Strauss MD [facility] Showing recent visits within past 365 [...] Dept 04/13/22 Office Visit [facility] 02/28/22 Office Visit [facility] Stra[facility] 12/29/21 Office Visit [facility]ik[facility] Stra[facility] [address] 12/22/21 Office Visit Madai Barrera APRN, [facility] 11/10/21 Office Visit [facility]iky Stra[facility] 10/27/21 Office Visit [facility]iky Stra[facility] 09/22/21 Office Visit Riky Strauss MD [facility] Showing recent visits within past 365 [...] Respiratory Rule-Out 10/16/2022 10/16/2022 023 6:16 AM AIR CONDITIONER INSTALLER HELPER Influenza 10/16/2022 10/16/2022 10/23/2022 12:1 9 AM AIR CONDITIONER INSTALLER HELPER COVID - 19 10/21/2022 10/21/2022 10/22/2022 7:5 0 AM AIR CONDITIONER INSTALLER HELPER COVID - 19 10/28/2022 10/28/2022 10/29/2022 8:15 AM AIR CONDITIONER INSTALLER HELPER Respiratory Rule-Out 10/28/2022 10/28/2022 023 4:15 PM AIR CONDITIONER INSTALLER HELPER COVID - 19 11/09/2022 11/09/2022 11/19/2022 12:1 8 AM AIR CONDITIONER INSTALLER HELPER COVID - 19 11/25/2022 11/25/2022 11/26/2022 8:06 AM AIR CONDITIONER INSTALLER HELPER COVID - 19 10/15/2023 10/22/2023 11/01/2023 12:1 6 AM AIR CONDITIONER INSTALLER HELPER COVID - 19 12/12/2023 12/12/2023 12/12/2023 4:38 AM AIR CONDITIONER INSTALLER HELPER COVID - 19 12/23/2023 12/23/2023 12/23/2023 12:5 5 PM CDT COVID - 19 04/15/2024 04/15/2024 04/15/2024 4:34 PM CDT COVID - 19 08/25/2024 08/25/2024 08/25/2024 1:35 PM AIR CONDITIONER INSTALLER HELPER COVID - 19 Confirmed 08/25/2024 08/25/2024 024 12:16 AM AIR CONDITIONER INSTALLER HELPER COVID - 19 09/09/2024 09/09/2024 09/09/2024 1:04 PM AIR CONDITIONER INSTALLER HELPER COVID - 19 09/13/2024 09/13/2024 09/13/2024 7:49 AM AIR CONDITIONER INSTALLER HELPER documented as of this encounter Care Teams Group Leader Wafer Pol[employer] Relationship Specialty Start Date End Date Riky Strauss MD [address] [place] [address] PCP - General Internal Medicine 09/18/21 07/29/23 Tressa Johnson MD [address] [place] [id number] PCP - General Family Medicine 07/30/23 Contreras Olson MD [address] [address] Psychiatry 06/17/19 Brayden Sellers MD [address] [place] [address] Consulting Physician Orthopaedic Sports Medicine 11/10/21 Michi Berman MD [address] [place] [address] Consulting Physician Pulmonary Disease 04/13/22 Antoinette George APRN, INCOME AUDITOR [address] [place] [address] Nurse Practitioner Advanced Practice Nurse 07/02/24 documented as of this encounter
--- OUTSIDE RECORDS SUMMARY | 2025-01-22 12:44 | XMS_ITS | Clinical Summary ---
Author Organization [facility] Address [address] [place] [address] Phone Care Team Providers Care Head Of Commission Department Name Role Phone Wesley Moya MD, Christopher Unavailable [phone] Brayden Sellers MD Unavailable [phone] Michi Berman MD Unavailable Tressa Johnson MD Primary Care Provider [phone] [facility] Hospital[facility]toinette cabrera APRN, FIREWORKS MAKER Unavailable Allergies Active Allergy Reactions Criticality Noted [...] 01/02/2025 11:59 AM CDT Emergency [facility] Emergency [address] [place] [address] Kalyn Jeter APRN, FIREWORKS MAKER Generalized abdominal pain Discharge Disposition: Left Against Medical Advice 01/02/2025 Travel 01/01/2025 7:28 PM CDT - 01/01/2025 9:20 PM CDT Emergency [facility] Emergency [address] [place] [address] Discharge Disposition: LWBS 01/01/2025 Travel 12/30/2024 1:12 PM CDT - 12/30/2024 2:36 PM CDT Emergency [facility] Emergency [address] [place] [address] Discharge Disposition: LWBS 12/28/2024 9:01 AM CDT - 12/28/2024 11:59 PM CDT Hospital Encounter [facility] Nuclear Medicine [address] [place] [address] Snehal Davis CHILDHOOD TEACHER, FIREWORKS MAKER Discharge Disposition: Discharged to home or Selfcare 12/28/2024 Travel 12/23/2024 9:03 AM CDT - 12/23/2024 11:59 PM CDT Hospital Encounter [facility] Diagnostic Radiology [address] [place] [address] Snehal Davis, CHILDHOOD TEACHER, FIREWORKS MAKER Discharge Disposition: Discharged to home or Selfcare 12/23/2024 Travel 12/18/2024 11:04 AM OVEN TECHNICIAN - 12/18/2024 11:35 AM OVEN TECHNICIAN Emergency [facility] Emergency [address] [place] [address] Kalyn Jeter, CHILDHOOD TEACHER, FIREWORKS MAKER Discharge Disposition: Left Against Medical Advice 12/18/2024 7:24 AM OVEN TECHNICIAN - 12/18/2024 9:25 AM [facility] [address] [place] [address] Karin Jean MD Chronic abdominal pain Discharge Disposition: Discharged to home or Selfcare 12/18/2024 Travel 12/15/2024 2:47 AM OVEN TECHNICIAN - 12/15/2024 3:55 AM [facility] [address] [place] [address] Laz Ritter MD Abdominal pain, chronic, generalized Discharge Disposition: Discharged to home or Selfcare 12/15/2024 Travel 12/13/2024 9:21 AM OVEN TECHNICIAN - 12/13/2024 12:57 PM [facility] [address] [place] [address] Nataly Garner MD Generalized abdominal pain Discharge Disposition: Discharged to home or Selfcare 12/13/2024 5:49 AM OVEN TECHNICIAN - 12/13/2024 7:58 AM [facility] [address] [place] [address] Nataly Garner MD Generalized abdominal pain Discharge Disposition: Left Against Medical Advice 12/13/2024 Travel 12/10/2024 [facility] [address] [place] [address] Snehal Davis, CHILDHOOD TEACHER, FIREWORKS MAKER Nausea (Primary Dx); Epigastric pain 12/10/2024 Transcribe Orders [facility] Central Scheduling [address] [place] [address] Snehal Davis, CHILDHOOD TEACHER, FIREWORKS MAKER 12/08/2024 2:00 AM OVEN TECHNICIAN - 12/08/2024 6:22 AM OVEN TECHNICIAN Emergency [facility] Emergency [address] [place] [address] Jay Berumen MD Chronic abdominal pain Discharge Disposition: Discharged to home or Selfcare 12/08/2024 Travel 12/04/2024 6:22 AM OVEN TECHNICIAN - 12/04/2024 8:49 AM OVEN TECHNICIAN Emergency [facility] Emergency [address] [place] [address] Karin Jean MD Abdominal pain, unspecified abdominal location Discharge Disposition: Discharged to home or Selfcare 12/04/2024 Travel 12/02/2024 10:04 AM OVEN TECHNICIAN - 12/02/2024 11:42 AM OVEN TECHNICIAN [facility] [address] [place] [address] Sg Gtz DO Chronic abdominal pain Discharge Disposition: Discharged to home or Selfcare 12/02/2024 Travel 11/27/2024 12:03 PM OVEN TECHNICIAN - 11/27/2024 2:11 PM OVEN TECHNICIAN Emergency [facility] Emergency [address] [place] [address] Grant Loyd MD IBS (irritable bowel syndrome) Discharge Disposition: Discharged to home or Selfcare 11/27/2024 Travel 11/24/2024 7:03 PM OVEN TECHNICIAN - 11/24/2024 7:06 PM OVEN TECHNICIAN Emergency [facility] Emergency [address] [place] [address] Jorge Jewell MD Discharge Disposition: LWBS 11/24/2024 Travel 11/24/2024 Telephone [facility] - Gastroenterology - [place] [address] [place] [address] Antoinette George APRN, FIREWORKS MAKER 11/18/2024 Telephone [facility] Gastroenterology - [place] [address] [place] [address] Antoinette George APRN, FIREWORKS MAKER 11/14/2024 9:28 AM OVEN TECHNICIAN - 11/14/2024 11:22 AM OVEN TECHNICIAN [facility] Emergency [address] [place] [address] Sg Gtz DO Chronic abdominal pain Discharge Disposition: Discharged to home or Selfcare 11/14/2024 Travel 11/05/2024 12:28 PM OVEN TECHNICIAN - 11/05/2024 2:37 PM OVEN TECHNICIAN [facility] [address] [place] [address] Laz Ritter MD Generalized abdominal pain Discharge Disposition: Discharged to home or Selfcare 11/05/2024 Travel 11/05/2024 [facility] [place] [address] [place] [address] Antoinette George APRN, ISAMAR Abdominal Pain; Referral 10/29/2024 Results Follow-Up [facility] - [facility]ology - [place] [address] [place] [address] Antoinette George APRN, ISAMAR Epigastric pain (Primary Dx); Nausea; Early satiety; Weight loss 10/26/2024 8:00 AM OVEN TECHNICIAN - 10/26/2024 11:59 PM OVEN TECHNICIAN Hospital Encounter [facility] Nuclear Medicine 1 [facility] [place] [address] Antoinette George, CHILDHOOD TEACHER, FIREWORKS MAKER Discharge Disposition: Discharged to home or Selfcare [...] 23 Valent Pneumococcal conjugate PCV20 , polysaccharide CCV805 conjugate, adjuvant, PF 10/24/2022 TDAP Vaccine 07/08/2020,04/07/2017 [...] drink = 0.6 oz pur e alcohol) [facility] Utilities Answer Date Recorded In the past 12 months has [employer], gas, oil, or water [employer] threatened to shut off services in your home? Patient declined 05/10/2024 Social Connection and Isolation Panel [NHANES] A nswer Date Recorded In a typical week, how many times do you talk on the phone with family, friends, or neighbors? Patient declined 05/10/2024 How often do you get togethe r with friends or relatives? Patient declined 05/10/2024 How often do you attend sabianism or confucianism serv ices? Patient declined 05/10/2024 Do you belong to any clubs o r organizations such as sabianism groups, unions, fraternal or athletic groups, or [...] medical care, and heating? Patient declined 05/10/2024 [facility] - Occupational Stress Questionnaire Answer Date [...] place to sleep or slept in a halfway (including now)? Patient declined 12/23/2023 Housing Stability [...] any time in the past 12 m [facility], were you homeless or living in a halfway (including now)? Patient declined 05/10/2024 Sexually Active [...] Recommended Domains Addressed Status Status Reason/Outcome Date/Time [facility] [place] Food Insecurity Needs Food Insecurity Recommended 08/26/2024 10:46 PM OVEN TECHNICIAN [employer] Food Insecurity Needs Food Insecurity Recommended 08/26/2024 10:46 PM OVEN TECHNICIAN [employer] Instructor Detoxification, Medications for Mental Health, Substance Use Recovery Home, Substance Use Counseling, Substance Use Services Tobacco Use, Stress Recommended 08/26/2024 10:46 PM OVEN TECHNICIAN [facility] Financial Resource Needs Financial Resource Strain Recommended 08/26/2024 10:46 PM OVEN TECHNICIAN [facility] Financial Resource Needs Financial Resource Strain Recommended 08/26/2024 10:46 PM OVEN TECHNICIAN from Last 12 Months Procedures Procedure Name Priority Date/Time Associated Diagnosis Comments NM HEPATOBILIARY WITH PHARM Routine 12/28/2024 11:19 AM CDT Nausea Epigastric pain XR UPPER GI SERIES WITH SMALL BOWEL FOLLOW THROUGH Routine 12/23/2024 12:39 PM CDT Nausea Epigastric pain URINE DRUG SCREEN STAT 12/13/2024 10:[address] ABDOMEN PELVIS W/ CONTRAST Stat with Interpretation 12/13/2024 10:32 AM OVEN TECHNICIAN URINALYSIS REFLEX IF INDICATED BY ABNORMAL RESULTS STAT 12/13/2024 10:19 AM OVEN TECHNICIAN URINALYSIS REFLEX IF INDICATED BY ABNORMAL RESULTS STAT 12/13/2024 6:37 AM OVEN TECHNICIAN GOLD TOP TUBE STAT 12/13/2024 6:29 AM OVEN TECHNICIAN CBC WITH AUTO DIFFERENTIAL STAT 12/13/2024 6:29 AM OVEN TECHNICIAN EXTRA TUBES STAT 12/13/2024 6:29 AM OVEN TECHNICIAN LIPASE STAT 12/13/2024 6:29 AM OVEN TECHNICIAN CMP (COMPREHENSIVE METABOLIC PANEL) STAT 12/13/2024 6:29 AM OVEN TECHNICIAN COMPLETE BLOOD COUNT (CBC) WITH DIFF STAT 12/13/2024 6:29 AM OVEN TECHNICIAN URINALYSIS REFLEX IF INDICATED BY ABNORMAL RESULTS STAT 12/04/2024 8:07 AM OVEN TECHNICIAN CBC WITH AUTO DIFFERENTIAL STAT 12/02/2024 10:18 AM OVEN TECHNICIAN COMPLETE BLOOD COUNT (CBC) WITH DIFF STAT 12/02/2024 10:18 AM OVEN TECHNICIAN CMP (COMPREHENSIVE METABOLIC PANEL) STAT 12/02/2024 10:18 AM OVEN TECHNICIAN CBC WITH AUTO DIFFERENTIAL STAT 11/27/2024 11:29 AM OVEN TECHNICIAN LIPASE STAT 11/27/2024 11:29 AM OVEN TECHNICIAN CMP (COMPREHENSIVE METABOLIC PANEL) STAT 11/27/2024 11:29 AM OVEN TECHNICIAN COMPLETE BLOOD COUNT (CBC) WITH DIFF STAT 11/27/2024 11:29 AM OVEN TECHNICIAN CBC WITH AUTO DIFFERENTIAL STAT 11/14/2024 9:55 AM OVEN TECHNICIAN LIPASE STAT 11/14/2024 9:55 AM OVEN TECHNICIAN COMPLETE BLOOD COUNT (CBC) WITH DIFF STAT 11/14/2024 9:55 AM OVEN TECHNICIAN CMP (COMPREHENSIVE METABOLIC PANEL) STAT 11/14/2024 9:55 AM OVEN TECHNICIAN CBC WITH AUTO DIFFERENTIAL STAT 11/05/2024 1:31 PM OVEN TECHNICIAN LIPASE STAT 11/05/2024 1:31 PM OVEN TECHNICIAN CMP (COMPREHENSIVE METABOLIC PANEL) STAT 11/05/2024 1:31 PM OVEN TECHNICIAN COMPLETE BLOOD COUNT (CBC) WITH DIFF STAT 11/05/2024 1:31 PM OVEN TECHNICIAN NM GASTRIC EMPTYING STUDY Less Than 2 weeks 10/26/2024 10:15 AM OVEN TECHNICIAN Epigastric pain Nausea Early satiety Weight loss CT CHEST W/O CONTRAST Stat with Interpretation 09/09/2024 12:10 PM OVEN TECHNICIAN HEMOGLOBIN A1C W/ ESTIMATED GLUCOSE STAT 04/19/2024 9:11 AM CDT HM COLONOSCOPY 09/27/2022 12:00 AM OVEN TECHNICIAN STOOL, OCCULT BLOOD, DIAGNOSTIC, VIA GUAIAC STAT [...] Lico Miles M.D. LB: LB Report ID: [id number] Reading Location: [id number] Procedure Note Lico Miles MD - 12/28/2024 [...] Lico Miles M.D. LB: LB Report ID: [id number] Reading Location: [id number] IMPRESSION: No scintigraphic evidence of common bile or cystic duct obstruction. Normal contractile response of the gallbladder to fatty meal stimulation. Snehal Davis CHILDHOOD TEACHER, FIREWORKS MAKER IMG NM ORDERABLES Fi nal Result * [...] Morteza Johnson M.D. MZ: PARMINDER Report ID: [id number] Reading Location: [id number] Procedure Note Morteza Johnson MD - 12/23/2024 [...] Morteza Johnson M.D. MZ: PARMINDER Report ID: [id number] Reading Location: [place] [id number] IMPRESSION: Mild delay in passage of contrast from the stomach into the small bowel. Delayed transit of contrast through the small bowel to the colon, reaching the ascending colon at approximately 3 hours. No small bowel dilatation or obvious small bowel mucosal abnormality. Suboptimal evaluation of the gastric mucosa Snehal Davis APRN, FIREWORKS MAKER IMG FLUOROSCOPY SIMONE ORTEGA Final Result * (ABNORMAL) Urine Drug Screen (12/13/2024 10:55 AM OVEN TECHNICIAN) UR AMPHETAMINE NON DETECTED NON DETECTED 12/13/2024 11:58 AM OVEN TECHNICIAN [facility] Comment: FOR MEDICAL USE ONLY. CUTOFF CONCENTRATION FOR DETECTED RESULT: AMPHETAMINE: 500 NG/ML UR BENZODIAZEPINES DETECTED(A) NON DETECTED 12/13/2024 11:58 AM OVEN TECHNICIAN [facility] Comment: FOR MEDICAL USE ONLY. CUTOFF CONCENTRATION FOR DETECTED RESULT: BENZODIAZAPINE: 200 NG/ML UR COCAINE METABOLITE NON DETECTED NON DETECTED 12/13/2024 11:58 AM OVEN TECHNICIAN [facility] Comment: FOR MEDICAL USE ONLY. CUTOFF CONCENTRATION FOR DETECTED RESULT: COCAINE: 150 NG/ML UR OPIATES NON DETECTED NON DETECTED 12/13/2024 11:58 AM OVEN TECHNICIAN [facility] Comment: FOR MEDICAL USE ONLY. CUTOFF CONCENTRATION FOR DETECTED RESULT: OPIATES: 300 NG/ML UR PHENCYCLIDINE NON DETECTED NON DETECTED 12/13/2024 11:58 AM OVEN TECHNICIAN [facility] Comment: FOR MEDICAL USE ONLY. CUTOFF CONCENTRATION FOR DETECTED RESULT: PCP: 25 NG/ML UR CANNABINOID DETECTED(A) NON DETECTED 12/13/2024 11:58 AM OVEN TECHNICIAN [facility] Comment: FOR MEDICAL USE ONLY. CUTOFF CONCENTRATION FOR DETECTED RESULT: THC (MARIJUANA): 50 NG/ML UR BARBITURATE NON DETECTED NON DETECTED 12/13/2024 11:58 AM OVEN TECHNICIAN [facility] Comment: FOR MEDICAL USE ONLY. CUTOFF CONCENTRATION FOR DETECTED RESULT: BARBITUATES: 200 NG/ML UR FENTANYL NON DETECTED NON DETECTED 12/13/2024 11:58 AM OVEN TECHNICIAN [facility] Comment: FOR MEDICAL USE ONLY. CUTOFF CONCENTRATION FOR DETECTED RESULT: FENTANYL: 1.0 NG/ML Urine Non-Phlebotomy Collection / Unknown 12/13/2024 10:55 AM OVEN TECHNICIAN 12/13/2024 11:11 AM OVEN TECHNICIAN us Nataly Garner MD URINE ORDERABLES Final Result [facility] [address] [place] [address] * CT ABDOMEN PELVIS W/ CONTRAST (12/13/2024 10:32 AM OVEN TECHNICIAN) Anatomical Region Laterality Modality Abdomen N/A Computed Tomogra phy 12/13/2024 11:5 1 AM OVEN TECHNICIAN Impressions 12/13/2024 11:53 AM OVEN TECHNICIAN IMPRESSION: 1. Slight pericholecystic fat stranding with normal distension of the gallbladder. Clinical correlation is recommended. If acute cholecystitis is clinically suspected, dedicated ultrasound could be considered for further evaluation. Narrative 12/13/2024 11:53 AM OVEN TECHNICIAN EXAM DESCRIPTION: CT ABDOMEN PELVIS W/ CONTRAST [...] James Lan M.D. AT: AT Report ID: [id number] Reading Location: [id number] Procedure Note James Lan MD - 12/13/2024 [...] James Lan M.D. AT: AT Report ID: [id number] Reading Location: [id number] IMPRESSION: 1. Slight pericholecystic fat stranding with normal distension of the gallbladder. Clinical correlation is recommended. If acute cholecystitis is clinically suspected, dedicated ultrasound could be considered for further evaluation. us Nataly Garner MD IMG CT ORDERABLES Final Resul t * (ABNORMAL) URINALYSIS REFLEX IF INDICATED BY ABNORMAL RESULTS (12/13/2024 10:19 AM OVEN TECHNICIAN) Only the most recent of3 resultswithin the time period is included. SPECIFIC GRAVITY 1.010 1.003 - 1.030 12/13/2024 11:46 AM [facility] URINE PH 8.0 5.0 - 9.0 12/13/2024 11:46 AM [facility] WBC ESTERASE Negative Negative 12/13/2024 11:46 AM [facility] NITRITE Negative Negative 12/13/2024 11:46 AM [facility] PROTEIN, RANDOM URINE 30 mg/dL(A) Negative 12/13/2024 11:46 AM [facility] URINE GLUCOSE, QUAL Negative Negative 12/13/2024 11:46 AM [facility] URINE KETONES Negative Negative 12/13/2024 11:46 AM [facility] UROBILINOGEN Normal Normal mg/dL 12/13/2024 11:46 AM [facility] URINE BLOOD Negative Negative reji/ul 12/13/2024 11:46 AM [facility] URINALYSIS COLOR Yellow 12/14/19 11:46 AM OVEN TECHNICIAN [facility] URINALYSIS CLARITY Clear 12/13/2024 11:46 AM OVEN TECHNICIAN [facility] WBC (Urine) 0-5 Negative, 0-5 /hpf 12/13/2024 11:46 AM OVEN TECHNICIAN [facility] URINE RBC'S 0-2 Negative, 0-2 /hpf 12/13/2024 11:46 AM OVEN TECHNICIAN [facility] EPITHELIAL CELLS Occasional /lpf 12/14/19 11:46 AM OVEN TECHNICIAN [facility] BACTERIA, URINE Few(A) Negative /hpf 12/13/2024 11:46 AM OVEN TECHNICIAN [facility] Urine URINE SPECIMEN OBTAINED BY CLEAN CATCH PROCEDURE / Unknown Non-Phlebotomy Collection / Unknown 12/13/2024 10:19 AM OVEN TECHNICIAN 12/13/2024 11:00 AM OVEN TECHNICIAN us Nataly Garner MD URINE ORDERABLES Final Result [facility] [address] [place] [address] * Gold Top Tube (12/13/2024 6:29 AM OVEN TECHNICIAN) Blood No Phlebotomy Charged / Unknown 12/13/2024 6:29 AM OVEN TECHNICIAN 12/13/2024 6:43 AM OVEN TECHNICIAN us Nataly Garner MD CHEMISTRY ORDERABLES Final Re sult [facility] [address] [place] [address] * (ABNORMAL) CBC with Auto Differential (12/13/2024 6:29 AM OVEN TECHNICIAN) Only the most recent of5 resultswithin the time period is included. WBC 11.29 4.00 - 12.00 10(3)/mcL 12/13/2024 6:46 AM OVEN TECHNICIAN [facility] RBC 6.06(H) 3.80 - 5.30 10(6)/mcL 12/13/2024 6:46 AM [facility] HEMOGLOBIN (HGB) 16.7(H) 12.0 - 15.8 g/dL 12/13/2024 6:46 AM [facility] HEMATOCRIT (HCT) 50.6(H) 36.0 - 47.0 % 12/13/2024 6:46 AM [facility] MCV 83.5 82.0 - 96.0 fL 12/13/2024 6:46 AM [facility] MCH 27.6 26.0 - 34.0 pg 12/13/2024 6:46 AM [facility] MCHC 33.0 31.0 - 36.0 g/dL 12/13/2024 6:46 AM [facility] PLATELET COUNT 281 140 - 440 10(3)/[facility] 12/13/2024 6:46 AM [facility] RDW 14.2 11.8 - 15.5 % 12/13/2024 6:46 AM [facility] MPV 11.5 9.7 - 12.4 fL 12/13/2024 6:46 AM [facility] NEUTROPHILS 65.6 47.0 - 73.0 % 12/13/2024 6:46 AM [facility] LYMPHOCYTES 27.6 18.0 - 42.0 % 12/13/2024 6:46 AM [facility] MONOCYTES 4.8 4.0 - 12.0 % 12/13/2024 6:46 AM [facility] EOSINOPHILS 1.0 0.0 - 5.0 % 12/13/2024 6:46 AM [facility] BASOPHILS 1.0 0.0 - 1.0 % 12/13/2024 6:46 AM [facility] ABSOLUTE NEUTROPHILS 7.41 1.60 - 7.70 10(3)/[facility] 12/13/2024 6:46 AM [facility] ABSOLUTE LYMPHOCYTES 3.12 1.30 - 3.20 10(3)/[facility] 12/13/2024 6:46 AM OVEN TECHNICIAN [facility] ABSOLUTE MONOCYTES 0.54 0.20 - 1.00 10(3)/[facility] 12/13/2024 6:46 AM OVEN TECHNICIAN [facility] ABSOLUTE EOSINOPHIL 0.11 0.00 - 0.40 10(3)/[facility] 12/13/2024 6:46 AM OVEN TECHNICIAN [facility] ABSOLUTE BASOPHILS 0.11(H) 0.00 - 0.10 10(3)/[facility] 12/13/2024 6:46 AM OVEN TECHNICIAN [facility] NRBC PER 100 WBC 0 12/14/19 25 6:46 AM OVEN TECHNICIAN [facility] Blood Venipuncture / Unknown 12/13/2024 6:29 AM OVEN TECHNICIAN 12/13/2024 6:42 AM OVEN TECHNICIAN Nataly Garner MD HEMATOLOGY ORDERABLES Final R esult Performing Organization Address City/[facility]/ZIP Co de Phone Number [facility] [address] [place] [address] * Lipase [id number] (12/13/2024 6:29 AM OVEN TECHNICIAN) Only the most recent of4 resultswithin the time period is included. Pathologist [facility] LIPASE 23 8 - 78 U/L 12/13/2024 7:03 AM OVEN TECHNICIAN [facility] Blood Venipuncture / Unknown 12/13/2024 6:29 AM OVEN TECHNICIAN 12/13/2024 6:42 AM OVEN TECHNICIAN us Nataly Garner MD CHEMISTRY ORDERABLES Final Re sult [facility] [address] [place] [address] * (ABNORMAL) Comprehensive Metabolic Panel (Cmp) [id number] (12/13/2024 6:29 AM OVEN TECHNICIAN) Only the most recent of5 resultswithin the time period is included. SODIUM 140 136 - 145 mmol/L 12/13/2024 7:03 AM [facility] POTASSIUM 4.8 3.5 - 5.1 mmol/L 12/13/2024 7:03 AM [facility] CHLORIDE 104 98 - 107 mmol/L 12/13/2024 7:03 AM [facility] CO2, VENOUS 21(L) 22 - 30 mmol/L 12/13/2024 7:03 AM [facility] ANION GAP 19.8(H) <18.0 mmol/L 12/13/2024 7:03 AM [facility] GLUCOSE 138(H) 70 - 99 mg/dL 12/13/2024 7:03 AM [facility] BUN 21(H) 10 - 20 mg/dL 12/13/2024 7:03 AM [facility] CREATININE, BLOOD 0.88 0.60 - 1.00 mg/dL 12/13/2024 7:03 AM [facility] BUN/CREATININE RATIO 24(H) 12 - 20 ratio 12/13/2024 7:03 AM [facility] TOTAL PROTEIN 8.9(H) 6.0 - 8.0 g/dL 12/13/2024 7:03 AM [facility] ALBUMIN 4.9 3.5 - 5.0 g/dL 12/13/2024 7:03 AM [facility] A/G RATIO 1.2 1.0 - 2.2 12/13/2024 7:03 AM [facility] CALCIUM 10.5 8.7 - 10.5 mg/dL 12/13/2024 7:03 AM [facility] T BILI 0.2 0.2 - 1.2 mg/dL 12/13/2024 7:03 AM [facility] SGOT (AST) 19 <43 U/L 12/13/2024 7:03 AM [facility] SGPT (ALT) 22 <56 U/L 12/13/2024 7:03 AM [facility] ALKALINE PHOSPHATASE 108 40 - 150 U/L 12/13/2024 7:03 AM OVEN TECHNICIAN [facility] GFR, ESTIMATED >60 >=60 12/13/2024 7:03 AM OVEN TECHNICIAN [facility] Comment: Creatinine Clearance is the preferred criteria for selecting drug dose adjustments in renally impaired patients. The GFR is provided as additional pertinent clinical information. GFR is reported in mL/min/1.73 sq m. Calculation based on the Chronic Kidney Disease Epidemiology Collaboration (CKD- EPI) equation refit without adjustment for race. GFR, EST. >60 >=60 025 7:03 AM OVEN TECHNICIAN [facility] GFR, EST. NONAFRICAN >60 >=60 12/13/2024 7:03 AM OVEN TECHNICIAN [facility] Blood Venipuncture / Unknown 12/13/2024 6:29 AM OVEN TECHNICIAN 12/13/2024 6:42 AM OVEN TECHNICIAN Nataly Garner MD CHEMISTRY ORDERABLES Final Re sult [facility] [address] [place] [address] * NM GASTRIC EMPTYING STUDY (10/26/2024 10:15 AM OVEN TECHNICIAN) Anatomical Region Laterality Modality GI, Abdomen N/A Nuclear Medicine 10/26/2024 10:4 6 AM OVEN TECHNICIAN Impressions 10/26/2024 10:48 AM OVEN TECHNICIAN IMPRESSION: Abnormal gastric emptying, initially with delayed gastric emptying followed by abnormal rapid gastric emptying. Narrative 10/26/2024 10:48 AM OVEN TECHNICIAN EXAM DESCRIPTION: NM GASTRIC EMPTYING STUDY REASON [...] Zia Rivers M.D. CH: DIMAS Report ID: [id number] Reading Location: [id number] Procedure Note Zia Rivers Jr., MD - [...] Zia Rivers M.D. CH: DIMAS Report ID: [id number] Reading Location: [id number] IMPRESSION: Abnormal gastric emptying, initially with delayed gastric emptying followed by abnormal rapid gastric emptying. Antoinette George [employer] TE[employer]ER, [employer] IMG NM ORDERABLES Final Result * CT CHEST W/O CONTRAST (09/09/2024 12:10 PM OVEN TECHNICIAN) Anatomical Region Laterality Modality Chest N/A Computed Tomogra phy 09/09/2024 1:06 PM OVEN TECHNICIAN Impressions 09/09/2024 1:09 PM OVEN TECHNICIAN IMPRESSION: Interval decreased patchy ground-glass airspace opacities [...] as clinically indicated. Narrative 09/09/2024 1:09 PM OVEN TECHNICIAN EXAM DESCRIPTION: CT CHEST W/O CONTRAST REASON FOR STUDY: c/o general illness symptoms, cough and sob x 2 days. Patient dx with Pneumonia 2-3 days ago at [facility] and RX antibx. Patient states she isn't [...] Floyd Max D.O. PS: PS Report ID: [id number] Reading Location: [id number] Procedure Note Floyd Max DO - 09/09/2024 EXAM DESCRIPTION: CT CHEST W/O CONTRAST REASON FOR STUDY: c/o general illness symptoms, cough and sob x 2 days. Patient dx with Pneumonia 2-3 days ago at [facility] and RX antibx. Patient states she isn't [...] Floyd Max D.O. PS: PS Report ID: [id number] Reading Location: [id number] IMPRESSION: Interval decreased patchy ground-glass airspace opacities [...] - 6.0 % 04/19/2024 1:58 PM CDT [facility] Est Average Glucose 131.2 mg/dL 04/19/2024 1:58 PM CDT [facility] Blood Venipuncture / Unknown 04/19/2024 9:11 AM CDT 04/19/2024 11:11 AM CDT Narrative [facility] - 04/19/2024 1:58 PM CDT HEMOGLOBIN A1C: DIABETIC PATIENTS: WELL-CONTROLLED: 6.2 - 7.0 INTERMEDIATE WELL-CONTROLLED: 7.0 - 9.0 POORLY-CONTROLLED: >9.0 us Nandini Moya MD CHEMISTRY ORDERABLES Final Re sult [facility] [address] [place] [address] * HM COLONOSCOPY (09/27/2022 12:00 AM OVEN TECHNICIAN) 09/27/2022 us Not On File Provider PROCEDURE/MINOR SURGICAL OR DERABLES Final Result SCAN * Stool, Occult Blood, Diagnostic (04/03/2022 3:55 PM CDT) OCCULT BLOOD DIAG, GI BLEED Negative Negative 04/03/2022 4:09 PM CDT [facility] Stool STOOL SPECIMEN / Unknown Non-Phlebotomy Collection / Unknown 04/03/2022 3:55 PM CDT 04/03/2022 4:03 PM CDT us Roxann Blackmon APRN, FIREWORKS MAKER BODY FLUIDS & STOOLS ORDERABLES Final Result Performing Organization Address [facility] Co de Phone Number [facility] [address] [place] [address] * CINTHYA SCREENING BILATERAL DIGITAL W CAD [...] Electronically signed by: Mary Kay kaiser/penrad:12/28/2021 12:31:28 Liquefaction Supervisor(s): Vicky Morales(Kateryna)(Mirella), [facility]: Normal Exam Reading location: [facility] BI-RADS: 1 Negative Procedure Note Mary Kay [...] Electronically signed by: Mary Kay kaiser/penrad:12/28/2021 12:31:28 Liquefaction Supervisor(s): Vicky Morales(Kateryna)(M), [facility] letter sent: Normal Exam Reading location: [facility] BI-RADS: 1 Negative us Riky Strauss MD IMG MAMMO ORDERABLES Zeina l Result * HEPATITIS C RNA QUANT PCR VIRAL LOAD (07/11/2017 12:38 PM CDT) HCV RNA QUANT PCR NON DETECTED NON DETECTED 07/16/2017 1:50 PM CDT [facility] HCV RNA QT LOG10 <=0.00 Log10 IU/mL 07/16/2017 1:50 PM CDT [facility] Comment: LOG 10 is not applicable. Sample held in Serology for 1 month. Call Laboratory if further testing is desired. This test was performed using POONAM AmpliPrep POONAM Taq Man Real Time PCR. 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 Care Teams Head Of Commission Department Relationship Specialty Start Date End Date Tressa Johnson MD [address] [place] [id number] PCP - General Family Medicine 07/30/23 Contreras Olson MD [address] [place] [address] Psychiatry 06/17/19 Brayden Sellers MD [address] [place] [address] Consulting Physician Orthopaedic Sports Medicine 11/10/21 Michi Berman MD [address] [place] [address] Consulting Physician Pulmonary Disease 04/13/22 Antoinette George APRN, FIREWORKS MAKER [address] [place] [address] Nurse Practitioner Advanced Practice Nurse 07/02/24
--- OUTSIDE RECORDS SUMMARY | 2025-01-22 12:44 | XMS_ITS | Encounter Summary ---
Author Organization [facility] Address [address] [place] [address] Phone Care Team Providers Care Certified Prosthetist Vice President Name Role Phone Wesley Moya MD, Christopher Unavailable [phone] Brayden Sellers MD Unavailable [phone] Michi Berman MD Unavailable Tressa Johnson MD Primary Care Provider [phone]- [phone] Antoinette George APRN, ELECTRICAL APPLIANCE PREPARER Unavailable Encounter Details Date Type Department Care Team (Late st Contact Info) Description 12/10/2024 Transcribe Orders [facility] Central Scheduling [address] [place] [address] Snehal Davis, RESEARCH MANAGER, ELECTRICAL APPLIANCE PREPARER [id number] [address] Social History Tobacco Use Types Packs/Day Years Used Date Smoking Tobacco: Some Days Cigarettes 0.5 2 Started: 02/01/2023 Smokeless Tobacco: Never Comments:Down to 4 cigs a da y Alcohol Use Standard Drinks/Week Comments No 0 (1 standard drink = 0.6 oz pur e alcohol) [facility] Utilities Answer Date Recorded In the [...] declined 05/10/2024 How often do you attend synagogue or restorationist serv ices? Patient declined 05/10/2024 Do you belong to any clubs o r organizations such as synagogue groups, unions, fraternal or athletic groups, or [...] medical care, and heating? Patient declined 05/10/2024 [facility] - [...] place to sleep or slept in a snf (including now)? Patient declined 12/23/2023 Housing Stability [...] any time in the past 12 [facility], were you homeless or living in a snf (including now)? Patient declined 05/10/2024 Sexually Active [...] on filedocumented in this encounter Care Teams Certified Prosthetist Vice President Relationship Specialty Start Date End Date Tressa Johnson MD [address] [place] [id number] PCP - General Family Medicine 07/30/23 Contreras Olson MD [address] [place] [address] Psychiatry 06/17/19 Brayden Sellers MD [address] [address] Consulting Physician Orthopaedic Sports Medicine 11/10/21 Michi Berman MD [address] [place] [address] Consulting Physician Pulmonary Disease 04/13/22 Antoinette George APRN, ELECTRICAL APPLIANCE PREPARER [address] [place] [address] Nurse Practitioner Advanced Practice Nurse 07/02/24 documented as of this encounter
--- OUTSIDE RECORDS SUMMARY | 2025-01-22 12:44 | XMS_ITS ---
Author Organization [facility] Address [address] [place] [address] Phone Care Team Providers Care Casino Attendant Name Role Phone JIMENA DRISCOLL, AMANDA Vu Primary Care Provider Plan of Treatment No Plan of Treatment Recorded Assessments Includes: Assessments for all patient encounters No Assessments Recorded Medical Equipment - Implanted Devices Includes: Current and historical Devices No Medical Equipment Recorded Medications Administered Includes: Administered Medications in patient's chart No Administered Medications Recorded Results Includes: Results from 01/23/2024 through 01/22/2025 No Results Recorded For Specified Dates History of Present Illness History of Present Illness not supported for this document type No History of Present Illness Recorded Social History No Social History Recorded - Smoking Status Unknown Medical History Includes: Medical History in patient's chart No Medical History Recorded Family History Includes: Family History in patient's chart No Family History Recorded Review of Systems Review of Systems not supported for this document type No Review of Systems Recorded Mental Status No Mental Status Recorded Functional Status No Functional Status Recorded Physical Exam Physical Exam not supported for this document type No Physical Exam Recorded Insurance Includes: Active Insurance Policies Plan Name Member ID Group # Subscriber Relationship Effect gagan Dates 1 - [employer] [id number] SHOAIB JAUREGUI Self Clinical Notes Includes: Signed Clinical Notes starting from 11/02/2022 No Clinical Notes Recorded
[2025-01-22 12:53] LABS: Add Urine Microscopic? NO; Appearance Urine Clear (Clear); Bilirubin Urine Negative (Negative); Blood Urine Negative (Negative); Color Urine Yellow (Yellow); Glucose Urine UA Negative (Negative); Ketones Urine Trace (Negative); Leukocyte Esterase Ur Negative LEU/UL (Negative); Nitrate Urine Negative (Negative); Protein Urine Negative (Negative)
[2025-01-22 13:01] LABS: Alanine Aminotransferase 15 U/L (14-59); Albumin Level 3.2 g/dL (3.4-5.0); Alkaline Phosphatase 94 U/L (46-116); Anion Gap 8 mmol/L (4-12); Aspartate Amino Transferase 10 U/L (15-37); Bilirubin,Total 0.2 mg/dL (0.00-1.00); Blood Urea Nitrogen 22 mg/dL (7-18); Calcium 8.9 mg/dL (8.5-10.1); Carbon Dioxide 29 mmol/L (21-32); Chloride 102 mmol/L (98-108); Estimated CRCL calculation 45 ml/min; Estimated Glomerular Filt Rate 51; Glucose 93 mg/dL (70-99); Lipase 121 U/L (16-77); Osmolality Calculated 291 mOsm/kg (285-295); Potassium 4.4 mmol/L (3.5-5.1); Sodium 139 mmol/L (136-145); Total Protein 7.2 g/dL (6.4-8.2)
[2025-01-22] MEDS: SODIUM CHLORIDE 0.9% IV 1,000 ML 999 ML IV CONT (13:03)
[2025-01-22 13:06] LABS: Lactic Acid Reflex 2.6 mmol/L (0.4-2.0)
[2025-01-22] MEDS: MORPHINE SULFATE (*CRX) 4 MG/ML INJ IV PUSH (13:07)
[2025-01-22] MEDS: ONDANSETRON INJ 4 MG/2 ML VIAL IV PUSH (13:07)
[2025-01-22 14:41] LABS: Reflex Lactic Acid Yes or No Add Lactic
[2025-01-22 15:15] LABS: Lactic Acid 1.8 mmol/L (0.4-2.0)
--- NOTE | 2025-01-22 15:32 | ED_ITS ---
HPI - Abdominal Pain General Chief Complaint: Abdominal Pain Stated Complaint: weakness , abdominal pain, shortness of breath Source: patient Mode of arrival: ambulatory Limitations: no limitations History of Present Illness HPI narrative: patient is a 65-year-old female with a significant past medical history that presents today with abdominal pain nausea vomiting. Patient states she has had this abdominal pain for the last 3 months now. she has seen her PCP a.m. she is seeing the specialist for this so well. She has had a CT scan done of her abdomen pelvis she has also seen with GI doctor and she has had an upper endoscopy today she says she has had 3 of them done. She said no one is found anything she has not had any month find anything wrong with her. They have not found a single thing well with her that could be causing this pain. They did not see anything on the endoscopies did not see anything on the CT scans. Abdominal pain is generalized. MD elicited complaint: abdominal pain Pertinent past history: none Onset (ago): month(s) Pain Consistency: intermittent Location: diffuse Severity: severe Pain scale (0-10): 10 Quality: cramping and stabbing Radiation: epigastric Migration to: epigastric Exacerbating factors: eating and movement Relieving factors: nothing Associated symptoms: nausea, vomiting and diarrhea Related Data Home Medications ?Medication ?Instructions ?Recorded ?Confirmed ?Last Taken ?Type albuterol sulfate 90 mcg/actuation 1 inh inhalation QID PRN sob 02/17/20 12/08/24 Unknown History aerosol inhaler sertraline 100 mg tablet 100 mg PO DAILY 02/17/20 12/08/24 Unknown History metoprolol succinate 100 mg 100 mg PO DAILY 11/10/20 12/08/24 Unknown History tablet,extended release 24 hr dicyclomine 20 mg tablet 20 mg PO BID 12/08/24 12/08/24 Unknown History ondansetron 4 mg disintegrating 4 mg PO Q8H 12/08/24 12/08/24 Unknown History tablet diazepam 5 mg tablet 5 mg PO TID PRN anxiety 01/22/25 Unknown History divalproex 500 mg tablet,extended 1,000 mg PO HS 01/22/25 Unknown History release 24 hr metformin 500 mg tablet,extended 500 mg PO QPM 01/22/25 Unknown History release 24 hr sucralfate 100 mg/mL oral 10 ml PO TID 01/22/25 Unknown History suspension ziprasidone HCl 60 mg capsule 60 mg PO BID 01/22/25 Unknown History Allergies Allergy/AdvReac Type Severity Reaction Status Date / Time Penicillins Allergy Mild Unknown Verified 01/22/25 12:39 Fish Allergy Severe Anaphylaxis Uncoded 01/22/25 12:39 Review of Systems 2 Review of Systems: All systems reviewed & are unremarkable except as noted in HPI and below Constitutional: Constitutional: Reports as per HPI Eyes: Eyes: Reports no additional eye complaints ENT: Reports system reviewed and no additional complaints, except as documented Cardiovascular: Cardiovascular: Reports no additional cardiovascular complaints Respiratory: Respiratory: Reports no additional respiratory complaints Gastrointestinal: Gastrointestinal: Reports as per HPI, Reports abdominal pain, Reports diarrhea, Reports nausea and Reports vomiting Genitourinary: Genitourinary: Reports no additional female genitourinary complaints Musculoskeletal: Musculoskeletal: Reports no additional musculoskeletal complaints Integumentary/Breasts: Skin/Breast: Reports system reviewed and no additional complaints, except as docu Neurologic: Reports system reviewed and no additional complaints, except as documented Psychiatric: Psychiatric: Reports no additional psychiatric complaints Endocrine: Endocrine: Reports no additional endocrine complaints Hematologic/Lymphatic: Hematologic/Lymphatic: Reports no additional hematologic/lymphatic complaints Allergic/Immunologic: Allergic/Immunologic: Reports no additional allergic/immunologic complaints [facility] Past Medical History Medical History Chronic back pain Hypothyroidism Bipolar disorder Social History Social History Smoking status: Current every day smoker Tobacco type: cigarettes Alcohol intake: never Substance use: never Substance use type: does not use Gender identity (if verbalized by the patient): Female Exam 2 Const: General: healthy appearing Nutritional Appearance: well nourished Orientation/consciousness: patient oriented x3 Limitations: no limitations HENMT: Head: normal to inspection Ears: external ears normal F celestine/Nose/Sinus: Normal external nose present Face and sinus: normal facial exam Mouth: Yes Normal oral and palatal mucosa present Eyes: Conjunctivae: conjunctivae normal Pupils: Equal, round and reactive pupils present EOM: EOMs intact bilaterally Direct Ophthalmoscopy: no photophobia Neck: Neck: normal visual inspection Chest: Chest palpation & inspection: normal inspection of the chest Resp: Effort & Inspection: normal respiratory effort Auscultation: clear to auscultation bilaterally Cardio: Rate: regular rate Rhythm: regular rhythm Heart sounds: Murmur heart sound present GI: GI Palp: Yes Tenderness to palpation present (GI) and Yes Guarding due to palpation present (GI) Back/Spine/Pelvis: Back: no CVA tenderness Skin: General skin exam: normal color Rashes: no rashes Wounds: no wounds Neuro: General: patient oriented x3 Cranial nerves: Yes Nystagmus not present Speech: normal speech Gait exam (Neuro): Normal gait present Extrem: General: normal to inspection Psych: Mental Status: mental status grossly normal Affect: normal affect Attitude: cooperative Course Vital Signs Vital signs: Vital Signs Temperature 98.1 F 01/22/25 12:07 Pulse Rate 68 01/22/25 12:07 Respiratory Rate 20 01/22/25 12:07 Blood Pressure 133/92 H 01/22/25 12:07 Pulse Oximetry 98 01/22/25 12:07 Oxygen Delivery Room Air 01/22/25 12:07 Temperature 98.1 F 01/22/25 12:07 Pulse Rate 68 01/22/25 12:07 Respiratory Rate 20 01/22/25 12:07 Blood Pressure 133/92 H 01/22/25 12:07 Pulse Oximetry 98 01/22/25 12:28 Oxygen Delivery Room Air 01/22/25 12:28 MDM - Abdominal Pain MDM Narrative Medical decision making narrative: Patient has severe abdominal pain however is white more psychological she does have bipolar history and she is seen multiple physicians for this exact same thing and seen a GI doctor as well and had CT scans done and upper endoscopies done multiple of them and is found nothing nothing that would describe her symptoms of abdominal pain or nausea or vomiting. She is severely dehydrated and needs fluids. Will give her fluids and give her IV Zofran as well. And give her some morphine for the pain. Differential Diagnosis Differential diagnosis: Likely abdominal pain and gastroenteritis Medical Records Attestation: I reviewed the patient's medical records. Lab Data Attestation: I reviewed the patient's lab results. 01/22/25 12:39 01/22/25 12:39 Labs: Lab Results 01/22/25 01/22/25 01/22/25 Range/Units 12:39 12:44 14:54 WBC 10.4 (4.8-10.8) K/mm3 RBC 5.53 H (4.20-5.40) M/mm3 Hgb 14.6 H (11.7-13.8) g/dL Hct 46.4 H (35.0-42.0) % MCV 83.9 (78.0-102.0) fL MCH 26.4 L (27.0-31.0) pg MCHC 31.5 L (32-36) g/dL RDW 13.8 (11.6-14.4) % Plt Count 202 (150-420) K/mm3 MPV 10.8 (9.2-11.8) fl Immature Gran % (Auto) 0.3 H (0.0-0.0) % Neut % (Auto) 49.8 L (50.0-70.0) % Lymph % (Auto) 42.0 (18.0-42.0) % [place] % (Auto) 6.0 (2.0-11.0) % Eos % (Auto) 1.1 (1.0-6.0) % Baso % (Auto) 0.8 (0.0-1.0) % Lymph # (Auto) 4.36 (1.10-4.50) K/mm3 [place] # (Auto) 0.62 (0.10-0.90) K/mm3 Eos # (Auto) 0.11 (0.02-0.50) K/mm3 Baso # (Auto) 0.08 (0.00-0.10) K/mm3 Abs Immat Gran (auto) 0.03 H (0.00-0.00) K/mm3 Absolute Neuts (auto) 5.17 (1.70-7.20) K/mm3 Absolute Nucleated RBC 0.00 (0.00-0.00) K/mm3 Nucleated RBC % 0.0 (0-0.0) % Sodium 139 (136-145) mmol/L Potassium 4.4 (3.5-5.1) mmol/L Chloride 102 (98-108) mmol/L Carbon Dioxide 29 (21-32) mmol/L Anion Gap 8 (4-12) mmol/L BUN 22 H (7-18) mg/dL Creatinine 1.08 H (0.55-1.02) mg/dL Estim Creat Clear Calc 45 ml/min Estimated GFR 51 L (59 - ) Glucose 93 (70-99) mg/dL Calculated Osmolality 291 (285-295) mOsm/kg Lactic Acid 2.6 H 1.8 (0.4-2.0) mmol/L Calcium 8.9 (8.5-10.1) mg/dL Total Bilirubin 0.2 (0.00-1.00) mg/dL AST 10 L (15-37) U/L ALT 15 (14-59) U/L Alkaline Phosphatase 94 (46-116) U/L Total Protein 7.2 (6.4-8.2) g/dL Albumin 3.2 L (3.4-5.0) g/dL Lipase 121 H (16-77) U/L Urine Color Yellow (Yellow) Urine Appearance Clear (Clear) Urine pH 6.0 (5.0-8.0) Ur Specific [place] 1.020 (1.010-1.020) Urine Protein Negative (Negative) Urine Glucose (UA) Negative (Negative) Urine Ketones Trace H (Negative) Ur Blood (Man) Negative (Negative) Urine Nitrate Negative (Negative) Urine Bilirubin Negative (Negative) Urine Urobilinogen 1.0 (0.2-1.0) mg/dL Leukocyte Esterase Rfl Negative (Negative) RON/UL Imaging Data Radiologist's impression: ITS Impressions Chest/Abdomen/Pelvis CT 01/22/25 14:01 Impression: No acute abnormalities seen. Discharge Plan Discharge Clinical Impression: Nausea, Epigastric abdominal pain, Gastroenteritis Patient Disposition: Home Condition: Stable Instructions: Abdominal Pain (ED) Patient Language: Lithuanian Prescriptions: No Action diazepam 5 mg tablet 5 mg PO TID PRN (Reason: anxiety) divalproex 500 mg tablet extended release 24 hr 1,000 mg PO HS metformin 500 mg tablet extended release 24 hr 500 mg PO QPM sucralfate 100 mg/mL suspension 10 ml PO TID ziprasidone HCl 60 mg capsule 60 mg PO BID metoprolol succinate 100 mg tablet extended release 24 hr 100 mg PO DAILY albuterol sulfate 2.5 mg /3 mL (0.083 %) solution for nebulization 2.5 mg inhalation Q4H PRN (Reason: shortness of breath or wheezing) Qty: 75 0RF sertraline 100 mg Tablet 100 mg PO DAILY albuterol sulfate 90 mcg/actuation Hfa Aerosol Inhaler 1 inh INHALATION QID PRN (Reason: sob) ondansetron 4 mg tablet,disintegrating 4 mg PO Q8H dicyclomine 20 mg tablet 20 mg PO BID omeprazole 40 mg capsule,delayed release(DR/EC) 40 mg PO BID Qty: 60 3RF Follow-up/Referrals: Alex,Tressa Huizar MD [Primary Care Provider] - Time of Disposition: 16:00
== END 2025-01-22 16:35 | disposition home or self-care (01) ==
PROVIDERS: Emergency Provider Family Medicine; PCP Family Medicine
DX: K52.9 Noninfective gastroenteritis and colitis, unspecified (principal); E03.9 Hypothyroidism, unspecified; F17.210 Nicotine dependence, cigarettes, uncomplicated
CPT/HCPCS: 36415; 71260; 74177; 80053; 81003; 83605; 83690; 85025; 96361; 96374; 96375; 99284; J2270; J2405; J7030; Q9967